=== PATIENT | female | born 1935 | race Caucasian/White ===

== ENCOUNTER 2018-03-13 08:44 | Emergency (ER) | payer MEDICARE, OTHER, SELFPAY ==
[2018-03-13 08:46] VITALS: BP 123/63; PULSE 88; RESP 17; TEMP 36.7; O2SAT 95; BMI 29.5
--- NOTE | 2018-03-13 08:59 | ED.VISSUMM ---
- ER Visit Summary Date of Service: 03/13/18 Chief Complaint: Dizziness, abdominal cramping History of Present Illness: The patient is a 82 F who is otherwise very healthy who only takes baby aspirin daily presents to the emergency department with abdominal cramping, vomiting, dizziness. Patient states that she ate lunch yesterday. She states she had a salad and some Sprite. She states shortly after, she began to get some abdominal cramping in both her left upper and left lower quadrant. She states the pain was severe and got as high as a 7 out of 10. She states that she really had no appetite. The pain started to resolve later in the evening, but then she began to have some vomiting. She states she vomited 3 times overnight. When she woke this morning, her pain was completely resolved. She does admit to some lightheadedness and just generalized malaise today. The patient does have a history of diverticulosis. She denies any fevers or chills. She has had no other abdominal surgery. Physical Examination: Vital signs reviewed General: Well-nourished, well-developed Head: Normocephalic, atraumatic Eyes: Pupils equal and reactive, extraocular muscles intact Neck, supple, no lymphadenopathy Heart: Regular rate and rhythm Respiratory: No distress, clear bilaterally Abdomen: Soft, nontender, nondistended, no peritoneal signs Back: Nontender Extremities: Nontender, no edema, no cords Skin: Normal color no rash Neuro: Alert and oriented, no focal or lateralizing deficits Test Results: [] Emergency Department Course and Treatment: This is a very well-appearing female who appears younger than stated age. She has no reproducible abdominal tenderness on examination. IV was established. Screening labs are obtained. The patient was hydrated and given Zofran. Screening labs do show a very mild leukocytosis. There are otherwise unremarkable. With fluids and Zofran, her dizziness has resolved. She continues to have no pain and a benign abdomen. I did discuss options with the patient. She does have a history of diverticulosis. However, she is totally pain-free. The patient is concerned because she is traveling to [place] tomorrow. I am going to prescribe Cipro and Flagyl, but the patient is going to wait to fill them unless she has return of pain fever, chills, other systemic symptoms. I do feel that this is the most prudent plan. This may just have been a short-lived gastrointestinal illness that is now resolved. Either way, as the patient is a benign abdomen and otherwise unremarkable workup with no reproducible pain I do feel that she is safe for outpatient therapy. She is comfortable with this plan of care. Treatment Plan: [] Disposition: Discharge Impression: 1. Left lower quadrant pain-resolved This note was generated with [employer] dictation software. It may contain incorrect words, spelling, and punctuation that were not noted in review of the chart prior to signing ED Disposition - Plan for ED Patient: Chief Complaint: Dizziness Instructions: ED Abdominal Pain Unkn Cause Prescriptions: Metronidazole [Flagyl] 500 mg PO Q12H #14 tab Ciprofloxacin [Cipro] 500 mg PO BID #14 tab Referrals: Chrissy Rojas [Primary Care Provider] -
[2018-03-13] MEDS: 0.9% Normal Saline 1,000 ML 1000 ML IV (09:08)
[2018-03-13] MEDS: Ondansetron 4 MG/2 ML Vial IV (09:08)
[2018-03-13 09:21] LABS: Absolute Lymphocyte Count 0.35 X10^3/ul (0.83-4.51); Absolute Neutrophil Count 11.5 X10^3/uL (2.0-7.7); Basophil# 0.01 X10^3/uL; Basophil% 0.1 % (0-1); Hematocrit 39.7 % (37-47); Hemoglobin 13.2 g/dl (12.0-15.0); Lymphocyte # 0.35 X10^3/ul (4.0); Lymphocyte % 2.8 % (19-41); Mean Corp Hgb Conc 33.2 g/gl (32-36); Mean Corpuscular Hgb 30.8 pg (27.0-32.0); Mean Corpuscular Volume 92.8 fL (81-99); Mean Platelet Vol. 9.8 fl (6.2-12.0); Monocyte% 6.3 % (0-10); Neutrophil % 90.6 % (47-70); Platelet Count 240 K/mm3 (150-450); RBC Distribution Width CV 13.5 % (11.6-14.6); RBC Distribution Width SD 44.8 fl (35.1-43.9); Red Blood Count 4.28 M/mm3 (4.2-5.4); White Blood Count 12.7 K/mm3 (4.4-11.0)
[2018-03-13 09:28] LABS: Differential Indicated SCAN CRITERIA MET; POSITIVE COUNT NO; POSITIVE DIFFERENTIAL YES; POSITIVE MORPHOLOGY NO
[2018-03-13 09:35] LABS: Differential Comment SCANNED
[2018-03-13 09:44] LABS: ALB/GLOB Ratio 0.9 RATIO (0.9-2.4); AST(SGOT) 17 U/L (15-37); Alanine Aminotransfer ALT/SGPT 22 U/L (13-56); Albumin, Serum 3.4 g/dL (3.2-5.0); Alkaline Phosphatase 62 U/L (45-117); Anion Gap 6 (5-15); BUN 15 mg/dL (7-18); BUN/Creat Ratio 14.6 RATIO (10-20); Calcium,Total 8.4 mg/dL (8.5-10.1); Chloride 104 mmol/L (98-107); Creatinine, Serum 1.03 mg/dL (0.55-1.02); EST Glomerular Filtration Rate 55 mL/min (>60); Est Glom Filt Rate - Afr Amer 66 mL/min (>60); Estimated Creatinine Clearance 43.21 ml/min; Globulin 3.7 g/dL (2.2-4.2); Glucose 138 mg/dL (74-106); Potassium 3.8 mmol/L (3.5-5.1); Protein, Total 7.1 g/dL (6.4-8.2); Sodium Level 137 mmol/L (136-145)
[2018-03-13 10:15] VITALS: BP 129/58; PULSE 73; RESP 18; O2SAT 94
== END 2018-03-13 10:22 | disposition home or self-care (01) ==
PROVIDERS: Emergency Provider Emergency Medicine; Family Provider Nurse Practitioner; PCP Nurse Practitioner
DX: R10.32 Left lower quadrant pain (principal); R11.2 Nausea with vomiting, unspecified; Z72.0 Tobacco use
CPT/HCPCS: 80053; 85025; 99284; A4216; J2405

== ENCOUNTER 2018-04-06 17:26 | Inpatient (IN) | payer MEDICARE, OTHER, SELFPAY ==
[2018-04-06 17:28] VITALS: BP 144/67; PULSE 101; RESP 18; TEMP 38.3; O2SAT 94; BMI 24.3
[2018-04-06 18:42] LABS: Absolute Neutrophil Count 10.4 X10^3/uL (2.0-7.7); Basophil# 0.01 X10^3/uL; Basophil% 0.1 % (0-1); Eosinophil# 0.09 X10^3/uL; Eosinophils% 0.8 % (0-5); Hematocrit 39.3 % (37-47); Hemoglobin 12.7 g/dl (12.0-15.0); Lymphocyte % 3.4 % (19-41); Mean Corp Hgb Conc 32.3 g/gl (32-36); Mean Corpuscular Hgb 29.3 pg (27.0-32.0); Mean Corpuscular Volume 90.8 fL (81-99); Mean Platelet Vol. 9.3 fl (6.2-12.0); Monocyte# 0.75 X10^3/uL; Monocyte% 6.4 % (0-10); Neutrophil # 10.42 X10^3/uL (2.7-7.7); Neutrophil % 89.2 % (47-70); Platelet Count 246 K/mm3 (150-450); RBC Distribution Width CV 13.3 % (11.6-14.6); Red Blood Count 4.33 M/mm3 (4.2-5.4); White Blood Count 11.7 K/mm3 (4.4-11.0)
--- NOTE | 2018-04-06 18:43 | CT_ITS ---
STUDY: CT ABDOMEN AND PELVIS WITH CONTRAST - REASON FOR EXAM: Female, 82 years old. Left abdominal pain RADIATION DOSAGE (If Supplied By Facility): CTDIvol = ( 17.24 ) mGy, DLP = ( 1611.74 ) mGycm TECHNIQUE: Transaxial images were obtained from the dome of the diaphragm to the symphysis pubis without oral contrast. 100ML ml of Isovue 300 contrast was administered. Multiplanar coronal and sagittal images were reformatted. CT venogram protocol utilized, with delayed images performed during venous phase. Individualized Dose Optimization Techniques Were Used For This CT. COMPARISON: None. FINDINGS: The visualized lung bases are unremarkable. The visualized portions of the heart are within normal limits. Normal liver. Normal gallbladder. There is mild prominence of the extrahepatic biliary system. Normal spleen. Normal pancreas. Normal bilateral adrenal glands. Normal right kidney. Hydronephrosis is noted of the left kidney with delayed contrast excretion. Limited visualization of the left ureter. A 7 mm calcification is noted within an left pelvic area. A left ureteral stone cannot be excluded.. Normal visualized stomach. Normal small intestine. Diverticulosis of the colon. The appendix is not visualized. Calcified abdominal aorta. No retroperitoneal adenopathy. IVC is patent. Normal urinary bladder. Normal uterus. Small fatty umbilical hernia of the abdominal wall. Degenerative vertebral changes. Scoliosis. CT/Abdomen/Pelvis W IV Cont ONLY IMPRESSION: Left hydronephrosis with delayed contrast excretion. Questionable left ureteral stone at the pelvic level. Further evaluation is needed. Small fatty umbilical hernia. Colonic diverticulosis. Mildly prominent common bile duct. Electronically Signed: Isaias Jones DO at 20:02 EDT Tel [phone], Service support ,
--- NOTE | 2018-04-06 18:45 | ED.VISSUMM ---
- ER Visit Summary Date of Service: 04/06/18 Chief Complaint: Abdominal pain History of Present Illness: The patient is a 82 F with left lower quadrant abdominal pain starting today. Several weeks ago, she had a bout of diverticulitis and was treated with Cipro and Flagyl. She seemed to be doing better. Today she has fever, chills, nausea, vomiting, and left lower quadrant pain. No surgical history. Physical Examination: Temp 100.9. Heart rate 101. Blood pressure 144/67. Patient alert and oriented. No acute distress. Heart regular. Lungs clear. Abdomen tender in the left lower quadrant. No guarding or rebound. Skin appears normal in color. She does have trace lower extremity peripheral edema which is symmetric. Test Results: Laboratory studies, lactate, cultures, and CT pending. Emergency Department Course and Treatment: Patient declined pain medicine. She was treated with fluids and Tylenol. Nursing did order a test by mistake as it was a protocol test. I called the lab to cancel this. White count 11.7. Glucose 115, BUN 19, creatinine 1.31. Hepatic and lipase unremarkable. Urinalysis showed signs of a UTI. She was started on Rocephin and a culture is pending. Lactate 1.5. CT showed incidental findings including a fat-containing umbilical hernia, diverticulosis without diverticulitis, and a prominent common bile duct. She also has a possible left ureteral stone at the level of the pelvis with hydronephrosis. I reviewed the CT with Dr. Stuart. Patient will be treated at this time as though she has a stone. N.p.o. tonight. Likely scope tomorrow. I called the hospitalist, Dr. Whalen for admission. Treatment Plan: As above Disposition: Admission Impression: 1. Left ureter stone 2. UTI This note was generated with [employer] software. It may contain incorrect words, spelling, and punctuation that were not noted in review of the chart prior to signing ED Disposition - Plan for ED Patient: Chief Complaint: Abd Pain Referrals: Chrissy Rojas [Primary Care Provider] -
[2018-04-06 18:49] LABS: Anion Gap 8 (5-15); BUN 19 mg/dL (7-18); BUN/Creat Ratio 14.5 RATIO (10-20); Calcium,Total 8.8 mg/dL (8.5-10.1); Chloride 104 mmol/L (98-107); Creatinine, Serum 1.31 mg/dL (0.55-1.02); EST Glomerular Filtration Rate 41 mL/min (>60); Est Glom Filt Rate - Afr Amer 50 mL/min (>60); Estimated Creatinine Clearance 33.98 ml/min; Glucose 115 mg/dL (74-106); Potassium 3.8 mmol/L (3.5-5.1); Sodium Level 139 mmol/L (136-145)
[2018-04-06 18:57] LABS: Differential Indicated SCAN CRITERIA MET; POSITIVE COUNT NO; POSITIVE DIFFERENTIAL YES; POSITIVE MORPHOLOGY NO
[2018-04-06] MEDS: Acetaminophen 325 MG Tablet 650 MG PO (19:02)
[2018-04-06] MEDS: 0.9% Normal Saline 1,000 ML 125 ML IV (19:11)
[2018-04-06 19:15] LABS: Differential Comment SCANNED
[2018-04-06 19:33] LABS: AST(SGOT) 22 U/L (15-37); Alanine Aminotransfer ALT/SGPT 25 U/L (13-56); Albumin, Serum 3.5 g/dL (3.2-5.0); Alkaline Phosphatase 74 U/L (45-117); Bilirubin, Direct 0.08 mg/dL (0.00-0.30); Globulin 4.1 g/dL (2.2-4.2); Lipase 122 U/L (73-393); Protein, Total 7.6 g/dL (6.4-8.2)
[2018-04-06 19:35] LABS: Lactic Acid 1.5 mmol/L (0.4-2.0)
[2018-04-06 20:10] VITALS: BP 130/69; PULSE 87; RESP 16; O2SAT 93
[2018-04-06 20:21] LABS: Mucous, Urine 0 SEEN /hpf (<or=2+)
[2018-04-06 20:25] LABS: Color, Urine Yellow (Yellow); Glucose, Dipstick Normal (Normal); Ketone-Dipstick 5 mg/dl (Negative); Leukocyte Esterase-Dipstick 500 /ul (Negative); Nitrite-Dipstick Positive (Negative); Occult Blood-Urine 10 /ul (Negative); Protein-Dipstick 15 mg/dl (Negative); Urine Bilirubin Dipstick Negative (Negative); Urine Clarity Sl. Cloudy (Clear); Urine Urobilinogen Normal (Normal)
[2018-04-06 20:34] LABS: Bacteria RARE /hpf (None Seen); Red Blood Cells-Urine 0-5 SEEN /hpf (0-5); Squamous Epithelial Cells - UA 0-5 SEEN /hpf (5-10); White Blood Cells 50-100 SEEN /hpf (0-5)
[2018-04-06] MEDS: Ceftriaxone 1 GM/50 ML BAG IV (21:30)
--- NOTE | 2018-04-06 21:30 | PCM.HP.STD ---
Problem List (1) UTI (urinary tract infection) Status: Acute (2) Nephrolithiasis Status: Acute History of Present Illness Date of Admission: 04/06/18 Chief Complaint: abdominal pain The patient is a 82 year old F who has been dealing with some left-sided abdominal pain for the past few weeks. Patient was treated for diverticulitis empirically with antibiotics patient did feel better. While in the antibiotics, patient did develop some diarrhea. Was doing okay until today started having left flank and back pain presented to the emergency room. Emergency room patient had a CAT scan that showed left hydronephrosis and questionable left ureteral stone at the pelvic level. Urology was contacted through the emergency room and recommended medical admission and would anticipate cystoscopy on the . Patient additionally found to have a urinary tract infection and is to receive Rocephin. She has had fever and did have some vomiting when this occurred today. 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 Denies: Anorexia Eyes: Denies: Blurred vision, Double vision HEENT: Denies: Head Aches, Sinus Congestion, Sinus Drainage Cardiovascular: Denies: Chest Pain, Palpitations Respiratory: Denies: Cough, Shortness of breath at rest, Sputum production Gastrointestinal: Reports: Abdominal Pain, Nausea, Vomiting Genitourinary: Denies: Dysuria, Hematuria Musculoskeletal: Denies: Joint Pain, Joint Tenderness Skin: Denies: Dryness Neurological: Denies: Numbness, Tingling, Focal weakness Psychiatric: Denies: Anxiety, Depression Endocrine: Denies: Change in Body Habitus, Heat/ Cold Intolerance Hematologic/ Lymphatic: Denies: Easy Bruising, Easy Bleeding, Hx of blood clot VTE Information - Inpt Only VTE Present on Admission: No VTE Pharm Prophylaxis ordered?: Yes Patient Problems: Active and Suspected Problems UTI (urinary tract infection) (Acute) Nephrolithiasis (Acute) - Physical Exam General: Alert, Cooperative, No apparent distress, - - Appears younger than stated age HEENT: Atraumatic, Normocephalic Neck: No Nodes, Thyroid Normal Size and Texture Lungs: Clear to auscultation, Normal air movement, No rhonchi, No wheeze Cardiovascular: Regular rate, Regular Rhythm, Normal S1, Normal S2, No murmurs Abdomen: Bowel Sounds Present, Soft, Non Tender, Non-Distended, No Hepato-splenomegaly Extremities: No edema, No Calf Tenderness Skin: No rashes, No breakdown Musculoskeletal: No Tenderness to Palpation of Joints or Extremities, No Muscle Wasting Neurological: Neuro grossly intact, Muscle tone normal, Coordination normal Psych/Mental Status: Normal Affect, Appropriate Vital Signs Temp Pulse Resp BP Pulse Ox 38.3 C H 87 16 130/69 H 93 04/06/18 17:28 04/06/18 20:10 04/06/18 20:10 04/06/18 20:10 04/06/18 20:10 Oxygen Delivery Method Room Air Weight: 72.575 kg Body Mass Index (BMI) 24.3 Laboratory Tests Past 24 Hrs 04/06/18 04/06/18 04/06/18 18:25 18:25 18:25 WBC 11.7 H RBC 4.33 Hgb 12.7 Hct 39.3 MCV 90.8 MCH 29.3 MCHC 32.3 RDW 13.3 RDW Differential 44.0 H Plt Count 246 MPV 9.3 Immature Gran % (Auto) 0.100 Neut % (Auto) 89.2 H Lymph % (Auto) 3.4 L [place] % (Auto) 6.4 Eos % (Auto) 0.8 Baso % (Auto) 0.1 Absolute Neuts (auto) 10.4 H Absolute Lymphs (auto) 0.40 L Total Counted Not Reportable Differential Comment SCANNED Sodium 139 Potassium 3.8 Chloride 104 Carbon Dioxide 27.0 Anion Gap 8 BUN 19 H Creatinine 1.31 H Estim Creat Clear Calc 33.98 Est GFR (MDRD) Af Amer 50 L Est GFR (MDRD) Non-Af 41 L BUN/Creatinine Ratio 14.5 Glucose 115 H Lactic Acid Calcium 8.8 Total Bilirubin Direct Bilirubin AST ALT Alkaline Phosphatase Total Protein Albumin Globulin Lipase Serum , Qual Cancelled Urine Color Urine Clarity Urine pH Ur Specific [place] Urine Protein Urine Glucose (UA) Urine Ketones Urine Occult Blood Urine Nitrite Urine Bilirubin Urine Urobilinogen Ur Leukocyte Esterase Urine RBC Urine WBC Ur Squamous Epith Cells Urine Bacteria Urine Mucus 04/06/18 04/06/18 04/06/18 18:25 19:00 20:12 WBC RBC Hgb Hct MCV MCH MCHC RDW RDW Differential Plt Count MPV Immature Gran % (Auto) Neut % (Auto) Lymph % (Auto) [place] % (Auto) Eos % (Auto) Baso % (Auto) Absolute Neuts (auto) Absolute Lymphs (auto) Total Counted Differential Comment Sodium Potassium Chloride Carbon Dioxide Anion Gap BUN Creatinine Estim Creat Clear Calc Est GFR (MDRD) Af Amer Est GFR (MDRD) Non-Af BUN/Creatinine Ratio Glucose Lactic Acid 1.5 Calcium Total Bilirubin 0.30 Direct Bilirubin 0.08 AST 22 ALT 25 Alkaline Phosphatase 74 Total Protein 7.6 Albumin 3.5 Globulin 4.1 Lipase 122 Serum , Qual Urine Color Yellow Urine Clarity Sl. Cloudy Urine pH 7.0 Ur Specific [place] 1.010 Urine Protein 15 H Urine Glucose (UA) Normal Urine Ketones 5 H Urine Occult Blood 10 H Urine Nitrite Positive H Urine Bilirubin Negative Urine Urobilinogen Normal Ur Leukocyte Esterase 500 H Urine RBC 0-5 SEEN Urine WBC 50-100 SEEN Ur Squamous Epith Cells 0-5 SEEN Urine Bacteria RARE Urine Mucus 0 SEEN Clinical Impression(s) from Imaging Studies Abdomen/Pelvis CT 04/06/18 18:43 IMPRESSION: Left hydronephrosis with delayed contrast excretion. Questionable left ureteral stone at the pelvic level. Further evaluation is needed. Small fatty umbilical hernia. Colonic diverticulosis. Mildly prominent common bile duct. Electronically Signed: Isaias Jones DO at 20:02 EDT Tel [phone], Service support , Assessment/Plan Active and Suspected Problems UTI (urinary tract infection) (Acute) Nephrolithiasis (Acute) 1. Suspected ureteral stone With the acute pain I feel that that is likely etiology. Patient will be seen by urology and plan is for cystoscopy on the . 2. UTI Unclear if directly related with the stone or not. Patient does not have a history of urinary tract infection so I feel that Rocephin would is an appropriate choice. We did adjust therapy based on the culture results. 3. DVT prophylaxis with Lovenox 4. Advanced care planning: Discussed with the patient in regards to CPR. Patient does not wish to talk about it at this point time. Therefore patient is full code. Code Visit Inpatient E&M: 12800 Init Hosp L3
[2018-04-06 21:36] VITALS: BP 103/57; PULSE 92; RESP 16; O2SAT 94
--- NOTE | 2018-04-06 21:36 | HP.PCM_ITS ---
Problem List (1) UTI (urinary tract infection) Status: Acute (2) Nephrolithiasis Status: Acute History of Present Illness Date of Admission: 04/06/18 Chief Complaint: abdominal pain The patient is a 82 year old F who has been dealing with some left-sided abdominal pain for the past few weeks. Patient was treated for diverticulitis empirically with antibiotics patient did feel better. While in the antibiotics , patient did develop some diarrhea. Was doing okay until today started having left flank and back pain presented to the emergency room. Emergency room patient had a CAT scan that showed left hydronephrosis and questionable left ureteral stone at the pelvic level. Urology was contacted through the emergency room and recommended medical admission and would anticipate cystoscopy on the . Patient additionally found to have a urinary tract infection and is to receive Rocephin. She has had fever and did have some vomiting when this occurred today. 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 Denies: Anorexia Eyes: Denies: Blurred vision, Double vision HEENT: Denies: Head Aches, Sinus Congestion, Sinus Drainage Cardiovascular: Denies: Chest Pain, Palpitations Respiratory: Denies: Cough, Shortness of breath at rest, Sputum production Gastrointestinal: Reports: Abdominal Pain, Nausea, Vomiting Genitourinary: Denies: Dysuria, Hematuria Musculoskeletal: Denies: Joint Pain, Joint Tenderness Skin: Denies: Dryness Neurological: Denies: Numbness, Tingling, Focal weakness Psychiatric: Denies: Anxiety, Depression Endocrine: Denies: Change in Body Habitus, Heat/ Cold Intolerance Hematologic/ Lymphatic: Denies: Easy Bruising, Easy Bleeding, Hx of blood clot VTE Information - Inpt Only VTE Present on Admission: No VTE Pharm Prophylaxis ordered?: Yes Patient Problems: Active and Suspected Problems UTI (urinary tract infection) (Acute) Nephrolithiasis (Acute) - Physical Exam General: Alert, Cooperative, No apparent distress, - - Appears younger than stated age HEENT: Atraumatic, Normocephalic Neck: No Nodes, Thyroid Normal Size and Texture Lungs: Clear to auscultation, Normal air movement, No rhonchi, No wheeze Cardiovascular: Regular rate, Regular Rhythm, Normal S1, Normal S2, No murmurs Abdomen: Bowel Sounds Present, Soft, Non Tender, Non-Distended, No Hepato- splenomegaly Extremities: No edema, No Calf Tenderness Skin: No rashes, No breakdown Musculoskeletal: No Tenderness to Palpation of Joints or Extremities, No Muscle Wasting Neurological: Neuro grossly intact, Muscle tone normal, Coordination normal Psych/Mental Status: Normal Affect, Appropriate Vital Signs Temp Pulse Resp BP Pulse Ox 38.3 C H 87 16 130/69 H 93 04/06/18 17:28 04/06/18 20:10 04/06/18 20:10 04/06/18 20:10 04/06/18 20:10 Oxygen Delivery Method Room Air Weight: 72.575 kg Body Mass Index (BMI) 24.3 Laboratory Tests Past 24 Hrs 04/06/18 04/06/18 04/06/18 18:25 18:25 18:25 WBC 11.7 H RBC 4.33 Hgb 12.7 Hct 39.3 MCV 90.8 MCH 29.3 MCHC 32.3 RDW 13.3 RDW Differential 44.0 H Plt Count 246 MPV 9.3 Immature Gran % (Auto) 0.100 Neut % (Auto) 89.2 H Lymph % (Auto) 3.4 L [place] % (Auto) 6.4 Eos % (Auto) 0.8 Baso % (Auto) 0.1 Absolute Neuts (auto) 10.4 H Absolute Lymphs (auto) 0.40 L Total Counted Not Reportable Differential Comment SCANNED Sodium 139 Potassium 3.8 Chloride 104 Carbon Dioxide 27.0 Anion Gap 8 BUN 19 H Creatinine 1.31 H Estim Creat Clear Calc 33.98 Est GFR (MDRD) Af Amer 50 L Est GFR (MDRD) Non-Af 41 L BUN/Creatinine Ratio 14.5 Glucose 115 H Lactic Acid Calcium 8.8 Total Bilirubin Direct Bilirubin AST ALT Alkaline Phosphatase Total Protein Albumin Globulin Lipase Serum , Qual Cancelled Urine Color Urine Clarity Urine pH Ur Specific [place] Urine Protein Urine Glucose (UA) Urine Ketones Urine Occult Blood Urine Nitrite Urine Bilirubin Urine Urobilinogen Ur Leukocyte Esterase Urine RBC Urine WBC Ur Squamous Epith Cells Urine Bacteria Urine Mucus 04/06/18 04/06/18 04/06/18 18:25 19:00 20:12 WBC RBC Hgb Hct MCV MCH MCHC RDW RDW Differential Plt Count MPV Immature Gran % (Auto) Neut % (Auto) Lymph % (Auto) Yell % (Auto) Eos % (Auto) Baso % (Auto) Absolute Neuts (auto) Absolute Lymphs (auto) Total Counted Differential Comment Sodium Potassium Chloride Carbon Dioxide Anion Gap BUN Creatinine Estim Creat Clear Calc Est GFR (MDRD) Af Amer Est GFR (MDRD) Non-Af BUN/Creatinine Ratio Glucose Lactic Acid 1.5 Calcium Total Bilirubin 0.30 Direct Bilirubin 0.08 AST 22 ALT 25 Alkaline Phosphatase 74 Total Protein 7.6 Albumin 3.5 Globulin 4.1 Lipase 122 Serum , Qual Urine Color Yellow Urine Clarity Sl. Cloudy Urine pH 7.0 Ur Specific [place] 1.010 Urine Protein 15 H Urine Glucose (UA) Normal Urine Ketones 5 H Urine Occult Blood 10 H Urine Nitrite Positive H Urine Bilirubin Negative Urine Urobilinogen Normal Ur Leukocyte Esterase 500 H Urine RBC 0-5 SEEN Urine WBC 50-100 SEEN Ur Squamous Epith Cells 0-5 SEEN Urine Bacteria RARE Urine Mucus 0 SEEN Clinical Impression(s) from Imaging Studies Abdomen/Pelvis CT 04/06/18 18:43 IMPRESSION: Left hydronephrosis with delayed contrast excretion. Questionable left ureteral stone at the pelvic level. Further evaluation is needed. Small fatty umbilical hernia. Colonic diverticulosis. Mildly prominent common bile duct. Electronically Signed: Isaias Jones DO at 20:02 EDT Tel [phone], Service support , Assessment/Plan Active and Suspected Problems UTI (urinary tract infection) (Acute) Nephrolithiasis (Acute) 1. Suspected ureteral stone * With the acute pain I feel that that is likely etiology. * Patient will be seen by urology and plan is for cystoscopy on the . 2. UTI * Unclear if directly related with the stone or not. * Patient does not have a history of urinary tract infection so I feel that Rocephin would is an appropriate choice. We did adjust therapy based on the culture results. 3. DVT prophylaxis with Lovenox 4. Advanced care planning: Discussed with the patient in regards to CPR. Patient does not wish to talk about it at this point time. Therefore patient is full code. Code Visit Inpatient E&M: 72409 Init Hosp L3
[2018-04-06 22:00] VITALS: BP 117/61; PULSE 84; RESP 20; TEMP 37; O2SAT 92; BMI 29.2
[2018-04-06 22:14] VITALS: BMI 29.3
[2018-04-06] MEDS: Piperacil/Tazobactam 3.375 GM/50 ML ML IV (22:29)
[2018-04-06] MEDS: 0.9% Normal Saline 1,000 ML 100 ML IV (22:30)
[2018-04-07] VITALS (13 sets, daily range): BP systolic 92–117; BP diastolic 50–79; PULSE 66–92; RESP 14–18; TEMP 36.4–37.7; O2SAT 92–100; BMI 29.2; BMI 29.3
[2018-04-07] MEDS: Acetaminophen 325 MG Tablet 650 MG PO ×2 (00:30→15:21)
[2018-04-07] MEDS: Morphine 4 MG/ML Syringe IV (04:18)
[2018-04-07] MEDS: Ondansetron 4 MG/2 ML Vial IV ×2 (04:19→15:32)
[2018-04-07 06:04] LABS: Absolute Lymphocyte Count 0.62 X10^3/ul (0.83-4.51); Absolute Neutrophil Count 13.1 X10^3/uL (2.0-7.7); Basophil# 0.01 X10^3/uL; Basophil% 0.1 % (0-1); Hematocrit 34.2 % (37-47); Hemoglobin 11.3 g/dl (12.0-15.0); Lymphocyte # 0.62 X10^3/ul (4.0); Lymphocyte % 4.3 % (19-41); Mean Corpuscular Hgb 30.1 pg (27.0-32.0); Mean Platelet Vol. 9.4 fl (6.2-12.0); Monocyte# 0.56 X10^3/uL; Monocyte% 3.9 % (0-10); Neutrophil # 13.05 X10^3/uL (2.7-7.7); Neutrophil % 91.5 % (47-70); Platelet Count 228 K/mm3 (150-450); RBC Distribution Width CV 13.8 % (11.6-14.6); RBC Distribution Width SD 45.7 fl (35.1-43.9); Red Blood Count 3.76 M/mm3 (4.2-5.4); White Blood Count 14.3 K/mm3 (4.4-11.0)
[2018-04-07 06:19] LABS: POSITIVE COUNT NO; POSITIVE DIFFERENTIAL NO; POSITIVE MORPHOLOGY NO
[2018-04-07 06:26] LABS: Anion Gap 8 (5-15); BUN 18 mg/dL (7-18); Calcium,Total 7.9 mg/dL (8.5-10.1); Chloride 105 mmol/L (98-107); Creatinine, Serum 1.38 mg/dL (0.55-1.02); EST Glomerular Filtration Rate 39 mL/min (>60); Est Glom Filt Rate - Afr Amer 47 mL/min (>60); Estimated Creatinine Clearance 32.25 ml/min; Glucose 136 mg/dL (74-106); Potassium 3.7 mmol/L (3.5-5.1); Sodium Level 138 mmol/L (136-145)
[2018-04-07] MEDS: Ceftriaxone 1 GM/50 ML BAG IV (08:27)
--- NOTE | 2018-04-07 09:22 | CON.PCM_ITS ---
Reason for Consult Date of Consultation: 04/07/18 Reason for Consultation: left ureteral calculi with obstruction History of Present Illness: The patient is a 82 year old Female admitted for left ureteral calculi ct scan show a large stone in distal ureter, causing obstruction. 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 Denies: Nausea, Vomiting Genitourinary: Denies: Dysuria Musculoskeletal: Denies: Joint Pain, Joint Tenderness Skin: Denies: Rash, Wounds Neurological: Denies: Numbness, Tingling, Focal weakness Psychiatric: Denies: Anxiety, Depression, Homicidal Ideations, Suicidal Ideations Hematologic/ Lymphatic: Denies: Easy Bruising, Easy Bleeding Physical Exam - Physical Exam Vital Signs Temp 98.4 F 04/07/18 08:36 Pulse 69 04/07/18 08:36 Resp 18 04/07/18 08:36 BP 96/53 L 04/07/18 08:36 Pulse Ox 96 04/07/18 08:36 Intake & Output 04/05/18 04/06/18 04/07/18 23:59 23:59 23:59 Intake Total 183 / 183 634 / 634 Output Total 150 / 150 175 / 175 Balance 459 / 459 Weight: 87.317 kg Intake: IV fluid/meds 183 / 183 634 / 634 Output: Urine 150 / 150 175 / 175 General: Alert, Oriented x3 HEENT: Atraumatic Oral: Moist Mucosa Neck: Supple Lungs: Clear to auscultation Cardiovascular: Regular rate Abdomen: Bowel Sounds Present, Soft, Obese Rectal: Exam deferred Skin: No rashes Neurological: Cranial nerves II-XII grossly intact Psych/Mental Status: Normal Affect, Appropriate Laboratory Tests Past 24 Hrs 04/07/18 04/07/18 05:45 05:45 WBC 14.3 H RBC 3.76 L Hgb 11.3 L Hct 34.2 L MCV 91.0 MCH 30.1 MCHC 33.0 RDW 13.8 RDW Differential 45.7 H Plt Count 228 MPV 9.4 Immature Gran % (Auto) 0.200 Neut % (Auto) 91.5 H Lymph % (Auto) 4.3 L [place] % (Auto) 3.9 Eos % (Auto) 0.0 Baso % (Auto) 0.1 Absolute Neuts (auto) 13.1 H Absolute Lymphs (auto) 0.62 L Total Counted Not Reportable Sodium 138 Potassium 3.7 Chloride 105 Carbon Dioxide 25.0 Anion Gap 8 BUN 18 Creatinine 1.38 H Estim Creat Clear Calc 32.25 Est GFR (MDRD) Af Amer 47 L Est GFR (MDRD) Non-Af 39 L BUN/Creatinine Ratio 13.0 Glucose 136 H Calcium 7.9 L Assessment/Plan Active and Suspected Problems UTI (urinary tract infection) (Acute) Nephrolithiasis (Acute) plan to take to surgery today for left ureteroscopy laser stone and stent can probably go home after surgery and will make appt next week for her to see me.
[2018-04-07] MEDS: 0.9% Normal Saline 1,000 ML 100 ML IV ×2 (09:26→15:16)
--- NOTE | 2018-04-07 09:31 | NURSING ---
Call placed to AC report given to Bri Law who will be recieving pt, OR staff here at this time to take patient off of the floor for procedure
--- NOTE | 2018-04-07 10:17 | CASEMGMT ---
RN CM attempted to complete caregiver assisted living. Patient not in room and currently in surgery. RN CM will attempt assessment at a later time.
--- NOTE | 2018-04-07 11:21 | PCA ---
pt off floor
--- NOTE | 2018-04-07 11:28 | PCM.DC.URO ---
Discharge Diet: Light diet - advance as tolerated Discharge Activity: Return to Normal Activity, May Shower Call your doctor if you observe: Fever of 101 or Higher Instructions: Treating Kidney Stones: Ureteroscopic Stone Removal Allergies/Adverse Reactions: Allergies No Known Allergies Allergy (Verified 04/06/18 17:30) Medications to take at Discharge Aspirin [Aspirin, Baby] 81 mg PO DAILY 03/13/18 Multivitamins,Therapeutic [Multivitamin] 1 tab PO DAILY 04/06/18 Primary Care Physician: Chrissy Rojas [ALLIED HEALTH PROFESSIONAL] - Please Follow Up With: Phillip Stuart MD When: April 15 at 2:15 pm, to remove stent
--- NOTE | 2018-04-07 12:17 | PCM.OPRPT ---
Report of Operation Date of Procedure: 04/07/18 Pre-Operative Diagnosis: Suspected left ureteral calculi and obstruction Post-Operative Diagnosis: No kidney stone, left UPJ obstruction and left pyelonephritis Surgery/Procedure Performed:: Cystoscopy, balloon dilation of the ureter, retrograde pyelogram, left stent placement, left ureteroscopy. Description of Surgical Findings:: 82-year-old female has been having left-sided abdominal pain for now several weeks has been getting sort of better but still having a lot of pain so she came to emergency, CAT scan was done to demonstrate a possible stone in the ureter but was not definitive. Therefore to take her surgery today for ureteroscopy possible laser of the kidney stone. 82-year-old female taken back to the operating room at the smooth induction of general anesthesia urethra and vaginal area prepped and draped in usual sterile fashion, went into the bladder with a 21 [place] rigid cystourethroscope, she did have a somewhat of a distended bladder normal trigone no tumors or stones, I then identified the left ureteral orifice advanced a wire up to the kidney immediately had return of some foul looking urine, I then balloon dilated the distal ureter with a 12 [place] balloon dilator, left the wire in place next the wire went in with a rigid SlimLine ureteroscope was able to get up to the pelvic brim and saw no stone, I then went back in with a flexible ureteroscope and explore the entire ureter and there was no stone along the course of the ureter did a retrograde pyelogram and immediately could see contrast in the ureter but no contrast going of the kidney consistent with a UPJ obstruction the left side I was able to get a wire into the kidney and then over the wire was able to manipulate the ureteroscope somewhat difficult the into the kidney and there was a lot of debris and debris and infected urine in the left kidney this was sent off for culture I then suctioned out most of this debris inspected the kidney no tumors or stones were seen in the kidney appear to be a flap or a UPJ obstruction in the left junction between the ureter and the pelvis of the left kidney left the wire in place and then over the wire place a stent. Recommendations for now is to treat her with antibiotics Follow-up the cultures make sure she gets a few weeks of antibiotics remove the stent and then see how she does without the stent she may require definitive repair of the UPJ obstruction probably will get a renogram after the stent is removed to evaluate the drainage of the left kidney. She may need repair of the left UPJ obstruction. Type of Anesthesia:: General Drains: stent - Admit VTE Documentation VTE Present on Admission: No VTE Mechan Device Prophylaxis: SCD's VTE Pharm Prophylaxis ordered?: No Reason prophylaxis not ordered:: Treatment Not Indicated
--- NOTE | 2018-04-07 13:09 | PCA ---
pt off floor
[2018-04-07] MEDS: Aspirin 81 MG TAB.CHEW PO (13:36)
--- NOTE | 2018-04-07 16:29 | PCM.PROGNOTE ---
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 Patient's white blood cell count today was elevated, in reviewing the patient's vital signs and labs from yesterday, it appeared that the patient was actually septic on presentation to the hospital. Urine is growing out a gram-negative lactose fermenting scarlet. - Physical Exam General: Alert, Oriented x3, Cooperative, No apparent distress, Well developed, Well nourished HEENT: Atraumatic, PERRLA, EOMI, Normocephalic Oral: Moist Mucosa Neck: Supple, No JVD, Negative Carotid Bruits, No Nuchal Rigidity, Trachea Midline, Thyroid Normal Size and Texture Lungs: Clear to auscultation, Normal air movement, No rhonchi, No wheeze, No rales Cardiovascular: Regular rate, Regular Rhythm, Normal S1, Normal S2, No murmurs, No Ectopic Activity, PMI Normal, No rub noted, No Gallop Abdomen: Bowel Sounds Present, Soft, Non Tender, Non-Distended, No hernias noted Extremities: No clubbing, No cyanosis, No edema, Capillary Refill Less than 3 Seconds Skin: No rashes, No breakdown Musculoskeletal: No Tenderness to Palpation of Joints or Extremities Neurological: Cranial nerves II-XII grossly intact, Neuro grossly intact, Sensory exam intact to light touch and pain, Coordination normal Psych/Mental Status: Normal Affect, Appropriate, Alert and oriented to time, place, person, mood and affect Vital Signs Temp Pulse Resp BP Pulse Ox 98.7 F 81 18 112/79 94 04/07/18 15:17 04/07/18 15:17 04/07/18 15:17 04/07/18 15:17 04/07/18 15:17 Oxygen Flow Rate (L/min) 2 Oxygen Delivery Method Room Air Weight: 87.09 kg Body Mass Index (BMI) 29.2 Intake and Output for Last 24 Hours 04/05/18 04/06/18 04/07/18 23:59 23:59 23:59 Intake Total 183 / 183 2234 / 2234 Output Total 150 / 150 175 / 175 Balance 2058 Laboratory Tests Past 24 Hrs 04/07/18 04/07/18 05:45 05:45 WBC 14.3 H RBC 3.76 L Hgb 11.3 L Hct 34.2 L MCV 91.0 MCH 30.1 MCHC 33.0 RDW 13.8 RDW Differential 45.7 H Plt Count 228 MPV 9.4 Immature Gran % (Auto) 0.200 Neut % (Auto) 91.5 H Lymph % (Auto) 4.3 L [place] % (Auto) 3.9 Eos % (Auto) 0.0 Baso % (Auto) 0.1 Absolute Neuts (auto) 13.1 H Absolute Lymphs (auto) 0.62 L Total Counted Not Reportable Sodium 138 Potassium 3.7 Chloride 105 Carbon Dioxide 25.0 Anion Gap 8 BUN 18 Creatinine 1.38 H Estim Creat Clear Calc 32.25 Est GFR (MDRD) Af Amer 47 L Est GFR (MDRD) Non-Af 39 L BUN/Creatinine Ratio 13.0 Glucose 136 H Calcium 7.9 L Medical Necessity - Tobacco Use Smoking Status: Never smoker Tobacco Use: Non-smoker Assessment/Plan Active and Suspected Problems UTI (urinary tract infection) (Acute) Nephrolithiasis (Acute) #1 acute sepsis secondary to gram-negative bacterial cystitis-most probably secondary to E. 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
[2018-04-08] MEDS: 0.9% Normal Saline 1,000 ML 100 ML IV (01:33)
[2018-04-08 02:53] VITALS: BP 100/53; PULSE 80; RESP 14; TEMP 37.5; O2SAT 95
[2018-04-08 06:10] LABS: Absolute Lymphocyte Count 0.54 X10^3/ul (0.83-4.51); Absolute Neutrophil Count 9.2 X10^3/uL (2.0-7.7); Basophil# 0.02 X10^3/uL; Basophil% 0.2 % (0-1); Eosinophil# 0.12 X10^3/uL; Eosinophils% 1.1 % (0-5); Hemoglobin 10.7 g/dl (12.0-15.0); Lymphocyte # 0.54 X10^3/ul (4.0); Lymphocyte % 5.1 % (19-41); Mean Corp Hgb Conc 32.4 g/gl (32-36); Mean Corpuscular Hgb 29.6 pg (27.0-32.0); Mean Corpuscular Volume 91.4 fL (81-99); Mean Platelet Vol. 9.4 fl (6.2-12.0); Monocyte# 0.59 X10^3/uL; Monocyte% 5.6 % (0-10); Neutrophil # 9.23 X10^3/uL (2.7-7.7); Neutrophil % 87.9 % (47-70); Platelet Count 198 K/mm3 (150-450); RBC Distribution Width CV 14.1 % (11.6-14.6); RBC Distribution Width SD 46.8 fl (35.1-43.9); Red Blood Count 3.61 M/mm3 (4.2-5.4); White Blood Count 10.5 K/mm3 (4.4-11.0)
[2018-04-08 06:12] LABS: Differential Indicated SCAN CRITERIA MET; POSITIVE COUNT NO; POSITIVE DIFFERENTIAL YES; POSITIVE MORPHOLOGY NO
[2018-04-08 06:17] LABS: Anion Gap 7 (5-15); BUN 17 mg/dL (7-18); BUN/Creat Ratio 13.2 RATIO (10-20); Calcium,Total 7.9 mg/dL (8.5-10.1); Chloride 108 mmol/L (98-107); Creatinine, Serum 1.29 mg/dL (0.55-1.02); EST Glomerular Filtration Rate 42 mL/min (>60); Est Glom Filt Rate - Afr Amer 51 mL/min (>60); Glucose 95 mg/dL (74-106); Potassium 3.7 mmol/L (3.5-5.1); Sodium Level 141 mmol/L (136-145)
[2018-04-08 06:47] LABS: Differential Comment SCANNED
[2018-04-08 08:38] VITALS: BP 124/60; PULSE 83; RESP 18; TEMP 37.2; O2SAT 98
--- NOTE | 2018-04-08 08:57 | PCM.DC ---
- Discharge Diagnoses Current Active Problems: Current Active and Chronic Problems UTI (urinary tract infection) (Acute) Nephrolithiasis (Acute) You will use the following diet at home:: No restrictions Your food should be the consistency of: Regular Your liquids should be the consistency of: Regular/Thin Discharge Activity: Return to Normal Activity, May Shower Call your doctor if you observe: Fever of 101 or Higher Instructions: Treating Kidney Stones: Ureteroscopic Stone Removal Allergies/Adverse Reactions: Allergies No Known Allergies Allergy (Verified 04/06/18 17:30) Medications to take at Discharge Aspirin [Aspirin, Baby] 81 mg PO DAILY 03/13/18 Multivitamins,Therapeutic [Multivitamin] 1 tab PO DAILY 04/06/18 Cephalexin [Keflex] 500 mg PO TID #20 cap 04/08/18 The following prescriptions were given: Cephalexin [Keflex] 500 mg PO TID #20 cap Primary Care Physician: Chrissy Rojas [ALLIED HEALTH PROFESSIONAL] - Please follow up with your Primary Care Physician in: in 1-2 weeks- get your BMP rechecked Please Follow Up With: Phillip Stuart MD When: April 15 at 2:15 pm, to remove stent
[2018-04-08] MEDS: Aspirin 81 MG TAB.CHEW PO (09:20)
[2018-04-08] MEDS: Cephalexin 500 MG Capsule PO (09:20)
--- NOTE | 2018-04-08 09:36 | CASEMGMT ---
RN CM Assessment Link. DC Plan Home. -No dc needs identified or voiced by pt. Daughter will pickler helper and assist with care needs. Baljinder MAN RN CM
--- NOTE | 2018-04-08 17:27 | PCM.DC.SUM ---
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 Workup in the emergency room was remarkable for a white count of 11.7, BUN was 19, creatinine was 1.31. Urinalysis indicated a urinary tract infection, CT of the abdomen and pelvis was performed and indicated a possible left ureteral stone at the ureteropelvic junction with hydronephrosis of the left kidney. Patient was admitted to the medical floor, placed on IV antibiotics and fluids, and seen by urology. She was taken to surgery and a stent was placed in the left ureter, no evidence of obstructing stone however was seen. It was felt that the patient probably had a congenital abnormality of the distal left ureter. Patient's urine culture was positive for Klebsiella pneumoniae and her blood culture was positive for gram-negative lactose fermenting scarlet which was also felt to be Klebsiella pneumoniae. Patient was treated with IV Rocephin while in the hospital. On 04/08/18, patient was seen and examined felt to be in stable condition for discharge home Discharge Diet: Light diet - advance as tolerated Discharge Activity: Return to Normal Activity, May Shower Call your doctor if you observe: Fever of 101 or Higher Home Medications: Medications to take at Discharge Aspirin [Aspirin, Baby] 81 mg PO DAILY 03/13/18 Multivitamins,Therapeutic [Multivitamin] 1 tab PO DAILY 04/06/18 Cephalexin [Keflex] 500 mg PO TID #20 cap 04/08/18 Following Prescrptions Were Given to Patient: Cephalexin [Keflex] 500 mg PO TID #20 cap Primary Care Physician: Chrissy Rojas [ALLIED HEALTH PROFESSIONAL] - Please follow up with your Primary Care Physician in: in 1-2 weeks- get your BMP rechecked Please Follow Up With: Phillip Stuart MD When: April 15 at 2:15 pm, to remove stent Patient Instructions: Treating Kidney Stones: Ureteroscopic Stone Removal Disposition: Home Minutes spent on discharge:: 32 Patient Condition:: Stable Medical Necessity - Tobacco Use Smoking Status: Never smoker Tobacco Use: Non-smoker Meaningful Use Info Meaningful Use Diagnoses (Choose all that apply): None applicable Code Visit Inpatient E&M: 29787 Disch Hosp
== END 2018-04-08 09:32 | disposition home or self-care (01) | DRG 872 ==
LOC: ED 18:53 → MS2 21:38
PROVIDERS: Urology; Emergency Provider Emergency Medicine; Family Provider Family Medicine; PCP Family Medicine; Visit Provider Internal Medicine
PROC: 0TJ98ZZ Inspection of Ureter, Via Natural or Artificial Opening Endoscopic (ICD-10-PCS; CPT 52352; principal; 2018-04-07 11:10)
DX: A41.50 Gram-negative sepsis, unspecified (principal); Q62.39 Other obstructive defects of renal pelvis and ureter; N10 Acute pyelonephritis; E86.0 Dehydration; B96.20 Unspecified Escherichia coli [E. coli] as the cause of diseases classified elsewhere; N18.3 Chronic kidney disease, stage 3 (moderate); B96.1 Klebsiella pneumoniae [K. pneumoniae] as the cause of diseases classified elsewhere; Z79.82 Long term (current) use of aspirin; Z87.440 Personal history of urinary (tract) infections
CPT/HCPCS: 36415; 74177; 76000; 80048; 80076; 81001; 83605; 83690; 85025; 87040; 87077; 87086; 87088; 87186; 99285; J7030; Q9967; A4216; C1769; C2617; J2405

== ENCOUNTER → 2018-04-28 11:24 | Outpatient (CLI) | payer MEDICARE, OTHER, SELFPAY ==
--- NOTE | 2018-04-28 11:24 | DT_ITS ---
This patient was seen during an EMR downtime April 26, 2018 - May 03, 2018. This patient may have a combination of paper and electronic documentation or all paper documentation. All documentation is viewable within the e-chart portion of [employer] for each patient visit.
[2018-05-04 17:41] LABS: Anion Gap 7 (5-15); BUN 22 mg/dL (7-18); BUN/Creat Ratio 17.7 RATIO (10-20); Calcium,Total 9.2 mg/dL (8.5-10.1); Chloride 105 mmol/L (98-107); Creatinine, Serum 1.24 mg/dL (0.55-1.02); EST Glomerular Filtration Rate 44 mL/min (>60); Est Glom Filt Rate - Afr Amer 53 mL/min (>60); Glucose 85 mg/dL (74-106); Potassium 4.1 mmol/L (3.5-5.1); Sodium Level 142 mmol/L (136-145)
== END ==
PROVIDERS: Family Provider Family Medicine; PCP Family Medicine; Visit Provider Family Medicine
DX: R94.4 Abnormal results of kidney function studies (principal)
CPT/HCPCS: 36415; 80048

== ENCOUNTER → 2018-05-11 11:35 | Outpatient (CLI) | payer MEDICARE, OTHER, SELFPAY ==
[2018-05-11 14:25] LABS: Anion Gap 9 (5-15); BUN 19 mg/dL (7-18); BUN/Creat Ratio 15.2 RATIO (10-20); Calcium,Total 8.8 mg/dL (8.5-10.1); Chloride 106 mmol/L (98-107); Creatinine, Serum 1.25 mg/dL (0.55-1.02); EST Glomerular Filtration Rate 44 mL/min (>60); Est Glom Filt Rate - Afr Amer 53 mL/min (>60); Glucose 85 mg/dL (74-106); Potassium 4.3 mmol/L (3.5-5.1); Sodium Level 141 mmol/L (136-145)
== END ==
PROVIDERS: Family Provider Family Medicine; PCP Family Medicine; Visit Provider Family Medicine
DX: R94.4 Abnormal results of kidney function studies (principal)
CPT/HCPCS: 36415; 80048

== ENCOUNTER → 2018-06-09 11:25 | Outpatient (CLI) | payer MEDICARE, OTHER, SELFPAY ==
[2018-06-09 14:26] LABS: Absolute Lymphocyte Count 0.85 X10^3/ul (0.83-4.51); Absolute Neutrophil Count 4.1 X10^3/uL (2.0-7.7); Basophil# 0.02 X10^3/uL; Basophil% 0.3 % (0-1); Eosinophil# 0.42 X10^3/uL; Eosinophils% 7.1 % (0-5); Hematocrit 38.8 % (37-47); Hemoglobin 12.5 g/dl (12.0-15.0); Lymphocyte # 0.85 X10^3/ul (4.0); Lymphocyte % 14.3 % (19-41); Mean Corp Hgb Conc 32.2 g/gl (32-36); Mean Corpuscular Hgb 30.2 pg (27.0-32.0); Mean Corpuscular Volume 93.7 fL (81-99); Mean Platelet Vol. 11.3 fl (6.2-12.0); Monocyte# 0.49 X10^3/uL; Monocyte% 8.3 % (0-10); Neutrophil # 4.14 X10^3/uL (2.7-7.7); Neutrophil % 69.8 % (47-70); Platelet Count 286 K/mm3 (150-450); RBC Distribution Width SD 45.8 fl (35.1-43.9); Red Blood Count 4.14 M/mm3 (4.2-5.4); White Blood Count 5.9 K/mm3 (4.4-11.0)
[2018-06-09 14:33] LABS: Protein, Urine (Random) 11.4 mg/dL (<11.9); Protein:Creat Ratio 172 mg/g CRE (0-200)
[2018-06-09 14:35] LABS: POSITIVE COUNT NO; POSITIVE DIFFERENTIAL NO; POSITIVE MORPHOLOGY NO
[2018-06-09 14:43] LABS: Vitamin D,25 Hydroxy 36.2 ng/mL (29.95-100.01)
[2018-06-09 14:51] LABS: AST(SGOT) 22 U/L (15-37); Alanine Aminotransfer ALT/SGPT 25 U/L (13-56); Albumin, Serum 3.7 g/dL (3.2-5.0); Alkaline Phosphatase 63 U/L (45-117); Anion Gap 8 (5-15); BUN 26 mg/dL (7-18); Calcium,Total 8.9 mg/dL (8.5-10.1); Chloride 103 mmol/L (98-107); Cholesterol 218 mg/dL (200); EST Glomerular Filtration Rate 42 mL/min (>60); Est Glom Filt Rate - Afr Amer 51 mL/min (>60); Globulin 3.8 g/dL (2.2-4.2); Glucose 89 mg/dL (74-106); High Density Lipoprotein 67 mg/dL; Phosphorus 3.9 mg/dL (2.5-4.9); Potassium 4.3 mmol/L (3.5-5.1); Protein, Total 7.5 g/dL (6.4-8.2); Sodium Level 137 mmol/L (136-145); Thyroid Stim Hormone (TSH) 1.52 uIU/mL (0.358-3.74); Triglycerides 91 mg/dL; Very Low Density Lipoprotein 18 mg/dL (5-40)
== END ==
PROVIDERS: Family Provider Family Medicine; PCP Family Medicine; Visit Provider Family Medicine
DX: E78.00 Pure hypercholesterolemia, unspecified (principal); M85.80 Other specified disorders of bone density and structure, unspecified site; R94.4 Abnormal results of kidney function studies
CPT/HCPCS: 80048; 80061; 80076; 82306; 82570; 84100; 84156; 84443; 85025

== ENCOUNTER 2018-07-30 21:46 | Inpatient (IN) | payer MEDICARE, OTHER, SELFPAY ==
[2018-07-30 21:47] VITALS: BP 162/90; PULSE 75; RESP 18; TEMP 37.3; O2SAT 98; BMI 27.9
--- NOTE | 2018-07-30 23:01 | ED.VISSUMM ---
- ER Visit Summary Date of Service: 07/30/18 Chief Complaint: Left flank pain History of Present Illness: The patient is a 82 F presenting with left flank pain. States it started around 7 PM this evening. She has pain in her left flank that radiates to the left lower abdomen. She had similar symptoms in March 2018. She was found to have hydronephrosis. She had a stent placed per Dr. Soni. She has been doing well since the stent removal in April. She denies dysuria, hematuria, frequency. She has nausea and vomiting. Denies other complaints. Physical Examination: Vitals are stable. Patient is afebrile. Alert no acute distress. HEENT exam is unremarkable. Lungs are clear and equal bilaterally. Heart is regular rate and rhythm. Abdomen is soft mild left lower quadrant tenderness with no rebound or guarding Back: Left CVA tenderness Extremities are unremarkable. Skin is warm and dry. No rash Remainder of exam is unremarkable. Emergency Department Course and Treatment: Patient is given morphine, Zofran. CT abdomen and pelvis shows severe hydronephrosis with perirenal stranding, nephromegaly, mild distal left hydroureter, increased since previous examination, however no obstructing renal or ureteral calculi detected. This may be seen due to stenosis/stricture, recently passed calculus or inflammatory process. Appearance has increased since previous examination. CBC normal except hemoglobin 11.4. Chemistry glucose 128, BUN 31, creatinine 1.51. Urinalysis shows 25-50 white blood cells, 5-10 red blood cells. Lactic acid is normal. Urine culture sent. She was given Rocephin IV. Currently there is no urology coverage. Patient refuses transfer to another facility despite possibility of needing urologic procedure. Discussed with the hospitalist for admission Disposition: Admission Impression: UTI, hydronephrosis This note was generated with [employer] dictation software. It may contain incorrect words, spelling, and punctuation that were not noted in review of the chart prior to signing ED Disposition - Plan for ED Patient: Chief Complaint: Flank Pain Referrals: Angel Luis Contreras MD [Primary Care Provider] -
[2018-07-30 23:21] LABS: Absolute Lymphocyte Count 0.65 X10^3/ul (0.83-4.51); Absolute Neutrophil Count 8.9 X10^3/uL (2.0-7.7); Basophil# 0.02 X10^3/uL; Basophil% 0.2 % (0-1); Eosinophil# 0.23 X10^3/uL; Eosinophils% 2.2 % (0-5); Hematocrit 35.5 % (37-47); Hemoglobin 11.4 g/dl (12.0-15.0); Lymphocyte # 0.65 X10^3/ul (4.0); Lymphocyte % 6.1 % (19-41); Mean Corp Hgb Conc 32.1 g/gl (32-36); Mean Corpuscular Hgb 29.9 pg (27.0-32.0); Mean Corpuscular Volume 93.2 fL (81-99); Monocyte# 0.86 X10^3/uL; Monocyte% 8.1 % (0-10); Neutrophil # 8.87 X10^3/uL (2.7-7.7); Neutrophil % 83.3 % (47-70); POSITIVE COUNT NO; POSITIVE DIFFERENTIAL NO; POSITIVE MORPHOLOGY NO; Platelet Count 221 K/mm3 (150-450); RBC Distribution Width CV 13.3 % (11.6-14.6); Red Blood Count 3.81 M/mm3 (4.2-5.4); White Blood Count 10.6 K/mm3 (4.4-11.0)
[2018-07-30] MEDS: Ondansetron 4 MG/2 ML Vial IV (23:25)
[2018-07-30] MEDS: Morphine 4 MG/ML Syringe IV (23:25)
[2018-07-30 23:38] LABS: Mucous, Urine 0 SEEN /hpf (<or=2+)
[2018-07-30 23:40] LABS: Color, Urine Yellow (Yellow); Glucose, Dipstick Normal (Normal); Ketone-Dipstick 5 mg/dl (Negative); Leukocyte Esterase-Dipstick 100 /ul (Negative); Nitrite-Dipstick Negative (Negative); Occult Blood-Urine 250 /ul (Negative); Protein-Dipstick 500 mg/dl (Negative); Specific Gravity, Urine 1.015 (1.002-1.030); Urine Bilirubin Dipstick Negative (Negative); Urine Clarity Cloudy (Clear); Urine Urobilinogen Normal (Normal); Urine pH 6.5 (5.0 - 8.0)
[2018-07-30 23:40] LABS: Anion Gap 7 (5-15); BUN 31 mg/dL (7-18); BUN/Creat Ratio 20.5 RATIO (10-20); Calcium,Total 8.7 mg/dL (8.5-10.1); Chloride 105 mmol/L (98-107); Creatinine, Serum 1.51 mg/dL (0.55-1.02); EST Glomerular Filtration Rate 35 mL/min (>60); Est Glom Filt Rate - Afr Amer 42 mL/min (>60); Estimated Creatinine Clearance 29.48 ml/min; Glucose 128 mg/dL (74-106); Potassium 3.8 mmol/L (3.5-5.1); Sodium Level 140 mmol/L (136-145)
[2018-07-31] VITALS (15 sets, daily range): BP systolic 94–119; BP diastolic 40–69; PULSE 68–83; RESP 14–21; TEMP 36.7–39.2; O2SAT 89–99; BMI 28.6
[2018-07-31] LABS: White Blood Cells 25-50 SEEN /hpf (0-5)
[2018-07-31 00:01] LABS: Bacteria 1+ /hpf (None Seen); Red Blood Cells-Urine 5-10 SEEN /hpf (0-5); Squamous Epithelial Cells - UA 0-5 SEEN /hpf (5-10)
--- NOTE | 2018-07-31 02:33 | PCM.HP.STD ---
Problem List (1) Hydronephrosis Status: Acute (2) Nephrolithiasis Status: Acute (3) UTI (urinary tract infection) Status: Acute History of Present Illness Date of Admission: 07/31/18 Chief Complaint: Left magi pain The patient is a 82 year old female w/ h/o hydronephrosis s/p stent placement and removal admitted for severe left hydronephrosis with stranding. Pt developed sudden left severe flank pain around 7-8PM. Pain was constant and dull aching. Pain radiated to the back. Nothing made the pain better or worse. Pain is associated n/v. She has subjective chill. No dysuria, no hematuria. 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 Denies: Fever, Weight Change HEENT: Denies: Head Aches, Sinus Congestion, Sinus Drainage Cardiovascular: Denies: Chest Pain, Palpitations Respiratory: Denies: Cough, Shortness of breath at rest, Sputum production Gastrointestinal: Reports: Nausea, Vomiting, - - Left flank pain. Denies: Abdominal Pain Genitourinary: Denies: Dysuria Musculoskeletal: Denies: Joint Pain, Joint Tenderness Skin: Denies: Rash, Wounds Neurological: Denies: Numbness, Tingling, Focal weakness Psychiatric: Denies: Anxiety, Depression, Homicidal Ideations, Suicidal Ideations Hematologic/ Lymphatic: Denies: Easy Bruising, Easy Bleeding VTE Information - Inpt Only VTE Present on Admission: No VTE Mechan Device Prophylaxis: SCD's VTE Pharm Prophylaxis ordered?: Yes Patient Problems: Active and Suspected Problems Hydronephrosis (Acute) - Physical Exam General: Alert, Oriented x3, Cooperative HEENT: Atraumatic, PERRLA, EOMI, Normocephalic Neck: Supple, No JVD, Negative Carotid Bruits Lungs: Clear to auscultation, Normal air movement Cardiovascular: Regular rate, No murmurs Abdomen: Bowel Sounds Present, Soft, Non Tender Extremities: Capillary Refill Less than 3 Seconds, Edema Skin: No rashes, No breakdown Musculoskeletal: No Tenderness to Palpation of Joints or Extremities Neurological: Cranial nerves II-XII grossly intact Psych/Mental Status: Normal Affect, Appropriate Vital Signs Temp Pulse Resp BP Pulse Ox 99.2 F H 83 21 H 119/69 94 07/30/18 21:47 07/31/18 02:17 07/31/18 02:17 07/31/18 02:17 07/31/18 02:17 Oxygen Delivery Method Room Air Weight: 83.461 kg Body Mass Index (BMI) 27.9 Laboratory Tests Past 24 Hrs 07/30/18 07/30/18 07/30/18 23:12 23:12 23:12 WBC 10.6 RBC 3.81 L Hgb 11.4 L Hct 35.5 L MCV 93.2 MCH 29.9 MCHC 32.1 RDW 13.3 RDW Differential 45.0 H Plt Count 221 MPV 10.0 Immature Gran % (Auto) 0.100 Neut % (Auto) 83.3 H Lymph % (Auto) 6.1 L [place] % (Auto) 8.1 Eos % (Auto) 2.2 Baso % (Auto) 0.2 Absolute Neuts (auto) 8.9 H Absolute Lymphs (auto) 0.65 L Total Counted Not Reportable Sodium 140 Potassium 3.8 Chloride 105 Carbon Dioxide 28.0 Anion Gap 7 BUN 31 H Creatinine 1.51 H Estim Creat Clear Calc 29.48 Est GFR (MDRD) Af Amer 42 L Est GFR (MDRD) Non-Af 35 L BUN/Creatinine Ratio 20.5 H Glucose 128 H Lactic Acid 1.0 Calcium 8.7 Urine Color Urine Clarity Urine pH Ur Specific [place] Urine Protein Urine Glucose (UA) Urine Ketones Urine Occult Blood Urine Nitrite Urine Bilirubin Urine Urobilinogen Ur Leukocyte Esterase Urine RBC Urine WBC Ur Squamous Epith Cells Urine Bacteria Urine Mucus 07/30/18 23:32 WBC RBC Hgb Hct MCV MCH MCHC RDW RDW Differential Plt Count MPV Immature Gran % (Auto) Neut % (Auto) Lymph % (Auto) [place] % (Auto) Eos % (Auto) Baso % (Auto) Absolute Neuts (auto) Absolute Lymphs (auto) Total Counted Sodium Potassium Chloride Carbon Dioxide Anion Gap BUN Creatinine Estim Creat Clear Calc Est GFR (MDRD) Af Amer Est GFR (MDRD) Non-Af BUN/Creatinine Ratio Glucose Lactic Acid Calcium Urine Color Yellow Urine Clarity Cloudy Urine pH 6.5 Ur Specific [employer] [place] 1.015 Urine Protein 500 H Urine Glucose (UA) Normal Urine Ketones 5 H Urine Occult Blood 250 H Urine Nitrite Negative Urine Bilirubin Negative Urine Urobilinogen Normal Ur Leukocyte Esterase 100 H Urine RBC 5-10 SEEN Urine WBC 25-50 SEEN Ur Squamous Epith Cells 0-5 SEEN Urine Bacteria 1+ Urine Mucus 0 SEEN Assessment/Plan All Active Problems UTI (urinary tract infection) (Acute) Nephrolithiasis (Acute) Hydronephrosis (Acute) 82 year old female w/ h/o hydronephrosis s/p stent placement and removal admitted for severe left hydronephrosis with stranding. 1) Pyelonephritis: Pt has systemic symptoms. CT disclosed severe hydronephrosis with perirenal stranding, nephromegaly, mild distal left hydroureter, increased since previous examination, however no obstructing renal or ureteral calculi detected. This may be seen due to stenosis/stricture, recently passed calculus or inflammatory process. Appearance has increased since previous examination. Will start ceftriaxone and tobramycin. Cultures pending. 2) Severe left hydronephrosis: Will place taylor. Consulted urology. Pt refused to be transferred to another hospital. No urology service noted tonight. C/w hydration and antibiotic. 3) RICK: Probably secondary to hydronephrosis and possible azotemia. UA consistent with UTI. Hydration. Supportive care. 4) Prophylaxis: SCD / lovenox.
[2018-07-31] MEDS: Ceftriaxone 1 GM/50 ML BAG IV ×2 (02:36→21:24)
[2018-07-31] MEDS: 0.9% Normal Saline 1,000 ML 100 ML IV ×2 (03:51→14:10)
--- NOTE | 2018-07-31 06:24 | NURSING ---
There was a consult for yu urology from DR. WREN. I called the [employer] operator and spoke to mariah and she said there was nobody clinical practitioner until Thursday.
[2018-07-31] MEDS: Heparin Injection (Vial) 5,000 UNIT/ML VIAL 5000 UNIT SC ×3 (06:52→21:24)
[2018-07-31 07:32] LABS: Anion Gap 8 (5-15); BUN 24 mg/dL (7-18); Chloride 106 mmol/L (98-107); Creatinine, Serum 1.33 mg/dL (0.55-1.02); EST Glomerular Filtration Rate 41 mL/min (>60); Est Glom Filt Rate - Afr Amer 49 mL/min (>60); Estimated Creatinine Clearance 33.46 ml/min; Glucose 142 mg/dL (74-106); Sodium Level 138 mmol/L (136-145)
[2018-07-31 07:37] LABS: Absolute Lymphocyte Count 0.38 X10^3/ul (0.83-4.51); Absolute Neutrophil Count 13.5 X10^3/uL (2.0-7.7); Basophil# 0.02 X10^3/uL; Basophil% 0.1 % (0-1); Eosinophil# 0.01 X10^3/uL; Eosinophils% 0.1 % (0-5); Hematocrit 34.2 % (37-47); Lymphocyte # 0.38 X10^3/ul (4.0); Lymphocyte % 2.5 % (19-41); Mean Corp Hgb Conc 32.2 g/gl (32-36); Mean Corpuscular Hgb 29.9 pg (27.0-32.0); Mean Corpuscular Volume 92.9 fL (81-99); Mean Platelet Vol. 10.2 fl (6.2-12.0); Monocyte# 1.17 X10^3/uL; Monocyte% 7.8 % (0-10); Neutrophil # 13.47 X10^3/uL (2.7-7.7); Neutrophil % 89.5 % (47-70); Platelet Count 228 K/mm3 (150-450); RBC Distribution Width CV 13.4 % (11.6-14.6); RBC Distribution Width SD 45.1 fl (35.1-43.9); Red Blood Count 3.68 M/mm3 (4.2-5.4); White Blood Count 15.1 K/mm3 (4.4-11.0)
[2018-07-31 07:38] LABS: Differential Indicated SCAN CRITERIA MET; POSITIVE COUNT NO; POSITIVE DIFFERENTIAL YES; POSITIVE MORPHOLOGY NO
[2018-07-31] MEDS: Multivitamins,Therapeutic Tablet 1 TABLET PO (08:43)
[2018-07-31] MEDS: Aspirin 81 MG TAB.CHEW PO (08:43)
--- NOTE | 2018-07-31 08:57 | CASEMGMT ---
Insurance includes [facility]. Should patient need to transfer, she will be covered at any location with this insurance.
--- NOTE | 2018-07-31 10:30 | PCM.PN.HOSP ---
Patient Problems: Active and Suspected Problems Hydronephrosis (Acute) Subjective: feeling better. Resolved left flank pain. Vitals/I&O's: Vital Signs Temp Pulse Resp BP Pulse Ox 38.7 C H 79 16 108/57 L 93 07/31/18 08:48 07/31/18 09:02 07/31/18 09:00 07/31/18 08:48 07/31/18 09:00 Oxygen Delivery Method Room Air Weight: 85.4 kg Body Mass Index (BMI) 28.6 General: Alert, No apparent distress HEENT: Atraumatic, Normocephalic Oral: Moist Mucosa, No Gingival or Mucosal Lesions/ Ulcerations Neck: No Nodes, Thyroid Normal Size and Texture Lungs: Clear to auscultation, Normal air movement, No rhonchi, No wheeze Cardiovascular: Regular rate, Regular Rhythm, Normal S1, Normal S2 Abdomen: Bowel Sounds Present, Soft, Non Tender, Non-Distended Extremities: No edema, No Calf Tenderness Skin: No rashes, No breakdown Musculoskeletal: No Tenderness to Palpation of Joints or Extremities, No Muscle Wasting Neurological: Sensory exam intact to light touch and pain, - - no clonus Psych/Mental Status: Normal Affect, Appropriate Laboratory Results 07/31/18 06:42: WBC 15.1 H, RBC 3.68 L, Hgb 11.0 L, Hct 34.2 L, MCV 92.9, MCH 29.9, MCHC 32.2, RDW 13.4, RDW Differential 45.1 H, Plt Count 228, MPV 10.2, Immature Gran % (Auto) 0.000, Neut % (Auto) 89.5 H, Lymph % (Auto) 2.5 L, [place] % (Auto) 7.8, Eos % (Auto) 0.1, Baso % (Auto) 0.1, Absolute Neuts (auto) 13.5 H, Absolute Lymphs (auto) 0.38 L, Total Counted Not Reportable 07/31/18 06:42: Sodium 138, Potassium 4.0, Chloride 106, Carbon Dioxide 24.0, Anion Gap 8, BUN 24 H, Creatinine 1.33 H, Estim Creat Clear Calc 33.46, Est GFR (MDRD) Af Amer 49 L, Est GFR (MDRD) Non-Af 41 L, BUN/Creatinine Ratio 18.0, Glucose 142 H, Calcium 8.0 L Current Medications Acetaminophen (Tylenol) 650 mg PO Q6H PRN PRN PRN Reason: Mild Pain (scale 0-3)/T>100.7 Aspirin ([facility]in, Baby) [facility] Last Admin: 07/31/18 08:43 Dose: 81 mg Heparin Sodium (Porcine) (Heparin Na) 5,000 unit SC Q8 [facility] Last Admin: 07/31/18 06:52 Dose: 5,000 unit Ceftriaxone Sodium (Rocephin) 1 gm in 50 mls @ 100 mls/hr IV Q24 [facility] Sodium Chloride () 1,000 mls @ 100 mls/hr IV .Q10H [facility] Last Admin: 07/31/18 03:51 Dose: 100 mls/hr Tobramycin Sulfate 320 mg/ (Dextrose) 58 mls @ 100 mls/hr IV Q24H [facility] Last Admin: 07/31/18 04:45 Dose: 100 mls/hr Morphine Sulfate () 1 - 2 mg IV Q4H PRN PRN PRN Reason: Moderate Pain (pain scale 4-5) Multivitamins (Multivitamin) 1 tablet [facility] Last Admin: 07/31/18 08:43 Dose: 1 tablet Prochlorperazine Edisylate (Compazine Iv) 10 mg IV Q6H PRN PRN PRN Reason: Nausea/Vomiting Sodium Chloride () 5 - 30 ml IV UD PRN PRN Reason: SALINE FLUSH Medical Necessity - Tobacco Use Smoking Status: Never smoker Assessment/Plan All Active Problems UTI (urinary tract infection) (Acute) Nephrolithiasis (Acute) Hydronephrosis (Acute) 1. sepsis present on admission 2/2 UTI/Pyelo supportive mgmt 2. Pyelonephritis CTX 2g IV/d Check US follow up cultures 3. Left hydronephrosis s/p stent and removal this summer apparently, pt has some congenital kink in her ureter and was going have a surgery to correct it. Dr. Stuart unavailable this weekend and possibly longer. Unclear if any coverage next week Pt aware of the dearth of coverage here in ER but declined transfer. Will find out if pt can have coverage next week here or not, if not then out to consider transfer Unclear how much is acute or gradual progression Check US Creatinine better today. 4. DVT proph: SQ heparin Greater than 35 minutes, of which greater than 50% of the time was counselling patient on coverage (lack thereof) at [facility] currently and that transfer to tertiary facility would be advisable. It was states, that a transfer would not necessarily mean she will have any procedure, however. Code Visit Inpatient E&M: 96992 Subs Hosp L3
[2018-07-31] MEDS: Acetaminophen 325 MG Tablet 650 MG PO (14:09)
--- NOTE | 2018-07-31 17:20 | CASEMGMT ---
CM INITIAL ASSESSMENT: Home: Patient states she lives in a one story home, alone. There are three steps into the home, with a railing. HHS/Aides: Denies DME: Denies Home Oxygen: Denies Pharmacy: [facility] [place] Advance Directives: Patient states her daughter, Aniya Amador, is her medical POA. I was unable to locate these in the patient's echart. PCP: Angel Luis Contreras Specialists: Dr. Narciso MARIN Plan: Home CM will continue to follow for safe and effective discharge planning.
[2018-08-01] VITALS (7 sets, daily range): BP systolic 115–136; BP diastolic 54–72; PULSE 70–102; RESP 14–18; TEMP 37.2–38.2; O2SAT 90–96
[2018-08-01] MEDS: 0.9% Normal Saline 1,000 ML 100 ML IV ×2 (01:49→14:35)
[2018-08-01] MEDS: Heparin Injection (Vial) 5,000 UNIT/ML VIAL 5000 UNIT SC ×3 (06:20→20:51)
[2018-08-01 06:46] LABS: Anion Gap 9 (5-15); BUN 17 mg/dL (7-18); BUN/Creat Ratio 13.9 RATIO (10-20); Chloride 107 mmol/L (98-107); Creatinine, Serum 1.22 mg/dL (0.55-1.02); EST Glomerular Filtration Rate 45 mL/min (>60); Est Glom Filt Rate - Afr Amer 54 mL/min (>60); Estimated Creatinine Clearance 36.48 ml/min; Glucose 104 mg/dL (74-106); Sodium Level 141 mmol/L (136-145)
[2018-08-01 06:58] LABS: Absolute Lymphocyte Count 0.44 X10^3/ul (0.83-4.51); Absolute Neutrophil Count 8.1 X10^3/uL (2.0-7.7); Basophil# 0.02 X10^3/uL; Basophil% 0.2 % (0-1); Eosinophil# 0.03 X10^3/uL; Eosinophils% 0.3 % (0-5); Hematocrit 32.9 % (37-47); Hemoglobin 10.6 g/dl (12.0-15.0); Lymphocyte # 0.44 X10^3/ul (4.0); Lymphocyte % 4.8 % (19-41); Mean Corp Hgb Conc 32.2 g/gl (32-36); Mean Corpuscular Hgb 30.6 pg (27.0-32.0); Mean Corpuscular Volume 95.1 fL (81-99); Mean Platelet Vol. 10.8 fl (6.2-12.0); Monocyte% 6.5 % (0-10); Neutrophil # 8.12 X10^3/uL (2.7-7.7); Neutrophil % 88.1 % (47-70); Platelet Count 194 K/mm3 (150-450); RBC Distribution Width CV 13.2 % (11.6-14.6); RBC Distribution Width SD 43.8 fl (35.1-43.9); Red Blood Count 3.46 M/mm3 (4.2-5.4); White Blood Count 9.2 K/mm3 (4.4-11.0)
[2018-08-01 06:59] LABS: Differential Indicated SCAN CRITERIA MET; POSITIVE COUNT NO; POSITIVE DIFFERENTIAL YES; POSITIVE MORPHOLOGY NO
[2018-08-01 07:18] LABS: Differential Comment SCANNED
--- NOTE | 2018-08-01 08:37 | PCM.PN.HOSP ---
Patient Problems: Active and Suspected Problems Hydronephrosis (Acute) Subjective: She is now requesting transfer to another facility to be seen by urology. Patient is concerned because she has a trip planned for the end of the month and wants to get her details in order. Patient [place] in the [place] for a Knot in her ureter. Overall feeling better. Still with some left flank pain but overall better. Vitals/I&O's: Vital Signs Temp Pulse Resp BP Pulse Ox 37.3 C 70 18 119/54 L 93 08/01/18 08:24 08/01/18 08:24 08/01/18 08:24 08/01/18 08:24 08/01/18 08:24 Oxygen Flow Rate (L/min) 2 Oxygen Delivery Method Room Air Weight: 85.4 kg Body Mass Index (BMI) 28.6 Intake and Output for Last 24 Hours 07/30/18 07/31/18 08/01/18 23:59 23:59 23:59 Intake Total 834 / 834 1593 / 1593 Output Total 600 / 600 500 / 500 Balance 234 / 234 1093 / 1093 General: Alert, No apparent distress HEENT: Atraumatic, Normocephalic Oral: Moist Mucosa, No Gingival or Mucosal Lesions/ Ulcerations Neck: No Nodes, Thyroid Normal Size and Texture Lungs: Clear to auscultation, Normal air movement, No rhonchi, No wheeze Cardiovascular: Regular rate, Regular Rhythm, Normal S1, Normal S2, No murmurs Abdomen: Bowel Sounds Present, Soft, Non Tender, Non-Distended, No Hepato-splenomegaly, - - Left CVA tenderness Extremities: No edema, No Calf Tenderness Skin: No rashes, No breakdown Musculoskeletal: No Tenderness to Palpation of Joints or Extremities, No Muscle Wasting Neurological: Muscle tone normal, Sensory exam intact to light touch and pain Psych/Mental Status: Normal Affect, Appropriate Laboratory Results 08/01/18 05:45: WBC 9.2, RBC 3.46 L, Hgb 10.6 L, Hct 32.9 L, MCV 95.1, MCH 30.6, MCHC 32.2, RDW 13.2, RDW Differential 43.8, Plt Count 194, MPV 10.8, Immature Gran % (Auto) 0.100, Neut % (Auto) 88.1 H, Lymph % (Auto) 4.8 L, [place] % (Auto) 6.5, Eos % (Auto) 0.3, Baso % (Auto) 0.2, Absolute Neuts (auto) 8.1 H, Absolute Lymphs (auto) 0.44 L, Total Counted Not Reportable, Differential Comment SCANNED 08/01/18 05:45: Sodium 141, Potassium 4.0, Chloride 107, Carbon Dioxide 25.0, Anion Gap 9, BUN 17, Creatinine 1.22 H, Estim Creat Clear Calc 36.48, Est GFR (MDRD) Af Amer 54 L, Est GFR (MDRD) Non-Af 45 L, BUN/Creatinine Ratio 13.9, Glucose 104, Calcium 8.0 L Current Medications Acetaminophen (Tylenol) 650 mg PO Q6H PRN PRN PRN Reason: Mild Pain (scale 0-3)/T>100.7 Last Admin: 07/31/18 14:09 Dose: 650 mg Aspirin (Aspirin, Baby) [facility] Last Admin: 07/31/18 08:43 Dose: 81 mg Heparin Sodium (Porcine) (Heparin Na) 5,000 unit SC Q8 [facility] Last Admin: 08/01/18 06:20 Dose: 5,000 unit Sodium Chloride () 1,000 mls @ 100 mls/hr IV .Q10H [facility] Last Admin: 08/01/18 01:49 Dose: 100 mls/hr Ceftriaxone Sodium 2 gm/ (Sodium Chloride) 50 mls @ 100 mls/hr IV Q24 [facility] Morphine Sulfate () 1 - 2 mg IV Q4H PRN PRN PRN Reason: Moderate Pain (pain scale 4-5) Multivitamins (Multivitamin) 1 tablet [facility] Last Admin: 07/31/18 08:43 Dose: 1 tablet Prochlorperazine Edisylate (Compazine Iv) 10 mg IV Q6H PRN PRN PRN Reason: Nausea/Vomiting Sodium Chloride () 5 - 30 ml IV UD PRN PRN Reason: SALINE FLUSH Medical Necessity - Tobacco Use Smoking Status: Never smoker Assessment/Plan All Active Problems UTI (urinary tract infection) (Acute) Nephrolithiasis (Acute) Hydronephrosis (Acute) 1. sepsis present on admission 2/2 UTI/Pyelo supportive mgmt Improving 2. Pyelonephritis CTX 2g IV/d Check US follow up cultures, urine culture thus far negative. 3. 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 Dr. Stuart unavailable until the and Dr. Barron is not covering his patients at this time. Ultrasound now showing moderate hydronephrosis. The different modality from the CAT scan it is not severe. This shows some debris in the ureter which could have been a passed kidney stone. With the improved hydronephrosis on the ultrasound, improved symptoms overall, improved renal function, this certainly could have been a passed kidney stone. Patient now requesting transfer to facility with a urology coverage. I told the patient would be happy to do so but she would need to understand that she may be declined as she is overall better and there may not be any acute indication for intervention at this time. I have contacted the [facility] Call Center and have provided the information and I waiting on phone call back if the patient has been accepted or not. 4. DVT proph: SQ heparin Code Visit Inpatient E&M: 21342 Subs Hosp L3
--- NOTE | 2018-08-01 08:41 | PN_ITS ---
Patient Problems: Active and Suspected Problems Hydronephrosis (Acute) Subjective: She is now requesting transfer to another facility to be seen by urology. Patient is concerned because she has a trip planned for the end of the month and wants to get her details in order. Patient [place] in the near [place] for a Knot in her ureter. Overall feeling better. Still with some left flank pain but overall better. Vitals/I&O's: Vital Signs Temp Pulse Resp BP Pulse Ox 37.3 C 70 18 119/54 L 93 08/01/18 08:24 08/01/18 08:24 08/01/18 08:24 08/01/18 08:24 08/01/18 08:24 Oxygen Flow Rate (L/min) 2 Oxygen Delivery Method Room Air Weight: 85.4 kg Body Mass Index (BMI) 28.6 Intake and Output for Last 24 Hours 07/30/18 07/31/18 08/01/18 23:59 23:59 23:59 Intake Total 834 / 834 1593 / 1593 Output Total 600 / 600 500 / 500 Balance 234 / 234 1093 / 1093 General: Alert, No apparent distress HEENT: Atraumatic, Normocephalic Oral: Moist Mucosa, No Gingival or Mucosal Lesions/ Ulcerations Neck: No Nodes, Thyroid Normal Size and Texture Lungs: Clear to auscultation, Normal air movement, No rhonchi, No wheeze Cardiovascular: Regular rate, Regular Rhythm, Normal S1, Normal S2, No murmurs Abdomen: Bowel Sounds Present, Soft, Non Tender, Non-Distended, No Hepato- splenomegaly, - - Left CVA tenderness Extremities: No edema, No Calf Tenderness Skin: No rashes, No breakdown Musculoskeletal: No Tenderness to Palpation of Joints or Extremities, No Muscle Wasting Neurological: Muscle tone normal, Sensory exam intact to light touch and pain Psych/Mental Status: Normal Affect, Appropriate Laboratory Results 08/01/18 05:45: WBC 9.2, RBC 3.46 L, Hgb 10.6 L, Hct 32.9 L, MCV 95.1, MCH 30.6 , MCHC 32.2, RDW 13.2, RDW Differential 43.8, Plt Count 194, MPV 10.8, Immature Gran % (Auto) 0.100, Neut % (Auto) 88.1 H, Lymph % (Auto) 4.8 L, [place] % (Auto) 6.5, Eos % (Auto) 0.3, Baso % (Auto) 0.2, Absolute Neuts (auto) 8.1 H, Absolute Lymphs (auto) 0.44 L, Total Counted Not Reportable, Differential Comment SCANNED 08/01/18 05:45: Sodium 141, Potassium 4.0, Chloride 107, Carbon Dioxide 25.0, Anion Gap 9, BUN 17, Creatinine 1.22 H, Estim Creat Clear Calc 36.48, Est GFR ( MDRD) Af Amer 54 L, Est GFR (MDRD) Non-Af 45 L, BUN/Creatinine Ratio 13.9, Glucose 104, Calcium 8.0 L Current Medications Acetaminophen (Tylenol) 650 mg PO Q6H PRN PRN PRN Reason: Mild Pain (scale 0-3)/T>100.7 Last Admin: 07/31/18 14:09 Dose: 650 mg Aspirin ([facility], Baby) [facility] Last Admin: 07/31/18 08:43 Dose: 81 mg Heparin Sodium (Porcine) (Heparin Na) 5,000 unit SC Q8 [facility] Last Admin: 08/01/18 06:20 Dose: 5,000 unit Sodium Chloride () 1,000 mls @ 100 mls/hr IV .Q10H [facility] Last Admin: 08/01/18 01:49 Dose: 100 mls/hr Ceftriaxone Sodium 2 gm/ (Sodium Chloride) 50 mls @ 100 mls/hr IV Q24 [facility] Morphine Sulfate () 1 - 2 mg IV Q4H PRN PRN PRN Reason: Moderate Pain (pain scale 4-5) Multivitamins (Multivitamin) [facility] Last Admin: 07/31/18 08:43 Dose: 1 tablet Prochlorperazine Edisylate (Compazine Iv) 10 mg IV Q6H PRN PRN PRN Reason: Nausea/Vomiting Sodium Chloride () 5 - 30 ml IV UD PRN PRN Reason: SALINE FLUSH Medical Necessity - Tobacco Use Smoking Status: Never smoker Assessment/Plan All Active Problems UTI (urinary tract infection) (Acute) Nephrolithiasis (Acute) Hydronephrosis (Acute) 1. sepsis * present on admission * 2/2 UTI/Pyelo * supportive mgmt * Improving 2. Pyelonephritis * CTX 2g IV/d * Check US * follow up cultures, urine culture thus far negative. 3. 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 * Dr. Stuart unavailable until the and Dr. Barron is not covering his patients at this time. * Ultrasound now showing moderate hydronephrosis. The different modality from the CAT scan it is not severe. This shows some debris in the ureter which could have been a passed kidney stone. With the improved hydronephrosis on the ultrasound, improved symptoms overall, improved renal function, this certainly could have been a passed kidney stone. * Patient now requesting transfer to facility with a urology coverage. I told the patient would be happy to do so but she would need to understand that she may be declined as she is overall better and there may not be any acute indication for intervention at this time. * I have contacted the [facility] Call Center and have provided the information and I waiting on phone call back if the patient has been accepted or not. 4. DVT proph: SQ heparin Code Visit Inpatient E&M: 07873 Subs Hosp L3
[2018-08-01] MEDS: Multivitamins,Therapeutic Tablet 1 TABLET PO (09:26)
[2018-08-01] MEDS: Aspirin 81 MG TAB.CHEW PO (09:26)
--- NOTE | 2018-08-01 09:30 | NURSING ---
pt notified of update from dr. strange regarding Dr. Johnson at [facility] and that there is no need for acute transfer at this time.
[2018-08-01] MEDS: 0.9% NaCl Peripheral Flush Adult/Peds IV (14:35)
[2018-08-01] MEDS: Acetaminophen 325 MG Tablet 650 MG PO (14:35)
[2018-08-02] MEDS: 0.9% Normal Saline 1,000 ML 100 ML IV ×2 (00:47→09:43)
[2018-08-02 03:00] VITALS: RESP 15; O2SAT 93
[2018-08-02 03:59] VITALS: BP 125/69; PULSE 63; RESP 15; TEMP 36.8; O2SAT 93
[2018-08-02 06:41] LABS: Anion Gap 8 (5-15); BUN 11 mg/dL (7-18); BUN/Creat Ratio 10.5 RATIO (10-20); Calcium,Total 7.9 mg/dL (8.5-10.1); Chloride 109 mmol/L (98-107); Creatinine, Serum 1.05 mg/dL (0.55-1.02); EST Glomerular Filtration Rate 53 mL/min (>60); Est Glom Filt Rate - Afr Amer 65 mL/min (>60); Estimated Creatinine Clearance 42.39 ml/min; Glucose 94 mg/dL (74-106); Potassium 3.5 mmol/L (3.5-5.1); Sodium Level 141 mmol/L (136-145)
[2018-08-02] MEDS: Heparin Injection (Vial) 5,000 UNIT/ML VIAL 5000 UNIT SC (06:47)
[2018-08-02 07:15] VITALS: O2SAT 93
[2018-08-02] MEDS: Multivitamins,Therapeutic Tablet 1 TABLET PO (09:35)
[2018-08-02] MEDS: Aspirin 81 MG TAB.CHEW PO (09:35)
--- NOTE | 2018-08-02 10:55 | PCM.DC ---
- Discharge Diagnoses Current Active Problems: Current Active and Chronic Problems Hydronephrosis (Acute) Reason(s) for Visit for Discharge Instructions: pyelonephritis You will use the following diet at home:: Cardiac Your food should be the consistency of: Regular Your liquids should be the consistency of: Regular/Thin Discharge Activity: Return to Normal Activity Weight Bearing Status: Weight bearing as tolerated Call your doctor if you observe: Fever of 101 or Higher, - - burning with urination Instructions: Discharge Instructions for Pyelonephritis Allergies/Adverse Reactions: Allergies No Known Allergies Allergy (Verified 07/30/18 21:47) Medications to take at Discharge Aspirin [Aspirin, Baby] 81 mg PO DAILY 03/13/18 Multivitamins,Therapeutic [Multivitamin] 1 tab PO DAILY 04/06/18 Barley Life 5 tab PO BREAKFAST 07/31/18 Cranberry Conc/C/Bacill Coag [Cranberry Tablet] 1 tab PO DAILY 07/31/18 Amoxicillin/Potassium Clav [Amox-Clav 875-125 mg Tablet] 1 ea PO BID 7 Days #14 tab 08/02/18 The following prescriptions were given: Amoxicillin/Potassium Clav [Amox-Clav 875-125 mg Tablet] 1 ea PO BID 7 Days #14 tab Primary Care Physician: Angel Luis Contreras MD [Primary Care Provider] - Please follow up with your Primary Care Physician in: one week Test Results: Test results from this visit will be discussed in further detail at your follow-up appointment, if applicable. Please Follow Up With: Phillip Stuart MD When: 2 weeks Proposed Discharge Date: 08/02/18
--- NOTE | 2018-08-02 10:58 | PCM.DC.SUM ---
Discharge Date and Diagnosis Date of Admission: 07/31/18 Date of Discharge: 08/02/18 - Primary Discharge Diagnosis Active and Suspected Problems Hydronephrosis (Acute) Hospital Course and Treatment Imaging Results: Diagnostic Data Abdomen/Pelvis CT 07/30/18 22:59 IMPRESSION: Severe hydronephrosis with perirenal stranding, nephromegaly, mild distal left hydroureter, increased since previous examination, however no obstructing renal or ureteral calculi detected. This may be seen due to stenosis/stricture, recently passed calculus or inflammatory process. Appearance has increased since previous examination. Small hiatal hernia not visualized on previous examination. Mild pericardial fluid not visualized on previous examination. Stable atherosclerosis, degenerative changes, colonic diverticulosis, ovarian calcification, small umbilical fat-containing hernia. Electronically Signed: Angelica Rodriguez MD at 0:23 EDT , Service support , Renal Ultrasound 07/31/18 10:42 IMPRESSION: There is moderate hydronephrosis on the left side. Debris is present in the collecting system of the left kidney. An obstructing stone cannot be excluded in the left ureter at the level of the mid sacrum. There is minimal fluid around the left kidney. The left ureteral jet was not demonstrated. Electronically Signed: Mirella Davis MD at 20:07 EDT Tel Direct: [phone], Service support , Laboratory Tests 07/30/18 07/30/18 07/30/18 23:12 23:12 23:12 WBC 10.6 RBC 3.81 L Hgb 11.4 L Hct 35.5 L MCV 93.2 MCH 29.9 MCHC 32.1 RDW 13.3 RDW Differential 45.0 H Plt Count 221 MPV 10.0 Immature Gran % (Auto) 0.100 Neut % (Auto) 83.3 H Lymph % (Auto) 6.1 L Stephens % (Auto) 8.1 Eos % (Auto) 2.2 Baso % (Auto) 0.2 Absolute Neuts (auto) 8.9 H Absolute Lymphs (auto) 0.65 L Total Counted Not Reportable Differential Comment Sodium 140 Potassium 3.8 Chloride 105 Carbon Dioxide 28.0 Anion Gap 7 BUN 31 H Creatinine 1.51 H Estim Creat Clear Calc 29.48 Est GFR (MDRD) Af Amer 42 L Est GFR (MDRD) Non-Af 35 L BUN/Creatinine Ratio 20.5 H Glucose 128 H Lactic Acid 1.0 Calcium 8.7 Urine Color Urine Clarity Urine pH Ur Specific [place] Urine Protein Urine Glucose (UA) Urine Ketones Urine Occult Blood Urine Nitrite Urine Bilirubin Urine Urobilinogen Ur Leukocyte Esterase Urine RBC Urine WBC Ur Squamous Epith Cells Urine Bacteria Urine Mucus 07/30/18 07/31/18 07/31/18 23:32 06:42 06:42 WBC 15.1 H RBC 3.68 L Hgb 11.0 L Hct 34.2 L MCV 92.9 MCH 29.9 MCHC 32.2 RDW 13.4 RDW Differential 45.1 H Plt Count 228 MPV 10.2 Immature Gran % (Auto) 0.000 Neut % (Auto) 89.5 H Lymph % (Auto) 2.5 L Stephens % (Auto) 7.8 Eos % (Auto) 0.1 Baso % (Auto) 0.1 Absolute Neuts (auto) 13.5 H Absolute Lymphs (auto) 0.38 L Total Counted Not Reportable Differential Comment Sodium 138 Potassium 4.0 Chloride 106 Carbon Dioxide 24.0 Anion Gap 8 BUN 24 H Creatinine 1.33 H Estim Creat Clear Calc 33.46 Est GFR (MDRD) Af Amer 49 L Est GFR (MDRD) Non-Af 41 L BUN/Creatinine Ratio 18.0 Glucose 142 H Lactic Acid Calcium 8.0 L Urine Color Yellow Urine Clarity Cloudy Urine pH 6.5 Ur Specific [place] 1.015 Urine Protein 500 H Urine Glucose (UA) Normal Urine Ketones 5 H Urine Occult Blood 250 H Urine Nitrite Negative Urine Bilirubin Negative Urine Urobilinogen Normal Ur Leukocyte Esterase 100 H Urine RBC 5-10 SEEN Urine WBC 25-50 SEEN Ur Squamous Epith Cells 0-5 SEEN Urine Bacteria 1+ Urine Mucus 0 SEEN 08/01/18 08/01/18 08/02/18 05:45 05:45 06:08 WBC 9.2 RBC 3.46 L Hgb 10.6 L Hct 32.9 L MCV 95.1 MCH 30.6 MCHC 32.2 RDW 13.2 RDW Differential 43.8 Plt Count 194 MPV 10.8 Immature Gran % (Auto) 0.100 Neut % (Auto) 88.1 H Lymph % (Auto) 4.8 L Stephens % (Auto) 6.5 Eos % (Auto) 0.3 Baso % (Auto) 0.2 Absolute Neuts (auto) 8.1 H Absolute Lymphs (auto) 0.44 L Total Counted Not Reportable Differential Comment SCANNED Sodium 141 141 Potassium 4.0 3.5 Chloride 107 109 H Carbon Dioxide 25.0 24.0 Anion Gap 9 8 BUN 17 11 Creatinine 1.22 H 1.05 H Estim Creat Clear Calc 36.48 42.39 Est GFR (MDRD) Af Amer 54 L 65 Est GFR (MDRD) Non-Af 45 L 53 L BUN/Creatinine Ratio 13.9 10.5 Glucose 104 94 Lactic Acid Calcium 8.0 L 7.9 L Urine Color Urine Clarity Urine pH Ur Specific [place] Urine Protein Urine Glucose (UA) Urine Ketones Urine Occult Blood Urine Nitrite Urine Bilirubin Urine Urobilinogen Ur Leukocyte Esterase Urine RBC Urine WBC Ur Squamous Epith Cells Urine Bacteria Urine Mucus Microbiology 07/30/18 23:32 Urine Culture - Final Urine, Clean Catch Klebsiella pneumoniae sp pneum Operations: None Procedures: None Summary of Care Provided: The patient is a 82 year old F with a history of hydronephrosis status post stent placement and removal. She was admitted on 07/31/2018 with a complaint of sudden and severe left flank pain which was dull, constant, aching, with no aggravating or relieving factors and with associated nausea and vomiting and subjective chills. She denied any dysuria or hematuria. Urinalysis was positive for UTI. Labs showed no leukocytosis. CT abdomen shows severe left hydronephrosis with perirenal stranding, nephromegaly and mild distal left hydroureter which had increased since previous examination but no obstructing renal or ureteric calculi detected. She was started on IV ceftriaxone and tobramycin and urine was cultured. Colmenares catheter was placed. Urology was consulted but urologist in the hospital was not available until 08 September. Urine culture Klebsiella. Patient remained stable with nausea and vomiting resolved. Patient's which was to be transferred to [facility]. Hospitalist on serviced then called [facility] and discussed the case with urologist Dr Villar; he stated per documentation athat her symptoms were due to pyelonephritis perhaps due to a congenital abnormality,a nd no urgent procedures were necessary; he therefore felt that this was not an emergent case requiring transfer. Patient remained stable and requested to go home except for another facility. She was discharged home on p.o. amoxicillin clavulanic acid for 7 day course. She is to follow-up with her primary care doctor to follow-up with a urologist in 1 week. Patient was seen and examined prior to discharge. She had no complaints. She denies any fever or chills, any cough or chest pain, and shortness of breath, any abdominal pain, any diarrhea vomiting. She also had no flank pain. He also denied any dysuria. 12 point review of systems is otherwise negative. o/e: Vital Signs Height 5 ft 8 in Weight: 188 lb 4.396 oz Weight in Pounds 188.3 lbs Pulse Ox 96 Temperature 98.2 F Pulse Rate 61 Respiratory Rate 16 Blood Pressure 142/67 Blood Pressure Position Semi-Fowlers []General: Alert, No apparent distress HEENT: Atraumatic, Normocephalic Oral: Moist Mucosa, No Gingival or Mucosal Lesions/ Ulcerations Neck: No Nodes, Thyroid Normal Size and Texture Lungs: Clear to auscultation, Normal air movement, No rhonchi, No wheeze Cardiovascular: Regular rate, Regular Rhythm, Normal S1, Normal S2, No murmurs Abdomen: Bowel Sounds Present, Soft, Non Tender, Non-Distended, No Hepato-splenomegaly, no left CVA tenderness Extremities: No edema, No Calf Tenderness Skin: No rashes, No breakdown Musculoskeletal: No Tenderness to Palpation of Joints or Extremities, No Muscle Wasting Neurological: Muscle tone normal, Sensory exam intact to light touch and pain Psych/Mental Status: Normal Affect, Appropriate Plan as stated above. Discharge Diet: 2000 mg Sodium Diet Discharge Activity: Return to Normal Activity Weight Bearing Status: Weight bearing as tolerated Call your doctor if you observe: Fever of 101 or Higher, - - burning with urination Home Medications: Medications to take at Discharge Aspirin [Aspirin, Baby] 81 mg PO DAILY 03/13/18 Multivitamins,Therapeutic [Multivitamin] 1 tab PO DAILY 04/06/18 Barley Life 5 tab PO BREAKFAST 07/31/18 Cranberry Conc/C/Bacill Coag [Cranberry Tablet] 1 tab PO DAILY 07/31/18 Amoxicillin/Potassium Clav [Amox-Clav 875-125 mg Tablet] 1 ea PO BID 7 Days #14 tab 08/02/18 Following Prescrptions Were Given to Patient: Amoxicillin/Potassium Clav [Amox-Clav 875-125 mg Tablet] 1 ea PO BID 7 Days #14 tab Primary Care Physician: Angel Luis Contreras MD [Primary Care Provider] - Please follow up with your Primary Care Physician in: one week Please Follow Up With: Phillip Stuart MD When: 2 weeks Patient Instructions: Discharge Instructions for Pyelonephritis Disposition: Home Minutes spent on discharge:: 35 Patient Condition:: Stable Medical Necessity - Tobacco Use Smoking Status: Never smoker Meaningful Use Info Meaningful Use Diagnoses (Choose all that apply): None applicable Code Visit Inpatient E&M: 58038 Disch Hosp
[2018-08-02 12:03] VITALS: BP 142/67; PULSE 61; RESP 16; TEMP 36.8; O2SAT 96
== END 2018-08-02 12:18 | disposition home or self-care (01) | DRG 872 ==
LOC: ED 22:33 → MS3 07-31 02:53
PROVIDERS: Admitting Provider Internal Medicine; Emergency Provider Emergency Medicine; Family Provider Family Medicine; PCP Family Medicine; Visit Provider Student in an Organized Health Care Education/Training Program
DX: A41.9 Sepsis, unspecified organism (principal); N17.9 Acute kidney failure, unspecified; N12 Tubulo-interstitial nephritis, not specified as acute or chronic; N13.30 Unspecified hydronephrosis; B96.1 Klebsiella pneumoniae [K. pneumoniae] as the cause of diseases classified elsewhere
CPT/HCPCS: 36415; 74176; 76770; 80048; 81001; 83605; 85025; 87077; 87086; 87088; 87186; 99283; J7030; J7040; A4216; J0696; J2405

== ENCOUNTER → 2018-08-04 09:57 | Outpatient (CLI) | payer MEDICARE, OTHER, SELFPAY ==
[2018-08-04 12:02] LABS: Anion Gap 11 (5-15); BUN 16 mg/dL (7-18); BUN/Creat Ratio 12.5 RATIO (10-20); Calcium,Total 8.8 mg/dL (8.5-10.1); Chloride 105 mmol/L (98-107); Creatinine, Serum 1.28 mg/dL (0.55-1.02); EST Glomerular Filtration Rate 42 mL/min (>60); Est Glom Filt Rate - Afr Amer 51 mL/min (>60); Glucose 101 mg/dL (74-106); Magnesium 2.3 mg/dL (1.6-2.6); Potassium 3.7 mmol/L (3.5-5.1); Sodium Level 138 mmol/L (136-145)
== END ==
PROVIDERS: Family Provider Family Medicine; PCP Family Medicine; Visit Provider Family Medicine
DX: R19.7 Diarrhea, unspecified (principal)
CPT/HCPCS: 36415; 80048; 83735; 87493

== ENCOUNTER 2018-08-11 10:25 | Day surgery (SDC) | payer MEDICARE, OTHER, SELFPAY ==
[2018-08-11] VITALS (7 sets, daily range): BP systolic 121–154; BP diastolic 63–92; PULSE 50–70; RESP 12–17; TEMP 36.2–36.7; O2SAT 96–100; BMI 27.3
[2018-08-11] MEDS: Cefazolin 2 GM in 0.9% Normal Saline 100 ML IV (11:42)
--- NOTE | 2018-08-11 12:14 | DCINST_ITS ---
Discharge Diet: Light diet - advance as tolerated Discharge Activity: Return to Normal Activity Allergies/Adverse Reactions: Allergies No Known Allergies Allergy (Verified 08/11/18 10:40) Medications to take at Discharge Aspirin [Aspirin, Baby] 81 mg PO DAILY 03/13/18 Multivitamins,Therapeutic [Multivitamin] 1 tab PO DAILY 04/06/18 Barley Life 5 tab PO BREAKFAST 07/31/18 Cranberry Conc/C/Bacill Coag [Cranberry Tablet] 1 tab PO DAILY 07/31/18 Primary Care Physician: Angel Luis Contreras MD [Primary Care Provider] - Test Results: Test results from this visit will be discussed in further detail at your follow- up appointment, if applicable. Please Follow Up With: Phillip Stuart MD When: in 2 weeks, please call to make an appointment.
--- NOTE | 2018-08-11 12:14 | PCM.OPRPT ---
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 Post-Operative Diagnosis: The same Surgery/Procedure Performed:: Cystoscopy left retrograde pyelogram left stent placement Description of Surgical Findings:: 82-year-old female who was admitted prior with a left UPJ obstruction and hydronephrosis she underwent stent placement decompression antibiotics we removed the stent to see if she could undergo a course of conservative measurements see if we can avoid any more surgery however she failed to the hospital again with another infection in the left kidney kidney still hydronephrotic at this point I think organ to proceed with definitive repair of the kidney but I get a place a stent to decompress the kidney and for preoperative reasons to clear the infection. 82-year-old female taken back to the operating room after smooth induction of general anesthesia she was placed in dorsolithotomy position the urethra and vaginal area were prepped and draped in usual sterile fashion went of the bladder with a 21 [place] rigid cystourethroscope identified the left ureteral orifice which is fairly patulous advanced the Pollack catheter up the left side and performed a retrograde pyelogram could see contrast going all the way up and then a very narrow UPJ could not get the Pollack catheter through the area then advanced a wire through the area and then good colic Pollack catheter over the wire performed a retrograde Polygram to see if very hydronephrotic dilated kidney. So then over the wire a place a stent it was a 6 [place] by 28 cm stent once the stent coiled in the kidney bladder good condition pulled the wire drain the bladder plan at this point is to decompress the left kidney with the stent and then will plan for a left UPJ repair in 2-4 weeks. Type of Anesthesia:: General Drains: stent 6fr x 28cm - Admit VTE Documentation VTE Present on Admission: No VTE Mechan Device Prophylaxis: SCD's
--- NOTE | 2018-08-11 12:17 | OP.PCM_ITS ---
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 Post-Operative Diagnosis: The same Surgery/Procedure Performed:: Cystoscopy left retrograde pyelogram left stent placement Description of Surgical Findings:: 82-year-old female who was admitted prior with a left UPJ obstruction and hydronephrosis she underwent stent placement decompression antibiotics we removed the stent to see if she could undergo a course of conservative measurements see if we can avoid any more surgery however she failed to the hospital again with another infection in the left kidney kidney still hydronephrotic at this point I think organ to proceed with definitive repair of the kidney but I get a place a stent to decompress the kidney and for preoperative reasons to clear the infection. 82-year-old female taken back to the operating room after smooth induction of general anesthesia she was placed in dorsolithotomy position the urethra and vaginal area were prepped and draped in usual sterile fashion went of the bladder with a 21 [place] rigid cystourethroscope identified the left ureteral orifice which is fairly patulous advanced the Pollack catheter up the left side and performed a retrograde pyelogram could see contrast going all the way up and then a very narrow UPJ could not get the Pollack catheter through the area then advanced a wire through the area and then good colic Pollack catheter over the wire performed a retrograde Polygram to see if very hydronephrotic dilated kidney. So then over the wire a place a stent it was a 6 Greek by 28 cm stent once the stent coiled in the kidney bladder good condition pulled the wire drain the bladder plan at this point is to decompress the left kidney with the stent and then will plan for a left UPJ repair in 2-4 weeks. Type of Anesthesia:: General Drains: stent 6fr x 28cm - Admit VTE Documentation VTE Present on Admission: No VTE Mechan Device Prophylaxis: SCD's
== END 2018-08-11 14:20 | disposition home or self-care (01) ==
LOC: SDC 10:26 → AC 10:26
PROVIDERS: Family Provider Family Medicine; PCP Family Medicine; Visit Provider Urology
PROC: (CPT 52332; principal; 2018-08-11 12:15)
DX: Q62.11 Congenital occlusion of ureteropelvic junction (principal); N10 Acute pyelonephritis; R50.9 Fever, unspecified; Z87.39 Personal history of other diseases of the musculoskeletal system and connective tissue
CPT/HCPCS: 52005; 76000; 81001; 87086; J7120; C1769; J2405

== ENCOUNTER → 2018-08-24 17:08 | Outpatient (CLI) | payer MEDICARE, OTHER, SELFPAY | PROVIDERS: Family Provider Family Medicine; PCP Family Medicine; Referring Provider Urology; Visit Provider Urology | DX: R82.90 Unspecified abnormal findings in urine (principal) | CPT/HCPCS: 87086; 87088 ==

== ENCOUNTER → 2018-09-08 10:18 | Outpatient (CLI) | payer MEDICARE, OTHER, SELFPAY ==
[2018-09-08 10:00] VITALS: BP 133/66; PULSE 63; RESP 16; TEMP 37.2; O2SAT 97; BMI 27.8
--- NOTE | 2018-09-08 10:18 | SDCEKG_ITS ---
Test Reason : Blood Pressure : / mmHG Vent. Rate : 066 BPM Atrial Rate : 066 BPM P-R Int : 176 ms QRS Dur : 086 ms QT Int : 414 ms P-R-T Axes : 058 -07 053 degrees QTc Int : 434 ms Normal sinus rhythm Normal ECG Also confirmed by EDIN MELENDEZ, DESTIN ([id number]), editor sound LEXX ENRIQUE ([id number]) on 09/09/2018 1:15:20 PM Referred By: Phillip Stuart Confirmed By:DESTIN JESUS MD
== END ==
PROVIDERS: Family Provider Family Medicine; PCP Family Medicine; Referring Provider Urology; Visit Provider Urology
DX: Z01.810 Encounter for preprocedural cardiovascular examination (principal)
CPT/HCPCS: 93005

== ENCOUNTER → 2018-09-20 09:55 | Outpatient (CLI) | payer MEDICARE, OTHER, SELFPAY | LOC: MFPLAB 10:48 → LABSPEC 10:49 | PROVIDERS: Family Provider Family Medicine; PCP Family Medicine; Visit Provider Family Medicine | DX: R19.7 Diarrhea, unspecified (principal) | CPT/HCPCS: 87493; 87506 ==

== ENCOUNTER → 2018-10-20 11:06 | Outpatient (CLI) | payer MEDICARE, OTHER, SELFPAY ==
[2018-09-08 10:00] VITALS: BMI 27.8
== END ==
LOC: MFPLAB 11:08 → LABSPEC 11:08
PROVIDERS: Family Provider Family Medicine; PCP Family Medicine; Visit Provider Family Medicine
DX: A04.72 Enterocolitis due to Clostridium difficile, not specified as recurrent (principal)
CPT/HCPCS: 87493

== ENCOUNTER → 2018-11-03 09:41 | Outpatient (CLI) | payer MEDICARE, OTHER, SELFPAY ==
[2018-11-03 10:44] LABS: Absolute Lymphocyte Count 0.65 X10^3/ul (0.83-4.51); Absolute Neutrophil Count 3.4 X10^3/uL (2.0-7.7); Basophil# 0.02 X10^3/uL; Basophil% 0.4 % (0-1); Eosinophils% 6.1 % (0-5); Hematocrit 38.1 % (37-47); Lymphocyte # 0.65 X10^3/ul (4.0); Lymphocyte % 13.3 % (19-41); Mean Corp Hgb Conc 31.5 g/gl (32-36); Mean Corpuscular Hgb 29.3 pg (27.0-32.0); Mean Corpuscular Volume 92.9 fL (81-99); Mean Platelet Vol. 10.4 fl (6.2-12.0); Monocyte# 0.48 X10^3/uL; Monocyte% 9.8 % (0-10); Neutrophil # 3.44 X10^3/uL (2.7-7.7); Neutrophil % 70.4 % (47-70); Platelet Count 265 K/mm3 (150-450); RBC Distribution Width CV 14.1 % (11.6-14.6); RBC Distribution Width SD 46.7 fl (35.1-43.9); White Blood Count 4.9 K/mm3 (4.4-11.0)
[2018-11-03 10:47] LABS: POSITIVE COUNT NO; POSITIVE DIFFERENTIAL NO; POSITIVE MORPHOLOGY NO
[2018-11-03 11:26] LABS: AST(SGOT) 13 U/L (15-37); Alanine Aminotransfer ALT/SGPT 19 U/L (13-56); Albumin, Serum 3.4 g/dL (3.2-5.0); Alkaline Phosphatase 56 U/L (45-117); Anion Gap 8 (5-15); BUN 14 mg/dL (7-18); BUN/Creat Ratio 11.6 RATIO (10-20); Calcium,Total 8.7 mg/dL (8.5-10.1); Chloride 104 mmol/L (98-107); Cholesterol 202 mg/dL (200); Creatinine, Serum 1.21 mg/dL (0.55-1.02); EST Glomerular Filtration Rate 45 mL/min (>60); Est Glom Filt Rate - Afr Amer 55 mL/min (>60); Globulin 3.5 g/dL (2.2-4.2); Glucose 77 mg/dL (74-106); High Density Lipoprotein 62 mg/dL; Phosphorus 3.7 mg/dL (2.5-4.9); Potassium 4.3 mmol/L (3.5-5.1); Protein, Total 6.9 g/dL (6.4-8.2); Sodium Level 140 mmol/L (136-145); Triglycerides 84 mg/dL; Very Low Density Lipoprotein 17 mg/dL (5-40)
[2018-11-03 11:35] LABS: Vitamin D,25 Hydroxy 43.6 ng/mL (29.95-100.01)
== END ==
PROVIDERS: Family Provider Family Medicine; PCP Family Medicine; Visit Provider Family Medicine
DX: E78.00 Pure hypercholesterolemia, unspecified (principal); M85.80 Other specified disorders of bone density and structure, unspecified site; R94.4 Abnormal results of kidney function studies
CPT/HCPCS: 36415; 80053; 80061; 82306; 84100; 85025

== ENCOUNTER 2018-11-24 10:05 | Day surgery (SDC) | payer MEDICARE, OTHER, SELFPAY ==
[2018-11-24] VITALS (9 sets, daily range): BP systolic 104–177; BP diastolic 60–89; PULSE 50–80; RESP 16–18; TEMP 36–37.2; O2SAT 93–98; BMI 25.9
--- NOTE | 2018-11-24 | KID_PTH ---
PATIENT: DANIA LENTZ LOC: [facility] U#:[id number] AGE/SX: 83/F ROOM: RE11/24/[address]: Dr. Phillip Stuart MD : [id number] BED: DIS: 11/25/2018 SPEC #: [id number] RECD: 11/24/18 15:44 STATUS: JONI JONAS #: [id number] JUSTIN: 11/24/18 00:[address]: Phillip Stuart DEPT: SURGICAL PATHOLOGY RECD BY: Hermelindo Gonzalez ENTERED: 11/25/18 08:08 SP TYPE: KIDNEY OTHR DR: Dr. Angel Luis Contreras MD Tissues: Kidney, NOS Procedures: Surgery Specimen Level V HEADER OPERATION: Laparoscopic robotic left nephrectomy PRE-OP DIAGNOSIS: Left UPJ obstruction TISSUE SUBMITTED: Left kidney MICROSCOPIC DIAGNOSIS Left kidney, nephrectomy: Chronic pyelonephritis. Mild arterio-nephrosclerosis. Ureteric and vascular margins with no pathologic change. AM:fred 11/29/18 MICROSCOPIC DESCRIPTION Slides are reviewed. GROSS DESCRIPTION Received in fixative is one container labeled with the patient's name and designated left kidney. The specimen consists of a radical nephrectomy specimen consisting of kidney with attached perirenal adipose tissue weighing 147 gm. The kidney measures 10 x 5 x 4 cm. The attached ureter measures 7?cm in length. The attached perirenal adipose tissue measures up to 3 cm in width. The kidney is longitudinally sectioned and does not reveal any mass lesion. The renal pelvis and calices are focally dilated. The renal cortex measures up to 0.3 cm in thickness. Senior Inspector sections are submitted in seven cassettes as follows: 1 - ureteric and vascular resection margin, 2 - more sections of ureter and dilated renal pelvis, 3-5 - renal calices with full thickness section of kidney tissue, 6 - renal pelvis and full thickness section of renal tissue, 7 - dilated renal calices and perirenal adipose tissue. / SJ:fred 11/26/18 TC:3 CPT: 83370
[2018-11-24] MEDS: Cefazolin 2 GM in 0.9% Normal Saline 100 ML IV (12:36)
--- NOTE | 2018-11-24 12:43 | DCINST_ITS ---
Discharge Diet: Light diet - advance as tolerated Discharge Activity: Return to Normal Activity Call your doctor if you observe: Fever of 101 or Higher Allergies/Adverse Reactions: Allergies No Known Allergies Allergy (Verified 11/18/18 08:23) Medications to take at Discharge Aspirin [Aspirin, Baby] 81 mg PO DAILY 03/13/18 Multivitamins,Therapeutic [Multivitamin] 1 tab PO DAILY 04/06/18 Barley Life 5 tab PO BREAKFAST 07/31/18 Cranberry Conc/C/Bacill Coag [Cranberry Tablet] 1 tab PO DAILY 07/31/18 Calcium Carbonate/Vitamin D3 [Calcium 600 + Vit D Tablet] 1 each PO DAILY 11/18/18 L.acidoph,Paracasei, B.lactis [Probiotic] 1 each PO DAILY 11/18/18 Acetaminophen [Tylenol Extra Strength] 500 mg PO Q4H PRN PRN #20 tablet 11/24/18 Docusate Sodium [Colace] 100 mg PO BID #20 capsule 11/24/18 Ibuprofen [Motrin] 400 mg PO Q6H PRN PRN #20 tablet 11/24/18 The following prescriptions were given: Acetaminophen [Tylenol Extra Strength] 500 mg PO Q4H PRN PRN #20 tablet PRN Reason: Pain Ibuprofen [Motrin] 400 mg PO Q6H PRN PRN #20 tablet PRN Reason: Pain Docusate Sodium [Colace] 100 mg PO BID #20 capsule Primary Care Physician: Angel Luis Contreras MD [Primary Care Provider] - Test Results: Test results from this visit will be discussed in further detail at your follow- up appointment, if applicable. Please Follow Up With: Phillip Stuart MD When: 1 week for follow up
--- NOTE | 2018-11-24 15:04 | PCM.OPRPT ---
Report of Operation Date of Procedure: 11/24/18 Pre-Operative Diagnosis: Chronic left pyelonephritis and left UPJ obstruction Post-Operative Diagnosis: Same Surgery/Procedure Performed:: Conversion to Robotic laparoscopic simple nephrectomy Description of Surgical Findings:: 83-year-old female who developed severe left kidney infection is had about a 60 pound weight loss in the last 6 months presented to the hospital with a pyelonephritis stent was placed at that point we left a stent in place to see if that would resolve the infection and she did have a left UPJ we pulled out the stent and she failed conservative management the infection came right back we then plan for a UPJ repair we left the stent in however this was delayed due to an illness she is finally recovered from the recent illness and now she presents for a left laparoscopic UPJ repair. She is undergone a bowel prep in preparation for surgery. 83-year-old female taken back to the operating room at the smooth induction of anesthesia she was placed supine on the table and then and full flank position with her roll behind her back the arm was tucked at her side axillary roll was in place the table was not flexed and if she was in the full lateral position. The abdomen was prepped and draped in usual sterile fashion made an incision above the umbilicus and carried a Veress needle into the peritoneal cavity insufflated the peritoneal cavity CO2 gas placed my camera trocar right arm port trocar left arm trocar and data control assistant suction trocar immediately could see a lot of dense adhesions between the kidney and the colon and the spleen the spleen had a lot of exudate on it from prior infection, a lot of greenish exudate throughout the spleen the tissue layers on the kidney itself were extremely adherent almost appear to be like an extra be like kidney with a dense rind of tissue surrounding the kidney quite adherent to the transverse colon had to take extra extreme care and dissecting the colon off the kidney it looks as a quite stuck finally was able to get the colon off the kidney and identified the ureter tented up the ureter and then this allowed me to separate more the colon off the kidney as I worked my way up underneath the kidney finally got to the kidney itself and there was a crossing vessel artery and vein over the UPJ obstruction which was expected and then there was a dense rind of adhesions around the kidney itself at this point inspected the kidney the kidney did not look healthy look chronically infected lot of exudate in the spleen and the kidney decided that probably best approach at this point would be to proceed with an elective conversion to a simple nephrectomy went out spoke to the patient's daughter explained the situation that with her other kidney being healthy and with this this chronically infected poorly looking kidney is afraid that a repair would likely fail and she can end up having more procedures and surgeries so we proceeded with a conversion to a laparoscopic nephrectomy and an elective fashion. I then clipped the crossing vessels over the ureter 3 2 clips down 3 clips up and transected and then came upon the renal artery and vein the vein was clipped and then the artery was then clipped secondly and then the kidney was then dissected off the bed next was stuck right onto the kidney capsule itself since it was quite adherent to the surrounding tissues very adherent to the spleen and then the kidney was completely freed but a clip on the ureter transected the ureter undocked the robot and then we placed the kidney in Endo Catch bag and extracted the kidney through the lower incision site and then closed this with a running 0 Vicryl and then irrigated the kidney but base out copiously there is no signs of bleeding and then all the ports were removed all the ports were 8 mm ports and stitches were placed in the fashion of the right millimeter ports and the skin incisions were closed and the patient's anesthesia is currently being reversed very minimal blood loss but extensive adhesions between the kidney the colon spleen and therefore we converted to a robotic simple nephrectomy. Type of Anesthesia:: General Drains: taylor - Admit VTE Documentation VTE Present on Admission: No VTE Mechan Device Prophylaxis: SCD's
[2018-11-24] MEDS: 0.9% Normal Saline 1,000 ML 125 ML IV (16:50)
[2018-11-24] MEDS: Docusate Sodium 100 MG Capsule 200 MG PO (21:14)
[2018-11-25] MEDS: 0.9% Normal Saline 1,000 ML 125 ML IV ×2 (00:57→07:34)
[2018-11-25 03:41] VITALS: BP 119/55; PULSE 64; RESP 18; TEMP 36.4; O2SAT 95
[2018-11-25 05:52] LABS: Hematocrit 33.4 % (37-47); Hemoglobin 10.6 g/dl (12.0-15.0); Mean Corp Hgb Conc 31.7 g/gl (32-36); Mean Corpuscular Hgb 29.9 pg (27.0-32.0); Mean Corpuscular Volume 94.1 fL (81-99); Mean Platelet Vol. 10.3 fl (6.2-12.0); Platelet Count 233 K/mm3 (150-450); RBC Distribution Width SD 46.1 fl (35.1-43.9); Red Blood Count 3.55 M/mm3 (4.2-5.4); White Blood Count 6.4 K/mm3 (4.4-11.0)
[2018-11-25 05:56] LABS: Scan Indicated on CBC? Y/N NO
[2018-11-25 06:11] LABS: Anion Gap 7 (5-15); BUN 12 mg/dL (7-18); BUN/Creat Ratio 10.3 RATIO (10-20); Calcium,Total 7.8 mg/dL (8.5-10.1); Chloride 109 mmol/L (98-107); Creatinine, Serum 1.16 mg/dL (0.55-1.02); EST Glomerular Filtration Rate 48 mL/min (>60); Est Glom Filt Rate - Afr Amer 58 mL/min (>60); Estimated Creatinine Clearance 37.72 ml/min; Glucose 96 mg/dL (74-106); Potassium 3.9 mmol/L (3.5-5.1); Sodium Level 144 mmol/L (136-145)
[2018-11-25 07:24] VITALS: O2SAT 94
[2018-11-25] MEDS: Acetaminophen 325 MG Tablet PO (07:28)
[2018-11-25] MEDS: Docusate Sodium 100 MG Capsule 200 MG PO (07:31)
[2018-11-25 07:35] VITALS: BP 107/52; PULSE 57; RESP 16; TEMP 36.9; O2SAT 95
--- NOTE | 2018-11-25 07:39 | PCM.PN.BLA ---
Progress Note doing well adv reg diet as tolerated ambulate home today if doing well.
[2018-11-25 11:42] VITALS: BP 108/56; PULSE 51; RESP 16; TEMP 36.5; O2SAT 95
== END 2018-11-25 12:40 | disposition home or self-care (01) ==
LOC: SDC 10:07 → AC 10:08 → MS3 15:32
PROVIDERS: Family Provider Family Medicine; PCP Family Medicine; Referring Provider Urology; Visit Provider Urology
PROC: 8E0W4CZ Robotic Assisted Procedure of Trunk Region, Percutaneous Endoscopic Approach (ICD-10-PCS; CPT 50544; principal; 2018-11-24 11:45)
DX: N11.9 Chronic tubulo-interstitial nephritis, unspecified (principal); I12.9 Hypertensive chronic kidney disease with stage 1 through stage 4 chronic kidney disease, or unspecified chronic kidney disease; N18.9 Chronic kidney disease, unspecified; Z23 Encounter for immunization; E66.9 Obesity, unspecified; A04.72 Enterocolitis due to Clostridium difficile, not specified as recurrent; Q62.39 Other obstructive defects of renal pelvis and ureter; Z87.440 Personal history of urinary (tract) infections; Z68.28 Body mass index [BMI] 28.0-28.9, adult
CPT/HCPCS: 00862; 50546; S2900; 36415; 80048; 85027; 86850; 86900; 86920; 86922; 88307; G0008; J7030; J7120; 90686; A4216; J2405

== ENCOUNTER → 2019-01-11 11:36 | Outpatient (CLI) | payer MEDICARE, OTHER, SELFPAY ==
[2018-11-24 10:36] VITALS: BMI 25.9
[2019-01-11 14:14] LABS: Anion Gap 8 (5-15); BUN 21 mg/dL (7-18); BUN/Creat Ratio 14.3 RATIO (10-20); Chloride 105 mmol/L (98-107); Creatinine, Serum 1.47 mg/dL (0.55-1.02); EST Glomerular Filtration Rate 36 mL/min (>60); Est Glom Filt Rate - Afr Amer 44 mL/min (>60); Glucose 81 mg/dL (74-106); Potassium 4.4 mmol/L (3.5-5.1); Sodium Level 139 mmol/L (136-145)
== END ==
PROVIDERS: Family Provider Family Medicine; PCP Family Medicine; Referring Provider Family Medicine; Visit Provider Family Medicine
DX: R10.9 Unspecified abdominal pain (principal)
CPT/HCPCS: 36415; 80048; 87086; 87088

== ENCOUNTER → 2019-01-20 09:05 | Outpatient (CLI) | payer MEDICARE, OTHER, SELFPAY ==
[2018-11-24 10:36] VITALS: BMI 25.9
[2019-01-20 10:25] LABS: Anion Gap 9 (5-15); BUN 24 mg/dL (7-18); BUN/Creat Ratio 17.6 RATIO (10-20); Chloride 107 mmol/L (98-107); Creatinine, Serum 1.36 mg/dL (0.55-1.02); EST Glomerular Filtration Rate 40 mL/min (>60); Est Glom Filt Rate - Afr Amer 48 mL/min (>60); Glucose 68 mg/dL (74-106); Potassium 4.5 mmol/L (3.5-5.1); Sodium Level 140 mmol/L (136-145)
== END ==
PROVIDERS: Family Provider Family Medicine; PCP Family Medicine; Referring Provider Family Medicine; Visit Provider Family Medicine
DX: N18.9 Chronic kidney disease, unspecified (principal)
CPT/HCPCS: 36415; 80048

== ENCOUNTER → 2019-03-03 13:31 | Outpatient (CLI) | payer MEDICARE, OTHER, SELFPAY ==
[2018-11-24 10:36] VITALS: BMI 25.9
[2019-03-03 15:06] LABS: Anion Gap 7 (5-15); BUN 25 mg/dL (7-18); BUN/Creat Ratio 19.1 RATIO (10-20); Calcium,Total 8.5 mg/dL (8.5-10.1); Chloride 106 mmol/L (98-107); Creatinine, Serum 1.31 mg/dL (0.55-1.02); EST Glomerular Filtration Rate 41 mL/min (>60); Est Glom Filt Rate - Afr Amer 50 mL/min (>60); Glucose 89 mg/dL (74-106); Potassium 4.5 mmol/L (3.5-5.1); Sodium Level 140 mmol/L (136-145)
== END ==
PROVIDERS: Family Provider Family Medicine; PCP Family Medicine; Referring Provider Urology; Visit Provider Urology
DX: Z90.5 Acquired absence of kidney (principal)
CPT/HCPCS: 36415; 80048

== ENCOUNTER → 2020-06-26 11:00 | Outpatient (CLI) | payer MEDICARE, OTHER, SELFPAY ==
[2018-11-24 10:36] VITALS: BMI 25.9
[2020-06-26 12:26] LABS: Absolute Lymphocyte Count 0.83 X10^3/uL (0.83-4.51); Absolute Neutrophil Count 3.6 X10^3/uL (2.0-7.7); Basophil# 0.04 X10^3/uL; Basophil% 0.7 % (0-1); Eosinophil# 0.39 X10^3/uL; Eosinophils% 7.2 % (0-5); Hematocrit 41.6 % (37-47); Hemoglobin 12.9 g/dL (12.0-15.0); Lymphocyte # 0.83 X10^3/ul (4.0); Lymphocyte % 15.3 % (19-41); Mean Corpuscular Hgb 30.6 pg (27.0-32.0); Mean Corpuscular Volume 98.6 fL (81-99); Mean Platelet Vol. 10.8 fl (6.2-12.0); Monocyte# 0.51 X10^3/uL; Monocyte% 9.4 % (0-10); NRBC Flagged by Analyzer 0 % (0-5); Neutrophil # 3.63 X10^3/uL (2.7-7.7); Neutrophil % 67.2 % (47-70); Platelet Count 243 K/mm3 (150-450); RBC Distribution Width CV 13.1 % (11.6-14.6); RBC Distribution Width SD 46.8 fl (35.1-43.9); Red Blood Count 4.22 M/mm3 (4.2-5.4); White Blood Count 5.4 K/mm3 (4.4-11.0)
[2020-06-26 12:41] LABS: AST(SGOT) 19 U/L (15-37); Alanine Aminotransfer ALT/SGPT 27 U/L (13-56); Albumin, Serum 3.6 g/dL (3.2-5.0); Alkaline Phosphatase 61 U/L (45-117); Anion Gap 4 (5-15); BUN 24 mg/dL (7-18); BUN/Creat Ratio 20.2 RATIO (10-20); Calcium,Total 8.8 mg/dL (8.5-10.1); Chloride 107 mmol/L (98-107); Creatinine, Serum 1.19 mg/dL (0.55-1.02); EST Glomerular Filtration Rate 46 mL/min (>60); Est Glom Filt Rate - Afr Amer 56 mL/min (>60); Globulin 3.6 g/dL (2.2-4.2); Glucose 81 mg/dL (74-106); Potassium 4.4 mmol/L (3.5-5.1); Protein, Total 7.2 g/dL (6.4-8.2); Sodium Level 140 mmol/L (136-145)
== END ==
PROVIDERS: PCP Family Medicine; Referring Provider Registered Nurse; Visit Provider Registered Nurse
DX: N18.9 Chronic kidney disease, unspecified (principal)
CPT/HCPCS: 36415; 80053; 85025

== ENCOUNTER → 2020-08-28 13:41 | Outpatient (CLI) | payer MEDICARE, OTHER, SELFPAY ==
[2018-11-24 10:36] VITALS: BMI 25.9
--- NOTE | 2020-08-28 13:49 | CT_ITS ---
STUDY: CT LEFT LOWER EXTREMITY REASON FOR EXAM: Varus deformity of the left knee, surgical planning. TECHNIQUE: Transaxial CT imaging of the knee was performed. Coronal and sagittal images were reformatted. Individualized dose optimization techniques were used for this CT. COMPARISON: Radiographs 05/04/2017. FINDINGS: Left knee: There are marginal osteophytes, moderate joint space narrowing and subchondral cysts/eburnation of the medial femorotibial compartment (coronal reconstructions 28-38). There are small marginal osteophytes of the lateral femorotibial compartment without substantial joint space narrowing. There are marginal osteophytes and moderate joint space narrowing of the patellofemoral articulation (sagittal reconstructions 42-48). Normal proximal tibiofibular articulation. There is a small joint effusion. The quadriceps tendon is grossly normal. The patellar tendon is grossly normal. Normal Hoffa''s fat pad. There are small soft tissue calcifications anterior to the distal patellar tendon. Left hip: There are marginal osteophytes and mild to moderate joint space narrowing of the left hip (coronal reconstructions 41-48). There is mild chondrocalcinosis of the lateral aspect of the left femoral head (coronal reconstructions 38-40). There is enthesopathy of the greater trochanter (coronal reconstructions 49). There is vascular calcification. Left ankle: Normal tibiotalar, posterior subtalar and talonavicular articulations. There is a small posterior calcaneal enthesophyte. 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 Small left knee joint effusion. Electronically Signed: Rudy Queen MD at 11:14 EDT Tel , Service support ,
== END ==
PROVIDERS: PCP Family Medicine; Referring Provider Specialist; Visit Provider Specialist
DX: M21.162 Varus deformity, not elsewhere classified, left knee (principal)
CPT/HCPCS: 73700

== ENCOUNTER → 2020-09-06 06:47 | Outpatient (CLI) | payer MEDICARE, OTHER, SELFPAY ==
[2018-11-24 10:36] VITALS: BMI 25.9
--- NOTE | 2020-09-14 13:29 | STRESSREP_ITS ---
Stress Test Report Date: 09/06/2020 Procedure: Pharmacologic stress nuclear imaging study Indications: Abnormal EKG Consent: Per the patient Procedure: The patient underwent pharmacologic (Regadenoson) evaluation with a peak heart rate of 94 beats per minute (68%predicted maximal heart rate) and a peak blood pressure of 142/86 mmHg. The baseline ECG demonstrated normal sinus rhythm, possible prior anterior MA. EKG during lexiscan infusion revealed significant ischemic changes. EKG post infusion revealed no significant ischemic changes [There were no cardiac dysrhythmias pretest, during pharmacologic infusion, or recovery]. [There was no complaint of chest discomfort during pharmacologic infusion or recovery]. The examination was discontinued secondary to completion of protocol. Impression: 1. Lexiscan stress test test is negative for Lexiscan infusion induced EKG changes of ischemia. 2. Lexiscan stress test test is negative for Lexiscan infusion induced chest pain. 3. Results of the nuclear portion of the test is as below Myocardial perfusion imaging study: Technique: The patient was injected with 10.8 millicuries of technetium 99m Cardiolite and subsequently rest SPECT Cardiolite nuclear imaging was obtained in the horizontal long, vertical long, and short axis views. The patient underwent pharmacologic (Regadenoson) evaluation. Please see above for details. The patient was injected with 36 millicuries of technetium 99m Cardiolite and subsequently stress SPECT Cardiolite nuclear imaging was obtained in the horizontal long, vertical long, and short axis views. A gated Cardiolite study at peak stress was obtained. Interpretation: Rest and stress SPECT Cardiolite nuclear imaging status post realignment, normalization, and attenuation correction demonstrate overall normal myocardial radioisotope uptake. Gated images reveal no significant regional wall motion abnormalities. The reported LVEF is greater than 70%. Impression: 1. There is no evidence of significant ischemia or infarction. 2. Estimated ejection fraction is greater than 70%. This note was generated with [employer] software. It may contain incorrect words, spelling, and punctuation that were not noted in checking the note before signing.
== END ==
PROVIDERS: PCP Family Medicine; Referring Provider Family Medicine; Visit Provider Family Medicine
DX: R94.31 Abnormal electrocardiogram [ECG] [EKG] (principal)
CPT/HCPCS: 78452; 93017; A9500; A4216; J2785

== ENCOUNTER 2020-09-19 10:26 | Observation (INO) | payer MEDICARE, OTHER, SELFPAY ==
[2018-11-24 10:36] VITALS: BMI 25.9
--- NOTE | 2020-08-28 14:25 | EKG12_ITS ---
Test Reason : PREOP Blood Pressure : / mmHG Vent. Rate : 060 BPM Atrial Rate : 060 BPM P-R Int : 224 ms QRS Dur : 098 ms QT Int : 438 ms P-R-T Axes : 087 -67 082 degrees QTc Int : 438 ms Sinus rhythm with 1st degree A-V block Left anterior fascicular block Abnormal ECG Confirmed by EZRA MELENDEZ, VERNA ([id number]), metropolitan editor AMAN MOLINA ([id number]) on 08/29/2020 10:13:19 AM Referred By: Ronny Aguayo Confirmed By:VERNA MUNGUIA MD
[2020-08-28 14:59] LABS: Absolute Lymphocyte Count 1.15 X10^3/uL (0.83-4.51); Absolute Neutrophil Count 4.3 X10^3/uL (2.0-7.7); Basophil# 0.03 X10^3/uL; Basophil% 0.5 % (0-1); Eosinophil# 0.39 X10^3/uL; Hematocrit 40.7 % (37-47); Hemoglobin 12.9 g/dL (12.0-15.0); Lymphocyte # 1.15 X10^3/ul (4.0); Lymphocyte % 17.8 % (19-41); Mean Corp Hgb Conc 31.7 g/dL (32-36); Mean Corpuscular Hgb 30.4 pg (27.0-32.0); Mean Corpuscular Volume 95.8 fL (81-99); Mean Platelet Vol. 10.1 fl (6.2-12.0); Monocyte# 0.58 X10^3/uL; NRBC Flagged by Analyzer 0 % (0-5); Neutrophil # 4.28 X10^3/uL (2.7-7.7); Neutrophil % 66.4 % (47-70); Platelet Count 251 K/mm3 (150-450); RBC Distribution Width CV 12.8 % (11.6-14.6); RBC Distribution Width SD 45.1 fl (35.1-43.9); Red Blood Count 4.25 M/mm3 (4.2-5.4); White Blood Count 6.5 K/mm3 (4.4-11.0)
[2020-08-28 15:55] LABS: Anion Gap 4 (5-15); BUN 30 mg/dL (7-18); BUN/Creat Ratio 23.1 RATIO (10-20); Chloride 105 mmol/L (98-107); EST Glomerular Filtration Rate 42 mL/min (>60); Est Glom Filt Rate - Afr Amer 50 mL/min (>60); Glucose 94 mg/dL (74-106); Sodium Level 140 mmol/L (136-145)
--- NOTE | 2020-08-31 15:09 | HP.PCM_ITS ---
History and Physical History and Physical Patient Name: Dorys Livingston : 1935 From: NILDA LARIOS NP DATE OF SURGERY: 09/19/2020 SCHEDULED PROCEDURE: Left total knee arthroplasty HISTORY OF PRESENT ILLNESS: Preoperative history and physical exam was performed on August 28, 2020. This is an 84-year-old female whose been having ongoing left knee pain for over 2 years that has progressively gotten worse. The pain is 2 on a scale of 10 at best and 7 on a scale of 10 with activity. The pain is located over the medial joint line. She describes the pain as constant, aching, sharp and sore. The pain is made worse with stairs, driving, sitting for long periods of time and walking. The patient reports difficulty completing housework and shopping due to the left knee pain. The pain does wake the patient at night. She does report start up pain. The patient reports instability, catching and clicking with walking in the left knee. The patient denies numbness and tingling. Previous conservative measures attempted consist of rest and elevation with no relief. The patient has attempted home exercises with no relief. The patient has taken Aleve and supplements with no relief. The patient has a medical history pertinent for vertigo. She only has one kidney. The patient had a nephrectomy in 2019. Surgical clearance will be obtained from her primary care provider Dr. Contreras. After failing conservative treatment options with Dr. Jefferson with the patient does wish to proceed with a left total knee arthroplasty. REVIEW OF SYSTEMS: ROS: Const: Denies anorexia, anxiety, change in appetite, fever, difficulty sleeping, weight change. CV: Denies chest pain, heart murmur, irregular heartbeat and peripheral vascular disease. Resp: Denies asthma, cough, pneumonia, sleep apnea, shortness of breath, tuberculosis and wheezing. GI: Reports diarrhea, but denies constipation, heartburn, nausea, rectal itching, bloody stools and vomiting. : Denies incontinence. Musculo: Denies leg swelling, pain, trouble walking and weakness. Skin: Denies Raynaud's, history of shingles and tattoo. Neuro: Reports numbness/tingling but denies ambulatory dysfunction, dizziness and tremor. Psych: Denies anxiety, depression, insomnia, mental illness and stress. Dennis/Lymph: Denies anemia, bleeding/bruising tendency and past transfusion. Reviewed, no changes. PAST MEDICAL HISTORY: Advance Care Plan: Other Directive, POA Effective Date: 05/21/2020 Other Directive, LIVING WILL Effective Date: 05/21/2020 PMH: Medical Problems: Arthritis, Virtigo Accidents: Fracture - ARM FX, 3 YEARS OLD Surgical Hx: Nephrectomy - (11/24/2018) [facility] Anesthesia Complications: None Assistive Devices: Glasses, Dentures - PARTIAL Reviewed, no changes. SOCIAL HISTORY: SH: Marital: .Occupation: Retired.Work Status: Retired.Hand Dominance: Right- handed. Personal Habits: Cigarette Use: Former.Smokeless Tobacco: Never Used Smokeless Tobacco.E-Cigarette Use: Never used.Alcohol: Denies use.Drug Use: Denies Use.Enjoy Exercising: Daily. Reviewed and updated. VITALS: Ht: 68 Wt: 176lb Wt [id number] BMI: 26.8 BP: 119/61 Pulse: 70 Resp: 16 T: 95.2 T: 35.1C ALLERGIES: No Known Drug Allergy MEDICATIONS: [place] 5 A day, Multivitamin 1po qday, Vitamin B Complex 1 by mouth every day, Vitamin C 1po qday, Calcium + D3 1po qday, Tylenol 325 mg 2po bid, prn, Whey Protein PO qday PRE-OP EXAM: General appearance:NORMAL Other: Eyes: Conjunctivae and lids: NORMAL Pupils: ERR Ears, Nose, Mouth, and Throat: NORMAL Other: Inspection of lips, teeth and gums: NORMAL Other: Respiratory: Assessment of respiratory effort: NORMAL Other: Auscultation of lungs: clear to auscultation no wheezes, rhonchi or rales. Cardiovascular: Auscultation of heart: regular rate and rhythm, no murmurs, gallops or rubs. Gastrointestinal: Exam of abdomen: soft, nontender, nondistended bowel sounds present. Neurological: see below Psychiatric: Orientation to time, place and person: NORMAL Other: Mood and affect: NORMAL Other: PHYSICAL EXAMINATION: The patient ambulates with an antalgic gait. The skin is warm, dry and intact. Tenderness to palpation over the medial joint line. Partially correctable varus alignment. Stable to varus and valgus stress testing. Firm endpoint with anterior and posterior drawer testing. Range of motion: Flexion to 115. Sensation intact to light touch. IMAGING STUDIES: 4 views of left knee including sunrise and lateral and bilateral weight-bearing AP and tunnel views obtained on May 21, 2020 reviewed reveals varus alignment of the left knee. There is medial joint space narrowing, subchondral sclerosis and osteophyte formation consistent with severe stage IV tricompartmental osteoarthritis. IMPRESSION: 1. Osteoarthritis, left knee 2. Vertigo 3. Patient only has one kidney. She had a nephrectomy in 2019. PLAN: Dr. Ronny Aguayo did discuss and review with the patient all treatment options including surgical versus nonsurgical. The patient does wish to proceed with the above-stated procedure. Potential risk, benefits and complications of the procedure were discussed in detail including but not limited to , infection, nerve and blood vessel damage, persistent pain, numbness, tingling, paresthesia, blood clot, pulmonary embolism and requirement for possible further surgery. The patient expressed full understanding and has no further questions for the doctor. The patient does agree to proceed with the above-stated proce dure and has signed the surgery consent form. Discussed with the patient the risks associated with the COVID-19 virus including the risk of exposure while at the hospital. The patient was reassured local hospitals have low infection rates and taken all necessary precautions to limit patient exposure to COVID-19. Limiting the patient's time in the hospital may decrease their exposure to COVID-19. The patient was notified that we will need to comply with any screening or testing the hospital wishes to perform and that surgery may be delayed for any positive test results. This dictation was created using voice recognition software. Phonetic and/or grammatical errors may exist. ___ I have re-examined the patient. There are no clinical changes since date of exam. ___ See progress notes for changes. ___ Dictated on admission Date: Time: Signature:
[2020-09-10 12:18] LABS: Absolute Lymphocyte Count 0.78 X10^3/uL (0.83-4.51); Absolute Neutrophil Count 3.8 X10^3/uL (2.0-7.7); Basophil# 0.03 X10^3/uL; Basophil% 0.6 % (0-1); Eosinophils% 7.3 % (0-5); Hematocrit 40.4 % (37-47); Hemoglobin 12.5 g/dL (12.0-15.0); Lymphocyte # 0.78 X10^3/ul (4.0); Lymphocyte % 14.3 % (19-41); Mean Corp Hgb Conc 30.9 g/dL (32-36); Mean Corpuscular Hgb 30.3 pg (27.0-32.0); Mean Corpuscular Volume 97.8 fL (81-99); Mean Platelet Vol. 11.1 fl (6.2-12.0); Monocyte% 7.3 % (0-10); NRBC Flagged by Analyzer 0 % (0-5); Neutrophil # 3.83 X10^3/uL (2.7-7.7); Neutrophil % 70.3 % (47-70); Platelet Count 236 K/mm3 (150-450); RBC Distribution Width CV 12.8 % (11.6-14.6); RBC Distribution Width SD 45.9 fl (35.1-43.9); Red Blood Count 4.13 M/mm3 (4.2-5.4); White Blood Count 5.5 K/mm3 (4.4-11.0)
[2020-09-10 13:03] LABS: Magnesium 2.2 mg/dL (1.6-2.6)
[2020-09-10 13:15] LABS: Anion Gap 7 (5-15); BUN 24 mg/dL (7-18); Calcium,Total 9.1 mg/dL (8.5-10.1); Chloride 104 mmol/L (98-107); Creatinine, Serum 1.41 mg/dL (0.55-1.02); EST Glomerular Filtration Rate 38 mL/min (>60); Est Glom Filt Rate - Afr Amer 46 mL/min (>60); Glucose 88 mg/dL (74-106); Potassium 3.9 mmol/L (3.5-5.1); Sodium Level 141 mmol/L (136-145)
[2020-09-19] VITALS (13 sets, daily range): BP systolic 103–137; BP diastolic 45–73; PULSE 57–70; RESP 16–18; TEMP 36.3–37.2; O2SAT 94–100; BMI 26.6
[2020-09-19] MEDS: Lactated Ringers 1,000 ML 999 ML IV (07:00)
[2020-09-19] MEDS: Acetaminophen 500 MG Tablet 1000 MG PO ×2 (09:07→16:37)
[2020-09-19] MEDS: Gabapentin 600 MG Tablet PO (09:07)
[2020-09-19] MEDS: Lactated Ringers 1,000 ML 100 ML IV (09:10)
[2020-09-19] MEDS: Cefazolin 2 GM in 0.9% Normal Saline 100 ML IV (10:20)
[2020-09-19] MEDS: dexAMETHasone 10 MG/ML Vial IV (10:32)
[2020-09-19 10:40] LABS: Bedside Glucose 90 mg/dL (70-110)
--- NOTE | 2020-09-19 11:49 | PCM.OPRPT ---
Report of Operation Date of Procedure: 09/19/20 Pre-Operative Diagnosis: Left knee primary osteoarthritis Post-Operative Diagnosis: Left knee primary osteoarthritis Surgery/Procedure Performed:: Left knee robotic assisted minimally invasive total knee replacement Description of Surgical Findings:: Stable knee with good patella tracking crown presser: Nikia Gonzalez Type of Anesthesia:: Spinal Anesthesiologist: Giorgio Rachel Special Medications: 2 g Ancef, 1 g TXA at incision, 1 g TXA closure, 10 mg Decadron, joint cocktail (5 mg Duramorph, 30 mL of 0.5% Ropivicaine, 1000 units of epinephrine, 30 mg of Toradol) Specimen's removed: Bony cuts Estimated Blood Loss (mL): 35 mL Fluids Replaced: 1000 mL crystalloid Description of Procedure: Implants used: 1. Terry size 5 triathlon cruciate retaining distal femoral cemented component 2. Terry size 6 primary tibial baseplate 3. [place] X3 12 mm CS polyethylene 4. [place] X3 35 mm asymmetric patella Brief history operative indications: 85-year-old F with history of left knee osteoarthritis with radiographic findings with loss of joint space, osteophyte formation and subchondral sclerosis. Failed conservative measures as mentioned in the H&P. Discussion of total knee arthroplasty as well as risk and benefits were discussed the patient including but not limited to blood loss, DVTs, PEs, neurovascular damage, general risk of anesthesia including loss of life, and stiffness or instability were discussed with patient. Patient demonstrated understanding and was able to sign informed consent. Procedure: On the date of procedure patient's left lower extremity was marked in the preoperative area. The patient was then taken back to the operating room where the patient was placed on the table in the supine position. All bony prominences were identified a well-padded. Anesthesia assumed control of the C-spine and airway and remained controlled throughout the remainder of the procedure. A tourniquet was placed on the left upper thigh and the leg was prepped in a sterile fashion. The surgeon then scrubbed at this time .Upon reentering the room left lower extremity was draped in a standard orthopedic fashion. A timeout was then called and everyone agreed upon the side, the site, the procedure to be performed, patient's identity and antibiotics given. Esmarch bandage was used to exsanguinate the extremity and the tourniquet was placed up to 250 mmHg with the knee in flexion. A midline skin incision was made and sharp dissection was taken down through skin subcutaneous tissue and fat. The standard medial parapatellar incision was made and the patella was subluxed laterally. An Appropriate deep MCL release was done and the fat pad was resected. Our attention was then directed to the patella. The patella was everted and a flat resection was made. The knee was then flexed up in 2 femoral pins were placed inside the incision and 2 tibial pins were placed outside the incision in the medial tibia bicortically. Once this was completed the 2 checkpoints in the femur and tibia were placed. Knee was then flexed up and the bony landmarks were registered. Once this was completed knee was taken through range of motion and manually stressed allowing us to a plan for an appropriate tibial cut. The robotic arm was brought into the field sterilely and checkpoint and saw were registered. Based on the patient's deformity the tibial cut was made in 2 degrees varus. At this time the tensioner was then placed in the joint and ligament tension was checked at 90 degrees and full extension. Based on the patient's ligamentous tension appropriate adjustments were made to the operative plan and ligament releases were done. Once we were happy with our operative plan with balanced flexion and extension gaps our attention was directed to the femur. The robot was brought into the field sterilely and registered. Posterior condylar cuts, anterior chamfer cuts and anterior cuts were appropriately made for a size 5 femur. When these were completed the saws were switched out in the distal femoral and posterior chamfer cuts were made. Protecting the soft tissue throughout this time. A size 6 tibial base plate was selected. the knee was flexed to 90 degrees and the soft tissues and posterior osteophytes were removed from the joint. 40 cc of the periarticular injection was injected into the posterior medial corner of the joint. The appropriate trials were then placed on the femur and tibia. A trial polyethylene was trialed to ensure proper balancing and stability of the knee. The appropriate tibial internal rotation was then marked with a bovie. Our attention was then directed to the patella. The lug holes were drilled and the patella trial was placed. Patellar tracking was checked and deemed appropriate. Once we were happy lug holes were drilled for the femur and trial components were removed. the tibia was subluxed and pinned into place and the keel was punched and drilled appropriately. Final components were verified and opened, and cement was mixed in a vacuum. [id number] Simplex cement was used. The wound was copiously irrigated with normal saline. When the cement was ready the components were cemented into place starting with the tibia, femur and finally cementing the patella. The trial poly component was placed and the knee was placed in full extension. All excess cement was removed in the process. Once the cement had cured the tracking, alignment and balance were verified and a size 12 mm CS polyethylene component was placed. Once the final components were placed an Irrisept lavage was performed and the wound was copiously irrigated with normal saline solution and the periarticular injection was given. The wound was closed in a layer emery fashion using #1 vicryl interrupted sutures for the arthrotomy, 2-0 interrupted Vicryl suture for the subcuticular layer and irving for final skin closure. A sterile compressive dressing was then placed. The patient was then awakened from anesthesia, transferred to the [facility] and transferred to the PACU for recovery. Post op plan DVT ppx: ASA 81mg BID, thigh high compression stockings Follow up: in office in 2 weeks for wound check PT: to start POD #0 at hospital, outpatient PT should be arranged. Due to the complexity of this case robotic arm was used to assist in the surgery to improve accuracy and clinical outcomes. - Admit VTE Documentation VTE Present on Admission: No VTE Mechan Device Prophylaxis: SCD's, Thigh High PATRICK Hose VTE Pharm Prophylaxis ordered?: Yes
--- NOTE | 2020-09-19 12:40 | RAD_ITS ---
STUDY: X-RAY - LEFT KNEE REASON FOR EXAM: Female, 85 years old. Post op left knee TECHNIQUE: 2 view(s) of the knee. COMPARISON: Comparison is made with prior study dated 05/04/2017. FINDINGS: Normal visualized distal femur. Normal visualized proximal tibia and fibula. Normal proximal tibiofibular articulation. The patient is status post total knee replacement. There is good alignment. Postoperative soft tissue changes. RAD/Knee 1 or 2 Views IMPRESSION: Status post total knee replacement. There is good alignment. Postoperative soft tissue changes. Electronically Signed: Hilario Flores, at 13:10 EDT , Service support ,
[2020-09-19] MEDS: Lactated Ringers 1,000 ML 125 ML IV ×2 (14:31→22:48)
[2020-09-19] MEDS: Ensure Surgery 237 ML LIQUID PO (16:33)
[2020-09-19] MEDS: Aspirin 81 MG TAB.CHEW PO (16:34)
[2020-09-19] MEDS: Cefazolin 1 GM/50 ML BAG IV (18:16)
[2020-09-19] MEDS: Senna/Docusate Sodium 1 Tablet 2 TABLET PO (22:47)
[2020-09-20] MEDS: Cefazolin 1 GM/50 ML BAG IV (02:12)
[2020-09-20] MEDS: Acetaminophen 500 MG Tablet 1000 MG PO ×2 (02:15→08:00)
[2020-09-20 02:16] VITALS: BP 113/60; PULSE 58; RESP 18; TEMP 36.5; O2SAT 96
[2020-09-20 06:09] VITALS: BP 111/55; PULSE 52; RESP 18; TEMP 36.6; O2SAT 97
[2020-09-20 06:32] LABS: Hematocrit 33.5 % (37-47); Hemoglobin 10.7 g/dL (12.0-15.0); Mean Corp Hgb Conc 31.9 g/dL (32-36); Mean Corpuscular Hgb 30.9 pg (27.0-32.0); Mean Corpuscular Volume 96.8 fL (81-99); Platelet Count 200 K/mm3 (150-450); RBC Distribution Width CV 12.5 % (11.6-14.6); RBC Distribution Width SD 44.2 fl (35.1-43.9); Red Blood Count 3.46 M/mm3 (4.2-5.4); White Blood Count 8.7 K/mm3 (4.4-11.0)
[2020-09-20 06:51] LABS: Anion Gap 3 (5-15); BUN 22 mg/dL (7-18); Calcium,Total 8.4 mg/dL (8.5-10.1); Chloride 111 mmol/L (98-107); Creatinine, Serum 1.16 mg/dL (0.55-1.02); EST Glomerular Filtration Rate 47 mL/min (>60); Est Glom Filt Rate - Afr Amer 57 mL/min (>60); Estimated Creatinine Clearance 36.42 ml/min; Glucose 92 mg/dL (74-106); Potassium 4.3 mmol/L (3.5-5.1); Sodium Level 140 mmol/L (136-145)
[2020-09-20 07:53] VITALS: BP 110/69; PULSE 60; RESP 18; TEMP 36.8; O2SAT 94
[2020-09-20] MEDS: Ferrous Sulfate 325 MG Tablet PO (07:54)
[2020-09-20] MEDS: Aspirin 81 MG TAB.CHEW PO (07:54)
[2020-09-20] MEDS: Multivitamins,Therapeutic Tablet 1 TABLET PO (07:54)
[2020-09-20] MEDS: Calcium Carb/Vitamin D 1 TABLET Tablet PO (07:55)
--- NOTE | 2020-09-20 09:48 | PCM.PN.ORT ---
Subjective: The patient was sitting in bed upon examination. Patient denies any chest pain, shortness of breath, dizziness, lightheadedness, nausea or vomiting, or calf pain. Pain is controlled on medications. No adverse overnight events. Overall patient is doing very well and pain is well controlled. She did have a postoperative block. This was discussed with the patient in detail. Patient does wish to go home today. Objective: Vital signs stable and afebrile. Patient is able to plantarflex and dorsiflex actively. Sensation is intact to light touch to saphenous, sural, superficial and deep peroneal, and tibial distribution. Dressing is clean dry and intact. Negative Homans bilaterally, negative signs and symptoms of DVT. - Physical Exam Vitals/I&O's: Vital Signs Temp Pulse Resp BP Pulse Ox 98.2 F 60 18 110/69 94 09/20/20 07:53 09/20/20 07:53 09/20/20 07:53 09/20/20 07:53 09/20/20 07:53 Oxygen Flow Rate (L/min) 6 Oxygen Delivery Method Room Air Weight: 79.3 kg Body Mass Index (BMI) 26.6 Intake and Output for Last 24 Hours 09/18/20 09/19/20 09/20/20 23:59 23:59 23:59 Intake Total 4125.00 / 4125.00 1389.58 / 1389.58 Balance 4125.00 / 4125.00 1389.58 / 1389.58 General: Alert, Oriented x3, Cooperative, No apparent distress Laboratory Results 09/19/20 09:06: POC Glucose 90 09/20/20 06:20: WBC 8.7, RBC 3.46 L, Hgb 10.7 L, Hct 33.5 L, MCV 96.8, MCH 30.9, MCHC 31.9 L, RDW Std Deviation 44.2 H, RDW Coeff of Ermias 12.5, Plt Count 200, MPV 10.0 09/20/20 06:20: Sodium 140, Potassium 4.3, Chloride 111 H, Carbon Dioxide 26.0, Anion Gap 3 L, BUN 22 H, Creatinine 1.16 H, Estim Creat Clear Calc 36.42, Est GFR (MDRD) Af Amer 57 L, Est GFR (MDRD) Non-Af 47 L, BUN/Creatinine Ratio 19.0, Glucose 92, Calcium 8.4 L Current Medications Acetaminophen (Acetaminophen 500 Mg Tablet) 1,000 mg PO Q8H [facility] Last Admin: 09/20/20 08:00 Dose: 1,000 mg Documented by: Ascorbic Acid (Ascorbic Acid 500 Mg Tablet) 500 mg PO DAILY [facility] Aspirin (Aspirin 81 Mg Tab.Chew) [facility] Last Admin: 09/20/20 07:54 Dose: 81 mg Documented by: Calcium/Vitamin D (Calcium Carb/Vitamin D 1 Tablet Tablet) [facility] Last Admin: 09/20/20 07:55 Dose: 1 tablet Documented by: Enteral Nutritional Formula (Ensure Surgery 237 Ml Liquid) [facility] [place] [facility] [place] Last Admin: 09/20/20 07:55 Dose: Not Given Documented by: Famotidine (Famotidine 20 Mg Tablet) 20 mg PO DAILY [facility] Ferrous Sulfate (Ferrous Sulfate 325 Mg Tablet) [facility] Last Admin: 09/20/20 07:54 Dose: 325 mg Documented by: Influenza Virus Vaccine Quadrival (Influenza Vaccine (6mos+)/Pf 0.5 Ml Syringe) 0.5 ml IM .ONCE ONE Stop: 09/20/20 10:01 Insulin Human Lispro (Insulin Lispro 100 Unit/Ml Insuln.Pen) 1 - 6 unit SC Q4H PRN PRN; Protocol PRN Reason: BG>/= 180, SEE PROTOCOL Morphine Sulfate (Morphine 2 Mg/Ml Syringe) 2 - 4 mg IV Q2H PRN PRN PRN Reason: Pain Score 6-10 Morphine Sulfate (Morphine 4 Mg/Ml Syringe) 2 - 4 mg IV Q2H PRN PRN PRN Reason: Pain Score 6-10 Multivitamins (Multivitamins,Therapeutic Tablet) [facility] Last Admin: 09/20/20 07:54 Dose: 1 tablet Documented by: Ondansetron HCl (Ondansetron 4 Mg/2 Ml Vial) 4 mg IV Q8H PRN PRN PRN Reason: NAUSEA Oxycodone HCl (Oxycodone 5 Mg Tablet) 5 - 10 mg PO Q4H PRN PRN PRN Reason: Pain Score 4-10 Promethazine HCl (Promethazine 25 Mg/Ml Syringe) 12.5 mg IM Q6H PRN PRN; Protocol PRN Reason: NAUSEA/VOMITING Senna/Docusate Sodium (Senna/Docusate Sodium 1 Tablet) 2 tablet PO BID [facility] Last Admin: 09/19/20 22:47 Dose: 2 tablet Documented by: Sodium Chloride (0.9% Nacl Peripheral Flush Adult/Peds) 5 - 15 ml IV UD PRN PRN Reason: SALINE FLUSH Sodium Chloride (0.9% Saline Lock 10 Ml Syringe) 10 - 40 ml IV UD PRN PRN Reason: SALINE FLUSH Medical Necessity - Tobacco Use Smoking Status: Never smoker Tobacco Use: Non-smoker Assessment/Plan All Active Problems UTI (urinary tract infection) (Acute) Nephrolithiasis (Acute) Hydronephrosis (Acute) 1. S/P left total knee arthroplasty POD #1 2. Continue Pain Medications: Tylenol and OxyIR 3. DVT Prophylaxis: Take 81 mg aspirin twice daily for 4 weeks postoperatively for DVT prophylaxis 4. PT/OT: Weightbearing as tolerated 5. H & H: 10.7/33.5, asymptomatic. Drop in hemoglobin secondary to acute blood loss from surgery without any intraoperative complications 6. Encouraged Incentive Spirometry 7. Disposition: Orthopedically stable, plan will be for discharge home today as long as patient is medically stable, patient tolerates physical therapy, and pain is controlled. A prescription for front wheeled walker was placed on chart. Patient will follow-up per postop instructions. Patient has outpatient physical therapy established. Prescriptions will be E scribed to [facility] pharmacy. I have reviewed the [place] Automated Rx Reporting System (OARRS) report for this patient for refill pattern and other prescriber involvement as part of the appropriate surveillance for the provision of acute and chronic controlled medications. The report was requested and reviewed on the date of this entry and was considered in the prescribing process.
[2020-09-20] MEDS: Famotidine 20 MG Tablet PO (09:50)
[2020-09-20] MEDS: Senna/Docusate Sodium 1 Tablet 2 TABLET PO (09:50)
[2020-09-20] MEDS: Ascorbic Acid 500 MG Tablet PO (09:51)
[2020-09-20 10:00] VITALS: PULSE 80
--- NOTE | 2020-09-20 10:04 | DCINST_ITS ---
Discharge Diet: No Restrictions Discharge Activity: May Not Drive May shower in (days): 1 - Turn dressing away from water. Dressing must be intact to skin Ice area for (Minutes): 20 - Every 1-2 hours while awake Weight Bearing Status: Weight bearing as tolerated Elevate: Operative Extremity Additional Activity Instructions:: Wear elastic stockings for 2 weeks after your surgery. Call your doctor if your incision/area has: Continuous Slow Oozing, Sudden Increased Bleeding, Increased Pain/ Swelling, Increased Redness, Foul Smelling Discharge Call your doctor if you observe: Fever of 101 or Higher, Coldness, Increased Pain, Numbness or Tingling, Change in Color, Calf discomfort, Uncontrolled pain Remove Dressing in (days):: 4 - Okay to remove dressing on September 24, 2020 Additional Instructions: Patient will follow-up per orthopedic postop instructions Once dressing has been removed, do not place any ointments, salves, Neosporin, alcohol pads over the incision. Only use gentle soap and water with shower. Allergies/Adverse Reactions: Allergies No Known Allergies Allergy (Verified 09/05/20 09:28) Medications to take at Discharge Multivitamins,Therapeutic [Multivitamin] 1 tab PO DAILY 04/06/18 Barley Life 5 tab PO BREAKFAST 07/31/18 Calcium Carbonate/Vitamin D3 [Calcium 600 + Vit D Tablet] 1 each PO DAILY 11/18/18 L.acidoph,Paracasei, B.lactis [Probiotic] 1 each PO DAILY 11/18/18 Ascorbic Acid [Vitamin C] 500 mg PO DAILY 09/05/20 Cyanocobalamin (Vitamin B-12) [Vitamin B-12] 1,000 mcg PO DAILY 09/05/20 Ferrous Sulfate 65 mg PO DAILY 09/05/20 Acetaminophen [Tylenol] 1,000 mg PO Q8H tablet 09/20/20 Aspirin [Aspirin, Baby] 81 mg PO BIDCM #60 tab 09/20/20 Famotidine [Pepcid] 20 mg PO DAILY #30 tab 09/20/20 Oxycodone [Oxyir] 5 - 10 mg PO Q4H PRN PRN 4 Days #48 tablet 09/20/20 Senna/Docusate Sodium [Senokot-S] 2 tab PO BID #10 tab 09/20/20 The following prescriptions were given: Aspirin [Aspirin, Baby] 81 mg PO BIDCM #60 tab Transmission Status: Pending to [facility] Oxycodone [Oxyir] 5 - 10 mg PO Q4H PRN PRN 4 Days #48 tablet PRN Reason: Pain Score 4-10 Transmission Status: Sent to [facility] Famotidine [Pepcid] 20 mg PO DAILY #30 tab Transmission Status: Pending to [facility] Senna/Docusate Sodium [Senokot-S] 2 tab PO BID #10 tab Transmission Status: Pending to [facility] Primary Care Physician: Angel Luis Contreras MD [Primary Care Provider] - Test Results: Test results from this visit will be discussed in further detail at your follow- up appointment, if applicable. Please Follow Up With: Andrea Franco Physical Therapy When: 09/21/20 @ 10:00 am with Cabrera Please Follow Up With: Rachelle Cortes NP, [facility] When: 10/03/20 @ 10:15 am
--- NOTE | 2020-09-20 11:15 | CASEMGMT ---
AGATHA GARRISON Face to Face with patient for initial transition planning/care coordination assessment. AGATHA GARRISON introduced self and role at [facility]. Patient sitting in chair, alert and oriented. Patient willing to participate in assessment and is able to answer all questions appropriately. Care providers, pharmacy, and demographics verified. Patient wishes to discharge home and is setup with [facility] for outpatient therapy. Patient states she has no further needs or concerns at this time. CM to follow for discharge planning needs that may arise. PCP: Ben Specialists: thelma Aguayo Pharmacy: [facility] Insurance: [employer], [employer] Prescription Benefit: yes Living Will/HPOA: yes, daughter Aniya Amador LNOK: daughter, sister Living Arrangements: Patient lives alone in a 1 story home but had family that will be staying with her. Patient state she was independent at home prior to surgery. Transportation: sister DME/C: Patient state she has shower chair, raised toilet, and cane at home. Patient needs FWW at discharge. Script recieved for FWW. Patient prefers [employer]. AGATHA GARRISON sent referral to [facility] and arranged for delivery prior to discharge. Patient is setup with [facility] for outpatient therapy starting Thursday. Disposition Plan: Patient to discharge home with outpatient therapy, family support, and follow-up plans in place. Echo MAN, RN, CM
== END 2020-09-20 14:24 | disposition home or self-care (01) ==
LOC: SDC 10:40 → MS3 10:43
PROVIDERS: Anesthesiology; Admitting Provider Specialist; PCP Family Medicine; Referring Provider Specialist; Visit Provider Specialist
PROC: 0SRD0JZ Replacement of Left Knee Joint with Synthetic Substitute, Open Approach (ICD-10-PCS; CPT 27447; principal; 2020-09-19 10:00)
DX: M17.12 Unilateral primary osteoarthritis, left knee (principal); Z20.828 Contact with and (suspected) exposure to other viral communicable diseases; Z23 Encounter for immunization; Z90.5 Acquired absence of kidney; I44.4 Left anterior fascicular block; I44.0 Atrioventricular block, first degree; Z79.899 Other long term (current) drug therapy
CPT/HCPCS: 01400; 27447; 64447; S2900; 36415; 73560; 80048; 82962; 83735; 85025; 85027; 87081; 87635; 93005; 96361; 96365; 96366; 97110; 97116; 97162; 97166; 97530; 99218; 99251; C1776; C9803; G0008; J7120; 90686; G0378; G0379; G0463; J2405; U0003

== ENCOUNTER → 2020-10-03 11:08 | Outpatient (CLI) | payer MEDICARE, OTHER, SELFPAY ==
[2020-09-19 14:18] VITALS: BMI 26.6
--- NOTE | 2020-10-03 11:12 | VDLE_ITS ---
Reason For Study: Pain in LLE Procedure LEFT This is a venous duplex using B-mode, color GSV is normal. flow and spectral Doppler. CFV is compressible, spontaneous, phasic, Exam performed in department. competent, and demonstrates normal A preliminary report was called and/or faxed augmentation. to [facility]. FV is compressible, spontaneous, phasic, competent and demonstrates normal augmentation. POP V is compressible, spontaneous, phasic, competent and demonstrates normal augmentation. T/P Trunk is compressible. PTV is compressible. LT PerV is compressible. Interpretation Summary Deep veins of the left lower extremity are patent and compressible segmentally. There is no evidence of left lower extremity deep vein thrombosis. Valvular competence appears intact within the proximal deep venous system on the left . The left great saphenous vein appears patent and compressible segmentally. Ordering Physician: Rachelle Cortes Referring Physician: Angel Luis Contreras Performed By: Echo Kim RVT
== END ==
PROVIDERS: PCP Family Medicine; Referring Provider Registered Nurse; Visit Provider Registered Nurse
DX: M79.662 Pain in left lower leg (principal); M17.12 Unilateral primary osteoarthritis, left knee; Z96.652 Presence of left artificial knee joint
CPT/HCPCS: 93971

== ENCOUNTER → 2021-01-08 10:30 | Outpatient (CLI) | payer MEDICARE, OTHER, SELFPAY ==
[2020-09-19 14:18] VITALS: BMI 26.6
[2021-01-08 10:35] LABS: Bacteria 0 SEEN /hpf (None Seen); Mucous, Urine 0 SEEN /hpf (<or=2+); Red Blood Cells-Urine 0 SEEN /hpf (0-5)
[2021-01-08 12:20] LABS: Absolute Lymphocyte Count 0.79 X10^3/uL (0.83-4.51); Absolute Neutrophil Count 4.8 X10^3/uL (2.0-7.7); Basophil# 0.04 X10^3/uL; Basophil% 0.6 % (0-1); Eosinophil# 0.32 X10^3/uL; Hematocrit 40.4 % (37-47); Hemoglobin 12.8 g/dL (12.0-15.0); Lymphocyte # 0.79 X10^3/ul (4.0); Lymphocyte % 12.2 % (19-41); Mean Corp Hgb Conc 31.7 g/dL (32-36); Mean Corpuscular Hgb 29.4 pg (27.0-32.0); Mean Corpuscular Volume 92.9 fL (81-99); Mean Platelet Vol. 10.7 fl (6.2-12.0); Monocyte# 0.48 X10^3/uL; Monocyte% 7.4 % (0-10); NRBC Flagged by Analyzer 0 % (0-5); Neutrophil # 4.82 X10^3/uL (2.7-7.7); Neutrophil % 74.6 % (47-70); Platelet Count 248 K/mm3 (150-450); RBC Distribution Width CV 12.9 % (11.6-14.6); RBC Distribution Width SD 43.9 fl (35.1-43.9); Red Blood Count 4.35 M/mm3 (4.2-5.4); White Blood Count 6.5 K/mm3 (4.4-11.0)
[2021-01-08 12:21] LABS: Color, Urine Yellow (Yellow); Glucose, Dipstick Normal (Normal); Ketone-Dipstick Negative (Negative); Leukocyte Esterase-Dipstick 25 /ul (Negative); Nitrite-Dipstick Negative (Negative); Occult Blood-Urine Negative /ul (Negative); Protein-Dipstick Negative (Negative); Urine Bilirubin Dipstick Negative (Negative); Urine Clarity Sl. Cloudy (Clear); Urine Urobilinogen Normal (Normal)
[2021-01-08 12:29] LABS: Squamous Epithelial Cells - UA 0-5 SEEN /hpf (5-10); White Blood Cells 0-5 SEEN /hpf (0-5)
[2021-01-08 12:46] LABS: PTHIN 40.6 pg/mL (18.4-80.1)
[2021-01-08 12:49] LABS: Vitamin D,25 Hydroxy 62.4 ng/mL
[2021-01-08 12:50] LABS: ALB/GLOB Ratio 1.1 RATIO (0.9-2.4); AST(SGOT) 18 U/L (15-37); Alanine Aminotransfer ALT/SGPT 21 U/L (13-56); Albumin, Serum 3.9 g/dL (3.2-5.0); Alkaline Phosphatase 67 U/L (45-117); Anion Gap 4 (5-15); BUN 23 mg/dL (7-18); BUN/Creat Ratio 18.9 RATIO (10-20); Calcium,Total 9.1 mg/dL (8.5-10.1); Chloride 106 mmol/L (98-107); Cholesterol 237 mg/dL (200); Creatinine, Serum 1.22 mg/dL (0.55-1.02); EST Glomerular Filtration Rate 45 mL/min (>60); Est Glom Filt Rate - Afr Amer 54 mL/min (>60); Globulin 3.5 g/dL (2.2-4.2); Glucose 78 mg/dL (74-106); High Density Lipoprotein 73 mg/dL; Phosphorus 3.7 mg/dL (2.5-4.9); Potassium 4.3 mmol/L (3.5-5.1); Protein, Total 7.4 g/dL (6.4-8.2); Sodium Level 139 mmol/L (136-145); Triglycerides 126 mg/dL; Very Low Density Lipoprotein 25 mg/dL (5-40)
[2021-01-08 12:58] LABS: Protein, Urine (Random) < 6.0 mg/dL (<11.9)
== END ==
PROVIDERS: PCP Family Medicine; Referring Provider Family Medicine; Visit Provider Family Medicine
DX: N18.30 Chronic kidney disease, stage 3 unspecified (principal); M85.80 Other specified disorders of bone density and structure, unspecified site; E78.00 Pure hypercholesterolemia, unspecified
CPT/HCPCS: 36415; 80053; 80061; 81001; 82306; 82570; 83970; 84100; 84156; 85025

== ENCOUNTER → 2021-06-06 09:34 | Outpatient (CLI) | payer MEDICARE, OTHER, SELFPAY ==
[2020-09-19 14:18] VITALS: BMI 26.6
[2021-06-06 12:11] LABS: Absolute Lymphocyte Count 0.87 X10^3/uL (0.83-4.51); Absolute Neutrophil Count 3.5 X10^3/uL (2.0-7.7); Basophil# 0.05 X10^3/uL; Basophil% 0.9 % (0-1); Eosinophil# 0.33 X10^3/uL; Eosinophils% 6.2 % (0-5); Hematocrit 40.4 % (37-47); Hemoglobin 12.7 g/dL (12.0-15.0); Lymphocyte # 0.87 X10^3/ul (0.83-4.51); Lymphocyte % 16.2 % (19-41); Mean Corp Hgb Conc 31.4 g/dL (32-36); Mean Corpuscular Hgb 29.7 pg (27.0-32.0); Mean Corpuscular Volume 94.6 fL (81-99); Monocyte# 0.57 X10^3/uL; Monocyte% 10.6 % (0-10); NRBC Flagged by Analyzer 0 % (0-5); Neutrophil # 3.53 X10^3/uL (2.7-7.7); Neutrophil % 65.9 % (47-70); Platelet Count 282 K/mm3 (150-450); Red Blood Count 4.27 M/mm3 (4.2-5.4); White Blood Count 5.4 K/mm3 (4.4-11.0)
[2021-06-06 12:28] LABS: Vitamin D,25 Hydroxy 59.2 ng/mL
[2021-06-06 12:31] LABS: ALB/GLOB Ratio 1.1 RATIO (0.9-2.4); AST(SGOT) 23 U/L (15-37); Alanine Aminotransfer ALT/SGPT 27 U/L (13-56); Albumin, Serum 3.7 g/dL (3.2-5.0); Alkaline Phosphatase 59 U/L (45-117); Anion Gap 9 (5-15); BUN 26 mg/dL (7-18); BUN/Creat Ratio 20.5 RATIO (10-20); Chloride 103 mmol/L (98-107); Creatinine, Serum 1.27 mg/dL (0.55-1.02); EST Glomerular Filtration Rate 43 mL/min (>60); Est Glom Filt Rate - Afr Amer 52 mL/min (>60); Globulin 3.5 g/dL (2.2-4.2); Glucose 78 mg/dL (74-106); Potassium 4.3 mmol/L (3.5-5.1); Protein, Total 7.2 g/dL (6.4-8.2); Sodium Level 139 mmol/L (136-145)
== END ==
PROVIDERS: PCP Family Medicine; Referring Provider Family Medicine; Visit Provider Family Medicine
DX: M85.80 Other specified disorders of bone density and structure, unspecified site (principal); N18.30 Chronic kidney disease, stage 3 unspecified
CPT/HCPCS: 36415; 80053; 82306; 85025

== ENCOUNTER → 2021-10-04 10:24 | Outpatient (CLI) | payer MEDICARE, OTHER, SELFPAY ==
[2021-10-04 12:44] LABS: ALB/GLOB Ratio 0.9 RATIO (0.9-2.4); AST(SGOT) 19 U/L (15-37); Alanine Aminotransfer ALT/SGPT 21 U/L (13-56); Albumin, Serum 3.6 g/dL (3.2-5.0); Alkaline Phosphatase 57 U/L (45-117); Anion Gap 5 (5-15); BUN 20 mg/dL (7-18); BUN/Creat Ratio 15.5 RATIO (10-20); Calcium,Total 9.5 mg/dL (8.5-10.1); Chloride 105 mmol/L (98-107); Creatinine, Serum 1.29 mg/dL (0.55-1.02); EST Glomerular Filtration Rate 42 mL/min (>60); Est Glom Filt Rate - Afr Amer 51 mL/min (>60); Globulin 3.8 g/dL (2.2-4.2); Glucose 93 mg/dL (74-106); Potassium 4.2 mmol/L (3.5-5.1); Protein, Total 7.4 g/dL (6.4-8.2); Sodium Level 138 mmol/L (136-145)
== END ==
PROVIDERS: PCP Family Medicine; Referring Provider Family Medicine; Visit Provider Family Medicine
DX: N18.30 Chronic kidney disease, stage 3 unspecified (principal)
CPT/HCPCS: 36415; 80053

== ENCOUNTER 2022-04-06 08:10 | Emergency (ER) | payer MEDICARE, OTHER, SELFPAY ==
[2022-04-06 08:10] VITALS: BP 112/73; PULSE 74; RESP 15; TEMP 36.6; O2SAT 98; BMI 25.7
--- NOTE | 2022-04-06 08:23 | CT_ITS ---
STUDY: CT ABDOMEN AND PELVIS WITHOUT CONTRAST REASON FOR EXAM: Female, 86 years old. Diffuse abdominal pain, fever RADIATION DOSAGE (If Supplied By Facility): CTDIvol = ( 7.56 ) mGy, DLP = ( 339.75 ) mGycm TECHNIQUE: Transaxial images were obtained from the dome of the diaphragm to the symphysis pubis without oral contrast, and without intravenous contrast. Sagittal and coronal images were reconstructed. Individualized dose optimization techniques were used for this CT. COMPARISON: 2017 FINDINGS: Chronic interstitial changes noted in the lung bases. The visualized portions of the heart are within normal limits. Normal liver. Normal gallbladder and extrahepatic biliary system. Normal spleen. Normal pancreas. Normal bilateral adrenal glands. Normal right kidney. Left kidney is not visualized. Normal visualized stomach. Normal small intestine. There are multiple colonic diverticula consistent with diverticulosis. There is non-visualization of the appendix. There is diffuse atherosclerotic calcification of the abdominal aorta, without a demonstrated aneurysm. Normal inferior vena cava. Normal retroperitoneum. Normal urinary bladder. There is nonspecific induration of the subcutaneous fat. There are diffuse degenerative changes of the visualized lumbar spine, and pelvis. CT/Abdomen/Pelvis without Cont IMPRESSION: No suspicious solid organ abnormality, the left kidney is not visualized on current study and may have been removed in the interim Colonic diverticulosis, no CT evidence of acute diverticulitis No free intraperitoneal fluid, air, or suspicious adenopathy Degenerative bony changes Nonspecific induration of the subcutaneous fat Electronically Signed: Yoshi Mcmullen MD at 9:22 EDT ,
--- NOTE | 2022-04-06 08:23 | EKG12_ITS ---
Test Reason : Blood Pressure : / mmHG Vent. Rate : 063 BPM Atrial Rate : 063 BPM P-R Int : 216 ms QRS Dur : 106 ms QT Int : 442 ms P-R-T Axes : 071 -51 026 degrees QTc Int : 452 ms Sinus rhythm with 1st degree A-V block Left anterior fascicular block Anterior infarct , age undetermined Abnormal ECG Confirmed by DESTIN JESUS MD ([id number]), editor newspaper AMAN MOLINA ([id number]) on 04/07/2022 1:58:00 PM Referred By: CINTIA Confirmed By:DESTIN JESUS MD
--- NOTE | 2022-04-06 08:24 | EDS_ITS ---
HPI History of Present Illness Chief Complaint: General Illness Narrative Narrative: The patient presents complaining of a general sense of fatigue quite a bit of diarrhea and a spot to the right thigh area that she is concerned might represent a spider bite. 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 lactis 1 ea PO DAILY 11/18/18 [History Last Taken 11/24/18 08:00] ascorbic acid (vitamin C) 500 mg PO DAILY 09/05/20 [History Last Taken Unknown] cyanocobalamin (vitamin B-12) 1,000 mcg PO DAILY 09/05/20 [History Last Taken Unknown] acetaminophen 1,000 mg PO Q8H PRN 04/06/22 [History Last Taken Unknown] Allergy/AdvReac Type Severity Reaction Status Date / Time No Known Allergies Allergy Verified 04/06/22 08:14 Social History Smoking Status: Never smoker ROS ROS ED Constitutional Constitutional ED: Denies fever(s) Eyes Eyes: Denies change in vision ENT ENT ED: Denies ear pain Cardiovascular Cardiovascular: Denies chest pain Respiratory/Chest Respiratory/Chest: Denies dyspnea Gastrointestinal Gastrointestinal: Reports diarrhea Genitourinary Genitourinary ED: Denies dysuria Musculoskeletal Musculoskeletal: Denies arthralgias or myalgias Integumentary Reports rash Neurologic Neurologic: Denies headache(s) Endocrine Endocrinology: Denies polyuria EXAM Physical Exam Narrative Exam Narrative: Patient's vital signs are unremarkable she is resting company in the bed no distress head unremarkable nose throat chest abdomen unremarkable soft nontender she moving all 4 extremities, skin is normal except there is a circular spot to the right lower thigh area that looks like a high it is not red warm or tender she this is the only spot she has she is concerned may represent some type of spider or insect bite Const Vital Signs: 04/06/22 08:10 04/06/22 09:25 04/06/22 10:07 Temperature 97.8 F Temperature Source Temporal Pulse Rate 74 62 Respiratory Rate 15 16 Respiratory Effort Normal Non-Labored Respiratory Pattern Normal Blood Pressure 112/73 128/79 H Blood Pressure Mean 86 Pulse Ox 98 Oxygen Delivery Method Room Air Positive well developed General Appearance ED: well developed HEENT Reports normocephalic Negative for trauma Eyes EOMs intact bilaterally Neck supple Chest Wall inspection of chest normal Resp normal respiratory effort Cardio regular rate GI non-tender and non-distended Back/Spine Back/Spine Narrative: unremarkable Extremity normal to inspection Neuro oriented x3 and CN's II-XII intact bilaterally Sensorium / Orientation: alert Psych mental status grossly normal Skin no rashes or lesions noted MDM MDM MDM Narrative Medical decision making narrative: Given her complaints and her age ED screen evaluation is obtained labs fluids CT abdomen Patient's ED screening evaluation was generally unremarkable EKG showed a sinus rhythm rate of 63 no acute injury pattern appreciated nonspecific changes, all labs are generally unremarkable creatinine about 1.2, CT abdomen pelvis per radiology shows nothing acute on reevaluation she is resting company bed no distress completely stable discussed all the above with her discussed this small circular dot right medial distal thigh area potential for early some type of nonspecific infection starting on antibiotics but she did refuse antibiotics preferring to use bacitracin ointment and following up with her physicians for all of these issues including wound check tomorrow returning for change in symptoms, bland diet, She indicated she was having quite a bit of diarrhea during her stay in the ED there is been no diarrhea She is very comfortable this plan and wants to go home now Lab Data Labs: Laboratory Results - last 24 hr 04/06/22 04/06/22 04/06/22 08:39 08:39 09:03 WBC 3.6 L RBC 4.33 Hgb 13.2 Hct 41.1 MCV 94.9 MCH 30.5 MCHC 32.1 RDW Std Deviation 44.6 H RDW Coeff of Ermias 12.8 Plt Count 216 MPV 9.7 Immature Gran % (Auto) 0.300 Neut % (Auto) 61.5 Lymph % (Auto) 20.1 Charles % (Auto) 11.7 H Eos % (Auto) 6.1 H Baso % (Auto) 0.3 Absolute Neuts (auto) 2.2 Absolute Lymphs (auto) 0.72 L Nucleated RBC % 0 Sodium 138 Potassium 3.8 Chloride 107 Carbon Dioxide 27.0 Anion Gap 4 L BUN 13 Creatinine 1.23 H Estim Creat Clear Calc 33.73 Est GFR (MDRD) Af Amer 53 L Est GFR (MDRD) Non-Af 44 L BUN/Creatinine Ratio 10.6 Glucose 90 Calcium 8.7 Total Bilirubin 0.60 AST 23 ALT 22 Alkaline Phosphatase 52 Troponin I High Sens 5 Total Protein 6.9 Albumin 3.4 Globulin 3.5 Albumin/Globulin Ratio 1.0 Lipase 40 L Urine Color Yellow Urine Clarity Clear Urine pH 6.0 Ur Specific [place] 1.015 Urine Protein Negative Urine Glucose (UA) Normal Urine Ketones 15 H Urine Occult Blood 10 H Urine Nitrite Negative Urine Bilirubin Negative Urine Urobilinogen Normal Ur Leukocyte Esterase 25 H Radiography Diagnostic Testing: Clinical Impression(s) from Imaging Studies Abdomen/Pelvis CT 04/06/22 08:23 IMPRESSION: No suspicious solid organ abnormality, the left kidney is not visualized on current study and may have been removed in the interim Colonic diverticulosis, no CT evidence of acute diverticulitis No free intraperitoneal fluid, air, or suspicious adenopathy Degenerative bony changes Nonspecific induration of the subcutaneous fat Electronically Signed: Yoshi Mcmullen MD at 9:22 EDT , Discharge Plan Triage Chief Complaint: General Illness ED Provider: Rolando Mcgraw Dx/Rx/DC Orders Clinical Impression: Diarrhea, Rash and nonspecific skin eruption Instructions: ED Diarrhea, Unknown Cause Prescriptions: No Action multivitamin with folic acid [Thera] 1 TABLET tablet 1 tab PO DAILY RF: 0 Calcium 600 + D(3) 1 EACH tablet 1 ea PO DAILY RF: 0 L.acidoph, paracasei,B. lactis 1 EACH capsule 1 ea PO DAILY RF: 0 ascorbic acid (vitamin C) 500 MG capsule 500 mg PO DAILY RF: 0 cyanocobalamin (vitamin B-12) 1,000 MCG capsule 1,000 mcg PO DAILY RF: 0 acetaminophen 500 MG tablet 1,000 mg PO Q8H PRN (Reason: Pain) RF: 0 Primary Care Provider: Angel Luis Contreras Referrals: Angel Luis Contreras MD [Primary Care Provider] - Disposition Disposition: Home, Self Care Discharge Date/Time: 04/06/22 10:08
[2022-04-06] MEDS: 0.9% Normal Saline 1,000 ML 1000 ML IV (08:31)
[2022-04-06] MEDS: Dicyclomine 10 MG Capsule 20 MG PO (08:31)
[2022-04-06 08:45] LABS: Absolute Lymphocyte Count 0.72 X10^3/uL (0.83-4.51); Absolute Neutrophil Count 2.2 X10^3/uL (2.0-7.7); Basophil# 0.01 X10^3/uL; Basophil% 0.3 % (0-1); Eosinophil# 0.22 X10^3/uL; Eosinophils% 6.1 % (0-5); Hematocrit 41.1 % (37-47); Hemoglobin 13.2 g/dL (12.0-15.0); Lymphocyte # 0.72 X10^3/ul (0.83-4.51); Lymphocyte % 20.1 % (19-41); Mean Corp Hgb Conc 32.1 g/dL (32-36); Mean Corpuscular Hgb 30.5 pg (27.0-32.0); Mean Corpuscular Volume 94.9 fL (81-99); Mean Platelet Vol. 9.7 fl (6.2-12.0); Monocyte# 0.42 X10^3/uL; Monocyte% 11.7 % (0-10); NRBC Flagged by Analyzer 0 % (0-5); Neutrophil # 2.21 X10^3/uL (2.7-7.7); Neutrophil % 61.5 % (47-70); POSITIVE MORPHOLOGY YES; Platelet Count 216 K/mm3 (150-450); RBC Distribution Width CV 12.8 % (11.6-14.6); RBC Distribution Width SD 44.6 fl (35.1-43.9); Red Blood Count 4.33 M/mm3 (4.2-5.4); White Blood Count 3.6 K/mm3 (4.4-11.0)
[2022-04-06 08:46] LABS: Differential Indicated SCAN CRITERIA MET
[2022-04-06 09:10] LABS: AST(SGOT) 23 U/L (15-37); Alanine Aminotransfer ALT/SGPT 22 U/L (13-56); Albumin, Serum 3.4 g/dL (3.2-5.0); Alkaline Phosphatase 52 U/L (45-117); Anion Gap 4 (5-15); BUN 13 mg/dL (7-18); BUN/Creat Ratio 10.6 RATIO (10-20); Calcium,Total 8.7 mg/dL (8.5-10.1); Chloride 107 mmol/L (98-107); Creatinine, Serum 1.23 mg/dL (0.55-1.02); EST Glomerular Filtration Rate 44 mL/min (>60); Est Glom Filt Rate - Afr Amer 53 mL/min (>60); Estimated Creatinine Clearance 33.73 ml/min; Globulin 3.5 g/dL (2.2-4.2); Glucose 90 mg/dL (74-106); Lipase 40 U/L (73-393); Potassium 3.8 mmol/L (3.5-5.1); Protein, Total 6.9 g/dL (6.4-8.2); Sodium Level 138 mmol/L (136-145); Troponin-I HS (w/2H Reflex) 5 pg/mL (3.0-54.0)
[2022-04-06 09:15] LABS: Color, Urine Yellow (Yellow); Glucose, Dipstick Normal (Normal); Ketone-Dipstick 15 mg/dl (Negative); Leukocyte Esterase-Dipstick 25 /ul (Negative); Nitrite-Dipstick Negative (Negative); Occult Blood-Urine 10 /ul (Negative); Protein-Dipstick Negative (Negative); Specific Gravity, Urine 1.015 (1.002-1.030); Urine Bilirubin Dipstick Negative (Negative); Urine Clarity Clear (Clear); Urine Urobilinogen Normal (Normal)
[2022-04-06 10:07] VITALS: BP 128/79; PULSE 62; RESP 16
[2022-04-06 10:43] LABS: Reflex Troponin-HS? (from REC) Y
== END 2022-04-06 10:08 | disposition home or self-care (01) ==
LOC: ED 08:52
PROVIDERS: Emergency Provider Emergency Medicine; PCP Family Medicine; Visit Provider Emergency Medicine
DX: R21 Rash and other nonspecific skin eruption (principal); R19.7 Diarrhea, unspecified; K57.30 Diverticulosis of large intestine without perforation or abscess without bleeding
CPT/HCPCS: 74176; 80053; 81002; 83690; 84484; 85025; 93005; 96360; 99284; J7030; A4216

== ENCOUNTER → 2022-04-10 | Outpatient (CLI) | payer MEDICARE, OTHER, SELFPAY ==
[2022-04-10 11:05] LABS: Anion Gap 7 (5-15); BUN 19 mg/dL (7-18); BUN/Creat Ratio 15.2 RATIO (10-20); Calcium,Total 9.5 mg/dL (8.5-10.1); Chloride 102 mmol/L (98-107); Creatinine, Serum 1.25 mg/dL (0.55-1.02); EST Glomerular Filtration Rate 43 mL/min (>60); Est Glom Filt Rate - Afr Amer 52 mL/min (>60); Glucose 89 mg/dL (74-106); Potassium 4.2 mmol/L (3.5-5.1); Sodium Level 139 mmol/L (136-145)
== END | disposition home or self-care (01) ==
LOC: MFPLAB 08:41
PROVIDERS: PCP Family Medicine; Referring Provider Family Medicine; Visit Provider Nurse Practitioner Family
DX: N18.30 Chronic kidney disease, stage 3 unspecified (principal)
CPT/HCPCS: 36415; 80048

== ENCOUNTER → 2022-09-10 | Outpatient (CLI) | payer MEDICARE, OTHER, SELFPAY | END | disposition home or self-care (01) | LOC: LABSPEC 10:05 | PROVIDERS: PCP Family Medicine; Referring Provider Family Medicine; Visit Provider Family Medicine | DX: N39.0 Urinary tract infection, site not specified (principal) | CPT/HCPCS: 87086; 87088; 87186 ==

== ENCOUNTER → 2022-09-29 | Outpatient (CLI) | payer MEDICARE, OTHER, SELFPAY ==
[2022-09-29 10:19] LABS: Mucous, Urine 0 SEEN /hpf (<or=2+); Red Blood Cells-Urine 0 SEEN /hpf (0-5)
[2022-09-29 12:22] LABS: Absolute Lymphocyte Count 0.69 X10^3/uL (0.83-4.51); Absolute Neutrophil Count 3.4 X10^3/uL (2.0-7.7); Basophil# 0.03 X10^3/uL; Basophil% 0.6 % (0-1); Color, Urine Yellow (Yellow); Eosinophil# 0.36 X10^3/uL; Eosinophils% 7.2 % (0-5); Glucose, Dipstick Normal (Normal); Hematocrit 41.4 % (37-47); Ketone-Dipstick Negative (Negative); Leukocyte Esterase-Dipstick 25 /ul (Negative); Lymphocyte # 0.69 X10^3/ul (0.83-4.51); Lymphocyte % 13.7 % (19-41); Mean Corp Hgb Conc 31.4 g/dL (32-36); Mean Corpuscular Hgb 30.3 pg (27.0-32.0); Mean Corpuscular Volume 96.5 fL (81-99); Mean Platelet Vol. 11.1 fl (6.2-12.0); Monocyte# 0.49 X10^3/uL; Monocyte% 9.8 % (0-10); NRBC Flagged by Analyzer 0 % (0-5); Neutrophil # 3.44 X10^3/uL (2.7-7.7); Neutrophil % 68.5 % (47-70); Nitrite-Dipstick Negative (Negative); Occult Blood-Urine Negative /ul (Negative); Platelet Count 300 K/mm3 (150-450); Protein-Dipstick Negative (Negative); RBC Distribution Width SD 46.3 fl (35.1-43.9); Red Blood Count 4.29 M/mm3 (4.2-5.4); Urine Bilirubin Dipstick Negative (Negative); Urine Clarity Sl. Cloudy (Clear); Urine Urobilinogen Normal (Normal)
[2022-09-29 12:33] LABS: Bacteria 1+ /hpf (None Seen); Squamous Epithelial Cells - UA 0-5 SEEN /hpf (5-10); White Blood Cells 0-5 SEEN /hpf (0-5)
[2022-09-29 12:42] LABS: PTHIN 35.2 pg/mL (18.4-80.1)
[2022-09-29 12:49] LABS: Vitamin D,25 Hydroxy 69.7 ng/mL
[2022-09-29 13:02] LABS: ALB/GLOB Ratio 1.1 RATIO (0.9-2.4); AST(SGOT) 16 U/L (15-37); Alanine Aminotransfer ALT/SGPT 20 U/L (13-56); Albumin, Serum 3.6 g/dL (3.2-5.0); Alkaline Phosphatase 58 U/L (45-117); Anion Gap 7 (5-15); BUN 23 mg/dL (7-18); BUN/Creat Ratio 16.7 RATIO (10-20); Calcium,Total 9.2 mg/dL (8.5-10.1); Chloride 104 mmol/L (98-107); Cholesterol 236 mg/dL (200); Creatinine, Serum 1.38 mg/dL (0.55-1.02); EST Glomerular Filtration Rate 39 mL/min (>60); Est Glom Filt Rate - Afr Amer 47 mL/min (>60); Globulin 3.4 g/dL (2.2-4.2); Glucose 78 mg/dL (74-106); High Density Lipoprotein 78 mg/dL; Potassium 4.4 mmol/L (3.5-5.1); Sodium Level 139 mmol/L (136-145); Triglycerides 83 mg/dL; Very Low Density Lipoprotein 17 mg/dL (5-40)
[2022-09-29 13:33] LABS: Protein, Urine (Random) < 6.0 mg/dL (<11.9)
== END | disposition home or self-care (01) ==
LOC: MFPLAB 10:16
PROVIDERS: PCP Family Medicine; Referring Provider Family Medicine; Visit Provider Family Medicine
DX: N18.30 Chronic kidney disease, stage 3 unspecified (principal); E78.00 Pure hypercholesterolemia, unspecified; M85.80 Other specified disorders of bone density and structure, unspecified site
CPT/HCPCS: 36415; 80053; 80061; 81001; 82306; 82570; 83970; 84100; 84156; 85025

== ENCOUNTER → 2023-08-04 | Outpatient (CLI) | payer OTHER, SELFPAY ==
[2023-08-04 11:40] LABS: Bacteria 0 SEEN /hpf (None Seen); Mucous, Urine 0 SEEN /hpf (<or=2+); Red Blood Cells-Urine 0 SEEN /hpf (0-5); Squamous Epithelial Cells - UA 0 SEEN /hpf (5-10); White Blood Cells 0 SEEN /hpf (0-5)
[2023-08-04 15:09] LABS: Absolute Lymphocyte Count 0.64 X10^3/uL (0.83-4.51); Absolute Neutrophil Count 4.4 X10^3/uL (2.0-7.7); Basophil# 0.04 X10^3/uL; Basophil% 0.7 % (0-1); Eosinophil# 0.33 X10^3/uL; Eosinophils% 5.5 % (0-5); Hematocrit 41.7 % (37-47); Hemoglobin 12.8 g/dL (12.0-15.0); Lymphocyte # 0.64 X10^3/ul (0.83-4.51); Lymphocyte % 10.6 % (19-41); Mean Corp Hgb Conc 30.7 g/dL (32-36); Mean Corpuscular Hgb 30.3 pg (27.0-32.0); Mean Corpuscular Volume 98.8 fL (81-99); Mean Platelet Vol. 11.6 fl (6.2-12.0); Monocyte# 0.59 X10^3/uL; Monocyte% 9.8 % (0-10); NRBC Flagged by Analyzer 0 % (0-5); Neutrophil % 73.1 % (47-70); Platelet Count 260 K/mm3 (150-450); RBC Distribution Width CV 13.2 % (11.6-14.6); RBC Distribution Width SD 47.8 fl (35.1-43.9); Red Blood Count 4.22 M/mm3 (4.2-5.4)
[2023-08-04 15:44] LABS: ALB/GLOB Ratio 1.1 RATIO (0.9-2.4); AST(SGOT) 15 U/L (15-37); Alanine Aminotransfer ALT/SGPT 19 U/L (13-56); Albumin, Serum 3.7 g/dL (3.2-5.0); Alkaline Phosphatase 57 U/L (45-117); Anion Gap 5 (5-15); BUN 25 mg/dL (7-18); BUN/Creat Ratio 20.7 RATIO (10-20); Calcium,Total 8.9 mg/dL (8.5-10.1); Chloride 106 mmol/L (98-107); Creatinine, Serum 1.21 mg/dL (0.55-1.02); EST Glomerular Filtration Rate 45 mL/min (>60); Est Glom Filt Rate - Afr Amer 54 mL/min (>60); Globulin 3.5 g/dL (2.2-4.2); Glucose 90 mg/dL (74-106); Phosphorus 3.5 mg/dL (2.5-4.9); Potassium 4.3 mmol/L (3.5-5.1); Protein, Total 7.2 g/dL (6.4-8.2); Sodium Level 139 mmol/L (136-145)
[2023-08-04 15:53] LABS: Color, Urine Yellow (Yellow); Glucose, Dipstick Normal (Normal); Ketone-Dipstick Negative (Negative); Leukocyte Esterase-Dipstick Negative /ul (Negative); Nitrite-Dipstick Negative (Negative); Occult Blood-Urine Negative /ul (Negative); Protein-Dipstick Negative (Negative); Urine Bilirubin Dipstick Negative (Negative); Urine Clarity Clear (Clear); Urine Urobilinogen Normal (Normal)
[2023-08-04 16:16] LABS: Vitamin D,25 Hydroxy 80.1 ng/mL
[2023-08-04 16:33] LABS: Protein, Urine (Random) < 6.0 mg/dL (<11.9)
[2023-08-05 11:29] LABS: PTHIN 33.1 pg/mL (18.4-80.1)
== END | disposition home or self-care (01) ==
LOC: MFPLAB 11:35
PROVIDERS: PCP Family Medicine; Visit Provider Family Medicine
DX: N18.30 Chronic kidney disease, stage 3 unspecified (principal)
CPT/HCPCS: 36415; 80053; 81001; 82306; 82570; 83970; 84100; 84156; 85025

== ENCOUNTER → 2024-02-09 | Outpatient (CLI) | payer MEDICARE, OTHER, SELFPAY ==
[2024-02-09 09:46] LABS: Mucous, Urine 0 SEEN /hpf (<or=2+)
[2024-02-09 11:47] LABS: Color, Urine Yellow (Yellow); Glucose, Dipstick Normal (Normal); Ketone-Dipstick Negative (Negative); Leukocyte Esterase-Dipstick 500 /ul (Negative); Nitrite-Dipstick Negative (Negative); Occult Blood-Urine Negative /ul (Negative); Protein-Dipstick 15 mg/dl (Negative); Specific Gravity, Urine 1.015 (1.002-1.030); Urine Bilirubin Dipstick Negative (Negative); Urine Clarity Cloudy (Clear); Urine Urobilinogen Normal (Normal)
[2024-02-09 11:55] LABS: Bacteria 1+ /hpf (None Seen); Red Blood Cells-Urine 0-5 SEEN /hpf (0-5); Squamous Epithelial Cells - UA 0-5 SEEN /hpf (5-10); White Blood Cells 0-5 SEEN /hpf (0-5)
[2024-02-09 11:56] LABS: Protein, Urine (Random) 13.5 mg/dL (<11.9); Protein:Creat Ratio 136 mg/g CRE (0-200)
[2024-02-09 11:57] LABS: Absolute Lymphocyte Count 0.89 X10^3/uL (0.83-4.51); Absolute Neutrophil Count 3.7 X10^3/uL (2.0-7.7); Basophil# 0.03 X10^3/uL; Basophil% 0.6 % (0-1); Eosinophil# 0.24 X10^3/uL; Eosinophils% 4.5 % (0-5); Hematocrit 40.5 % (37-47); Hemoglobin 12.9 g/dL (12.0-15.0); Lymphocyte # 0.89 X10^3/ul (0.83-4.51); Lymphocyte % 16.5 % (19-41); Mean Corp Hgb Conc 31.9 g/dL (32-36); Mean Corpuscular Volume 94.2 fL (81-99); Mean Platelet Vol. 10.8 fl (6.2-12.0); Monocyte# 0.51 X10^3/uL; Monocyte% 9.5 % (0-10); NRBC Flagged by Analyzer 0 % (0-5); Neutrophil % 68.5 % (47-70); Platelet Count 270 K/mm3 (150-450); RBC Distribution Width CV 13.4 % (11.6-14.6); RBC Distribution Width SD 45.7 fl (35.1-43.9); White Blood Count 5.4 K/mm3 (4.4-11.0)
[2024-02-09 12:34] LABS: PTHIN 39.9 pg/mL (18.4-80.1)
[2024-02-09 12:36] LABS: ALB/GLOB Ratio 1.1 RATIO (0.9-2.4); AST(SGOT) 16 U/L (15-37); Alanine Aminotransfer ALT/SGPT 18 U/L (13-56); Albumin, Serum 3.7 g/dL (3.2-5.0); Alkaline Phosphatase 54 U/L (45-117); Anion Gap 8 (5-15); BUN 26 mg/dL (7-18); BUN/Creat Ratio 19.7 RATIO (10-20); Calcium,Total 9.1 mg/dL (8.5-10.1); Chloride 103 mmol/L (98-107); Creatinine, Serum 1.32 mg/dL (0.55-1.02); EST Glomerular Filtration Rate 40 mL/min (>60); Est Glom Filt Rate - Afr Amer 49 mL/min (>60); Globulin 3.5 g/dL (2.2-4.2); Glucose 70 mg/dL (74-106); Phosphorus 3.4 mg/dL (2.5-4.9); Potassium 4.2 mmol/L (3.5-5.1); Protein, Total 7.2 g/dL (6.4-8.2); Sodium Level 140 mmol/L (136-145)
== END | disposition home or self-care (01) ==
LOC: MFPLAB 09:44
PROVIDERS: PCP Family Medicine; Visit Provider Family Medicine
DX: N18.30 Chronic kidney disease, stage 3 unspecified (principal)
CPT/HCPCS: 36415; 80053; 81001; 82570; 83970; 84100; 84156; 85025

== ENCOUNTER → 2024-02-09 | Outpatient (CLI) | payer MEDICARE, OTHER, SELFPAY ==
--- NOTE | 2024-02-09 13:07 | VDLE_ITS ---
Reason For Study: Edema RIGHT LEFT GSV is normal. GSV is normal. CFV is compressible, spontaneous, phasic, CFV is compressible, spontaneous, phasic, competent and demonstrates normal competent, and demonstrates normal augmentation. augmentation. FV is compressible, spontaneous, phasic, FV is compressible, spontaneous, phasic, competent and demonstrates normal competent and demonstrates normal augmentation. augmentation. POP V is compressible, spontaneous, phasic, POP V is compressible, spontaneous, phasic, competent and demonstrates normal competent and demonstrates normal augmentation. augmentation. T/P Trunk is compressible. T/P Trunk is compressible. PTV is compressible. PTV is compressible. RT PerV is compressible. LT PerV is compressible. Procedure This is a venous duplex using B-mode, color flow and spectral Doppler. Exam performed in department. The exam was diagnostic. A preliminary report was called and/or faxed to Dr. Contreras office. VL/Venous Duplex US - Blu Extrem Interpretation Summary No evidence for acute deep venous thrombosis bilateral lower extremities with p atent and compressible bilateral great saphenous veins. Ordering Physician: Angel Luis Contreras Referring Physician: Angel Luis Contreras Performed By: Cabrera Mays RVT
== END | disposition home or self-care (01) ==
PROVIDERS: PCP Family Medicine; Referring Provider Family Medicine; Visit Provider Family Medicine
DX: R60.9 Edema, unspecified (principal)
CPT/HCPCS: 93970

== ENCOUNTER → 2024-03-16 | Outpatient (CLI) | payer MEDICARE, SELFPAY ==
--- NOTE | 2024-03-16 15:33 | RAD_ITS ---
EXAM: XR LEFT KNEE, 3 VIEWS CLINICAL INDICATION: pain TECHNIQUE: Three views of the left knee. COMPARISON: No relevant prior studies available. FINDINGS: BONES/JOINTS: There is a total knee prosthesis in anatomic alignment. No acute fracture. Preservation of the joint space. No sclerotic or destructive changes observed. SOFT TISSUES: Unremarkable. No soft tissue swelling or gas. No radiopaque foreign body. RAD/Knee 3 Views IMPRESSION: Total knee prosthesis in anatomic alignment. There are no acute osseous abnormalities. Electronically Signed: Glenroy Handley MD at 16:51 EDT ,
== END | disposition home or self-care (01) ==
LOC: MTRAD 15:13
PROVIDERS: PCP Family Medicine; Referring Provider Physician Assistant; Visit Provider Physician Assistant
DX: R52 Pain, unspecified (principal)
CPT/HCPCS: 73562

== ENCOUNTER → 2024-05-17 | Outpatient (CLI) | payer MEDICARE, SELFPAY ==
[2024-05-17 16:26] LABS: Bacteria 0 SEEN /hpf (None Seen); Mucous, Urine 0 SEEN /hpf (<or=2+); Red Blood Cells-Urine 0 SEEN /hpf (0-5)
[2024-05-17 18:11] LABS: Absolute Lymphocyte Count 0.89 X10^3/uL (0.83-4.51); Absolute Neutrophil Count 4.2 X10^3/uL (2.0-7.7); Basophil# 0.03 X10^3/uL; Basophil% 0.5 % (0-1); Eosinophil# 0.31 X10^3/uL; Eosinophils% 5.2 % (0-5); Hematocrit 38.5 % (37-47); Hemoglobin 12.2 g/dL (12.0-15.0); Lymphocyte # 0.89 X10^3/ul (0.83-4.51); Lymphocyte % 14.8 % (19-41); Mean Corp Hgb Conc 31.7 g/dL (32-36); Mean Corpuscular Hgb 30.1 pg (27.0-32.0); Mean Corpuscular Volume 95.1 fL (81-99); Mean Platelet Vol. 10.5 fl (6.2-12.0); Monocyte# 0.54 X10^3/uL; NRBC Flagged by Analyzer 0 % (0-5); Neutrophil # 4.21 X10^3/uL (2.7-7.7); Platelet Count 262 K/mm3 (150-450); RBC Distribution Width CV 13.1 % (11.6-14.6); RBC Distribution Width SD 45.9 fl (35.1-43.9); Red Blood Count 4.05 M/mm3 (4.2-5.4)
[2024-05-17 18:20] LABS: Color, Urine Yellow (Yellow); Glucose, Dipstick Normal (Normal); Ketone-Dipstick Negative (Negative); Leukocyte Esterase-Dipstick 100 /ul (Negative); Nitrite-Dipstick Negative (Negative); Occult Blood-Urine Negative /ul (Negative); Protein-Dipstick Negative (Negative); Specific Gravity, Urine 1.015 (1.002-1.030); Urine Bilirubin Dipstick Negative (Negative); Urine Clarity Clear (Clear); Urine Urobilinogen Normal (Normal)
[2024-05-17 18:21] LABS: PTHIN 36.8 pg/mL (18.4-80.1)
[2024-05-17 18:27] LABS: Vitamin B12 1872 pg/mL (211-911); Vitamin D,25 Hydroxy 80.6 ng/mL
[2024-05-17 18:31] LABS: Squamous Epithelial Cells - UA 0-5 SEEN /hpf (5-10); White Blood Cells 0-5 SEEN /hpf (0-5)
[2024-05-17 18:43] LABS: AST(SGOT) 18 U/L (15-37); Alanine Aminotransfer ALT/SGPT 21 U/L (13-56); Albumin, Serum 3.5 g/dL (3.2-5.0); Alkaline Phosphatase 60 U/L (45-117); Anion Gap 5 (5-15); BUN 21 mg/dL (7-18); BUN/Creat Ratio 13.8 RATIO (10-20); Calcium,Total 9.1 mg/dL (8.5-10.1); Chloride 106 mmol/L (98-107); Creatinine, Serum 1.52 mg/dL (0.55-1.02); EST Glomerular Filtration Rate 34 mL/min (>60); Est Glom Filt Rate - Afr Amer 42 mL/min (>60); Globulin 3.4 g/dL (2.2-4.2); Glucose 101 mg/dL (74-106); Phosphorus 3.7 mg/dL (2.5-4.9); Potassium 4.1 mmol/L (3.5-5.1); Protein, Total 6.9 g/dL (6.4-8.2); Sodium Level 139 mmol/L (136-145)
[2024-05-17 18:43] LABS: Protein, Urine (Random) 10.5 mg/dL (<11.9); Protein:Creat Ratio 118 mg/g CRE (0-200)
== END | disposition home or self-care (01) ==
LOC: MFPLAB 16:22
PROVIDERS: PCP Family Medicine; Visit Provider Family Medicine
DX: N18.30 Chronic kidney disease, stage 3 unspecified (principal); E53.8 Deficiency of other specified B group vitamins
CPT/HCPCS: 36415; 80053; 81001; 82306; 82570; 82607; 83970; 84100; 84156; 85025

== ENCOUNTER → 2024-05-30 | Outpatient (CLI) | payer MEDICARE, SELFPAY ==
[2024-05-30 18:18] LABS: Anion Gap 8 (5-15); BUN 25 mg/dL (7-18); BUN/Creat Ratio 18.4 RATIO (10-20); Calcium,Total 9.3 mg/dL (8.5-10.1); Chloride 105 mmol/L (98-107); Creatinine, Serum 1.36 mg/dL (0.55-1.02); EST Glomerular Filtration Rate 39 mL/min (>60); Est Glom Filt Rate - Afr Amer 47 mL/min (>60); Glucose 105 mg/dL (74-106); Potassium 4.1 mmol/L (3.5-5.1); Sodium Level 138 mmol/L (136-145)
== END | disposition home or self-care (01) ==
LOC: MFPLAB 15:34
PROVIDERS: PCP Family Medicine; Visit Provider Family Medicine
DX: N18.30 Chronic kidney disease, stage 3 unspecified (principal)
CPT/HCPCS: 36415; 80048

== ENCOUNTER → 2024-11-18 | Outpatient (CLI) | payer MEDICARE, SELFPAY ==
[2024-11-18 11:11] LABS: Bacteria 0 SEEN /hpf (None Seen); Mucous, Urine 0 SEEN /hpf (<or=2+); Red Blood Cells-Urine 0 SEEN /hpf (0-5); Squamous Epithelial Cells - UA 0 SEEN /hpf (5-10); White Blood Cells 0 SEEN /hpf (0-5)
[2024-11-18 12:12] LABS: Absolute Lymphocyte Count 0.73 X10^3/uL (0.83-4.51); Absolute Neutrophil Count 4.7 X10^3/uL (2.0-7.7); Basophil# 0.04 X10^3/uL; Basophil% 0.6 % (0-1); Eosinophil# 0.28 X10^3/uL; Eosinophils% 4.5 % (0-5); Hematocrit 40.4 % (37-47); Hemoglobin 12.8 g/dL (12.0-15.0); Lymphocyte # 0.73 X10^3/ul (0.83-4.51); Lymphocyte % 11.6 % (19-41); Mean Corp Hgb Conc 31.7 g/dL (32-36); Mean Corpuscular Hgb 29.9 pg (27.0-32.0); Mean Corpuscular Volume 94.4 fL (81-99); Mean Platelet Vol. 10.4 fl (6.2-12.0); Monocyte# 0.53 X10^3/uL; Monocyte% 8.4 % (0-10); NRBC Flagged by Analyzer 0 % (0-5); Neutrophil # 4.69 X10^3/uL (2.7-7.7); Neutrophil % 74.6 % (47-70); Platelet Count 280 K/mm3 (150-450); RBC Distribution Width CV 13.1 % (11.6-14.6); RBC Distribution Width SD 45.2 fl (35.1-43.9); Red Blood Count 4.28 M/mm3 (4.2-5.4); White Blood Count 6.3 K/mm3 (4.4-11.0)
[2024-11-18 12:14] LABS: Color, Urine Yellow (Yellow); Glucose, Dipstick Normal (Normal); Ketone-Dipstick Negative (Negative); Leukocyte Esterase-Dipstick 25 /ul (Negative); Nitrite-Dipstick Negative (Negative); Occult Blood-Urine Negative /ul (Negative); Protein-Dipstick Negative (Negative); Urine Bilirubin Dipstick Negative (Negative); Urine Clarity Clear (Clear); Urine Urobilinogen Normal (Normal); Urine pH 6.5 (5.0 - 8.0)
[2024-11-18 12:45] LABS: ALB/GLOB Ratio 1.1 RATIO (0.9-2.4); AST(SGOT) 16 U/L (15-37); Alanine Aminotransfer ALT/SGPT 20 U/L (13-56); Albumin, Serum 3.7 g/dL (3.2-5.0); Alkaline Phosphatase 62 U/L (45-117); Anion Gap 6 (5-15); BUN 19 mg/dL (7-18); BUN/Creat Ratio 15.8 RATIO (10-20); Calcium,Total 9.2 mg/dL (8.5-10.1); Chloride 105 mmol/L (98-107); Cholesterol 241 mg/dL (200); EST Glomerular Filtration Rate 45 mL/min (>60); Est Glom Filt Rate - Afr Amer 55 mL/min (>60); Globulin 3.5 g/dL (2.2-4.2); Glucose 97 mg/dL (74-106); High Density Lipoprotein 75 mg/dL; Phosphorus 3.2 mg/dL (2.5-4.9); Potassium 4.6 mmol/L (3.5-5.1); Protein, Total 7.2 g/dL (6.4-8.2); Sodium Level 139 mmol/L (136-145); Triglycerides 143 mg/dL; Very Low Density Lipoprotein 29 mg/dL (5-40)
[2024-11-18 12:46] LABS: PTHIN 58.8 pg/mL (18.4-80.1)
[2024-11-18 12:48] LABS: Vitamin B12 652 pg/mL (211-911); Vitamin D,25 Hydroxy 74.3 ng/mL
[2024-11-18 12:58] LABS: Protein, Urine (Random) 7.7 mg/dL (<11.9); Protein:Creat Ratio 131 mg/g CRE (0-200)
== END | disposition home or self-care (01) ==
LOC: MTLAB 11:01
PROVIDERS: PCP Family Medicine; Referring Provider Family Medicine; Visit Provider Family Medicine
DX: N18.30 Chronic kidney disease, stage 3 unspecified (principal); E53.8 Deficiency of other specified B group vitamins; E78.00 Pure hypercholesterolemia, unspecified
CPT/HCPCS: 80053; 80061; 81001; 82306; 82570; 82607; 83970; 84100; 84156; 85025

== ENCOUNTER → 2025-04-20 | Outpatient (CLI) | payer MEDICARE, SELFPAY ==
[2025-04-20 14:08] LABS: Mucous, Urine 0 SEEN /hpf (<or=2+)
[2025-04-20 15:33] LABS: Absolute Lymphocyte Count 0.59 X10^3/uL (0.83-4.51); Absolute Neutrophil Count 5.8 X10^3/uL (2.0-7.7); Basophil# 0.05 X10^3/uL; Basophil% 0.7 % (0-1); Eosinophil# 0.21 X10^3/uL; Eosinophils% 2.9 % (0-5); Hematocrit 38.4 % (37-47); Hemoglobin 12.3 g/dL (12.0-15.0); Lymphocyte # 0.59 X10^3/ul (0.83-4.51); Mean Corpuscular Hgb 30.4 pg (27.0-32.0); Mean Platelet Vol. 10.2 fl (6.2-12.0); Monocyte# 0.63 X10^3/uL; Monocyte% 8.6 % (0-10); NRBC Flagged by Analyzer 0 % (0-5); Neutrophil # 5.81 X10^3/uL (2.7-7.7); Neutrophil % 79.3 % (47-70); POSITIVE DIFFERENTIAL YES; Platelet Count 460 K/mm3 (150-450); Red Blood Count 4.04 M/mm3 (4.2-5.4); White Blood Count 7.3 K/mm3 (4.4-11.0)
[2025-04-20 15:36] LABS: Color, Urine Yellow (Yellow); Glucose, Dipstick Normal (Normal); Ketone-Dipstick Negative (Negative); Leukocyte Esterase-Dipstick 25 /ul (Negative); Nitrite-Dipstick Negative (Negative); Occult Blood-Urine Negative /ul (Negative); Protein-Dipstick 15 mg/dl (Negative); Specific Gravity, Urine 1.015 (1.002-1.030); Urine Bilirubin Dipstick Negative (Negative); Urine Clarity Clear (Clear); Urine Urobilinogen 1 mg/dl (Normal)
[2025-04-20 15:50] LABS: Hyaline Cast 0-5 SEEN /lpf (0-5)
[2025-04-20 15:53] LABS: Red Blood Cells-Urine 0-5 SEEN /hpf (0-5); Squamous Epithelial Cells - UA 0-5 SEEN /hpf (5-10); White Blood Cells 0-5 SEEN /hpf (0-5)
[2025-04-20 15:54] LABS: Bacteria RARE /hpf (None Seen)
[2025-04-20 16:02] LABS: PTHIN 36 pg/mL (11-61)
[2025-04-20 16:21] LABS: ALB/GLOB Ratio 1.5 RATIO (0.9-2.4); AST(SGOT) 20 U/L (<=31); Alanine Aminotransfer ALT/SGPT 14 U/L (<=34); Albumin, Serum 4.1 g/dL (3.4-4.8); Alkaline Phosphatase 59 U/L (35-104); Anion Gap 10 (5-15); BUN 23 mg/dL (4-19); BUN/Creat Ratio 18.5 RATIO (10-20); Calcium,Total 9.2 mg/dL (7.6-11.0); Carbon Dioxide 26.4 mmol/L (21.0-32.0); Chloride 101 mmol/L (98-108); Creatinine, Serum 1.24 mg/dL (0.70-1.20); EST Glomerular Filtration Rate 42 (>60); Globulin 2.7 g/dL (2.2-4.2); Glucose 103 mg/dL (70-99); Phosphorus 3.6 mg/dL (2.7-4.5); Potassium 4.5 mmol/L (3.3-5.1); Protein, Total 6.8 g/dL (5.9-8.4); Sodium Level 138 mmol/L (133-145); Total Bilirubin 0.39 mg/dL (0.00-1.30); Vitamin B12 547 pg/mL (180-914)
[2025-04-20 16:24] LABS: Protein, Urine (Random) 13.4 mg/dL (0.0-12.0); Protein:Creat Ratio 96 mg/g CRE (0-200)
== END | disposition home or self-care (01) ==
LOC: MFPLAB 13:40
PROVIDERS: PCP Family Medicine; Referring Provider Family Medicine; Visit Provider Family Medicine
DX: N18.30 Chronic kidney disease, stage 3 unspecified (principal); M85.80 Other specified disorders of bone density and structure, unspecified site
CPT/HCPCS: 36415; 80053; 81001; 82306; 82570; 82607; 83970; 84100; 84156; 85025

== ENCOUNTER 2025-05-03 11:06 | Observation (INO) | payer MEDICARE, SELFPAY ==
[2025-05-03] VITALS (26 sets, daily range): BP systolic 121–181; BP diastolic 65–110; PULSE 49–72; RESP 9–24; TEMP 35.9–36.8; O2SAT 92–100; BMI 26.2; BMI 25.2
--- NOTE | 2025-05-03 11:17 | CT_ITS ---
PROCEDURE: STROKE BRAIN/HEAD WITHOUT CONT 05/03/2025 REASON FOR EXAM: NEURO DEFICIT, ACUTE, STROKE SUSPECTED TECHNIQUE: Head CT without intravenous contrast. Coronal and Sagittal reconstruction series were provided. One or more dose reduction techniques were used (e.g., Automated exposure control, adjustment of the mA and/or kV according to patient size, use of iterative reconstruction technique. RADIATION DOSE SUMMARY: CTDlvol: 44.99 mGy DLP: 846.73 mGycm COMPARISON: None FINDINGS: Brain: Low density in the periventricular white matter suggests mild chronic small vessel ischemic changes. CSF Spaces: Mild generalized cerebral atrophy Sinuses/Mastoids: Minimal mucosal thickening along the inferior aspect of both maxillary sinuses. Bones: Hyperostosis frontalis interna. CT/STROKE Brain/Head without Cont IMPRESSION: CHRONIC CHANGES. NO ACUTE FINDINGS. Red Alert: Chronic changes The critical information above was relayed directly by me by telephone to Roni Meyers on 05/03/2025 at 11:44 am with readback verification. Reading Location: [place] [id number]
--- NOTE | 2025-05-03 11:17 | EKG12_ITS ---
Test Reason : Blood Pressure : */* mmHG Vent. Rate : 54 BPM Atrial Rate : 54 BPM P-R Int : 176 ms QRS Dur : 88 ms QT Int : 472 ms P-R-T Axes : * -52 1 degrees QTcB Int : 447 ms Sinus bradycardia Left axis deviation Cannot rule out Anteroseptal infarct , age undetermined Abnormal ECG Confirmed by Patrice Willard ([id number]), visual effects editor AMAN MOLINA ([id number]) on 05/04/2025 6:49:21 AM Referred By: Confirmed By: Patrice Willard
[2025-05-03 11:38] LABS: Absolute Lymphocyte Count 0.92 X10^3/uL (0.83-4.51); Absolute Neutrophil Count 3.9 X10^3/uL (2.0-7.7); Basophil# 0.04 X10^3/uL; Basophil% 0.7 % (0-1); Eosinophil# 0.28 X10^3/uL; Eosinophils% 4.9 % (0-5); Hematocrit 38.9 % (37-47); Hemoglobin 12.7 g/dL (12.0-15.0); Lymphocyte # 0.92 X10^3/ul (0.83-4.51); Lymphocyte % 16.2 % (19-41); Mean Corp Hgb Conc 32.6 g/dL (32-36); Mean Corpuscular Hgb 30.5 pg (27.0-32.0); Mean Corpuscular Volume 93.3 fL (81-99); Mean Platelet Vol. 9.2 fl (6.2-12.0); Monocyte# 0.58 X10^3/uL; Monocyte% 10.2 % (0-10); NRBC Flagged by Analyzer 0 % (0-5); Neutrophil # 3.85 X10^3/uL (2.7-7.7); Neutrophil % 67.8 % (47-70); Platelet Count 534 K/mm3 (150-450); RBC Distribution Width CV 13.2 % (11.6-14.6); RBC Distribution Width SD 45.1 fl (35.1-43.9); Red Blood Count 4.17 M/mm3 (4.2-5.4); White Blood Count 5.7 K/mm3 (4.4-11.0)
--- NOTE | 2025-05-03 11:40 | RAD_ITS ---
PROCEDURE: CHEST 1 VIEW 05/03/2025 REASON FOR EXAM: NEURO DEFICIT, ACUTE, STROKE SUSPECTED TECHNIQUE: Frontal view of the chest. COMPARISON: None FINDINGS: Hardware: EKG electrodes are seen. Heart: Borderline cardiomegaly. Lungs: Hyperinflation. The lungs are clear. Bones: Degenerative changes are identified within the thoracic spine. Other: Atherosclerotic calcification of the aortic arch. RAD/Chest 1 View IMPRESSION: No Acute Findings. Reading Location: [place] [address]
[2025-05-03] MEDS: 0.9% Normal Saline (1000mL) 1,000 ML 999 ML IV (11:52)
[2025-05-03] MEDS: Aspirin 325 MG Tablet PO (11:52)
--- NOTE | 2025-05-03 11:52 | EDS_ITS ---
HPI History of Present Illness Chief Complaint: Stroke Alert Narrative Narrative: Chief complaint and HPI: Strokelike symptoms. 89-year-old female with past medical history of nephrectomy presents for evaluation of strokelike symptoms. Patient's last known normal 9 AM. Patient states that she was outside in her flower bed when she went inside. States that she drink little water. States she had a episode of right hand/facial numbness with slurring of the speech. Patient states that her slurring is improving and that her face and hand no longer feel numb but feel heavy. Not on any blood thinners. Denies any headache, vision changes, weakness, nausea, vomiting. Review of systems: See HPI Medications: As listed on the chart Allergies: As listed on the chart PFSH: Per chart Vital signs: As listed on the chart. Reviewed. Physical exam: Gen: A&O x3, NAD Head: Normocephalic, atraumatic Eyes: No sclera icterus, conjunctiva clear, PERRL, EOMI ENT: Moist mucous membranes, No facial asymmetry Neck: Trachea midline, No JVD CV: RRR, no murmurs, no peripheral edema Resp: Lungs CTA BL, no w/r/c GI: Abd soft, non-distended, non-tender, no r/r/g Musc: Full ROM, no deformity, strength +5/5 in all extremities, no pronator drift, no ataxia Skin: Warm, dry, intact Neuro: Alert, oriented, grossly intact, sensation intact, + dysarthria, NIH 1 Psych: Cooperative, appropriate mood and affect [facility] Medical History Left knee pain Home Medications ?Medication ?Instructions ?Recorded ?Last Taken ?Type multivitamin with folic acid 400 1 tab PO DAILY supple ment 04/06/18 07/30/18 06:00 History mcg tablet (Thera) L.acidoph,paracasei,B.animalis 10 1 ea PO DAILY 11/24/18 08:00 History billion cell capsule calcium carbonate-vitamin D3 600 1 ea PO DAILY 8 Unknown History mg-125 unit tablet (Calcium) ascorbic acid (vitamin C) 500 mg 500 mg PO DAILY 09/05 Unknown History capsule cyanocobalamin (vitamin B-12) 1,000 mcg PO DAILY 09/05 Unknown History 1,000 mcg capsule acetaminophen 500 mg tablet 1,000 mg PO Q8H PRN Pain 0 04/06/22 Unknown History ondansetron 4 mg disintegrating 8 mg (2 x 4 mg) PO .no w nausea #2 08/29/24 Unknown Rx tablet tabs ondansetron HCl 8 mg tablet 8 mg PO Q8H PRN nausea and 08/29/24 Unknown Rx vomiting #14 tabs Allergy/AdvReac Type Severity Reaction Status Date / Time No Known Allergies Allergy Verified 05/03/25 11:20 Surgical History 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 Social History Smoking Status: Never smoker EXAM Physical Exam Const Vital Signs: 05/03/25 11:09 05/03/25 11:17 05/03/25 11:19 Temperature 98.2 F 98.2 F Temperature Source Oral Oral Pulse Rate 72 60 Respiratory Rate 17 12 Blood Pressure 161/65 H 143/77 H Blood Pressure Mean 97 99 Pulse Ox 99 98 Oxygen Delivery Method Room Air Room Air 05/03/25 11:22 Temperature Temperature Source Pulse Rate Respiratory Rate Blood Pressure Blood Pressure Mean Pulse Ox Oxygen Delivery Method Room Air MDM MDM MDM Narrative Medical decision making narrative: 89-year-old female with past medical history of nephrectomy presents for evaluation of strokelike symptoms. Patient's last known normal 9 AM. Symptoms consisted of slurring of the speech, face/hand numbness. Face/hand numbness resolved. Slurring improving. On physical exam, patient is NIH 1 due to dysarthria. Patient was immediately made a stroke alert. Taken to CT scanner. CTA head and neck not ordered given patient has history of nephrectomy. Stroke workup ordered. CT head shows no acute intracranial abnormality. Chronic changes. I personally spoke to the radiologist. Teleneurology evaluated the patient. Given patient's symptoms are improving with low NIH, agrees that patient is not a TNK candidate. Recommended aspirin which was ordered. Okay without CTA head and neck given patient's nephrectomy. Recommended MRI and further CVA workup Lab Data Labs: Laboratory Results - last 24 hr 05/03/25 11:14 WBC 5.7 RBC 4.17 L Hgb 12.7 Hct 38.9 MCV 93.3 MCH 30.5 MCHC 32.6 RDW Std Deviation 45.1 H RDW Coeff of Ermias 13.2 Plt Count 534 H MPV 9.2 Immature Gran % (Auto) 0.200 Neut % (Auto) 67.8 Lymph % (Auto) 16.2 L [place] % (Auto) 10.2 H Eos % (Auto) 4.9 Baso % (Auto) 0.7 Absolute Neuts (auto) 3.9 Absolute Lymphs (auto) 0.92 Nucleated RBC % 0 Radiography Diagnostic Testing: Clinical Impression(s) from Imaging Studies Brain CT 05/03/25 11:17 IMPRESSION: CHRONIC CHANGES. NO ACUTE FINDINGS. Red Alert: Chronic changes The critical information above was relayed directly by me by telephone to Roni Love on 05/03/2025 at 11:44 am with readback verification. Reading Location: [place] [address] Discharge Plan Triage Chief Complaint: Stroke Alert ED Provider: Roni Love Dx/Rx/DC Orders Prescriptions: No Action ondansetron 4 mg tablet,disintegrating 8 mg PO .now Qty: 2 0RF ondansetron HCl 8 mg tablet 8 mg PO Q8H PRN (Reason: nausea and vomiting) Qty: 14 0RF multivitamin with folic acid [Thera] 1 TABLET tablet 1 tab PO DAILY Calcium 600 + D(3) 1 EACH tablet 1 ea PO DAILY L.acidoph,paracasei,B.animalis 1 EACH capsule 1 ea PO DAILY ascorbic acid (vitamin C) 500 MG capsule 500 mg PO DAILY cyanocobalamin (vitamin B-12) 1,000 MCG capsule 1,000 mcg PO DAILY acetaminophen 500 MG tablet 1,000 mg PO Q8H PRN (Reason: Pain) Rx Instructions: Do not take more than 3000 mg Tylenol in a 24-hour period. Primary Care Provider: Angel Luis Contreras Referrals: Angel Luis Contreras MD [Primary Care Provider] - Print Language: Austrian
--- NOTE | 2025-05-03 11:52 | EX.ED.DYSGE1 ---
HPI History of Present Illness Chief Complaint: Stroke Alert Narrative Narrative: Chief complaint and HPI: Strokelike symptoms. 89-year-old female with past medical history of nephrectomy presents for evaluation of strokelike symptoms. Patient's last known normal 9 AM. Patient states that she was outside in her flower bed when she went inside to look at her bills. States that she drank little water today. States she had a episode of right hand/facial numbness with slurring of the speech while doing her bills. Patient states that her slurring is improving and that her face and hand no longer feel numb but feel heavy. Not on any blood thinners. Denies any headache, vision changes, weakness, nausea, vomiting. Arrives via EMS. Review of systems: See HPI Medications: As listed on the chart Allergies: As listed on the chart PFSH: Per chart Vital signs: As listed on the chart. Reviewed. Physical exam: Gen: A&O x3, NAD Head: Normocephalic, atraumatic Eyes: No sclera icterus, conjunctiva clear, PERRL, EOMI ENT: Moist mucous membranes, No facial asymmetry Neck: Trachea midline, No JVD CV: RRR, no murmurs, no peripheral edema Resp: Lungs CTA BL, no w/r/c GI: Abd soft, non-distended, non-tender, no r/r/g Musc: Full ROM, no deformity, strength +5/5 in all extremities, no pronator drift, no ataxia Skin: Warm, dry, intact Neuro: Alert, oriented, grossly intact, sensation intact, + dysarthria, NIH 1 Psych: Cooperative, appropriate mood and affect [facility] Medical History Left knee pain Home Medications ?Medication ?Instructions ?Recorded ?Last Taken ?Type multivitamin with folic acid 400 1 tab PO DAILY supplement 04/06/18 07/30/18 06:00 History mcg tablet (Thera) obdulia JohnsonBRosauraanimalis 10 1 ea PO DAILY 11/18/18 11/24/18 08:00 History billion cell capsule calcium carbonate-vitamin D3 600 1 ea PO DAILY 11/18/18 Unknown History mg-125 unit tablet (Calcium) ascorbic acid (vitamin C) 500 mg 500 mg PO DAILY 09/05/20 Unknown History capsule cyanocobalamin (vitamin B-12) 1,000 mcg PO DAILY 09/05/20 Unknown History 1,000 mcg capsule acetaminophen 500 mg tablet 1,000 mg PO Q8H PRN Pain 04/06/22 Unknown History ondansetron 4 mg disintegrating 8 mg (2 x 4 mg) PO .now nausea #2 08/29/24 Unknown Rx tablet tabs ondansetron HCl 8 mg tablet 8 mg PO Q8H PRN nausea and 08/29/24 Unknown Rx vomiting #14 tabs fluticasone propionate 50 1 spray intranasal QHS 05/03/25 Unknown History mcg/actuation nasal spray,suspension oxybutynin chloride 5 mg 5 mg PO DAILY 05/03/25 Unknown History tablet,extended release 24 hr Allergy/AdvReac Type Severity Reaction Status Date / Time No Known Allergies Allergy Verified 05/03/25 11:20 Surgical History 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 Social History Smoking Status: Never smoker EXAM Physical Exam Const Vital Signs: 05/03/25 11:09 05/03/25 11:17 05/03/25 11:19 Temperature 98.2 F 98.2 F Temperature Source Oral Oral Pulse Rate 72 60 Respiratory Rate 17 12 Blood Pressure 161/65 H 143/77 H Blood Pressure Mean 97 99 Pulse Ox 99 98 Oxygen Delivery Method Room Air Room Air 05/03/25 11:22 05/03/25 12:17 05/03/25 12:30 Temperature Temperature Source Pulse Rate 63 64 Respiratory Rate 16 16 Blood Pressure 149/77 H 143/74 H Blood Pressure Mean 101 97 Pulse Ox 98 98 Oxygen Delivery Method Room Air Room Air 05/03/25 12:39 05/03/25 13:00 05/03/25 13:30 Temperature Temperature Source Pulse Rate 63 59 L 54 L Respiratory Rate 16 16 19 H Blood Pressure 155/80 H 155/80 H 164/90 H Blood Pressure Mean 105 105 114 Pulse Ox 99 98 100 Oxygen Delivery Method Room Air Room Air Room Air 05/03/25 13:40 Temperature 97.9 F Temperature Source Pulse Rate 54 L Respiratory Rate 19 H Blood Pressure 164/90 H Blood Pressure Mean 114 Pulse Ox 100 Oxygen Delivery Method MDM MDM MDM Narrative Medical decision making narrative: 89-year-old female with past medical history of nephrectomy presents for evaluation of strokelike symptoms. Patient's last known normal 9 AM. Symptoms consisted of slurring of the speech, face/hand numbness. Face/hand numbness resolved. Slurring improving. On physical exam, patient is NIH 1 due to dysarthria. Patient was immediately made a stroke alert. Glucose within normal limits. Taken to CT. CTA head and neck not ordered given patient has history of nephrectomy and low suspicion for LVO. Stroke workup ordered. CT head shows no acute intracranial abnormality. Chronic changes. I personally spoke to the radiologist. [facility] teleneurology evaluated the patient. Given patient's symptoms are improving with low NIH, neurology agrees that patient is not a TNK candidate. Recommended aspirin which was ordered. Okay with not doing CTA head and neck at this time given patient's nephrectomy. Recommended MRI and further CVA workup. Differential diagnosis includes but is not limited to CVA, TIA, electrolyte abnormality, dehydration. EKG was personally reviewed and interpreted by [facility], ED physician. EKG shows sinus bradycardia with heart rate of 54. No acute ischemic changes. CBC without leukocytosis or anemia. Patient has thrombocytosis of 534 however this was seen on previous labs at 04/20. Coagulation panel unremarkable. BMP unremarkable. Magnesium level unremarkable. Troponin 20. Patient not having any chest pain. Chest x-ray without pneumonia, effusion, cardiomegaly, pneumothorax. Radiology in agreement. On reevaluation, patient's dysarthria has almost completely resolved. Patient will warrant admission for MRI brain and further workup. Patient was updated of all results and confirmed understanding the plan. I spoke with the hospitalist service who accepted admission. 35 minutes of critical care time utilized in managing the patient. This is due to high probability of and deterioration of the patient based on the patient's condition and excludes any separately billable procedures. Impression: 1. Dysarthria, resolving 2. Right hand/facial numbness, resolved 3. Concern for TIA/CVA 4. Chronic thrombocytosis Lab Data Labs: Laboratory Results - last 24 hr 05/03/25 11:14 WBC 5.7 RBC 4.17 L Hgb 12.7 Hct 38.9 MCV 93.3 MCH 30.5 MCHC 32.6 RDW Std Deviation 45.1 H RDW Coeff of Ermias 13.2 Plt Count 534 H MPV 9.2 Immature Gran % (Auto) 0.200 Neut % (Auto) 67.8 Lymph % (Auto) 16.2 L [place] % (Auto) 10.2 H Eos % (Auto) 4.9 Baso % (Auto) 0.7 Absolute Neuts (auto) 3.9 Absolute Lymphs (auto) 0.92 Nucleated RBC % 0 PT 13.3 INR 1.0 APTT 29.3 Sodium 138 Potassium 4.2 Chloride 101 Carbon Dioxide 24.8 Anion Gap 12 BUN 16 Creatinine 1.14 Estim Creat Clear Calc 37.49 L Est GFR (MDRD) Non-Af 46 L BUN/Creatinine Ratio 14.2 Glucose 90 Calcium 9.4 Magnesium 2.1 Troponin T High Sens 20 H Radiography Diagnostic Testing: Clinical Impression(s) from Imaging Studies Brain CT 05/03/25 11:17 IMPRESSION: CHRONIC CHANGES. NO ACUTE FINDINGS. Red Alert: Chronic changes The critical information above was relayed directly by me by telephone to Roni Love on 05/03/2025 at 11:44 am with readback verification. Reading Location: [facility]- Chest X-Ray 05/03/25 11:40 IMPRESSION: No Acute Findings. Reading Location: [facility]- Discharge Plan Triage Chief Complaint: Stroke Alert ED Provider: Roni Love Dx/Rx/DC Orders Prescriptions: No Action ondansetron 4 mg tablet,disintegrating 8 mg PO .now Qty: 2 0RF ondansetron HCl 8 mg tablet 8 mg PO Q8H PRN (Reason: nausea and vomiting) Qty: 14 0RF multivitamin with folic acid [Thera] 1 TABLET tablet 1 tab PO DAILY Calcium 600 + D(3) 1 EACH tablet 1 ea PO DAILY L.acidoph,paracasei,B.animalis 1 EACH capsule 1 ea PO DAILY ascorbic acid (vitamin C) 500 MG capsule 500 mg PO DAILY cyanocobalamin (vitamin B-12) 1,000 MCG capsule 1,000 mcg PO DAILY acetaminophen 500 MG tablet 1,000 mg PO Q8H PRN (Reason: Pain) Rx Instructions: Do not take more than 3000 mg Tylenol in a 24-hour period. oxybutynin chloride 5 mg tablet extended release 24hr 5 mg PO DAILY fluticasone propionate 50 mcg/actuation spray,suspension 1 spray INTRANASAL QHS Primary Care Provider: Angel Luis Contreras Referrals: Angel Luis Contreras MD [Primary Care Provider] - Print Language: Yoruba
[2025-05-03 11:56] LABS: Partial Thromboplast Time 29.3 Seconds (24.1-36.2); Prothrombin Time (Protime)PT. 13.3 SECONDS (11.7-14.9)
[2025-05-03 12:05] LABS: Anion Gap 12 (5-15); BUN 16 mg/dL (4-19); BUN/Creat Ratio 14.2 RATIO (10-20); Calcium,Total 9.4 mg/dL (7.6-11.0); Carbon Dioxide 24.8 mmol/L (21.0-32.0); Chloride 101 mmol/L (98-108); Creatinine, Serum 1.14 mg/dL (0.70-1.20); EST Glomerular Filtration Rate 46 (>60); Estimated Creatinine Clearance 37.49 ml/min (50-250); Glucose 90 mg/dL (70-99); Magnesium 2.1 mg/dL (1.5-2.2); Potassium 4.2 mmol/L (3.3-5.1); Sodium Level 138 mmol/L (133-145); Troponin T High Sensitivity 20 ng/L (<=14)
--- NOTE | 2025-05-03 13:14 | CHAPLAIN ---
Type of Pastoral Visit ___ Initial Visit ___ Follow-up Visit ___ On-call Visit ___ General Patient Visit ___ Spiritual Assessment ___ Family Conference ___ Bereavement _x__ Rapid Response ___ Code Blue ___ Other (describe below) Pastoral Care Referral From ___ Patient ___ Family ___ Nurse ___ Physician ___ Canvas Baster Jumpbasting ___ Foot Miter Operator _x__ Other (describe below) Sacrament/Intervention ___ Active listening ___ Anointing ___ Restoration ___ Bereavement ___ Communion ___ Marcia exploration ___ ___ Life review ___ Prayer ___ Reconciliation ___ Sacrament of Sick _x__ Supportive presence ___ Wedding ___ Other (describe below) Pastoral Comments responded to stroke alert; pt was just then being taken to the CT; no family members were present at this time; offered support to staff
--- NOTE | 2025-05-03 13:43 | HP.PCM.HOS_ITS ---
HPI - General General Date of Admission: 05/03/25 Date of Service: 05/03/25 Chief Complaint: Strokelike symptoms HPI Narrative DANIA LENTZ, is a 89 F who presented to [facility] ED on 05/03/2025 with strokelike symptoms. Patient lives at home with her daughter. Has good functional status at baseline. She was out working in her flower bed for part of the morning today. When she went inside to look at her bills, she began to have right hand numbness, right facial numbness and slurring of speech. She was home alone and called her daughter who recommended that EMS bring her to the ED. Presented as a stroke alert. Hemodynamically stable on arrival and had NIH score of 1 due to dysarthria. Right hand and right facial numbness had resolved after about 10 to [address] brain was unremarkable. CTA head/neck was deferred as patient has history of only 1 kidney, though creatinine was at baseline. Given the symptoms, hospitalist was contacted for admission. I saw the patient at bedside in the ED, daughter was present. Patient was sitting back comfortably in bed, conversing normally, in no acute distress. Had no slurred speech noted and stated she felt back to baseline. Denies any recent illnesses. Denies any history of stroke. Noted that she does not drink very much at baseline and was feeling a bit dehydrated today. No other acute concerns at this time. [facility] Medical History Left knee pain Home Medications ?Medication ?Instructions ?Recorded ?Last Taken ?Type multivitamin with folic acid 400 1 tab PO DAILY supple ment 04/06/18 07/30/18 06:00 History mcg tablet (Thera) L.acidoph,paracasei,B.animalis 10 1 ea PO DAILY 11/24/18 08:00 History billion cell capsule calcium carbonate-vitamin D3 600 1 ea PO DAILY 8 Unknown History mg-125 unit tablet (Calcium) ascorbic acid (vitamin C) 500 mg 500 mg PO DAILY 09/05 Unknown History capsule cyanocobalamin (vitamin B-12) 1,000 mcg PO DAILY 09/05 Unknown History 1,000 mcg capsule acetaminophen 500 mg tablet 1,000 mg PO Q8H PRN Pain 0 04/06/22 Unknown History ondansetron 4 mg disintegrating 8 mg (2 x 4 mg) PO .no w nausea #2 08/29/24 Unknown Rx tablet tabs ondansetron HCl 8 mg tablet 8 mg PO Q8H PRN nausea and 08/29/24 Unknown Rx vomiting #14 tabs fluticasone propionate 50 1 spray intranasal QHS 05/03 Unknown History mcg/actuation nasal spray,suspension oxybutynin chloride 5 mg 5 mg PO DAILY 05/03/25 Unkno wn History tablet,extended release 24 hr Allergy/AdvReac Type Severity Reaction Status Date / Time No Known Allergies Allergy Verified 05/03/25 11:20 Family History no significant family his Surgical History 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 Social History Smoking Status: Never smoker ROS Constitutional Constitutional: Denies chills, fatigue, fever(s) or weakness Eyes Eyes: Denies change in vision Cardiovascular Cardiovascular: Denies chest pain Respiratory/Chest Respiratory/Chest: Denies shortness of breath at rest Gastrointestinal Gastrointestinal: Denies abdominal pain Musculoskeletal Musculoskeletal: Denies arthralgias or myalgias Neurologic Neurologic: Denies abnormal speech, confusion, disequilibrium, dizziness, focal weakness, headache(s), numbness, paresthesias or tingling Vital Signs Vital Signs Vital Signs: 05/03/25 11:09 05/03/25 11:17 05/03/25 11:19 Temperature 98.2 F 98.2 F Temperature Source Oral Oral Pulse Rate 72 60 Respiratory Rate 17 12 Blood Pressure 161/65 H 143/77 H Blood Pressure Mean 97 99 Pulse Ox 99 98 Oxygen Delivery Method Room Air Room Air 05/03/25 11:22 05/03/25 12:17 05/03/25 12:30 Temperature Temperature Source Pulse Rate 63 64 Respiratory Rate 16 16 Blood Pressure 149/77 H 143/74 H Blood Pressure Mean 101 97 Pulse Ox 98 98 Oxygen Delivery Method Room Air Room Air 05/03/25 12:39 05/03/25 13:00 05/03/25 13:30 Temperature Temperature Source Pulse Rate 63 59 L 54 L Respiratory Rate 16 16 19 H Blood Pressure 155/80 H 155/80 H 164/90 H Blood Pressure Mean 105 105 114 Pulse Ox 99 98 100 Oxygen Delivery Method Room Air Room Air Room Air 05/03/25 13:40 Temperature 97.9 F Temperature Source Pulse Rate 54 L Respiratory Rate 19 H Blood Pressure 164/90 H Blood Pressure Mean 114 Pulse Ox 100 Oxygen Delivery Method Weight Weight: 78.2 kg Body Mass Index (BMI) 26.2 Physical Exam Const alert, oriented x3, no apparent distress and average body habitus Constitutional Narrative: Elderly female, appears younger than stated age, sitting back comfortably in bed, conversing normally, in no acute distress. General Appearance: cooperative and comfortable HEENT normocephalic, head/scalp atraumatic, hearing grossly normal bilaterally, nasal mucous membranes and turbinates normal and moist oral mucous membranes Eyes PERRL, EOMs intact bilaterally and conjunctivae normal Neck full ROM Chest inspection of chest normal Resp normal respiratory effort, normal air movement, no use of accessory muscles and clear to auscultation bilaterally Cardio regular rate, regular rhythm, no murmurs and peripheral pulses 2+ throughout GI normal to inspection, nondistended, normoactive bowel sounds, soft to palpation, non-tender and non-distended Back/Spine normal ROM Extremity normal to inspection, full ROM and no pedal edema Skin no rashes or lesions noted Neuro moves all extremities and no focal motor deficits Speech: speech normal Motor Exam: strength 5/5 throughout Psych mental status grossly normal Results Lab / Micro Data 05/03/25 11:14 05/03/25 11:14 Labs: Laboratory Results - last 24 hr 05/03/25 11:14: WBC 5.7, RBC 4.17 L, Hgb 12.7, Hct 38.9, MCV 93.3, MCH 30.5, MCHC 32.6, RDW Std Deviation 45.1 H, RDW Coeff of Ermias 13.2, Plt Count 534 H, MPV 9.2, Immature Gran % (Auto) 0.200, Neut % (Auto) 67.8, Lymph % (Auto) 16.2 L, M ryan % (Auto) 10.2 H, Eos % (Auto) 4.9, Baso % (Auto) 0.7, Absolute Neuts (auto) 3.9, Absolute Lymphs (auto) 0.92, Nucleated RBC % 0, PT 13.3, INR 1.0, APTT 29.3, Sodium 138, Potassium 4.2, Chloride 101, Carbon Dioxide 24.8, Anion Gap 12, BUN 16, Creatinine 1.14, Estim Creat Clear Calc 37.49 L, Est GFR (MDRD) Non- Af 46 L, BUN/Creatinine Ratio 14.2, Glucose 90, Calcium 9.4, Magnesium 2.1, T roponin T High Sens 20 H Imaging Radiology Impression Brain CT 05/03/25 11:17 IMPRESSION: CHRONIC CHANGES. NO ACUTE FINDINGS. Red Alert: Chronic changes The critical information above was relayed directly by me by telephone to Roni Love on 05/03/2025 at 11:44 am with readback verification. Reading Location: [facility] Chest X-Ray 05/03/25 11:40 IMPRESSION: No Acute Findings. Reading Location: [facility] Assessment & Plan Assessment/Plan (1) Stroke-like symptoms: PLAN: Plan Patient is an 89-year-old female who presented to [facility] ED on 05/03/2025 for strokelike symptoms. 1. Strokelike symptoms, CVA rule out ? Admit under observation status to PCU. Neurology consulted. Presented with right hand numbness, right facial numbness and slurring of speech. Most resolved by arrival to ED, NIH score of 1. CT brain unremarkable. CTA head/neck deferred given history of nephrectomy. MRI brain and MRA head/neck ordered. Echo with bubble study ordered. Lipid panel, A1c and TSH ordered. Other orders placed per stroke protocol order set. Will start baby aspirin and statin for now. Appreciate neurology recommendations. 2. 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 Creatinine stable at baseline 1.1-1.2 on admission. 3. Overactive bladder ? Continue home oxybutynin. DVT prophylaxis: SCDs CODE STATUS: Full code, verified Expected disposition: Home, 1 to 2 days Total clinical time spent by myself addressing the patient's medical issues, reviewing all the data, and collaborating with patient's care team: 55 minutes. Charges/Coding Visit Charges Inpatient E&M: 87343 Init Hosp L2
--- NOTE | 2025-05-03 13:52 | ECHOD_ITS ---
Reason For Study Reason For Study: TIA/CVA Procedure This was a 2D Doppler, Color Flow transthoracic echocardiogram. Exam performed portable in ED. Left Ventricle Mild concentric left ventricular hypertrophy. Normal LV size. The LV systolic function is normal. EF is 65 %. Stage 1 diastolic dysfunction. Right Ventricle Normal right ventricle. Atria The left and right atria are normal. Mitral Valve Moderate focal bileaflet mitral valve calcification. Equivocal prolapse of the posterior leaflet. Mild mitral valve regurgitation. Tricuspid Valve Moderate (2+) tricuspid valve insufficiency. Right ventricular systolic pressure estimated to be 45 mmHg. Aortic Valve Trisinus/trileaflet aortic valve. Pulmonic Valve The pulmonic valve is not well visualized. Great Vessels Normal sized aortic root. Pericardium/Pleural No pericardial effusion. MMode/2D Measurements & Calculations LVIDd: 3.6 cm IVSd: 1.2 cm LVOT diam: 2.0 cm LVIDs: 2.7 cm LVPWd: 1.0 cm LVOT area: 3.1 cm2 RVDd: 3.9 cm FS: 26.6 % LA dimension: 4.0 cm asc Aorta Diam: 3.6 cm LAV(MOD- bp): 54.7 ml LAV(MOD- bp) Indexed: 28.5 ml/m2 LAV(MOD- sp2): 71.7 ml LAV(MOD- sp4): 40.8 ml SV(MOD- sp4): 46.4 ml LVAd ap4: 25.2 cm2 LVAd ap2: 22.6 cm2 LVLd ap4: 7.6 cm LVLd ap2: 7.8 cm SI(MOD- sp4): 24.2 ml/m2 EDV(MOD-sp4): 68.3 ml EDV(MOD-sp2): 52.8 ml EDV(sp4-el): 70.6 ml EDV(sp2-el): 55.4 ml LVAs ap4: 13.0 cm2 LVAs ap2: 12.2 cm2 LVLs ap4: 6.6 cm LVLs ap2: 6.5 cm ESV(MOD-sp4): 21.8 ml ESV(MOD-sp2): 19.6 ml ESV(sp4-el): 22.0 ml ESV(sp2-el): 19.4 ml EF(MOD-sp4): 68.0 % EF(MOD-sp2): 62.8 % EF(sp4-el): 68.9 % SV(MOD-sp2): 33.1 ml SV(sp4-el): 48.7 ml Ao sinus diam: 3.4 cm SI(MOD-sp2): 17.3 ml/m2 Ao ST Junction: 2.6 cm LA dimension(2D): 4.0 cm LA A4 area: 16.8 cm2 TAPSE: 2.1 cm RA A4 area: 15.6 cm2 Time Measurements MV dec time: 0.44 sec Doppler Measurements & Calculations MV E max christian: 94.6 cm/sec Lat Peak E' Christian: 7.0 cm/sec Med Peak E' Christian: 6.6 cm/sec MV A max christian: 120.7 cm/sec E/E' lat: 13.4 E/E' med: 14.3 MV E/A: 0.78 MV dec slope: 213.7 cm/sec2 Ao V2 max: 119.0 cm/sec LV V1 max: 82.0 cm/sec Ao max P.7 mmHg LV V1 max P.7 mmHg Ao V2 mean: 84.5 cm/sec LV V1 mean P.6 mmHg Ao mean P.2 mmHg LV V1 mean: 60.5 cm/sec Ao V2 VTI: 33.8 cm LV V1 VTI: 21.9 cm AV (velocity ratio): 0.65 YOUNG(I,D): 2.0 cm2 YOUNG(V,D): 2.1 cm2 SV(LVOT): 68.2 ml PA V2 max: 67.9 cm/sec TR max christian: 273.7 cm/sec TR max P.0 mmHg ECHO/Echo Complete Interpretation Summary Mild concentric left ventricular hypertrophy. The LV systolic function is normal. EF is 65 %. Stage 1 diastolic dysfunction. Moderate focal bileaflet mitral valve calcification. Equivocal prolapse of the posterior leaflet. Mild mitral valve regurgitation. Moderate (2+) tricuspid valve insufficiency. Right ventricular systolic pressure estimated to be 45 mmHg. Ordering Physician: Pillo Michelle Referring Physician: Angel Luis Contreras Performed By: Sheila Noonna RDCS
--- NOTE | 2025-05-03 13:52 | MRI_ITS ---
PROCEDURE: MRA NECK WITHOUT CONTRAST 05/03/2025 REASON FOR EXAM: CVA R/O, COULD NOT GET CTA HEAD/NECK COMPARISON: None. TECHNIQUE: Neck MRA without contrast using 2D and 3D Time of Flight technique. FINDINGS: Flow: 2D Time of Flight images demonstrate antegrade carotid and vertebral artery flow. Carotids: No evidence of significant stenosis on time of flight imaging. Limited noncontrast exam. Vertebrals: Codominant without evidence of high grade stenosis. Arch: Not included in the volume of these images. MRI/MRA Neck without Contrast IMPRESSION: No significant stenosis. Reading Location: [place] [id number]
--- NOTE | 2025-05-03 13:52 | MRI_ITS ---
PROCEDURE: BRAIN WITHOUT CONTRAST 05/03/2025 REASON FOR EXAM: CVA RULE OUT TECHNIQUE: Noncontrast brain MRI. Multiplanar and multisequence images were obtained. COMPARISON: 05/03/2025. FINDINGS: Mild global parenchymal atrophy. Periventricular white matter T2/FLAIR hyperintense foci likely representing [id number] chronic microvascular ischemia. Small bilateral frontal lobe chronic lacunar infarctions. Mild mucosal and ethmoid sinus mucosal thickening. The mastoid air cells are clear. MRI/Brain without Contrast IMPRESSION: No acute intracranial abnormality. Chronic and ancillary findings as above. Reading Location: [place] [id number]
--- NOTE | 2025-05-03 14:23 | MRI_ITS ---
PROCEDURE: MRA HEAD ONLY WITHOUT CONTRAST 05/03/2025 REASON FOR EXAM: CVA RULE OUT COMPARISON: None. TECHNIQUE: 3D Time of Flight MRA of the head. Multiplanar multisequential imaging was performed without IV contrast administration. FINDINGS: The carotid siphons are patent. 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 The remainder of the anterior cerebral arteries are patent. The anterior communicating, middle cerebral, and posterior cerebral arteries are patent. The vertebrobasilar system is patent. No visualized aneurysm (MRA not sensitive for aneurysms less than 3 mm). MRI/MRA Head ONLY without Contrast IMPRESSION: No acute arterial abnormality of the head. 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 Reading Location: [id number]
--- NOTE | 2025-05-03 15:32 | ED.RN ---
2ND TROP DRAWN AT [address] TIFFANIE LANGFORD.
[2025-05-03 15:41] LABS: Troponin T High Sens 2 HR 19 ng/L (<=14)
[2025-05-03 15:50] LABS: Hemoglobin A1c 5.5 % (<=5.6)
--- NOTE | 2025-05-03 19:11 | CM.ED ---
Social Work Reason for visit: Stroke Alert SW met with patient, patients daughter and patients sister. Patient stated that she was out weeding this morning when she started to have weakness and pain in her hand. Patient states she came inside and called her daughter and noticed she was also having some trouble with her speech. Daughter told her to call 911. Patient states she is glad she came in so quickly. Emotional support provided. No further needs identified at this time. Alma Delia Malhotra, DIGITAL CAMPAIGN MANAGER, PLAYROOM ATTENDANT
[2025-05-03] MEDS: Fluticasone 0.05% 1 SPRAY NASAL.SRY NASAL (21:53)
[2025-05-03] MEDS: Atorvastatin Calcium 40 MG Tablet PO (21:54)
[2025-05-04 01:51] VITALS: BP 113/63; PULSE 56; RESP 16; TEMP 36.5; O2SAT 93
[2025-05-04 02:14] VITALS: BMI 25.2
[2025-05-04 03:00] VITALS: PULSE 55
[2025-05-04 04:45] LABS: Hematocrit 33.8 % (37-47); Mean Corp Hgb Conc 32.5 g/dL (32-36); Mean Corpuscular Hgb 30.7 pg (27.0-32.0); Mean Corpuscular Volume 94.4 fL (81-99); Mean Platelet Vol. 9.6 fl (6.2-12.0); Platelet Count 489 K/mm3 (150-450); RBC Distribution Width CV 13.1 % (11.6-14.6); RBC Distribution Width SD 45.1 fl (35.1-43.9); Red Blood Count 3.58 M/mm3 (4.2-5.4); White Blood Count 5.1 K/mm3 (4.4-11.0)
[2025-05-04 05:06] LABS: Anion Gap 10 (5-15); BUN 16 mg/dL (4-19); BUN/Creat Ratio 13.4 RATIO (10-20); Calcium,Total 8.7 mg/dL (7.6-11.0); Carbon Dioxide 25.1 mmol/L (21.0-32.0); Chloride 106 mmol/L (98-108); Cholesterol 187 mg/dL (<=200); Creatinine, Serum 1.16 mg/dL (0.70-1.20); EST Glomerular Filtration Rate 45 (>60); Estimated Creatinine Clearance 33.82 ml/min (50-250); Glucose 78 mg/dL (70-99); High Density Lipoprotein 55 mg/dL; Low Density Lipoprotein Calc. 118 mg/dL; Potassium 3.9 mmol/L (3.3-5.1); Sodium Level 142 mmol/L (133-145); Triglycerides 72 mg/dL; Very Low Density Lipoprotein 14 mg/dL (5-40); cholesterol:hdl ratio screen 3.41
[2025-05-04 05:50] VITALS: BP 138/67; PULSE 56; RESP 13; TEMP 36.6; O2SAT 96
[2025-05-04 06:17] LABS: Bacteria 0 SEEN /hpf (None Seen); Mucous, Urine 0 SEEN /hpf (<or=2+); Red Blood Cells-Urine 0 SEEN /hpf (0-5); Squamous Epithelial Cells - UA 0 SEEN /hpf (5-10)
[2025-05-04 06:27] LABS: Color, Urine Yellow (Yellow); Glucose, Dipstick Normal (Normal); Ketone-Dipstick Negative (Negative); Leukocyte Esterase-Dipstick Negative /ul (Negative); Nitrite-Dipstick Negative (Negative); Occult Blood-Urine Negative /ul (Negative); Protein-Dipstick Negative (Negative); Urine Bilirubin Dipstick Negative (Negative); Urine Clarity Sl. Cloudy (Clear); Urine Urobilinogen Normal (Normal)
[2025-05-04 06:41] LABS: White Blood Cells 0-5 SEEN /hpf (0-5)
[2025-05-04 07:48] VITALS: BP 138/67; PULSE 55; RESP 12; TEMP 36.7; O2SAT 95
[2025-05-04] MEDS: Ascorbic Acid 500 MG Tablet PO (08:52)
[2025-05-04] MEDS: Aspirin 81 MG TAB.CHEW PO (08:52)
[2025-05-04] MEDS: Cyanocobalamin 500 MCG Tablet 1000 MCG PO (08:52)
[2025-05-04] MEDS: Multivitamins,Therapeutic Tablet 1 TABLET PO (08:52)
[2025-05-04] MEDS: Calcium Carb/Vitamin D 1 TABLET Tablet PO (08:52)
[2025-05-04] MEDS: Lactobacillis Acidophilus 1 CAP PO (08:52)
--- NOTE | 2025-05-04 11:10 | PCM.DC.SUM ---
Providers Date of Admission: 05/03/25 Date of Discharge: 05/04/25 Primary Care Physician: Dr. Angel Luis Contreras MD Consultations 05/03/25 16:42 Consult: Tele-Neurology Routine Consulting Provider: [facility] Reason for Consult: Acute Ischemic Stroke/TIA EMERGENT Consult: No Notified: No Date Notified: 05/03/25 Time Notified: 13:48 Nursing Unit Staff Notify [facility] of Tele-Neurology Consult: Yes Reason For Visit: STROKELIKE SYMPTOMS Diagnosis Discharge Diagnosis (1) Stroke-like symptoms: Status: Acute Code(s): R29.90 - Unspecified symptoms and signs involving the nervous system Medications at Discharge Home Medications multivitamin with folic acid 400 mcg tablet (Thera) 1 tab PO DAILY supplement 04/06/18 L.acidoph,paracasei,B.animalis 10 billion cell capsule 1 ea PO DAILY 11/18/18 calcium carbonate-vitamin D3 600 mg-125 unit tablet (Calcium) 1 ea PO DAILY 11/18/18 ascorbic acid (vitamin C) 500 mg capsule 500 mg PO DAILY 09/05/20 cyanocobalamin (vitamin B-12) 1,000 mcg capsule 1,000 mcg PO DAILY 09/05/20 acetaminophen 500 mg tablet 1,000 mg PO Q8H PRN Pain 04/06/22 ondansetron 4 mg disintegrating tablet 8 mg (2 x 4 mg) PO .now nausea #2 tabs 08/29/24 ondansetron HCl 8 mg tablet 8 mg PO Q8H PRN nausea and vomiting #14 tabs 08/29/24 fluticasone propionate 50 mcg/actuation nasal spray,suspension 1 spray intranasal QHS 05/03/25 oxybutynin chloride 5 mg tablet,extended release 24 hr 5 mg PO DAILY 05/03/25 aspirin 81 mg chewable tablet 81 mg PO BREAKFAST 90 days #90 tabs 05/04/25 atorvastatin 40 mg tablet 40 mg PO QHS 90 days #90 tabs 05/04/25 Hospital Course Operations None Procedures EKG, Transthoracic echo and - (MRA head/neck, MRI brain, chest x-ray, CT brain) Summary of Care Provided Minutes Spent on Discharge: 35 Hospital Course: Patient is an 89-year-old female who presented to [facility] ED on 05/03/2025 for strokelike symptoms. Short hospital course as noted below. Patient discharged home in stable condition on 05/04. 1. Strokelike symptoms, CVA ruled out ? Neurology evaluated. Presented with right hand numbness, right facial numbness and slurring of speech. Mostly resolved by arrival to ED, NIH score of 1. CT brain unremarkable. CTA head/neck deferred given history of nephrectomy. MRI brain and MRA head/neck unremarkable. Echo with bubble study showed no PFO, EF 65%, no other concerning findings. Lipid panel with total cholesterol 187, LDL 118, HDL 55. A1c 5.5%. TSH normal. Per neurology, most consistent with TIA. Recommended discharging on baby aspirin and atorvastatin 40 mg daily. 30-day event monitor ordered on discharge as well. Stable for discharge home on 05/04. 2. 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 Creatinine stable at baseline 1.1-1.2 during hospitalization. 3. Overactive bladder ? Continue home oxybutynin. Total clinical time spent by myself addressing the patient's medical issues, reviewing all the data, and collaborating with patient's care team: 35 minutes. Physical Exam Const alert, oriented x3, no apparent distress and average body habitus Constitutional Narrative: Elderly female, appears younger than stated age, sitting back comfortably in bed, conversing normally, in no acute distress. General Appearance: cooperative and comfortable HEENT normocephalic, head/scalp atraumatic, hearing grossly normal bilaterally, nasal mucous membranes and turbinates normal and moist oral mucous membranes Eyes PERRL, EOMs intact bilaterally and conjunctivae normal Neck full ROM Chest inspection of chest normal Resp normal respiratory effort, normal air movement, no use of accessory muscles and clear to auscultation bilaterally Cardio regular rate, regular rhythm, no murmurs and peripheral pulses 2+ throughout GI normal to inspection, nondistended, normoactive bowel sounds, soft to palpation, non-tender and non-distended Back/Spine normal ROM Extremity normal to inspection, full ROM and no pedal edema Skin no rashes or lesions noted Neuro moves all extremities and no focal motor deficits Speech: speech normal Motor Exam: strength 5/5 throughout Psych mental status grossly normal Weight / BMI Weight Weight: 75.115 kg Body Mass Index (BMI) 25.2 ABG / Lab / Microbiology Data 05/04/25 03:45 05/04/25 03:45 Laboratory: Laboratory Results - last 24 hr 05/03/25 11:14: Hemoglobin A1c 5.5, TSH 2.140 05/03/25 15:04: Troponin T Hi Sens 2 Hr 19 H 05/04/25 03:45: WBC 5.1, RBC 3.58 L, Hgb 11.0 L, Hct 33.8 L, MCV 94.4, MCH 30.7, MCHC 32.5, RDW Std Deviation 45.1 H, RDW Coeff of Ermias 13.1, Plt Count 489 H, MPV 9.6, Sodium 142, Potassium 3.9, Chloride 106, Carbon Dioxide 25.1, Anion Gap 10, BUN 16, Creatinine 1.16, Estim Creat Clear Calc 33.82 L, Est GFR (MDRD) Non-Af 45 L, BUN/Creatinine Ratio 13.4, Glucose 78, Calcium 8.7, Triglycerides 72, Cholesterol 187, LDL Cholesterol, Calc 118, VLDL Cholesterol 14, HDL Cholesterol 55, Cholesterol/HDL Ratio 3.41 05/04/25 06:02: Urine Color Yellow, Urine Clarity Sl. Cloudy, Urine pH 7.0, Ur Specific [place] 1.010, Urine Protein Negative, Urine Glucose (UA) Normal, Urine Ketones Negative, Urine Occult Blood Negative, Urine Nitrite Negative, Urine Bilirubin Negative, Urine Urobilinogen Normal, Ur Leukocyte Esterase Negative, Urine RBC 0 SEEN, Urine WBC 0-5 SEEN, Ur Squamous Epith Cells 0 SEEN, Urine Bacteria 0 SEEN, Urine Mucus 0 SEEN Radiography Diagnostic Testing: Radiology Impression Brain MRI 05/03/25 13:52 IMPRESSION: No acute intracranial abnormality. Chronic and ancillary findings as above. Reading Location: [id number] Echocardiogram 05/03/25 13:52 Interpretation Summary Mild concentric left ventricular hypertrophy. The LV systolic function is normal. EF is 65 %. Stage 1 diastolic dysfunction. Moderate focal bileaflet mitral valve calcification. Equivocal prolapse of the posterior leaflet. Mild mitral valve regurgitation. Moderate (2+) tricuspid valve insufficiency. Right ventricular systolic pressure estimated to be 45 mmHg. Ordering Physician: Pillo Michelle Referring Physician: Angel Luis Contreras Performed By: Sheila Noonan RDCS Neck MRA 05/03/25 13:52 IMPRESSION: No significant stenosis. Reading Location: [id number] Head MRA 05/03/25 14:23 IMPRESSION: No acute arterial abnormality of the head. 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 Reading Location: [id number] D/C Instructions DC O2, CPAP, BIPAP Needs Home O2 Discharge instructions: No Meaningful Use Info Meaningful Use Meaningful Use Diagnoses (Choose all that apply): None applicable Ischemic Stroke Statin Dosing Therapy Reference: STATIN DOSE THERAPY REFERENCE: * Patients > 75 years receive moderate or high dose statin therapy. * Patients 75 years or YOUNGER should receive HIGH intensity statin dose unless contraindicated. You will be required to document reason for non-treatment if statin daily dose does not meet guidelines. HIGH DOSE STATIN THERAPY DAILY Atorvastatin > than or = to 40 mg Rosuvastatin > than or = to 20 mg Amlodipine + Atorvastatin > than or = to 2.5/40 mg Ezetimibe + Simvastatin 10/80 mg Simvastatin 80mg Discharge Plan Admission Admit Date/Time: 05/03/25 13:45 Primary Reason for Your Visit: Strokelike symptoms Attending Provider: Pillo Michelle Primary Care Provider: Angel Luis Contreras Discharge Orders/Prescriptions Prescriptions: New aspirin 81 mg Tablet,Chewable 81 mg PO BREAKFAST 90 Days Qty: 90 0RF atorvastatin 40 mg Tablet 40 mg PO QHS 90 Days Qty: 90 0RF Continued ondansetron 4 mg tablet,disintegrating 8 mg PO .now Qty: 2 0RF ondansetron HCl 8 mg tablet 8 mg PO Q8H PRN (Reason: nausea and vomiting) Qty: 14 0RF multivitamin with folic acid [Thera] 1 TABLET tablet 1 tab PO DAILY Calcium 600 + D(3) 1 EACH tablet 1 ea PO DAILY L.acidoph,paracasei,B.animalis 1 EACH capsule 1 ea PO DAILY ascorbic acid (vitamin C) 500 MG capsule 500 mg PO DAILY cyanocobalamin (vitamin B-12) 1,000 MCG capsule 1,000 mcg PO DAILY acetaminophen 500 MG tablet 1,000 mg PO Q8H PRN (Reason: Pain) Rx Instructions: Do not take more than 3000 mg Tylenol in a 24-hour period. oxybutynin chloride 5 mg tablet extended release 24hr 5 mg PO DAILY fluticasone propionate 50 mcg/actuation spray,suspension 1 spray INTRANASAL QHS Other Ambulatory Orders: 30 Day Event Recorder Preventi (Urgent) Timeframe: 1 Month Facility: [facility] - Location: Cardiovascular Services Ordered By: Dr. Pillo Michelle Referrals / Follow Up: Angel Luis Contreras MD [Primary Care Provider] - Disposition Disposition (needs filled in before D/C Order can be placed): Home, Self Care Charges/Coding Visit Charges Inpatient E&M: 84686 Disch Hosp >30min
[2025-05-04 11:51] VITALS: BP 128/76; PULSE 65; RESP 18; TEMP 36.7; O2SAT 97
--- NOTE | 2025-05-04 14:39 | CASEMGMT ---
SCALES Met with patient to complete SCALES form. SCALES form and its content were verbally explained and patient's questions were answered to the best of my ability.? Patient voiced understanding and signed SCALES form.? Patient provided a copy of signed SCALES form and original placed in patient's chart.? Patient had no further questions. Krysta Matamoros, Discharge Planning Asst
--- NOTE | 2025-05-04 19:26 | CON.PCM.NE_ITS ---
Assessment and Plan: Stroke Assessment/Plan #Transient ischemic attack -start ASA 81mg daily. No DAPT as ABCD score<4 - atorvastatin 40. -MRI brain no stroke -MRA head/neck ?no significant stenosis -goal LDL<70, HBA1c <7 -obtain TTE -recommend 30 day cardiac event monitor -BP goal 120/80 -no smoking -follow up ?PCP 1-2 weeks, neurology ?4-6 weeks HPI Consult Data Date of Consult: 05/04/25 HPI Narrative HPI Narrative: 89 yo? F w no significant PMH present with transient dysarthria and R sided numbness for 30 minutes. ?She was out working in her flower bed for part of the morning today. When she went inside to look at her bills, she began to have right hand numbness, right facial numbness and slurring of speech. She was home alone and called her daughter who recommended that EMS bring her to the ED. Presented as a stroke alert. Hemodynamically stable on arrival and had NIH score of 1 due to dysarthria. Right hand and right facial numbness had resolved after about 30 minutes today. Never had prior similar episode. Symptoms have not reoccurred. Currently feels back to normal. [facility] Medical History Left knee pain Home Medications ?Medication ?Instructions ?Recorded ?Last Taken ?Type multivitamin with folic acid 400 1 tab PO DAILY supple ment 04/06/18 07/30/18 06:00 History mcg tablet (Thera) L.acidoph,paracasei,B.animalis 10 1 ea PO DAILY 11/24/18 08:00 History billion cell capsule calcium carbonate-vitamin D3 600 1 ea PO DAILY 8 Unknown History mg-125 unit tablet (Calcium) ascorbic acid (vitamin C) 500 mg 500 mg PO DAILY 09/05 Unknown History capsule cyanocobalamin (vitamin B-12) 1,000 mcg PO DAILY 09/05 Unknown History 1,000 mcg capsule acetaminophen 500 mg tablet 1,000 mg PO Q8H PRN Pain 0 04/06/22 Unknown History ondansetron 4 mg disintegrating 8 mg (2 x 4 mg) PO .no w nausea #2 08/29/24 Unknown Rx tablet tabs ondansetron HCl 8 mg tablet 8 mg PO Q8H PRN nausea and 10/07/24 Unknown Rx vomiting #14 tabs fluticasone propionate 50 1 spray intranasal QHS 05/03 Unknown History mcg/actuation nasal spray,suspension oxybutynin chloride 5 mg 5 mg PO DAILY 05/03/25 Unkno wn History tablet,extended release 24 hr aspirin 81 mg chewable tablet 81 mg PO BREAKFAST 90 da ys #90 tabs 05/04/25 Unknown Rx atorvastatin 40 mg tablet 40 mg PO QHS 90 days #90 tab s 05/04/25 Unknown Rx Allergy/AdvReac Type Severity Reaction Status Date / Time No Known Allergies Allergy Verified 05/03/25 11:20 Family History no significant family his Surgical History 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9 F 98.0 F Temperature Source Oral Oral Pulse Rate 55 L 56 L 55 L Respiratory Rate 13 12 Blood Pressure 138/67 H 138/67 H Blood Pressure Mean 90 90 Blood Pressure Source Monitor Monitor Blood Pressure Position Semi-Fowlers Semi-Fowlers Blood Pressure Location Right Arm Right Arm Pulse Ox 96 95 Oxygen Delivery Method Room Air Room Air 05/04/25 11:35 05/04/25 11:51 Temperature 98.0 F Temperature Source Oral Pulse Rate 65 Respiratory Rate 18 Blood Pressure 128/76 H Blood Pressure Mean 93 Blood Pressure Source Monitor Blood Pressure Position Sitting Blood Pressure Location Right Arm Pulse Ox 97 Oxygen Delivery Method Room Air Room Air Weight Weight: 75.115 kg Body Mass Index (BMI) 25.2 EEG Results Procedure Details EEG Procedure Details: DANIA LENTZ is a 89 year old F with a past medical history of , who presents for evaluation of Electroencephalogram on DATE at TIME Physical Exam Narrative MS: awake, alert, oriented x 3, follows commands, able to name, no aphasia, no dysarthria CN: VFF, EOMI , no facial weakness, nml facial sensation M:? Antigravity in all extremities, no drift S: nml to LT in all extremities C: no dysmetria Lab / Micro Data 05/04/25 03:45 05/04/25 03:45 Labs: Laboratory Results - last 24 hr 05/04/25 03:45: WBC 5.1, RBC 3.58 L, Hgb 11.0 L, Hct 33.8 L, MCV 94.4, MCH 30.7, MCHC 32.5, RDW Std Deviation 45.1 H, RDW Coeff of Ermias 13.1, Plt Count 489 H, MPV 9.6, Sodium 142, Potassium 3.9, Chloride 106, Carbon Dioxide 25.1, Anion Gap 10, BUN 16, Creatinine 1.16, Estim Creat Clear Calc 33.82 L, Est GFR (MDRD) Non-Af 45 L, BUN/Creatinine Ratio 13.4, Glucose 78, Calcium 8.7, Triglycerides 72, Cholesterol 187, LDL Cholesterol, Calc 118, VLDL Cholesterol 14, HDL Cholesterol 55, Cholesterol/HDL Ratio 3.41 05/04/25 06:02: Urine Color Yellow, Urine Clarity Sl. Cloudy, Urine pH 7.0, Ur Specific [place] 1.010, Urine Protein Negative, Urine Glucose (UA) Normal, Urine Ketones Negative, Urine Occult Blood Negative, Urine Nitrite Negative, Urine Bilirubin Negative, Urine Urobilinogen Normal, Ur Leukocyte Esterase Negative, Urine RBC 0 SEEN, Urine WBC 0-5 SEEN, Ur Squamous Epith Cells 0 SEEN, Urine Bacteria 0 SEEN, Urine Mucus 0 SEEN Imaging Radiology Impression Brain MRI 05/03/25 13:52 IMPRESSION: No acute intracranial abnormality. Chronic and ancillary findings as above. Reading Location: [place] [id number] Echocardiogram 05/03/25 13:52 Interpretation Summary Mild concentric left ventricular hypertrophy. The LV systolic function is normal. EF is 65 %. Stage 1 diastolic dysfunction. Moderate focal bileaflet mitral valve calcification. Equivocal prolapse of the posterior leaflet. Mild mitral valve regurgitation. Moderate (2+) tricuspid valve insufficiency. Right ventricular systolic pressure estimated to be 45 mmHg. Ordering Physician: Pillo Michelle Referring Physician: Angel Luis Contreras Performed By: Sheila Noonan RDCS Neck MRA 05/03/25 13:52 IMPRESSION: No significant stenosis. Reading Location: [id number] Head MRA 05/03/25 14:23 IMPRESSION: No acute arterial abnormality of the head. 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 Reading Location: [id number] NIHSS NIHSS Nursing Documentation NIHSS Nursing Documentation: NIHSS: Ischemic Stroke/TIA Start: 05/03/25 16:42 Text: For PCU Patients: NIH and Neuro Check every 4 Status: Discharge hours, PRN and with change in RN caregiver. Freq: [id number] Protocol: Activity Type Activity Date Activity User E-sign Co-sign Detail Recorded Client Recorded Date Recorded By Document 05/04/25 11:51 NB [id number] 05/04/25 11:51 NB 05/04/25 11:51 NIH Stroke Scale [NIHSS] A score of 0 is normal or asymptomatic . Total possible score is 42. Inpatient: RN or Physician to activate a stroke alert for onset of new stroke symptoms or with NIHSS increase >/= 3 points. Following change in neurological status, NIHSS will be performed per physician order or more frequently PRN. -1a. Level of Consciousness 0 - Alert; keenly responsive -1b. LOC Questions 0 - Answers BOTH questions correctly -1c. LOC Commands 0 - Performs BOTH tasks correctly -2. Best Gaze 0 - Normal -3. Visual 0 - No visual loss -4. Facial Palsy 0 - Normal symmetrical movements -5a. Left Arm 0 - No drift; arm holds 90 ( or 45) degrees for full 10 seconds -5b. Right Arm 0 - No drift; arm holds 90 ( or 45) degrees for full 10 seconds -6a. Left Leg 0 - No drift; leg holds 30- degree position for full 5 seconds -6b. Right Leg 0 - No drift; leg holds 30- degree position for full 5 seconds -7. Limb Ataxia 0 - Absent -8. Sensory 0 - Normal; no sensory loss -9. Best Language 0 - No aphasia; normal -10. Dysarthria 0 - Normal -11. Extinction and Inattention 0 - No abnormality -Total 0 Query Text:A score of 0 is normal or asymptomatic. Total possible score is 42 . ED: Notify Physician for NIHSS increase by > / = 3 points. Inpatient: RN or Physician to activate a stroke alert for NIHSS increase of > / = 3 points. NIHSS: Ischemic Stroke/TIA Start: 05/03/25 16:42 Text: For ICU Patients: NIH sroke scale at Status: Complete presentation and every 2 hours or with change in RN caregiver Freq: [id number] Protocol: Activity Type Activity Date Activity User E-sign Co-sign Detail Recorded Client Recorded Date Recorded By Document 05/04/25 01:51 [id number] 05/04/25 02:00 05/04/25 01:51 -1a. Level of Consciousness 0 - Alert; keenly responsive -1b. LOC Questions 0 - Answers BOTH questions correctly -1c. LOC Commands 0 - Performs BOTH tasks correctly -2. Best Gaze 0 - Normal -3. Visual 0 - No visual loss -4. Facial Palsy 0 - Normal symmetrical movements -5a. Left Arm 0 - No drift; arm holds 90 ( or 45) degrees for full 10 seconds -5b. Right Arm 0 - No drift; arm holds 90 ( or 45) degrees for full 10 seconds -6a. Left Leg 0 - No drift; leg holds 30- degree position for full 5 seconds -6b. Right Leg 1 - Drift; leg falls by the end of 5- seconds, but does not hit bed -7. Limb Ataxia 0 - Absent -8. Sensory 0 - Normal; no sensory loss -9. Best Language 0 - No aphasia; normal -10. Dysarthria 0 - Normal -11. Extinction and Inattention 1 - Visual, tactile, auditory, spatial, or personal inattention; -Total 2 Query Text:A score of 0 is normal or asymptomatic. Total possible score is 42 . ED: Notify Physician for NIHSS increase by > / = 3 points. Inpatient: RN or Physician to activate a stroke alert for NIHSS increase of > / = 3 points.
== END 2025-05-04 15:57 | disposition home or self-care (01) ==
LOC: ED 13:59 → MS2 15:36
PROVIDERS: Admitting Provider Hospitalist; Emergency Provider Surgery; PCP Family Medicine; Visit Provider Hospitalist
DX: R29.818 Other symptoms and signs involving the nervous system (principal); N18.31 Chronic kidney disease, stage 3a; R29.701 NIHSS score 1; R47.81 Slurred speech; N32.81 Overactive bladder; R00.1 Bradycardia, unspecified; Z90.5 Acquired absence of kidney; R20.0 Anesthesia of skin; Z79.899 Other long term (current) drug therapy; Z79.51 Long term (current) use of inhaled steroids; R47.1 Dysarthria and anarthria
CPT/HCPCS: 70450; 70544; 70547; 70551; 71045; 80048; 80061; 81001; 83036; 83735; 84443; 84484; 85025; 85027; 85610; 85730; 87086; 87088; 93005; 93306; 94762; 96360; 96361; 99221; 99285; A4216; G0378

== ENCOUNTER 2025-05-16 12:00 | Outpatient (RCR) | payer MEDICARE, SELFPAY ==
--- NOTE | 2025-05-15 14:12 | HP.PTEVAL_ITS ---
Patient's Visit Information Visit Information Visit Information: DANIA LENTZ is a 89 year old F referred to Physical Therapy by Dr. Angel Luis Contreras MD with a diagnosis of TIA. Date of Evaluation: 05/15/25 Physical Therapist: Giorgio Carter, DPT, OCS, CSCS Visit Plan Plan: No skilled intervention required or desired at this point. Pt doing well with mobility at baseline and is active and does not desire further intervention in PT. Will see OT and speech tomorrow. educated on possible benefits of regular ex program but not desired at this time. Subjective Subjective: I had a stroke last week. R hand went numb and R mouth went numb and speech difficult and not intelligible. Lasted 10 minutes. Called dtr adn then 911. Went to ER. Speech was slightly slurred. Did a lot of test including CATSCANs. Now takes baby aspirin as well as cholesterol med. All symptoms went away, Feels a little dizzy now and then but that was there prior. This is not unusual for her. Often happens when she stands up. No falls lately, Slid off bed one time a moth ago. Did not get hurt. No neuropathy, no spinning. Lives with dtr and sister and she is home all day. Basement steps and two to enter with railing and they are no problem. Basic ADLs dressing , showers, bathroom all I. Is being careful with heart monitor for 30 days. Not employed. Spends day helping with chores and carried bucket today without a problem. Sews , no problem. Hobbies: sews. Objective Objective: Walking into PT I, trasnfers no UE chair I, bed I. Steeps with onee rail reciprocally I up and down. sensation LE WNL to gross light touch B. reflexes 2/3 patella and achilles B strength LE 4-/5 hip flexion and abd, 4 knee flexion/ext and 4 ankles without asymmeetries. coordination to reciprocal toe adn heel tap is normal Good balance today Balance/Special Test Scores Functional Gait Assessment Score: 24 % Disability: 20.0000 CATSIB Score (Max score 120 seconds): 98 Lower Extremity Functional Score: 53 30 Second Chair Rise Test Seconds: 13 Anticipated Interventions Text: Thank you for the opportunity to evaluate your patient. For Medicare and Medicare HMO plans, please review the plan of care and approve it. It will need to be FAXED BACK to us at [phone] for Medicare purposes. For Medicare only, by signing this I certify the plan of care. Please let me know if there are questions or concerns regarding this plan of care. Physician Signature: Date :
--- NOTE | 2025-05-16 12:38 | HP.OTEVAL_ITS ---
Patient's Visit Information Visit Information Visit Information: DANIA LENTZ is a 89 year old F, referred to Occupational Therapy by Dr. Angel Luis Contreras MD, with a diagnosis of TIA. Date of Evaluation: 05/16/25 Occupational Therapist: Abeba Rodriguez Subjective Subjective: Patient seen after speech for an OT evaluation. Patient reports she had her TIA on 05/10/25 with symptoms of R hand numbness and some facial numbness with difficulty speaking. is having Dania Post wear a heart monitor for 30 days, she reports she is on day 5. Patient lives with her daughter and right now a sister as well. Denies any difficulty with tasks around the house including ADL's. Patient drives. She indep mows her lawn, does weeding, and all responsibilities around her house. Patient is right hand dominant. Patient reports she has some pain in her middle and ring finger from arthritis. She does not take any medication or intervene with the arthritis. 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 ROM Shoulder: WNL Elbow: WNL Forearm: WNL Wrist: WNL Strength Shoulder: WNL MMT (equal bilaterally) Elbow: WNL MMT (equal bilaterally) Landscape Maintenance Internship: R 55#, L 55# Lateral Pinch: R 10#, L 10# Tripod Pinch: R 10, L 8# Tip-to-Tip Pinch: R 6#, L6# Nine Hole Peg Right: 30 seconds Left: 31 seconds Comments: no difficulty noted Quick DASH-Disab of Arm,Shoulder& Hand Quick DASH Score: 9.0900 Rehabilitation General Assessment: patient presents for OT Evaluation after experiencing a TIA on 05/10/25. She reports feeling back to her baseline and about 10 minutes after the TIA, her R hand numbness resolved. She completes daily living tasks independently including fxnal mobility, driving, mowing, and pulling weeds. She reports she wants to stay busy. She has 4 kids in the area that can help as needed. Patient's overall range of motion and strength in her upper body is intact and equal bilaterally. She reports her biggest barrier is arthritis, which causes her pain in her R hand middle and ring finger. Discussed some joint protection techniques for daily tasks and she reports already adapting many of her tasks at home. No further OT recommended at this time. Visit Plan TEXT: Thank you for the opportunity to evaluate your patient. For Medicare and Medicare HMO plans, please review the plan of care and approve it. It will need to be FAXED BACK to us at [phone] for Medicare purposes. Please let me know if there are questions or concerns regarding this plan of care. Physician Signature: Date:
--- NOTE | 2025-05-16 15:47 | HP.SP.EV_ITS ---
Visit History Visit Info Date of Eval: 05/16/25 Today is Visit #: 1 Superintendent Meter Tests: MARQUIS History Attending Doctor: Referring Doctor: Reason for Referral: HX OF TIA, WORD FINDING DIFFICULTY. RX HERE Date of Onset of Diagnosis: 05/03/25 Previous speech therapy: No Other Relevant Medical History/Diagnoses/Surgery: Patient reported on Thursday she was exhibiting symptoms of stroke such as slurred speech and numb right hand. She called her daughter then called 911 to go to ER. She was admitted over night and released on 05/04/25. Currently she is wearing a heart monitor. PMH kidney removed 2019. Medications related to this diagnosis: multivitamin with folic acid 400 mcg tablet (Thera) 1 tab PO DAILY supplement 04/06/18 L.acidoph,paracasei,B.animalis 10 billion cell capsule 1 ea PO DAILY 11/18/18 calcium carbonate-vitamin D3 600 mg-125 unit tablet (Calcium) 1 ea PO DAILY 11/18/18 ascorbic acid (vitamin C) 500 mg capsule 500 mg PO DAILY 09/05/20 cyanocobalamin (vitamin B-12) 1,000 mcg capsule 1,000 mcg PO DAILY 09/05/20 acetaminophen 500 mg tablet 1,000 mg PO Q8H PRN Pain 04/06/22 ondansetron 4 mg disintegrating tablet 8 mg (2 x 4 mg) PO .now nausea #2 tabs 08/29/24 ondansetron HCl 8 mg tablet 8 mg PO Q8H PRN nausea and vomiting #14 tabs 08/29/24 fluticasone propionate 50 mcg/actuation nasal spray,suspension 1 spray intranasal QHS 05/03/25 oxybutynin chloride 5 mg tablet,extended release 24 hr 5 mg PO DAILY 05/03/25 aspirin 81 mg chewable tablet 81 mg PO BREAKFAST 90 days #90 tabs 05/04/25 atorvastatin 40 mg tablet 40 mg PO QHS 90 days #90 tabs 05/04/25 Smoking Status: Never smoker Pain Is pain an issue with your current prescribed condition?: No Personal Preferred language: Urdu Patient Allergies Allergies Allergies: Allergies No Known Allergies Allergy (Verified 05/03/25 11:20) BNT-2 BNT-2 BNT-2 Administered: Yes BNT: The BNT-2 is a confrontational naming test that asks the clinet to provide the best name for a given picture. The test was designed to detect word-finding impairments. In addition, stimulus cues that give semantic, phonemic (word- initial sound/s) and written information are provided as necessary. Date: 05/16/25 BNT-2 Number of spontaneously given correct responses: 6 Number of stimulus cues given: 4 Number of correct responses following a stimulus cue: 0 Number of phonemic cues: 4 Number of correct responses following a phonemic cues: 4 Number of multiple choices given: 3 Number of correct choices: 13 BNT-2 Score Total Number Correct: 6 BNT Comments Analysis: -: Patient was able to describe the words that she wasn't able to say. Words she had difficult were octopus, [place], volcano, cactus, hammock, sphinx, palette, tripod, etc. She was able to choose the word from a field of 4 easily when presented. Phonemic cuing helped for 4 words. She was able to describe every single time the word such as it lives in the sea, lots of legs for octopus. Common words such as house, comb and toothbrush had no anomia or hesitations. Palette she called a paint board. She stated easel for tripod and described it as a picture frame rosales. Conversation: -: In a lengthy conversation of 30 minutes she only had one time of anomia for the word alterations but she was able to describe it as making the dresses smaller. She stated that her word finding ability is no different than it has been for the last several years. Communication did not stop at any time. She reported that her speech/language/anomia is not different than prior to her TIA. Objective Dysarthira/Motor Speech Intelligibility Phonemes: WNL Single Words: WNL Phrases: WNL Sentences: WNL Conversation: WNL Volume Volume: WNL Sounds Sounds in Error: None Consistency w/Multiple Repetitions Words: WNL Phrases: WNL Observation Observation of Apraxia of Speech: No Oral Groping for Placement: No Inconsistent Errors: No Reference: Neuro-QoL instrument HDQLIFE - Speech Difficulties In the past 7 days. It was difficult for other people to understand me.: Never Is was difficult to speak clearly?: Never In the past 7 days.. How often did you limit your social activites because you had difficulty speaking?: Never In the past 7 days... I had trouble speaking.: Not at all I was frustrated by my speech difficulties.: Not at all How much DIFFICULTY do you have... ...saying what you want to say?: No difficulty Score HDQLIFE Speech Difficulties Raw Score: 6 HDQLIFE Speech Difficulties T - Score: 38 Radiation Oncology Patient Plan Plan Plan: No further speech therapy is necessary at this time. Patient is in agreement and was given information on how to return to therapy as appropriate. Education Patient has Indicated that the Following Identified Educational Needs: None The Patient has indicated that they have no educational or learning abilities that may effect their care.: Yes Patient Instruction Patient Education: Diagnosis Person Taught: Patient Teaching Method: Discussion Response to teaching: Verbalize Understanding
== END 2025-05-16 19:00 | disposition home or self-care (01) ==
LOC: OT 12:00
PROVIDERS: PCP Family Medicine; Referring Provider Family Medicine; Visit Provider Family Medicine
DX: I69.328 Other speech and language deficits following cerebral infarction (principal)
CPT/HCPCS: 92523; 97161; 97165

== ENCOUNTER 2025-05-19 17:20 | Observation (INO) | payer MEDICARE, SELFPAY ==
[2025-05-19] VITALS (8 sets, daily range): BP systolic 134–159; BP diastolic 76–89; PULSE 59–86; RESP 11–18; TEMP 36.6–37.2; O2SAT 96–99; BMI 25.4; BMI 24.3
--- NOTE | 2025-05-19 17:23 | CT_ITS ---
EXAM: CT Head Without Intravenous Contrast CLINICAL INDICATION: NEURO DEFICIT, ACUTE, STROKE SUSPECTED TECHNIQUE: Axial computed tomography images of the head/brain without intravenous contrast. This CT exam was performed using one or more of the following dose reduction techniques: automated exposure control, adjustment of the mA and/or kV according to patient size, and/or use of iterative reconstruction technique. COMPARISON: CT Head dated 05/03/2025 FINDINGS: BRAIN AND EXTRA-AXIAL SPACES: No acute intracranial hemorrhage, midline shift or mass effect. If symptoms persist, further evaluation with MRI is recommended. No significant white matter disease. BONES/JOINTS: Unremarkable. No acute fracture. SOFT TISSUES: Unremarkable. SINUSES: Unremarkable as visualized. No acute sinusitis. MASTOID AIR CELLS: Unremarkable as visualized. No mastoid effusion. CT/STROKE Brain/Head without Cont IMPRESSION: No acute intracranial hemorrhage, midline shift or mass effect. If symptoms per sist, further evaluation with MRI is recommended. Reading Location: [id number]
--- NOTE | 2025-05-19 17:24 | CT_ITS ---
EXAM: CT Angiography Head and Neck With Intravenous Contrast CLINICAL INDICATION: NEURO DEFICIT, ACUTE, STROKE SUSPECTED TECHNIQUE: [place] [facility] [place]/head and neck CT angiography protocol performed with intravenous contrast. This CT exam was performed using one or more of the following dose reduction techniques: automated exposure control, adjustment of the mA and/or kV according to patient size, and/or use of iterative reconstruction technique. MIP reconstructed images were created and reviewed. COMPARISON: None. FINDINGS: HEAD: RIGHT ANTERIOR CEREBRAL ARTERY: Unremarkable. No occlusion or significant stenosis. Anterior communicating artery is present. No aneurysm. RIGHT MIDDLE CEREBRAL ARTERY: Unremarkable. No occlusion or significant stenosis. No aneurysm. RIGHT POSTERIOR CEREBRAL ARTERY: Unremarkable. No occlusion or significant stenosis. No aneurysm. RIGHT INTRACRANIAL INTERNAL CAROTID ARTERY: Unremarkable. No significant stenosis. No dissection or occlusion. RIGHT INTRACRANIAL VERTEBRAL ARTERY: Unremarkable. No significant stenosis. No dissection or occlusion. LEFT ANTERIOR CEREBRAL ARTERY: Unremarkable. No occlusion or significant stenosis. No aneurysm. LEFT MIDDLE CEREBRAL ARTERY: Unremarkable. No occlusion or significant stenosis. No aneurysm. LEFT POSTERIOR CEREBRAL ARTERY: Unremarkable. No occlusion or significant stenosis. No aneurysm. LEFT INTRACRANIAL INTERNAL CAROTID ARTERY: Unremarkable. No significant stenosis. No dissection or occlusion. LEFT INTRACRANIAL VERTEBRAL ARTERY: Unremarkable. No significant stenosis. No dissection or occlusion. BASILAR ARTERY: Unremarkable. No occlusion or significant stenosis. No aneurysm. OTHER VASCULATURE: No vascular malformation. No large vessel occlusion. NECK: RIGHT COMMON CAROTID ARTERY: Unremarkable. No significant stenosis. No dissection or occlusion. RIGHT EXTRACRANIAL INTERNAL CAROTID ARTERY: Unremarkable. No significant stenosis. No dissection or occlusion. RIGHT EXTERNAL CAROTID ARTERY: Unremarkable. No occlusion. RIGHT EXTRACRANIAL VERTEBRAL ARTERY: Unremarkable. No significant stenosis. No dissection or occlusion. LEFT COMMON CAROTID ARTERY: Unremarkable. No significant stenosis. No dissection or occlusion. LEFT EXTRACRANIAL INTERNAL CAROTID ARTERY: Unremarkable. No significant stenosis. No dissection or occlusion. LEFT EXTERNAL CAROTID ARTERY: Unremarkable. No occlusion. LEFT EXTRACRANIAL VERTEBRAL ARTERY: Unremarkable. No significant stenosis. No dissection or occlusion. AORTA: Incomplete right-sided anterior arch. LUNG APICES: Unremarkable as visualized. HEAD and NECK: BONES/JOINTS: Unremarkable. No discrete lytic or blastic abnormalities. SOFT TISSUES: Unremarkable. CAROTID STENOSIS REFERENCE USING NASCET CRITERIA: % ICA stenosis = (1 - narrowest ICA diameter/diameter of distal cervical ICA) x 100. Mild - <50% stenosis. Moderate - 50-69% stenosis. Severe - 70-94% stenosis. Near occlusion - 95-99% stenosis. Occluded - 100% stenosis. CT/STROKE CTA Head AND Neck W/Con IMPRESSION: No large vessel occlusion. Reading Location: [id number]
--- NOTE | 2025-05-19 17:25 | ED.VIS.STROK ---
HPI History of Present Illness Chief Complaint: Stroke Alert Informant: patient and EMS Onset/Context/Timing Onset: Today Context: Sudden Onset Timing: Intermittent Quality and Location: Positive for Right Face Paresthesia and Slurred Speech Current Severity: Gone Maximum Severity: Moderate Narrative Narrative: 89-year-old female reportedly was diagnosed with a TIA about 2 weeks ago. Currently is on a baby aspirin a day. History of single kidney due to a kidney resection many years ago. Today about 20 minutes prior to arrival developed sudden onset of right facial droop right facial tingling and slurred speech. Paramedics said when he initially got there she had slurred speech that is since resolved. Currently she is symptom-free. Denies any headache. No arm or leg weakness. Prior similar symptoms: Yes Recent Illness/Hospitalization: Yes [facility] Medical History Left knee pain Home Medications ?Medication ?Instructions ?Recorded ?Last Taken ?Type multivitamin with folic acid 400 1 tab PO DAILY supplement 04/06/18 07/30/18 06:00 History mcg tablet (Thera) LRosauraacidoph,paracasei,B.animalis 10 1 ea PO DAILY 11/18/18 11/24/18 08:00 History billion cell capsule calcium carbonate-vitamin D3 600 1 ea PO DAILY 11/18/18 Unknown History mg-125 unit tablet (Calcium) ascorbic acid (vitamin C) 500 mg 500 mg PO DAILY 09/05/20 Unknown History capsule cyanocobalamin (vitamin B-12) 1,000 mcg PO DAILY 09/05/20 Unknown History 1,000 mcg capsule acetaminophen 500 mg tablet 1,000 mg PO Q8H PRN Pain 04/06/22 Unknown History ondansetron 4 mg disintegrating 8 mg (2 x 4 mg) PO .now nausea #2 08/29/24 Unknown Rx tablet tabs ondansetron HCl 8 mg tablet 8 mg PO Q8H PRN nausea and 08/29/24 Unknown Rx vomiting #14 tabs fluticasone propionate 50 1 spray intranasal QHS 05/03/25 Unknown History mcg/actuation nasal spray,suspension oxybutynin chloride 5 mg 5 mg PO DAILY 05/03/25 Unknown History tablet,extended release 24 hr aspirin 81 mg chewable tablet 81 mg PO BREAKFAST 90 days #90 tabs 06/12/25 Unknown Rx atorvastatin 40 mg tablet 40 mg PO QHS 90 days #90 tabs 05/04/25 Unknown Rx Allergy/AdvReac Type Severity Reaction Status Date / Time No Known Allergies Allergy Verified 05/19/25 17:31 Family History no significant family his Surgical History 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 Social History Smoking Status: Former smoker ROS ROS ED ROS Narrative Denies recent illness. Constitutional Constitutional ED: Denies chills or fever(s) Eyes Eyes: Denies blurry vision ENT ENT ED: Denies ear pain Cardiovascular Cardiovascular: Denies chest pain Respiratory/Chest Respiratory/Chest: Denies cough Gastrointestinal Gastrointestinal: Denies abdominal pain Genitourinary Genitourinary ED: Denies dysuria Musculoskeletal Musculoskeletal: Denies arthralgias Integumentary Denies abscess Neurologic Neurologic: Denies headache(s) Psychiatric Psychiatric: Denies anxiety Endocrine Endocrinology: Denies polydipsia Hematologic/Lymphatic Hematologic/Lymphatic: Denies easy bleeding Allergic/Immunologic Allergic/Immunologic ED: Denies mouth swelling or urticaria EXAM Physical Exam Narrative Exam Narrative: An 9-year-old female brought in by EMS. Vital signs are stable afebrile. H EENT exam pupils round react to light. Extra motions are intact. Normal speech. No facial droop. Neck nontender. No JVD. Lungs clear to auscultation bilaterally. Heart regular rhythm no murmur. Chest wall ribs nontender. Abdomen soft nontender. No peritoneal signs. Moving all 4 extremities. Calves are nontender without edema or cords. Normal manager practice strength. Normal dorsi plantarflexion. No drift. Neurologically she is awake alert. Answering questions following commands. Again no facial droop. Normal speech. Normal manager practice strength and dorsi and plantarflexion. NIH currently 0. Const Vital Signs: 05/19/25 17:23 05/19/25 17:29 05/19/25 17:33 Temperature 98 F Temperature Source Oral Pulse Rate 61 61 Respiratory Rate 16 16 Blood Pressure 159/76 H 159/76 H Blood Pressure Mean 103 103 Pulse Ox 98 98 Oxygen Delivery Method Room Air Room Air Room Air 05/19/25 17:52 Temperature Temperature Source Pulse Rate 61 Respiratory Rate 15 Blood Pressure 145/89 H Blood Pressure Mean 107 Pulse Ox 98 Oxygen Delivery Method Room Air Positive well nourished and well developed; Negative for obese, cachectic, contractures or unkempt General Appearance ED: well developed and NAD; Negative for unkempt, cachectic or contractures Nutritional Appearance: Negative for cachectic or obese HEENT Reports moist mucous membranes atraumatic Eyes PERRL and EOMs intact bilaterally Neck no lymphadenopathy, supple and no JVD Chest Wall inspection of chest normal and palpation of chest normal Resp normal respiratory effort and clear to auscultation bilaterally Effort and Inspection: Negative for retractions Auscultation: Negative for rales, rhonchi, wheezes or diminished lung sounds Cardio no murmurs Rate: regular rate Rhythm: regular rhythm Heart Sounds: Negative for S1 normal or S2 normal GI normal to inspection, nondistended, normoactive bowel sounds, soft to palpation, non-tender, non-distended and no masses Auscultation: normoactive bowel sounds Palpation: Negative for tender, guarding, hepatomegaly, splenomegaly, mass or rebound tenderness present Back/Spine no CVA tenderness General Back: Negative for CVA tenderness Cervical Spine: Negative for cervical spine tenderness Thoracic Spine / Upper Back: Negative for thoracic spinal tenderness Lumbar Spine / Lower Back: Negative for lumbar spinal tenderness Extremity normal to inspection General Extremety ED: Negative for deformity, edema or tenderness General Extremity: Negative for deformity or edema Neuro oriented x3 and CN's II-XII intact bilaterally Sensorium / Orientation: alert, oriented to person, oriented to place and oriented to time Speech: speech normal Motor Exam: strength 5/5 throughout Psych mental status grossly normal Appearance: Negative for unkempt Attitude: No agitated Mood & Affect: Negative for depressed Skin no wounds General Skin Exam: Negative for jaundice Lesions: no lesions Rashes: no rashes MDM MDM MDM Narrative Medical decision making narrative: 89-year-old female diagnosed with a TIA several weeks ago. Similar symptoms today with slurred speech, facial droop and tingling. Symptoms is since resolved. This occurred less than 30 minutes ago. Currently her NIH is 0. She will remain a stroke team. Currently she is not a tPA candidate. Repeat exam patient doing well at 6:22 PM. No recurrent symptoms. NIH remains 0. Exam benign. I spoke with the hospitalist who is currently in the room evaluating the patient for admission. History & Record Review Discussion w/independent historian: Patient Additional record(s) reviewed:: Prior inpatient record, Prior outpatient record, Prior ED visit and Prior labs Lab Data Attestation: I reviewed the patient's lab results. Lab results narrative: CBC shows white count 6. H&H 12 and 38. Platelets 270. PT/INR of 12 and 1. PTT 27. Electrolytes show sodium 135. Gap 12. BUN and creatinine of 21.24. Glucose 91. Initial troponin 19. Labs: Laboratory Results - last 24 hr 05/19/25 05/19/25 17:30 17:45 WBC 6.9 RBC 4.14 L Hgb 12.7 Hct 38.2 MCV 92.3 MCH 30.7 MCHC 33.2 RDW Std Deviation 43.4 RDW Coeff of Ermias 12.8 Plt Count 270 MPV 10.1 Immature Gran % (Auto) 0.300 Neut % (Auto) 66.9 Lymph % (Auto) 17.5 L [place] % (Auto) 9.6 Eos % (Auto) 5.0 Baso % (Auto) 0.7 Absolute Neuts (auto) 4.6 Absolute Lymphs (auto) 1.20 Nucleated RBC % 0 PT 12.9 INR 1.0 APTT 27.5 Sodium 135 Potassium 4.5 Chloride 98 Carbon Dioxide 25.2 Anion Gap 12 BUN 20 H Creatinine 1.24 H Estim Creat Clear Calc 31.64 L Est GFR (MDRD) Non-Af 42 L BUN/Creatinine Ratio 16.1 Glucose 91 Calcium 9.6 Troponin T High Sens 19 H POC Glucose 83 Radiography Diagnostic Testing: Clinical Impression(s) from Imaging Studies Brain CT 05/19/25 17:23 IMPRESSION: No acute intracranial hemorrhage, midline shift or mass effect. If symptoms persist, further evaluation with MRI is recommended. Reading Location: [facility] Head/Neck CTA 05/19/25 17:24 IMPRESSION: No large vessel occlusion. Reading Location: [facility] Rhythm Strip Rhythm Strip: Sinus Rhythm Rate: 60 Ectopy: None EKG Initial EKG: Attestation: I personally reviewed and interpreted this EKG as follows: Interpretation: Sinus Rhythm and No Acute Injury Pattern Comments: Sinus rhythm rate of 60 no acute signs of IA or ischemia. Discharge Plan Triage Chief Complaint: Stroke Alert ED Provider: Joey Cameron Dx/Rx/DC Orders Clinical Impression: Brain TIA, History of nephrectomy Prescriptions: No Action ondansetron 4 mg tablet,disintegrating 8 mg PO .now Qty: 2 0RF ondansetron HCl 8 mg tablet 8 mg PO Q8H PRN (Reason: nausea and vomiting) Qty: 14 0RF multivitamin with folic acid [Thera] 1 TABLET tablet 1 tab PO DAILY Calcium 600 + D(3) 1 EACH tablet 1 ea PO DAILY L.acidoph,paracasei,B.animalis 1 EACH capsule 1 ea PO DAILY ascorbic acid (vitamin C) 500 MG capsule 500 mg PO DAILY cyanocobalamin (vitamin B-12) 1,000 MCG capsule 1,000 mcg PO DAILY acetaminophen 500 MG tablet 1,000 mg PO Q8H PRN (Reason: Pain) Rx Instructions: Do not take more than 3000 mg Tylenol in a 24-hour period. oxybutynin chloride 5 mg tablet extended release 24hr 5 mg PO DAILY fluticasone propionate 50 mcg/actuation spray,suspension 1 spray INTRANASAL QHS aspirin 81 mg Tablet,Chewable 81 mg PO BREAKFAST 90 Days Qty: 90 0RF atorvastatin 40 mg Tablet 40 mg PO QHS 90 Days Qty: 90 0RF Primary Care Provider: Angel Luis Contreras Referrals: Angel Luis Contreras MD [Primary Care Provider] - Print Language: Thai Disposition Disposition: Acute Care Hospital [facility] NIHSS NIHSS 1a. Level of Consciousness: 0 - Alert; keenly responsive 1b. LOC Questions: 0 - Answers BOTH questions correctly 1c. LOC Commands: 0 - Performs BOTH tasks correctly 2. Best Gaze: 0 - Normal 3. Visual: 0 - No visual loss 4. Facial Palsy: 0 - Normal symmetrical movements 5a. Left Arm: 0 - No drift; arm holds 90 (or 45) degrees for full 10 seconds 5b. Right Arm: 0 - No drift; arm holds 90 (or 45) degrees for full 10 seconds 6a. Left Le - No drift; leg holds 30-degree position for full 5 seconds 6b. Right Le - No drift; leg holds 30-degree position for full 5 seconds 7. Limb Ataxia: 0 - Absent 8. Sensory: 0 - Normal; no sensory loss 9. Best Language: 0 - No aphasia; normal 10. Dysarthria: 0 - Normal 11. Extinction and Inattention: 0 - No abnormality Total: 0 Stroke Questions Stroke Team Activated: Yes Reviewed Inclusion/Exclusion criteria: Yes Was Patient considered for Endovascular Intervention?: No IV Thrombolytic Administered: No No contraindications from thrombolytic administration: No
[2025-05-19 17:39] LABS: Absolute Neutrophil Count 4.6 X10^3/uL (2.0-7.7); Basophil# 0.05 X10^3/uL; Basophil% 0.7 % (0-1); Eosinophil# 0.34 X10^3/uL; Hematocrit 38.2 % (37-47); Hemoglobin 12.7 g/dL (12.0-15.0); Lymphocyte % 17.5 % (19-41); Mean Corp Hgb Conc 33.2 g/dL (32-36); Mean Corpuscular Hgb 30.7 pg (27.0-32.0); Mean Corpuscular Volume 92.3 fL (81-99); Mean Platelet Vol. 10.1 fl (6.2-12.0); Monocyte# 0.66 X10^3/uL; Monocyte% 9.6 % (0-10); NRBC Flagged by Analyzer 0 % (0-5); Neutrophil # 4.58 X10^3/uL (2.7-7.7); Neutrophil % 66.9 % (47-70); Platelet Count 270 K/mm3 (150-450); RBC Distribution Width CV 12.8 % (11.6-14.6); RBC Distribution Width SD 43.4 fl (35.1-43.9); Red Blood Count 4.14 M/mm3 (4.2-5.4); White Blood Count 6.9 K/mm3 (4.4-11.0)
[2025-05-19 17:50] LABS: Prothrombin Time (Protime)PT. 12.9 SECONDS (11.7-14.9)
[2025-05-19 17:51] LABS: Partial Thromboplast Time 27.5 Seconds (24.1-36.2)
[2025-05-19 18:04] LABS: Bedside Glucose 83 mg/dL (74-106)
[2025-05-19 18:04] LABS: Anion Gap 12 (5-15); BUN 20 mg/dL (4-19); BUN/Creat Ratio 16.1 RATIO (10-20); Calcium,Total 9.6 mg/dL (7.6-11.0); Carbon Dioxide 25.2 mmol/L (21.0-32.0); Chloride 98 mmol/L (98-108); Creatinine, Serum 1.24 mg/dL (0.70-1.20); EST Glomerular Filtration Rate 42 (>60); Estimated Creatinine Clearance 31.64 ml/min (50-250); Glucose 91 mg/dL (70-99); Potassium 4.5 mmol/L (3.3-5.1); Sodium Level 135 mmol/L (133-145); Troponin T High Sensitivity 19 ng/L (<=14)
--- NOTE | 2025-05-19 18:34 | HP.PCM.HOS_ITS ---
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 By the time paramedics got there the slurred speech resolved and patient symptom-free. On arrival patient afebrile, heart rate 61 with blood pressure 159/76. Respiratory rate 16 and pulse ox 98% on room air. CBC unremarkable. Troponin 19 and [id number] glucose 83. BMP with BUN of [address] brain and CTA head and neck with no acute process. Stroke teleneurology evaluated and recommended admission locally for TIA workup so hospitalist contacted for admission. ED physician did clarify that they wanted patient admitted for further workup given her recent admission and this was confirmed per report. Patient evaluated with daughter at bedside. Earlier she developed facial tingling, possibly some dysarthria but had right arm tingling and weakness. Reportedly symptoms similar to 2 weeks ago. Symptoms resolved on their own and resolved fully 15 to 20 minutes and patient with no acute complaints at time of evaluation. Does report compliance with her aspirin and statin that she was started on after last admission [facility] Medical History Left knee pain Home Medications ?Medication ?Instructions ?Recorded ?Last Taken ?Type multivitamin with folic acid 400 1 tab PO DAILY supple ment 04/06/18 07/30/18 06:00 History mcg tablet (Thera) L.acidoph,paracasei,B.animalis 10 1 ea PO DAILY 11/24/18 08:00 History billion cell capsule calcium carbonate-vitamin D3 600 1 ea PO DAILY 8 Unknown History mg-125 unit tablet (Calcium) ascorbic acid (vitamin C) 500 mg 500 mg PO DAILY 09/05 Unknown History capsule cyanocobalamin (vitamin B-12) 1,000 mcg PO DAILY 09/05 Unknown History 1,000 mcg capsule acetaminophen 500 mg tablet 1,000 mg PO Q8H PRN Pain 0 04/06/22 Unknown History ondansetron 4 mg disintegrating 8 mg (2 x 4 mg) PO .no w nausea #2 08/29/24 Unknown Rx tablet tabs ondansetron HCl 8 mg tablet 8 mg PO Q8H PRN nausea and 08/29/24 Unknown Rx vomiting #14 tabs fluticasone propionate 50 1 spray intranasal QHS 05/03 Unknown History mcg/actuation nasal spray,suspension oxybutynin chloride 5 mg 5 mg PO DAILY 05/03/25 Unkno wn History tablet,extended release 24 hr aspirin 81 mg chewable tablet 81 mg PO BREAKFAST 90 da ys #90 tabs 05/04/25 Unknown Rx atorvastatin 40 mg tablet 40 mg PO QHS 90 days #90 tab s 05/04/25 Unknown Rx Allergy/AdvReac Type Severity Reaction Status Date / Time No Known Allergies Allergy Verified 05/19/25 17:31 Family History no significant family his Surgical History 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 Social History Smoking Status: Former smoker ROS ROS Narrative General: Denies fever/chills HENT: Denies headache, denies stuffy nose, denies sore throat, did have some decrease sensation right side of face EYES: Denies changes in vision Resp: Denies cough, denies shortness of breath Cardiac: Denies chest pain GI: Denies abdominal pain, denies changes in bowel, denies nausea/vomiting : Denies changes in urination Extremity: Denies swelling MSK: Weakness in right hand resolved Neuro: Numbness and tingling face and arm resolved Heme: Denies any bleeding or bruising Skin: Denies rashes Psychiatric: No complaints voiced Vital Signs Vital Signs Vital Signs: 05/19/25 17:23 05/19/25 17:29 05/19/25 17:33 Temperature 98 F Temperature Source Oral Pulse Rate 61 61 Respiratory Rate 16 16 Blood Pressure 159/76 H 159/76 H Blood Pressure Mean 103 103 Pulse Ox 98 98 Oxygen Delivery Method Room Air Room Air Room Air 05/19/25 17:52 05/19/25 18:20 05/19/25 18:31 Temperature 98.9 F Temperature Source Pulse Rate 61 86 78 Respiratory Rate 15 18 14 Blood Pressure 145/89 H 134/76 H 142/78 H Blood Pressure Mean 107 95 99 Pulse Ox 98 99 99 Oxygen Delivery Method Room Air Room Air Weight Weight: 75.9 kg Body Mass Index (BMI) 25.4 Physical Exam Narrative General: Alert, oriented, no apparent distress HEENT: Atraumatic, normocephalic Eyes: Anicteric, normal conjunctiva, extraocular movements intact, pupils equal Neck: Supple Respiratory: Clear to auscultation bilaterally, normal respiratory effort Cardiovascular: Regular rate and rhythm GI: Soft, nontender, nondistended Extremities: No edema Musculoskeletal: Strength 5 out of 5 in right upper extremity, 5 out of 5 left upper extremity, 5 out of 5 right lower extremity, 5 out of 5 left lower extremity Neuro: No overt focal neurological deficits, cranial nerves II through XII intact, [id number] without significant difficulty bilaterally Skin: No rashes appreciated Psych: Cooperative Results Lab / Micro Data 05/19/25 17:30 05/19/25 17:30 Labs: Laboratory Results - last 24 hr 05/19/25 17:30: WBC 6.9, RBC 4.14 L, Hgb 12.7, Hct 38.2, MCV 92.3, MCH 30.7, MCHC 33.2, RDW Std Deviation 43.4, RDW Coeff of Ermias 12.8, Plt Count 270, MPV 10.1, Immature Gran % (Auto) 0.300, Neut % (Auto) 66.9, Lymph % (Auto) 17.5 L, [place] % (Auto) 9.6, Eos % (Auto) 5.0, Baso % (Auto) 0.7, Absolute Neuts (auto) 4.6, Absolute Lymphs (auto) 1.20, Nucleated RBC % 0, PT 12.9, INR 1.0, APTT 27.5, Sodium 135, Potassium 4.5, Chloride 98, Carbon Dioxide 25.2, Anion Gap 12, BUN 20 H, Creatinine 1.24 H, Estim Creat Clear Calc 31.64 L, Est GFR (MDRD) Non- Af 42 L, BUN/Creatinine Ratio 16.1, Glucose 91, Calcium 9.6, Troponin T High Sens 19 H 05/19/25 17:45: POC Glucose 83 Rhythm Strip Rhythm Strip: Sinus Rhythm Rate: 60 Ectopy: None Imaging Radiology Impression Brain CT 05/19/25 17:23 IMPRESSION: No acute intracranial hemorrhage, midline shift or mass effect. If symptoms persist, further evaluation with MRI is recommended. Reading Location: [facility] Head/Neck CTA 05/19/25 17:24 IMPRESSION: No large vessel occlusion. Reading Location: [facility] Assessment & Plan Assessment/Plan (1) Brain TIA: (2) History of nephrectomy: PLAN: Plan # Right sided facial droop and paresthesias -Admit to tele -CT head with no acute process -CTA head and neck with no LVO -MRI ordered -NIH q4hr -asa, statin -Will check UA -Lipid panel and A1c in the a.m. 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 and RVSP of 45 -PT/OT/Speech eval -Teleneuro consult placed -Hold BP medications to allow for permissive hypertension for 24 hours unless SBP greater than 220 or DBP greater than 120 or until stroke is ruled out -Of note patient was here 2 weeks ago for a similar purpose, ED physician did clarify and stroke neurology did not want patient admitted for MRI workup again #Hx solitary kidney -Kidney fxn appears to be at or close to baseline #Hx recent TIA -On aspirin and Plavix as above #DVT ppx: SCDs Clementine Kowalski MD Time spent in the patient's overall evaluation, decision-making process, review of diagnostic data, adjustment of management, discussion with other providers, nursing and ancillary staff involved in patient's care documentation, [] Minutes
--- OUTSIDE RECORDS SUMMARY | 2025-05-19 19:47 | XMS RPT_ITS | CCD ---
Author Organization [facility] [place] [facility] Team Providers Care Machine Ii Engraver Name Role Phone Dr. Angel Luis Contreras Primary Care Provider Dr. Angel Luis Contreras Referring Provider Dr. Ravinder Nelson Attending Provider [phone] ISAIAH Hyde Attending Provider Dr. Angel Luis Contreras MD Primary Care Provider [phone] Dr. Angel Luis Contreras MD Attending Provider Dr. Angel Luis Contreras MD Referring Provider [phone] Dr. Roni Love DO Emergency Provider Miguel Angel TATE, Dr. Ferro Admit Provider Dr. Pillo Michelle DO Attending Provider Dr. Nilson Peterson MD Attending Provider Dr. Pillo Michelle DO Other Provider Angel Luis Contreras Primary Care Unavailable Angel Luis Contreras Attending Unavailable Angel Luis Contreras Referring Unavailable Pillo Michelle Attending Unavailable Angel Luis Contreras Primary Care Unavailable Pillo Michelle Admitting Unavailable Angel Luis Contreras Primary Care Unavailable Nilson Peterson Attending Unavailable Pillo Michelle Attending Unavailable Pillo Michelle Admitting Unavailable Angel Luis Contreras Primary Care Unavailable Pillo Michelle Consulting Unavailable Angel Luis Contreras Referring Unavailable Angel Luis Contreras Primary Care Unavailable Eros Vail Attending Unavailable Angel Luis Contreras Primary Care Unavailable Angel Luis Contreras Attending Unavailable Angel Luis Contreras Referring Unavailable Angel Luis Contreras Primary Care Unavailable Angel Luis Contreras Attending Unavailable Angel Luis Contreras Referring Unavailable Angel Luis Contreras Primary Care Unavailable Angel Luis Contreras Attending Unavailable Dr. Joey Cameron MD Emergency Provider Dex MELENDEZ, Dr. Spring Admit Provider [phone] Dex MELENDEZ, Dr. Spring Attending Provider [phone] Medications Current Medications Medication Drug Class(es) Dates Sig (Normalized) Sig (Original) acetaminophen 500 mg oral tablet (20 sources) Start: 09-20-2020 End: 04-06-2022 Acetaminophen 500 MG tablet Active 1000 mg PO Q8H as needed for Pain April 06, 2022 8:27am Do not take more than 3000 mg Tylenol in a 24-hour period. Start: 09-20-2020 End: 04-06-2022 take 3000 mg by mouth every eight hours Acetaminophen Active 1000 MG PO Q8H April 06, 2022 8:27am Do not take more than 3000 mg Tylenol in a 24-hour period. Start: 11-24-2018 End: 09-20-2020 take 1 tablet by mouth every four hours as needed for pain Acetaminophen 500 MG tablet Discontinued 500 mg PO EVERY 4 HOURS NEEDED as needed for Pain 20 0 November 24, 2018 1:00am September 20, 2020 10:02am ascorbic acid 500 mg oral capsule (12 sources) Vitamin C Start: 09-05-2020 take 1 capsule by mouth once daily Ascorbic Acid (Vitamin C) 500 MG capsule Active 500 mg PO DAILY September 05, 2020 12:00am aspirin 81 mg chewable tablet (2 sources) Platelet Aggregation Inhibitor, Nonsteroidal Anti-inflammatory Drug Start: 05-04-2025 take 1 tablet by mouth at breakfast Aspirin 81 mg Tablet,Chewable Active 81 mg PO WITH BREAKFAST 90 90 0 May 04, 2025 12:00am atorvastatin 40 mg oral tablet (2 sources) HMG-CoA Reductase Inhibitor Start: 05-04-2025 take 1 tablet by mouth at bedtime Atorvastatin 40 mg Tablet Active 40 mg PO AT BEDTIME 90 90 0 May 04, 2025 12:00am calcium carbonate 600 mg / cholecalciferol 125 unt oral tablet (4 sources) Vitamin D Start: 11-18-2018 Calcium Carbonate-Vitamin D3 (Calcium 600 + D(3)) 1 EACH tablet Active 1 EACH PO DAILY November 18, 2018 12:00am Calcium Carbonate-Vitamin D3 (Calcium 600 + D(3)) 1 EACH tablet (8 sources) Start: 11-18-2018 Calcium Carbonate-Vitamin D3 (Calcium 600 + D(3)) 1 EACH tablet Active 1 NMA PO DAILY November 18, 2018 1:00am Start: 11-18-2018 Calcium Carbon ate-Vitamin D3 (Calcium 600 + D(3)) 1 EACH tablet Active 1 EACH PO DAILY November 18, 2018 1:00am fluticasone propionate 0.05 mg/actuat metered dose nasal spray (3 sources) Corticosteroid Start: 05-03-2025 Fluticasone Pr opionate 50 mcg/actuation spray,suspension Active 1 NMA INTRANASAL AT BEDTIME as needed for nasal congestion May 03, 2025 12:00am L.Acidoph, Paracasei,B. Lactis (8 sources) Start: 11-18-2018 L.Acidoph, Par acasei,B. Lactis Active 1 EACH PO DAILY November 18, 2018 9:23am Start: 11-18-2018 L.Acidoph, Par acasei,B. Lactis Active 1 EACH PO DAILY November 18, 2018 12:00am Start: 11-18-2018 L.Acidoph, Par acasei,B. Lactis Active 1 EACH PO DAILY November 18, 2018 1:00am L.Acidoph,Paracasei,B.Animal is 1 EACH capsule (4 sources) Start: 11-18-2018 take 1 capsule by mouth once daily L.Acidoph,Paracasei,B.Animalis 1 EACH capsule Active 1 NMA PO DAILY November 18, 2018 1:00am Multivitamin With Folic Acid (Thera) 1 TABLET tablet (12 sources) Start: 04-06-2018 take 1 tablet by mouth once daily Multivitamin With Folic Acid (Thera) 1 TABLET tablet Active 1 TABLET PO DAILY April 06, 2018 10:07pm Start: 04-06-2018 take 1 tablet by lissa th once daily Multivitamin With Folic Acid (Thera) 1 TABLET tablet Active 1 {tbl} PO DAILY April 06, 2018 12:00am supplement Start: 04-06-2018 take 1 tablet by lissa th once daily Multivitamin With Folic Acid (Thera) 1 TABLET tablet Active 1 {tbl} PO DAILY April 06, 2018 12:00am Start: 04-06-2018 take 1 tablet by lissa th once daily Multivitamin With Folic Acid (Thera) 1 TABLET tablet Active 1 TABLET PO DAILY April 05, 2018 11:00pm Start: 04-06-2018 take 1 tablet by lissa th once daily Multivitamin With Folic Acid (Thera) 1 TABLET tablet Active 1 TABLET PO DAILY April 06, 2018 12:00am ondansetron 8 mg oral tablet (8 sources) Serotonin-3 Receptor Antagonist Start: 08-29-2024 take 1 tablet by mouth every eight hours as needed for nausea and vomiting Ondansetron Hcl 8 mg tablet Active 8 mg PO Q8H as needed for nausea and vomiting 14 0 August 29, 2024 12:00am Start: 08-29-2024 End: 05-19-2025 Ondansetron 4 mg tablet,disi ntegrating Discontinued 8 mg PO .now 2 0 August 29, 2024 12:00am May 19, 2025 6:45pm Nausea Nausea nausea psyllium 400 mg oral capsule (1 source) Start: 05-19-2025 Psyllium Husk (Daily Fiber) 0.4 gram capsule Active 0.4 - 0.8 g PO DAILY May 19, 2025 12:00am vitamin b12 1 mg oral capsule (12 sources) Vitamin B12 Start: 09-05-2020 take 1 capsule by mouth once daily Cyanocobalamin (Vitamin B-12) 1,000 MCG capsule Active 1000 ug PO DAILY September 05, 2020 12:00am Completed/Discontinued Medications Medication Drug Class(es) Dates Sig (Normalized) Sig (Original) 24 hr oxybutynin chloride 5 mg extended release oral tablet (3 sources) Cholinergic Muscarinic Antagonist Start: 05-03-2025 End: 05-19-2025 take 1 tablet by mouth once daily Oxybutynin Chloride 5 mg tablet extended release 24hr Discontinued 5 mg PO DAILY May 03, 2025 12:00am May 19, 2025 6:45pm oxyCODONE hydrochloride 5 mg oral tablet (12 sources) Opioid Agonist Start: 09-20-2020 End: 09-24-2020 take 5-10 mg by mouth every four hours as needed for pain Oxycodone 5 MG tablet Discontinued 5 - 10 mg PO EVERY 4 HOURS NEEDED as needed for Pain Score 4-10 48 4 0 September 20, 2020 September 23, 2020 12:00am September 24, 2020 1:02am Presence of left artificial knee joint Problems Active Problems Problem Classification Problem Date Documented Da te Episodic/Chronic Calculus of urinary tract (12 sources) Kidney stone; Translations: [Calculus of kidney] 11-24-2018 Episodic Chronic kidney disease (1 source) Chronic kidney disease; Translations: [Chronic kidney disease, stage 3 unspecified] Onset: 04-26-2025 Other connective tissue disease (4 sources) Neurological symptom; Translations: [Unspecified symptoms and signs involving the nervous system] 05-03-2025 Episodic Other connective tissue disease (1 source) Unspecified symptoms and signs involving the nervous system; Translations: [Unspecified symptoms and signs involving the nervous system] Onset: 05-04-2025 Episodic Other diseases of kidney and ureters (12 sources) Hydronephrosis; Translations: [Unspecified hydronephrosis] 11-24-2018 Episodic Other gastrointestinal disorders (12 sources) Diarrhea; Translations: [Diarrhea, unspecified] 04-14-2022 Episodic Other nervous system disorders (1 source) Slurred speech; Translations: [Slurred speech] Onset: 05-10-2025 Episodic Other non-traumatic joint disorders (6 sources) Pain in left knee; Translations: [Left knee pain] 03-16-2024 Episodic Other skin disorders (11 sources) Eruption; Translations: [Rash and other nonspecific skin eruption] 04-14-2022 Episodic Other upper respiratory infections (4 sources) Acute upper respiratory infection; Translations: [Acute upper respiratory infection, unspecified] 08-29-2024 Episodic Residual codes; unclassified (2 sources) History of nephrectomy; Translations: [Acquired absence of kidney] 05-19-2025 Episodic Transient cerebral ischemia (2 sources) Transient cerebral ischemia; Translations: [Transient cerebral ischemic attack, unspecified] 05-19-2025 Chronic Urinary tract infections (12 sources) Urinary tract infectious disease; Translations: [Urinary tract infection, site not specified] 11-24-2018 Episodic Past or Other Problems Problem Classification Problem Date Documented Da te Episodic/Chronic Nausea and vomiting (1 source) Nausea; Translations: [Nausea] Onset: 08-29-2024 Episodic Results Test Name Value Interpretation Reference Range Facility Absolute lymphocyte countOrd ered By: Joey Cameron on 05-19-2025 Lymphocytes Auto (Unsp spec) [#/Vol] 1.20 10*3/uL 0.83-4.51 [facility] Absolute neutrophil countOrd ered By: Joey Cameron on 05-19-2025 Neutrophils (Bld) [#/Vol] 4.6 10*3/uL 2.0-7.7 [facility] Activated partial thrombopla stin time (aPTT) in platelet poor plasma by coagulation aOrdered By: Joey Cameron on 05-19-2025 aPTT Coag (PPP) [Time] 27.5 s 24.1-36.2 [facility] Anion gap in Serum or Plasma Ordered By: Joey Cameron on 05-19-2025 Anion gap [Moles/Vol] 12 mmol/L 5-15 [facility] Automated lymphocyte count a s percentage of total leukocytesOrdered By: Joey Cameron on 05-19-2025 Lymphocytes/100 WBC Auto (Unsp spec) 17.5 % Low 19-41 [facility] BUN/creatinine ratioOrdered By: Joey Cameron on 05-19-2025 Urea nitrogen/Creatinine [Mass ratio] 16.1 mg/mg 10-20 [facility] Basophil percentageOrdered B y: Joey Cameron on 05-19-2025 Basophils/100 WBC (Bld) 0.7 % 0-1 [facility] Carbon dioxide, total [Moles /volume] in Central venous bloodOrdered By: Joey Cameron on 05-19-2025 CO2 [Moles/Vol] 25.2 mmol/L 21.0-32.0 [facility] Chloride assayOrdered By: Pablo Cameron on 05-19-2025 Chloride [Moles/Vol] 98 mmol/L 98-108 [facility] Eosinophil percentageOrdered By: Joey Cameron on 05-19-2025 Eosinophils/100 WBC (Bld) 5.0 % 0-5 [facility] Erythrocyte distribution wid th ratioOrdered By: Joey Cameron on 05-19-2025 Erythrocyte distribution width (RBC) [Ratio] 12.8 % 11.6-14.6 [facility] Erythrocyte distribution wid th standard deviationOrdered By: Joey Cameron on 05-19-2025 Erythrocyte distribution width (RBC) [Ratio] 43.4 fl 35.1-43.9 [facility] Glomerular filtration rate ( GFR) estimation/1.73 sq m using serum, plasma, or whole bOrdered By: Joey Cameron on 05-19-2025 GFR/1.73 sq M.predicted among non-blacks MDRD (S/P/Bld) [Vol rate/Area] 42 mL/min/{1.73_m2} Low >60 [facility] Comment on above: mL/min/1.73m2 CKD-EP I Creatinine Equation (2020) [facility]dered By: Joey Cameron on 05-19-2025 Glucose [Mass/Vol] 83 mg/dL 74-106 [facility] Comment on above: MANAGEMENT OF PATIEN T CARE PER NURSING PROTOCOL Hematocrit Auto (Bld) [Volum e fraction]Ordered By: Joey Cameron on 05-19-2025 Hematocrit (Bld) [Volume fraction] 38.2 % 37-47 [facility] Hemoglobin measurementOrdere d By: Joey Cameron on 05-19-2025 Hemoglobin (Bld) [Mass/Vol] 12.7 g/dL 12.0-15.0 [facility] Immature granulocytes/100 WB C Auto (Bld)Ordered By: Joey aCmeron on 05-19-2025 Immature granulocytes/100 WBC (Bld) 0.300 % 0.0-0.9 [facility] Comment on above: IG% - Immature Granu locytes (promyelocytes, myelocytes and metamyelocytes) > 1% indicates that a LEFT SHIFT is Present. International normalized rat io (INR) calculationOrdered By: Joey Cameron on 05-19-2025 INR Coag (Bld) [Relative time] 1.0 {INR} [facility] MCV (mean corpuscular volume ) determinationOrdered By: Joey Cameron on 05-19-2025 MCV (RBC) [Entitic vol] 92.3 fL 81-99 [facility] Mean corpuscular hemoglobin (MCH) determinationOrdered By: Joey Cameron on 05-19-2025 MCH (RBC) [Entitic mass] 30.7 pg 27.0-32.0 [facility] Mean corpuscular hemoglobin concentration (MCHC) determinationOrdered By: Joey Cameron on 05-19-2025 MCHC (RBC) [Mass/Vol] 33.2 g/dL 32-36 [facility] Mean platelet volume determi nationOrdered By: Joey Cameron on 05-19-2025 Platelet mean volume (Bld) [Entitic vol] 10.1 fL 6.2-12.0 [facility] Monocyte percentageOrdered B y: Joey Cameron on 05-19-2025 Monocytes/100 WBC (Bld) 9.6 % 0-10 [facility] Neutrophil percentageOrdered By: Joey Cameron on 05-19-2025 Neutrophils/100 WBC (Bld) 66.9 % 47-70 [facility] Nucleated red blood cell per centageOrdered By: Joey Cameron on 05-19-2025 Nucleated RBC/100 WBC (Bld) [Ratio] 0 % 0-5 [facility] Platelet countOrdered By: Pablo Cameron on 05-19-2025 Platelets (Bld) [#/Vol] 270 10*3/uL 150-450 [facility] Potassium measurement (mass/ volume)Ordered By: Joey Cameron on 05-19-2025 Potassium (Unsp spec) [Mass/Vol] 4.5 mmol/L 3.3-5.1 [facility] Prothrombin timeOrdered By: Joey Cameron on 05-19-2025 PT Coag (PPP) [Time] 12.9 s 11.7-14.9 [facility] RBC Auto (Bld) [#/Vol]Ordere d By: Joey Cameron on 05-19-2025 RBC (Bld) [#/Vol] 4.14 10*6/uL Low 4.2-5.4 [facility] Serum creatinine measurement (mass/volume)Ordered By: Joey Cameron on 05-19-2025 Creatinine [Mass/Vol] 1.24 mg/dL High 0.70-1.20 [facility] Serum glucose measurement (m ass/volume)Ordered By: Joey Cameron on 05-19-2025 Glucose [Mass/Vol] 91 mg/dL 70-99 [facility] Serum or plasma calcium dawson urement (mass/volume)Ordered By: Joey Cameron on 05-19-2025 Calcium [Mass/Vol] 9.6 mg/dL 7.6-11.0 [facility] Serum or plasma urea nitroge n measurement (mass/volume)Ordered By: Joey Cameron on 05-19-2025 Urea nitrogen [Mass/Vol] 20 mg/dL High 4-19 [facility] Sodium levelOrdered By: Joey Cameron on 05-19-2025 Sodium [Moles/Vol] 135 mmol/L 133-145 [facility] Troponin T.cardiac [Mass/vol ume] in Serum or Plasma by High sensitivity methodOrdered By: Joey Cameron on 05-19-2025 Troponin T.cardiac High sensitivity method [Mass/Vol] 19 ng/L High <14 [facility] White blood cell (WBC) count Ordered By: Joey Cameron on 05-19-2025 WBC (Bld) [#/Vol] 6.9 10*3/uL 4.4-11.0 [facility] OT General Evaluationon 04-24 OT General Evaluation [facility] Occupational Therapy [place] [id number] [facility] [place] [address] / REHABILITATION SERVICES INITIAL EVALUATION MR#: [id number] Acct: [id number] Name: DORYS LENTZ Rep #: [id number] : 1935 89 From: Abeba Rodriguez Referring Dr.: Dr. Angel Luis Contreras MD Status: REG [facility] Insurance: [facility] [id number] Eval Date: SELF PAY INSURANCE Patient's Visit Information Visit Information Visit Information: DORYS HOLMANPENNY is a 89 year old F, referred to Occupational Therapy by Dr. Angel Luis Contreras MD, with a diagnosis of TIA. Date of Evaluation: 05/16/25 Occupational Therapist: Abeba Rodriguez Subjective Subjective: Patient seen after speech for an OT evaluation. Patient reports she had her TIA on 05/10/25 with symptoms of R hand numbness and some facial numbness with difficulty speaking. is having Dorys Hathaway wear a heart monitor for 30 days, she reports she is on day 5. Patient lives with her daughter and right now a sister as well. Denies any difficulty with tasks around the house including ADL's. Patient drives. She indep mows her lawn, does weeding, and all responsibilities around her house. Patient is right hand dominant. Patient reports she has some pain in her middle and ring finger from arthritis. She does not take any medication or intervene with the arthritis. 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 ROM Shoulder: WNL Elbow: WNL Forearm: WNL Wrist: WNL Strength Shoulder: WNL MMT (equal bilaterally) Elbow: WNL MMT (equal bilaterally) Information Assurance Manager: R 55#, L 55# Lateral Pinch: R 10#, L 10# Tripod Pinch: R 10, L 8# Tip-to-Tip Pinch: R 6#, L6# Nine Hole Peg Right: 30 seconds Left: 31 seconds Comments: no difficulty noted Quick DASH-Disab of Arm,Shoulder Hand Quick DASH Score: 9.0900 Rehabilitation General Assessment: patient presents for OT Evaluation after experiencing a TIA on 05/10/25. She reports feeling back to her baseline and about 10 minutes after the TIA, her R hand numbness resolved. She completes daily living tasks independently including fxnal mobility, driving, mowing, and pulling weeds. She reports she wants to stay busy. She has 4 kids in the area that can help as needed. Patient's overall range of motion and strength in her upper body is intact and equal bilaterally. She reports her biggest barrier is arthritis, which causes her pain in her R hand middle and ring finger. Discussed some joint protection techniques for daily tasks and she reports already adapting many of her tasks at home. No further OT recommended at this time. Visit Plan TEXT: Thank you for the opportunity to evaluate your patient. For Medicare and Medicare HMO plans, please review the plan of care and approve it. It will need to be FAXED BACK to us at [phone] for Medicare purposes. Please let me know if there are questions or concerns regarding this plan of care. Physician Signature: Date:__ 05/16/25 1239 CC: Dr. Angel Luis Contreras MD DAVID Signed For Medicare only, by signing this I certify the plan of care. Physicians Signature Date Normal [facility] SP/HP.SP.Herb 05-16-2025 SP/HP.SP.EV [facility] Speech Pathology [facility] [address] [place] [address] / REHABILITATION SERVICES INITIAL EVALUATION MR#: [id number] Acct: [id number] Name: DORYS LENTZ Rep #: [id number] : 1935 89 From: John Charles M.A., [facility] Referring Dr.: Dr. Angel Luis Contreras MD Status: REG R Insurance: [facility] [id number] SELF PAY INSURANCE Visit History Visit Info Date of Eval: 05/16/25 Today is Visit #: 1 Preschool Head Teacher: MARQUIS History Attending Doctor: Referring Doctor: Reason for Referral: HX OF TIA, WORD FINDING DIFFICULTY. RX HERE Date of Onset of Diagnosis: 05/03/25 Previous speech therapy: No Other Relevant Medical History/Diagnoses/Surg kosta: Patient reported on Thursday she was exhibiting symptoms of stroke such as slurred speech and numb right hand. She called her daughter then called 911 to go to ER. She was admitted over night and released on 05/04/25. Currently she is wearing a heart monitor. PMH kidney removed 2019. Medications related to this diagnosis: multivitamin with folic acid 400 mcg tablet (Thera) 1 tab PO DAILY supplement 04/06/18 L.acidoph,paracasei,B. animalis 10 billion cell capsule 1 ea PO DAILY 11/18/18 calcium carbonate-vitamin D3 600 mg-125 unit tablet (Calcium) 1 ea PO DAILY 11/18/18 ascorbic acid (vitamin C) 500 mg capsule 500 mg PO DAILY 09/05/20 cyanocobalamin (vitamin B-12) 1,000 mcg capsule 1,000 mcg PO DAILY 09/05/20 acetaminophen 500 mg tablet 1,000 mg PO Q8H PRN Pain 04/06/22 ondansetron 4 mg disintegrating tablet 8 mg (2 x 4 mg) PO .now nausea #2 tabs 08/29/24 ondansetron HCl 8 mg tablet 8 mg PO Q8H PRN nausea and vomiting #14 tabs 08/29/24 fluticasone propionate 50 mcg/actuation nasal spray,suspension 1 spray intranasal QHS 05/03/25 oxybutynin chloride 5 mg tablet,extended release 24 hr 5 mg PO DAILY 05/03/25 aspirin 81 mg chewable tablet 81 mg PO BREAKFAST 90 days #90 tabs 05/04/25 atorvastatin 40 mg tablet 40 mg PO QHS 90 days #90 tabs 05/04/25 Smoking Status: Never smoker Pain Is pain an issue with your current prescribed condition?: No Personal Preferred language: Hungarian Patient Allergies Allergies Allergies: Allergies No Known Allergies Allergy (Verified 05/03/25 11:20) BNT-2 BNT-2 BNT-2 Administered: Yes BNT: The BNT-2 is a confrontational naming test that asks the clinet to provide the best name for a given picture. The test was designed to detect word-finding impairments. In addition, stimulus cues that give semantic, phonemic (word-initial sound/s) and written information are provided as necessary. Date: 05/16/25 BNT-2 Number of spontaneously given correct responses: 6 Number of stimulus cues given: 4 Number of correct responses following a stimulus cue: 0 Number of phonemic cues: 4 Number of correct responses following a phonemic cues: 4 Number of multiple choices given: 3 Number of correct choices: 13 BNT-2 Score Total Number Correct: 6 BNT Comments Analysis: -: Patient was able to describe the words that she wasn't able to say. Words she had difficult were octopus, ass[place] and [place] tribes, volcano, cactus, hammock, sphinx, palette, tripod, etc. She was able to choose the word from a field of 4 easily when presented. Phonemic cuing helped for 4 words. She was able to describe every single time the word such as it lives in the sea, lots of legs for octopus. Common words such as house, comb and toothbrush had no anomia or hesitations. Palette she called a paint board. She stated easel for tripod and described it as a picture frame rosales. Conversation: -: In a lengthy conversation of 30 minutes she only had one time of anomia for the word alterations but she was able to describe it as making the dresses smaller. She stated that her word finding ability is no different than it has been for the last several years. Communication did not stop at any time. She reported that her speech/language/anomia is not different than prior to her TIA. Objective Dysarthira/Motor Speech Intelligibility Phonemes: WNL Single Words: WNL Phrases: WNL Sentences: WNL Conversation: WNL Volume Volume: WNL Sounds Sounds in Error: None Consistency w/Multiple Repetitions Words: WNL Phrases: WNL Observation Observation of Apraxia of Speech: No Oral Groping for Placement: No Inconsistent Errors: No Reference: Neuro-QoL instrument HDQLIFE - Speech Difficulties In the past 7 days. It was difficult for other people to understand me.: Never Is was difficult to speak clearly?: Never In the past 7 days.. How often did you limit your social activites because you had difficulty speaking?: Never In the past 7 days... I had trouble speaking.: Not at all I was frustrated by my speech difficulties.: Not at all How much DIFFICULTY do you have... ...saying what you (more content not included)... Normal [facility] Inital Evaluation (1) - PTon 05-15-2025 Inital Evaluation (1) - PT [facility] Physical Therapy [facility] [address] [place] [address] [address] [place] [address] / REHABILITATION SERVICES INITIAL EVALUATION MR#: [id number] Acct: [id number] Name: DORYS LENTZ Rep #: [id number] : 1935 89 From: Giorgio Carter DPT, OCS, CSCS Referring Dr.: Dr. Angel Luis Contreras MD Status: REG [facility] Insurance: [facility] [id number] SELF PAY INSURANCE Patient's Visit Information Visit Information Visit Information: DORYS LENTZ is a 89 year old F referred to Physical Therapy by Dr. Angel Luis Contreras MD with a diagnosis of TIA. Date of Evaluation: 05/15/25 Physical Therapist: Giorgio Carter DPT, OCS, CSCS Visit Plan Plan: No skilled intervention required or desired at this point. Pt doing well with mobility at baseline and is active and does not desire further intervention in PT. Will see OT and speech tomorrow. educated on possible benefits of regular ex program but not desired at this time. Subjective Subjective: I had a stroke last week. R hand went numb and R mouth went numb and speech difficult and not intelligible. Lasted 10 minutes. Called dtr adn then 911. Went to ER. Speech was slightly slurred. Did a lot of test including CATSCANs. Now takes baby aspirin as well as cholesterol med. All symptoms went away, Feels a little dizzy now and then but that was there prior. This is not unusual for her. Often happens when she stands up. No falls lately, Slid off bed one time a moth ago. Did not get hurt. No neuropathy, no spinning. Lives with dtr and sister and she is home all day. Basement steps and two to enter with railing and they are no problem. Basic ADLs dressing , showers, bathroom all I. Is being careful with heart monitor for 30 days. Not employed. Spends day helping with chores and carried bucket today without a problem. Sews , no problem. Hobbies: sews. Objective Objective: Walking into PT I, trasnfers no UE chair I, bed I. Steeps with onee rail reciprocally I up and down. sensation LE WNL to gross light touch B. reflexes 2/3 patella and achilles B strength LE 4-/5 hip flexion and abd, 4 knee flexion/ext and 4 ankles without asymmeetries. coordination to reciprocal toe adn heel tap is normal Good balance today Balance/Special Test Scores Functional Gait Assessment Score: 24 % Disability: 20.0000 CATSIB Score (Max score 120 seconds): 98 Lower Extremity Functional Score: 53 30 Second Chair Rise Test Seconds: 13 Anticipated Interventions Text: Thank you for the opportunity to evaluate your patient. For Medicare and Medicare HMO plans, please review the plan of care and approve it. It will need to be FAXED BACK to us at [phone] for Medicare purposes. For Medicare only, by signing this I certify the plan of care. Please let me know if there are questions or concerns regarding this plan of care. Physician Signature: Date:__ 05/15/25 1413 CC: Dr. Angel Luis Contreras MD EBG Signed Normal [facility] Inital Evaluation (1) - PT [facility] Physical Therapy [facility] [address] [place] [address] / REHABILITATION SERVICES INITIAL EVALUATION MR#: [id number] Acct: [id number] Name: DORYS LENTZ Rep #: [id number] : 1935 89 From: Giorgio Carter DPT, OCS, CSCS Referring Dr.: Dr. Angel Luis Contreras MD Status: REG RCR Insurance: [facility] [id number] SELF PAY INSURANCE Patient's Visit Information Visit Information Visit Information: DORYS LENTZ is a 89 year old F referred to Physical Therapy by Dr. Angel Luis Contreras MD with a diagnosis of TIA. Date of Evaluation: 05/15/25 Physical Therapist: Giorgio Carter DPT, OCS, CSCS Visit Plan Plan: No skilled intervention required or desired at this point. Pt doing well with mobility at baseline and is active and does not desire further intervention in PT. Will see OT and speech tomorrow. educated on possible benefits of regular ex program but not desired at this time. Subjective Subjective: I had a stroke last week. R hand went numb and R mouth went numb and speech difficult and not intelligible. Lasted 10 minutes. Called dtr adn then 911. Went to ER. Speech was slightly slurred. Did a lot of test including CATSCANs. Now takes baby aspirin as well as cholesterol med. All symptoms went away, Feels a little dizzy now and then but that was there prior. This is not unusual for her. Often happens when she stands up. No falls lately, Slid off bed one time a moth ago. Did not get hurt. No neuropathy, no spinning. Lives with dtr and sister and she is home all day. Basement steps and two to enter with railing and they are no problem. Basic ADLs dressing , showers, bathroom all I. Is being careful with heart monitor for 30 days. Not employed. Spends day helping with chores and carried bucket today without a problem. Sews , no problem. Hobbies: sews. Objective Objective: Walking into PT I, trasnfers no UE chair I, bed I. Steeps with onee rail reciprocally I up and down. sensation LE WNL to gross light touch B. reflexes 2/3 patella and achilles B strength LE 4-/5 hip flexion and abd, 4 knee flexion/ext and 4 ankles without asymmeetries. coordination to reciprocal toe adn heel tap is normal Good balance today Balance/Special Test Scores Functional Gait Assessment Score: 24 % Disability: 20.0000 CATSIB Score (Max score 120 seconds): 98 Lower Extremity Functional Score: 53 30 Second Chair Rise Test Seconds: 13 Anticipated Interventions Text: Thank you for the opportunity to evaluate your patient. For Medicare and Medicare HMO plans, please review the plan of care and approve it. It will need to be FAXED BACK to us at [phone] for Medicare purposes. For Medicare only, by signing this I certify the plan of care. Please let me know if there are questions or concerns regarding this plan of care. Physician Signature: Date:__ 05/15/25 1412 CC: Dr. Angel Luis Contreras MD EBG Signed Normal [facility] Urine Cultureon 05-05-2025 URC Below infection leve l. Mixed Gram Pos Gram Neg Org [place] Count 1000-10,000 MIXC Mixed contaminants. Submit a new specimen if indicated. Normal [facility] Comment on above: Performed By: #### L 500.4100, L500.2500, L100.0500 #### [facility] [address] [place], [address] Anion gap in Serum or Plasma Ordered By: Pillo Michelle on 05-04-2025 Anion gap [Moles/Vol] 10 mmol/L 5-15 [facility] BUN/creatinine ratioOrdered By: Pillo Michelle on 05-04-2025 Urea nitrogen/Creatinine [Mass ratio] 13.4 mg/mg - [facility] Basic Metabolic Profile (BMP )on 05-04-2025 BUN/CRE 13.4 RATIO Normal - [facility] Comment on above: Order Comment: Comme nts: NPO at [place] prior to lipid panel Performed By: #### L 500.4100, L500.2500, L100.0500 #### [facility] [address] [place], [address] Calcium [Mass/Vol] 8.7 mg/dL Normal 7.6-11.0 [facility] Comment on above: Order Comment: Comme nts: NPO at [place] prior to lipid panel Performed By: #### L 500.4100, L500.2500, L100.0500 #### [facility] [address] [place], [address] Chloride [Moles/Vol] 106 mmol/L Normal 98-108 [facility] Comment on above: Order Comment: Comme nts: NPO at [place] prior to lipid panel Performed By: #### L 500.4100, L500.2500, L100.0500 #### [facility] [address] [place], [address] CO2 [Moles/Vol] 25.1 mmol/L Normal 21.0-32.0 [facility] Comment on above: Order Comment: Comme nts: NPO at [place] prior to lipid panel Performed By: #### L 500.4100, L500.2500, L100.0500 #### [facility] [address] [place], [address] Creatinine [Mass/Vol] 1.16 mg/dL Normal 0.70-1.20 [facility] Comment on above: Order Comment: Comme nts: NPO at [place] prior to lipid panel Performed By: #### L 500.4100, L500.2500, L100.0500 #### [facility] [address] [place], [address] ECRCL 33.82 ml/min Low 50-250 [facility] Comment on above: Order Comment: Comme nts: NPO at [place] prior to lipid panel Performed By: #### L 500.4100, L500.2500, L100.0500 #### [facility] [address] [place], [address] GAP 10 Normal 5-15 [facility] Comment on above: Order Comment: Comme nts: NPO at [place] prior to lipid panel Performed By: #### L 500.4100, L500.2500, L100.0500 #### [facility] [address] [place], [address] GFR/1.73 sq M.predicted among non-blacks MDRD (S/P/Bld) [Vol rate/Area] 45 mL/min/{1.73_m2} Low >60 [facility] Comment on above: Order Comment: Comme nts: NPO at [place] prior to lipid panel Result Comment: mL/m in/1.73m2 CKD-EPI Creatinine Equation (2020) Performed By: #### L 500.4100, L500.2500, L100.0500 #### [facility] [address] [place], [address] Glucose [Mass/Vol] 78 mg/dL Normal 70-99 [facility] Comment on above: Order Comment: Comme nts: NPO at [place] prior to lipid panel Performed By: #### L 500.4100, L500.2500, L100.0500 #### [facility] [address] [place], [address] Potassium [Moles/Vol] 3.9 mmol/L Normal 3.3-5.1 [facility] Comment on above: Order Comment: Comme nts: NPO at MN prior to lipid panel Performed By: #### L 500.4100, L500.2500, L100.0500 #### [facility] [address] [place], [address] Sodium [Moles/Vol] 142 mmol/L Normal 133-145 [facility] Comment on above: Order Comment: Comme nts: NPO at [place] prior to lipid panel Performed By: #### L 500.4100, L500.2500, L100.0500 #### [facility] [address] [place], [address] Urea nitrogen [Mass/Vol] 16 mg/dL Normal 4-19 [facility] Comment on above: Order Comment: Comme nts: NPO at [place] prior to lipid panel Performed By: #### L 500.4100, L500.2500, L100.0500 #### [facility] [address] [place], [address] Bilirubin Test strip Ql (U)O rdered By: Pillo Michelle on 05-04-2025 Bilirubin Ql (U) Negative Negative [facility] CBC-Complete Blood Cnt No Di ffon 05-04-2025 Erythrocyte distribution width (RBC) [Ratio] 13.1 % Normal 11.6-14.6 [facility] Comment on above: Performed By: #### L 500.4100, L500.2500, L100.0500 #### [facility] [address] [place], [address] Hematocrit (Bld) [Volume fraction] 33.8 % Low 37-47 [facility] Comment on above: Performed By: #### L 500.4100, L500.2500, L100.0500 #### [facility] [address] [place], [address] Hemoglobin (Bld) [Mass/Vol] 11.0 g/dL Low 12.0-15.0 [facility] Comment on above: Performed By: #### L 500.4100, L500.2500, L100.0500 #### [facility] [address] [place], [address] MCH (RBC) [Entitic mass] 30.7 pg Normal 27.0-32.0 [facility] Comment on above: Performed By: #### L 500.4100, L500.2500, L100.0500 #### [facility] [address] [place], [address] MCHC (RBC) [Mass/Vol] 32.5 g/dL Normal 32-36 [facility] Comment on above: Performed By: #### L 500.4100, L500.2500, L100.0500 #### [facility] [address] [place], [address] MCV (RBC) [Entitic vol] 94.4 fL Normal 81-99 [facility] Comment on above: Performed By: #### L 500.4100, L500.2500, L100.0500 #### [facility] [address] [place], [address] Platelet mean volume (Bld) [Entitic vol] 9.6 fL Normal 6.2-12.0 [facility] Comment on above: Performed By: #### L 500.4100, L500.2500, L100.0500 #### [facility] [address] [place], [address] Platelets (Bld) [#/Vol] 489 10*3/uL High 150-450 [facility] Comment on above: Performed By: #### L 500.4100, L500.2500, L100.0500 #### [facility] [address] [place], [address] RBC (Bld) [#/Vol] 3.58 10*6/uL Low 4.2-5.4 [facility] Comment on above: Performed By: #### L 500.4100, L500.2500, L100.0500 #### [facility] [address] [place], [address] RDW SD 45.1 fl High 35.1-43.9 [facility] Comment on above: Performed By: #### L 500.4100, L500.2500, L100.0500 #### [facility] [address] [place], [address] WBC (Bld) [#/Vol] 5.1 10*3/uL Normal 4.4-11.0 [facility] Comment on above: Performed By: #### L 500.4100, L500.2500, L100.0500 #### [facility] [address] [place], [address] Calculated very low density lipoprotein (VLDL) cholesterol measurementOrdered By: Pillo Michelle on 05-04-2025 Calculated very low density lipoprotein (VLDL) cholesterol measurement 14 mg/dL 5-40 [facility] Carbon dioxide, total [Moles /volume] in Central venous bloodOrdered By: Pillo Michelle on 05-04-2025 CO2 [Moles/Vol] 25.1 mmol/L 21.0-32.0 [facility] Chloride assayOrdered By: Ajay Michelle on 05-04-2025 Chloride [Moles/Vol] 106 mmol/L 98-108 [facility] Discharge Instructionon 04-23 Discharge Instruction [facility] Medical Records Department [address] [place] [address] Instructions for Home/Discharge Instructions 05/04/25 1110 MR#: [id number] Acct: [id number] Name: DORYS LENTZ Rep #: [id number] : 1935 89 From: Pillo Michelle DO PCP: Dr. Angel Luis Contreras MD Status:ADM BRYNN Discharge Instructions Diet Discharge Diet: No restrictions DC O2, CPAP, BIPAP needs Home O2 Discharge instructions: No Dressing / Incision Discharge Activity: No Restrictions Follow Up Care Test Results: Test results from this visit will be discussed in further detail at your follow-up appointment, if applicable. Discharge Plan Admission Admit Date/Time: 05/03/25 13:45 Primary Reason for Your Visit: Strokelike symptoms Attending Provider: Pillo Michelle Primary Care Provider: Angel Luis Contreras Discharge Orders/Prescriptions Prescriptions: New aspirin 81 mg Tablet,Chewable 81 mg PO BREAKFAST 90 Days Qty: 90 0RF atorvastatin 40 mg Tablet 40 mg PO QHS 90 Days Qty: 90 0RF Continued ondansetron 4 mg tablet,disintegrating 8 mg PO .now Qty: 2 0RF ondansetron HCl 8 mg tablet 8 mg PO Q8H PRN (Reason: nausea and vomiting) Qty: 14 0RF multivitamin with folic acid [Thera] 1 TABLET tablet 1 tab PO DAILY Calcium 600 + D(3) 1 EACH tablet 1 ea PO DAILY L.acidoph,paracasei,B. animalis 1 EACH capsule 1 ea PO DAILY ascorbic acid (vitamin C) 500 MG capsule 500 mg PO DAILY cyanocobalamin (vitamin B-12) 1,000 MCG capsule 1,000 mcg PO DAILY acetaminophen 500 MG tablet 1,000 mg PO Q8H PRN (Reason: Pain) Rx Instructions: Do not take more than 3000 mg Tylenol in a 24-hour period. oxybutynin chloride 5 mg tablet extended release 24hr 5 mg PO DAILY fluticasone propionate 50 mcg/actuation spray,suspension 1 spray INTRANASAL QHS Other Ambulatory Orders: 30 Day Event Recorder Preventi (Urgent) Timeframe: 1 Month Facility: [facility] - Location: Cardiovascular Services Ordered By: Dr. Pillo Michelle Referrals / Follow Up: Angel Luis Contreras MD [Primary Care Provider] - Disposition Disposition (needs filled in before D/C Order can be placed): Home, Self Care 05/04/25 1519 Pillo Michelle DO CC: Dr. Angel Luis Contreras MD Signed Normal [facility] Echocardiogram study reportO rdered By: Nilson Peterson on 05-04-2025 Study report [facility] [address] [place] [address] Echo Complete 05/03/25 1449 MR#: [id number] Acct: [id number] Name: DORYS LENTZ Rep #:[id number] : 1935 89 From: Nilson Peterson MD Attending Dr: Dr. Pillo Michelle, DO Status: ADM BRYNN Ordering Dr: Pillo Michelle te: 05/03/25 Location: MS2 Sex: F C Admitted: 05/03/25 Reason For Study Reason For Study: TIA/CVA Procedure This was a 2D Doppler, Color Flow transthoracic echocardiogram. Exam performed portable in ED. Left Ventricle Mild concentric left ventricular hypertrophy. Normal LV size. The LV systolic function is normal. EF is 65 %. Stage 1 diastolic dysfunction. Right Ventricle Normal right ventricle. Atria The left and right atria are normal. Mitral Valve Moderate focal bileaflet mitral valve calcification. Equivocal prolapse of the posterior leaflet. Mild mitral valve regurgitation. Tricuspid Valve Moderate (2+) tricuspid valve insufficiency. Right ventricular systolic pressureestimated to be 45 mmHg. Aortic Valve Trisinus/trileaflet aortic valve. Pulmonic Valve The pulmonic valve is not well visualized. Great Vessels Normal sized aortic root. Pericardium/Pleural No pericardial effusion. MMode/2D Measurements & Calculations LVIDd: 3.6 cm IVSd: 1.2 cm LVOT diam: 2.0 cm LVIDs: 2.7 cm LVPWd: 1.0 cm LVOT area: 3.1 cm2 RVDd: 3.9 cm FS: 26.6 % LA dimension: 4.0 cm asc Aorta Diam: 3.6 cm LAV(MOD-bp): 54.7 ml LAV(MOD-bp) Indexed: 28.5 ml/m2 LAV(MOD-sp2): 71.7 ml LAV(MOD-sp4): 40.8 ml SV(MOD-sp4): 46.4 ml LVAd ap4: 25.2 cm2 LVAd ap2: 22.6 cm2 LVLd ap4: 7.6 cm LVLd ap2: 7.8 cm SI(MOD-sp4): 24.2 ml/m2 EDV(MOD-sp4): 68.3 ml EDV(MOD-sp2): 52.8 ml EDV(sp4-el): 70.6 ml EDV(sp2-el): 55.4 ml LVAs ap4: 13.0 cm2 LVAs ap2: 12.2 cm2 LVLs ap4: 6.6 cm LVLs ap2: 6.5 cm ESV(MOD-sp4): 21.8 ml ESV(MOD-sp2): 19.6 ml ESV(sp4-el): 22.0 ml ESV(sp2-el): 19.4 ml EF(MOD-sp4): 68.0 % EF(MOD-sp2): 62.8 % EF(sp4-el): 68.9 % SV(MOD-sp2): 33.1 ml SV(sp4-el): 48.7 ml Ao sinus diam: 3.4 cm SI(MOD-sp2): 17.3 ml/m2 Ao ST Junction: 2.6 cm LA dimension(2D): 4.0 cm LA A4 area: 16.8 cm2 TAPSE: 2.1 cm RA A4 area: 15.6 cm2 Time Measurements MV dec time: 0.44 sec Doppler Measurements & Calculations MV E max chata: 94.6 cm/sec Lat Peak E' Chata: 7.0 cm/sec Med Peak E' Chata: 6.6 cm/sec MV A max chata: 120.7 cm/sec E/E' lat: 13.4 E/E' med: 14.3 MV E/A: 0.78 MV dec slope: 213.7 cm/sec2 Ao V2 max: 119.0 cm/sec LV V1 max: 82.0 cm/sec Ao max P.7 mmHg LV V1 max P.7 mmHg Ao V2 mean: 84.5 cm/sec LV V1 mean P.6 mmHg Ao mean P.2 mmHg LV V1 mean: 60.5 cm/sec Ao V2 VTI: 33.8 cm LV V1 VTI: 21.9 cm AV (velocity ratio): 0.65 YOUNG(I,D): 2.0 cm2 YOUNG(V,D): 2.1 cm2 SV(LVOT): 68.2 ml PA V2 max: 67.9 cm/sec TR max chata: 273.7 cm/sec TR max P.0 mmHg ECHO/Echo Complete Interpretation Summary Mild concentric left ventricular hypertrophy. The LV systolic function is normal. EF is 65 %. Stage 1 diastolic dysfunction. Moderate focal bileaflet mitral valve calcification. Equivocal prolapse of the posterior leaflet. Mild mitral valve regurgitation. Moderate (2+) tricuspid valve insufficiency. Right ventricular systolic pressure estimated to be 45 mmHg. Ordering Physician: Pillo Michelle Referring Physician: Angel Luis Contreras Performed By: Sheila Noonan RDCS 05/04/25 1422 Date _ Nilson Peterson MD CC: Dr. Pillo Michelle DO; Dr. 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 Pillo Michelle DO Status: ADM BRYNN Ordering Dr: Roni Love ate: 05/03/25 Location: MS2 Sex: F C Admitted: 05/03/25 Test Reason : Blood Pressure : */* mmHG Vent. Rate : 54 BPM Atrial Rate : 54 BPM P-R Int : 176 ms QRS Dur : 88 ms QT Int : 472 ms P-R-T Axes : * -52 1 degrees QTcB Int : 447 ms Sinus bradycardia Left axis deviation Cannot rule out Anteroseptal infarct , age undetermined Abnormal ECG Confirmed by Patrice Willard ([id number]), science editor AMAN MOLINA ([id number]) on 56:49:21 AM Referred By: Confirmed By: Patrice Willard 05/04/2549 Date _ Patrice Willard MD CC: Dr. Pillo Michelle DO; Dr. Roni Love DO; Dr. Angel Luis Contreras MD ~ Signed [facility] Other Phone: Erythrocyte distribution wid th ratioOrdered By: Pillo Michelle on 05-04-2025 Erythrocyte distribution width (RBC) [Ratio] 13.1 % 11.6-14.6 [facility] Erythrocyte distribution wid th standard deviationOrdered By: Pillo Michelle on 05-04-2025 Erythrocyte distribution width (RBC) [Ratio] 45.1 fl High 35.1-43.9 [facility] Glomerular filtration rate ( GFR) estimation/1.73 sq m using serum, plasma, or whole bOrdered By: Pillo Michelle on 05-04-2025 GFR/1.73 sq M.predicted among non-blacks MDRD (S/P/Bld) [Vol rate/Area] 45 mL/min/{1.73_m2} Low >60 [facility] Comment on above: mL/min/1.73m2 CKD-EP I Creatinine Equation (2020) Hematocrit Auto (Bld) [Volum e fraction]Ordered By: Pillo Michelle on 05-04-2025 Hematocrit (Bld) [Volume fraction] 33.8 % Low 37-47 [facility] Hemoglobin measurementOrdere d By: Pillo Gilnury on 05-04-2025 Hemoglobin (Bld) [Mass/Vol] 11.0 g/dL Low 12.0-15.0 [facility] Ketones Test strip Ql (U)Ord ered By: Pillo nury on 05-04-2025 Ketones Ql (U) Negative Negative [facility] LDL calc ser/plasOrdered By: Pillo Michelle on 05-04-2025 Cholesterol in LDL [Mass/Vol] 118 mg/dL [facility] Comment on above: Xenenngrmo=618-144 m g/dL & Higher Zzuu=969 mg/dL or greater Lipid Profileon 05-04-2025 CHOL:HDL 3.41 Normal [facility] Comment on above: Order Comment: Comme nts: NPO at [place] prior to lipid panel Performed By: #### L 500.4100, L500.2500, L100.0500 #### [facility] [address] [place], [place], [address] Cholesterol [Mass/Vol] 187 mg/dL Normal <=200 [facility] Comment on above: Order Comment: Comme nts: NPO at [place] prior to lipid panel Result Comment: Chol esterol level, Desirable <200 mg/dL Borderline high cholesterol 200-239 mg/dL High cholesterol >=240 mg/dL Recommendations of the NCEP Adult Treatment Panel for the following risk-cutoff thresholds for the [place] population. Performed By: #### L 500.4100, L500.2500, L100.0500 #### [facility] [address] [place], [address] Cholesterol in HDL [Mass/Vol] 55 mg/dL Normal [facility] Comment on above: Order Comment: Comme nts: NPO at [place] prior to lipid panel Result Comment: Ginger onal Cholesterol Education Program (NCEP) guidelines: <40 mg/dL: Low HDL-cholesterol (major risk factor for CHD) >= 60 mg/dL: High HDL-cholesterol (negative risk factor for CHD) HDL-cholesterol is affected by a number of factors, e.g. smoking, exercise, hormones, sex and age. Performed By: #### L 500.4100, L500.2500, L100.0500 #### [facility] [address] [place], [address] Cholesterol in LDL [Mass/Vol] 118 mg/dL Normal [facility] Comment on above: Order Comment: Comme nts: NPO at MN prior to lipid panel Result Comment: Bord hqhehe=450-064 mg/dL Higher Bypf=051 mg/dL or greater Performed By: #### L 500.4100, L500.2500, L100.0500 #### [facility] [address] [place], [address] Cholesterol in VLDL [Mass/Vol] 14 mg/dL Normal 5-40 [facility] Comment on above: Order Comment: Comme nts: NPO at MN prior to lipid panel Performed By: #### L 500.4100, L500.2500, L100.0500 #### [facility] [address] [place], [address] Triglyceride [Mass/Vol] 72 mg/dL Normal [facility] Comment on above: Order Comment: Comme nts: NPO at MN prior to lipid panel Result Comment: The drugs N-Acetylcysteine and Metamizole may falsely depress this assay. Normal range: <150 mg/dL Borderline High: 150-199 mg/dL High: 200-499 mg/dL Very High: >500 mg/dL Performed By: #### L 500.4100, L500.2500, L100.0500 #### [facility] [address] [place], [address] MCV (mean corpuscular volume ) determinationOrdered By: Pillo Michelle on 05-04-2025 MCV (RBC) [Entitic vol] 94.4 fL 81-99 [facility] MR/CON.PCM.NEon 05-04-2025 MR/CON.PCM.NE [facility] Medical Records Department [address] [place] [address] Consultation - Neurology 05/04/251925 MR#: [id number] Acct: [id number] Name: DORYS LENTZ Rep #: [id number] : 1935 89 From: Kareem Manuel MD PCP: Dr. Angel Luis Contreras MD Status:DIS BRYNN Location: [facility] DX318-0 Assessment and Plan: Stroke Assessment/Plan #Transient ischemic attack -start ASA 81mg daily. No DAPT as ABCD score<4 - atorvastatin 40. -MRI brain no stroke -MRA head/neck ???no significant stenosis -goal LDL<70, HBA1c <7 -obtain TTE -recommend 30 day cardiac event monitor -BP goal 120/80 -no smoking -follow up ???PCP 1-2 weeks, neurology ???4-6 weeks HPI Consult Data Date of Consult: 05/04/25 HPI Narrative HPI Narrative: 89 yo??? F w no significant PMH present with transient dysarthria and R sided numbness for 30 minutes. ???She was out working in her flower bed for part of the morning today. When she went inside to look at her bills, she began to have right hand numbness, right facial numbness and slurring of speech. She was home alone and called her daughter who recommended that EMS bring her to the ED. Presented as a stroke alert. Hemodynamically stable on arrival and had NIH score of 1 due to dysarthria. Right hand and right facial numbness had resolved after about 30 minutes today. Never had prior similar episode. Symptoms have not reoccurred. Currently feels back to normal. [facility] Medical History Left knee pain Home Medications ???Medication ???Instructions ???Recorded ???Last Taken ???Type multivitamin with folic acid 400 1 tab PO DAILY supplement 04/06/18 07/30/18 06:00 History mcg tablet (Thera) obdulia Johnson,B. animalis 10 1 ea PO DAILY 11/18/18 11/24/18 0 8:00 History billion cell capsule calcium carbonate-vitamin D3 600 1 ea PO DAILY 11/18/18 Unknown His tory mg-125 unit tablet (Calcium) ascorbic acid (vitamin C) 500 mg 500 mg PO DAILY 09/05/20 Unknown H istory capsule cyanocobalamin (vitamin B-12) 1,000 mcg PO DAILY 09/05/20 Unknow n History 1,000 mcg capsule acetaminophen 500 mg tablet 1,000 mg PO Q8H PRN Pain 04/06/22 Unknown History ondansetron 4 mg disintegrating 8 mg (2 x 4 mg) PO .now nausea #2 08/29/24 Unknown Rx tablet tabs ondansetron HCl 8 mg tablet 8 mg PO Q8H PRN nausea and 4 Unknown Rx vomiting #14 tabs fluticasone propionate 50 1 spray intranasal QHS 05/03/25 Un known History mcg/actuation nasal spray,suspension oxybutynin chloride 5 mg 5 mg PO DAILY 05/03/25 Unknown His tory tablet,extended release 24 hr aspirin 81 mg chewable tablet 81 mg PO BREAKFAST 90 days #90 tab s 05/04/25 Unknown Rx atorvastatin 40 mg tablet 40 mg PO QHS 90 days #90 tabs 04/23 01/17 Unknown Rx Allergy/AdvReac Type Severity Reaction Status Date / Time No Known Allergies Allergy Verified 05/03/25 11:20 Family History no significant family his Surgical History 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9 F 98.0 F Temperature Source Oral Oral Pulse Rate 55 L 56 L 55 L Respiratory Rate 13 12 Blood Pressure 138/67 H 138/67 H Blood Pressure Mean 90 90 Blood Pressure Source Monitor Monitor Blood Pressure Position Semi-Fowlers Semi-Fowlers Blood Pressure Location Right Arm Right Arm Pulse Ox 96 95 Oxygen Delivery Method Room Air Room Air 05/04/25 11:35 05/04/25 11:51 Temperature 98.0 F Temperature Source Oral Pulse Rate 65 Respiratory Rate 18 Blood Pressure 128/76 H Blood Pressure Mean 93 Blood Pressure Source Monitor Blood Pressure Position Sitting Blood Pressure Location Right Arm Pulse Ox 97 Oxygen Delivery Method Room Air Room Air Weight Weight: 75.115 kg Body Mass Index (BMI) 25.2 EEG Results Procedure Details EEG Procedure Details: DORYS LENTZ is a 89 year old F with a past medical history of , who presents for evalu (more content not included)... Normal [facility] Mean corpuscular hemoglobin (MCH) determinationOrdered By: Pillo Michelle on 05-04-2025 MCH (RBC) [Entitic mass] 30.7 pg 27.0-32.0 [facility] Mean corpuscular hemoglobin concentration (MCHC) determinationOrdered By: Pillo Michelle on 05-04-2025 MCHC (RBC) [Mass/Vol] 32.5 g/dL 32-36 [facility] Mean platelet volume determi nationOrdered By: Pillo Michelle on 05-04-2025 Platelet mean volume (Bld) [Entitic vol] 9.6 fL 6.2-12.0 [facility] Microscopic analysis of urin e for red blood cells (RBC)Ordered By: Pillo Michelle on 05-04-2025 Microscopic analysis of urine for red blood cells (RBC) 0 SEEN /hpf 0-5 [facility] Mucus LM Ql (Urine sed)Order ed By: Pillo Michelle on 05-04-2025 Mucus Ql (Urine sed) 0 SEEN /hpf [facility] Nitrite Test strip Ql (U)Ord ered By: Pillo Michelle on 05-04-2025 Nitrite Ql (U) Negative Negative [facility] Platelet countOrdered By: Ajay Michelle on 05-04-2025 Platelets (Bld) [#/Vol] 489 10*3/uL High 150-450 [facility] Potassium measurement (mass/ volume)Ordered By: Pillo Michelle on 05-04-2025 Potassium (Unsp spec) [Mass/Vol] 3.9 mmol/L 3.3-5.1 [facility] Protein Test strip Ql (U)Ord ered By: Pillo Michelle on 05-04-2025 Protein Ql (U) Negative Negative [facility] RBC Auto (Bld) [#/Vol]Ordere d By: Pillo Michelle on 05-04-2025 RBC (Bld) [#/Vol] 3.58 10*6/uL Low 4.2-5.4 [facility] Screening total cholesterol/ high density lipoprotein (HDL) cholesterol ratioOrdered By: Pillo Michelle on 05-04-2025 Cholesterol.total/Choles terol in HDL [Mass ratio] 3.41 {ratio} [facility] Serum creatinine measurement (mass/volume)Ordered By: Pillo Michelle on 05-04-2025 Creatinine [Mass/Vol] 1.16 mg/dL 0.70-1.20 [facility] Serum glucose measurement (m ass/volume)Ordered By: Pillo Michelle on 05-04-2025 Glucose [Mass/Vol] 78 mg/dL 70-99 [facility] Serum or plasma calcium dawson urement (mass/volume)Ordered By: Pillo Michelle on 05-04-2025 Calcium [Mass/Vol] 8.7 mg/dL 7.6-11.0 [facility] Serum or plasma cholesterol in HDL measurement (mass/volume)Ordered By: Pillo Michelle on 05-04-2025 Cholesterol in HDL [Mass/Vol] 55 mg/dL >40 [facility] Comment on above: National Cholesterol Education Program (NCEP) guidelines:<40 mg/dL: Low HDL-cholesterol (major risk factor for CHD)>= 60 mg/dL: High HDL-cholesterol (negative risk factor for CHD)HDL-cholesterol is affected by a number of factors, e.g. smoking, exercise, hormones, sex and age. Serum or plasma cholesterol measurement (mass/volume)Ordered By: Pillo Michelle on 05-04-2025 Cholesterol [Mass/Vol] 187 mg/dL <201 [facility] Comment on above: Cholesterol level, D esirable <200 mg/dLBorderline high cholesterol 200-239 mg/dLHigh cholesterol >=240 mg/dLRecommendations of the NCEP Adult Treatment Panel for the following risk-cutoff thresholds for the [place] population. Serum or plasma urea nitroge n measurement (mass/volume)Ordered By: Pillo Michelle on 05-04-2025 Urea nitrogen [Mass/Vol] 16 mg/dL 4-19 [facility] Sodium levelOrdered By: Bryant Michelle on 05-04-2025 Sodium [Moles/Vol] 142 mmol/L 133-145 [facility] Squamous epithelial cells de tection in urine sediment by light microscopyOrdered By: Pillo Michelle on 05-04-2025 Epithelial cells.squamous LM Ql (Urine sed) 0 SEEN /hpf 5-10 [facility] Triglycerides measurementOrd ered By: Pillo Michelle on 05-04-2025 Triglyceride [Mass/Vol] 72 mg/dL <199 [facility] Comment on above: The drugs N-Acetylcy steine and Metamizole may falsely depress this assay. Normal range: <150 mg/dLBorderline High: 150-199 mg/dLHigh: 200-499 mg/dLVery High: >500 mg/dL Urinalysis, Completeon 05-04 WBC 0-5 SEEN Normal 0-5 [facility] Comment on above: Order Comment: Comme nts: NPO at NM prior to lipid panel Performed By: #### L 500.4100, L500.2500, L100.0500 #### [facility] [address] [place], [address] BACTERIA 0 SEEN Normal None Seen [facility] Comment on above: Order Comment: Comme nts: NPO at NM prior to lipid panel Performed By: #### L 500.4100, L500.2500, L100.0500 #### [facility] [address] [place], [address] EPI,SQUAMOUS 0 SEEN Normal 5-10 [facility] Comment on above: Order Comment: Comme nts: NPO at NM prior to lipid panel Performed By: #### L 500.4100, L500.2500, L100.0500 #### [facility] [address] [place], [address] Mucus Ql (Urine sed) 0 SEEN Normal [facility] Comment on above: Order Comment: Comme nts: NPO at NM prior to lipid panel Performed By: #### L 500.4100, L500.2500, L100.0500 #### [facility] [address] [place], [address] RBC 0 SEEN Normal 0-5 [facility] Comment on above: Order Comment: Comme nts: NPO at NM prior to lipid panel Performed By: #### L 500.4100, L500.2500, L100.0500 #### [facility] [address] [place], [address] Urine clarityOrdered By: Belle Michelle on 05-04-2025 Clarity (U) Sl. Cloudy Clear [facility] Urine color determinationOrd ered By: Pillo Michelle on 05-04-2025 Color (U) Yellow Yellow [facility] Urine cultureOrdered By: Belle Michelle on 05-04-2025 Bacteria identified Cx Nom (U) Mixed Gram Pos & Gram Neg Org Abnormal [facility] Urine glucose detectionOrder ed By: Pillo Michelle on 05-04-2025 Glucose Ql (U) Normal mg/dl Normal [facility] Urine leukocyte esterase det ection by dipstickOrdered By: Pillo Michelle on 05-04-2025 Leukocyte esterase Test strip Ql (U) Negative Negative [facility] Urine pHOrdered By: Jj Michelle on 05-04-2025 pH (U) 7.0 [pH] 5.0 - 8.0 [facility] Urine sediment bacteria coun t by microscopy (number/high power field)Ordered By: Pillo Michelle on 05-04-2025 Bacteria LM.HPF (Urine sed) [#/Area] 0 /[HPF] None Seen [facility] Urine specific gravity measu rementOrdered By: Pillo Michelle on 05-04-2025 Specific gravity (U) [Rel density] 1.010 1.002-1.030 [facility] Urine urobilinogen measureme ntOrdered By: Pillo Michelle on 05-04-2025 Urobilinogen Ql (U) Normal mg/dl Normal [facility] White blood cell (WBC) count Ordered By: Pillo Michelle on 05-04-2025 WBC (Bld) [#/Vol] 5.1 10*3/uL 4.4-11.0 [facility] White blood cell countOrdere d By: Pillo Michelle on 05-04-2025 White blood cell count 0-5 SEEN /hpf 0-5 [facility] 12 Lead EKGon 05-03-2025 12 Lead EKG [facility] Services [address] [place] [address] 12 Lead EKG 05/03/25 1215 MR#: [id number] Acct: [id number] Name: DORYS LENTZ Rep #: [id number] : 1935 89 From: Patrice Willard MD Attending Dr: Dr. Pillo Michelle DO Status : ADM BRYNN Ordering Dr: Roni Love DO Date: 5 Location: [facility] Sex: F C Admitted: 05/03/25 Test Reason : Blood Pressure : */* mmHG Vent. Rate : 54 BPM Atrial Rate : 54 BPM P-R Int : 176 ms QRS Dur : 88 ms QT Int : 472 ms P-R-T Axes : * -52 1 degrees QTcB Int : 447 ms Sinus bradycardia Left axis deviation Cannot rule out Anteroseptal infarct , age undetermined Abnormal ECG Confirmed by Patrice Willard ([id number]), science editor AMAN MOLINA ([id number]) on 05/04/2025 6:49:21 AM Referred By: Confirmed By: Patrice Willard 05/04/25 0649 Date Patrice Willard MD CC: Dr. Pillo Michelle DO; Dr. Roni Love DO; Dr. Angel Luis Contreras MD Signed Normal [facility] Absolute lymphocyte countOrd ered By: Roni Love on 05-03-2025 Lymphocytes Auto (Unsp spec) [#/Vol] 0.92 10*3/uL 0.83-4.51 [facility] Absolute neutrophil countOrd ered By: Roni Love on 05-03-2025 Neutrophils (Bld) [#/Vol] 3.9 10*3/uL 2.0-7.7 [facility] Activated partial thrombopla stin time (aPTT) in platelet poor plasma by coagulation aOrdered By: Roni Love on 05-03-2025 aPTT Coag (PPP) [Time] 29.3 s 24.1-36.2 [facility] Anion gap in Serum or Plasma Ordered By: Roni Love on 05-03-2025 Anion gap [Moles/Vol] 12 mmol/L - [facility] Automated lymphocyte count a s percentage of total leukocytesOrdered By: Roni Love on 05-03-2025 Lymphocytes/100 WBC Auto (Unsp spec) 16.2 % Low - [facility] BUN/creatinine ratioOrdered By: Roni Love on 05-03-2025 Urea nitrogen/Creatinine [Mass ratio] 14.2 mg/mg - [facility] Basic Metabolic Profile (BMP )on 05-03-2025 BUN/CRE 14.2 RATIO Normal - [facility] Comment on above: Performed By: #### L 500.4100, L500.2500, L100.0500 #### [facility] [address] [place], [address] Calcium [Mass/Vol] 9.4 mg/dL Normal 7.6-11.0 [facility] Comment on above: Performed By: #### L 500.4100, L500.2500, L100.0500 #### [facility] [address] [place], [address] Chloride [Moles/Vol] 101 mmol/L Normal 98-108 [facility] Comment on above: Performed By: #### L 500.4100, L500.2500, L100.0500 #### [facility] [address] [place], [address] CO2 [Moles/Vol] 24.8 mmol/L Normal 21.0-32.0 [facility] Comment on above: Performed By: #### L 500.4100, L500.2500, L100.0500 #### [facility] [address] [place], [address] Creatinine [Mass/Vol] 1.14 mg/dL Normal 0.70-1.20 [facility] Comment on above: Performed By: #### L 500.4100, L500.2500, L100.0500 #### [facility] [address] [place], [address] ECRCL 37.49 ml/min Low 50-250 [facility] Comment on above: Performed By: #### L 500.4100, L500.2500, L100.0500 #### [facility] [address] [place], [address] GAP 12 Normal 5-15 [facility] Comment on above: Performed By: #### L 500.4100, L500.2500, L100.0500 #### [facility] [address] [place], [address] GFR/1.73 sq M.predicted among non-blacks MDRD (S/P/Bld) [Vol rate/Area] 46 mL/min/{1.73_m2} Low >60 [facility] Comment on above: Result Comment: mL/m in/1.73m2 CKD-EPI Creatinine Equation (2020) Performed By: #### L 500.4100, L500.2500, L100.0500 #### [facility] [address] [place], [address] Glucose [Mass/Vol] 90 mg/dL Normal 70-99 [facility] Comment on above: Performed By: #### L 500.4100, L500.2500, L100.0500 #### [facility] [address] [place], [address] Potassium [Moles/Vol] 4.2 mmol/L Normal 3.3-5.1 [facility] Comment on above: Performed By: #### L 500.4100, L500.2500, L100.0500 #### [facility] [address] [place], [address] Sodium [Moles/Vol] 138 mmol/L Normal 133-145 [facility] Comment on above: Performed By: #### L 500.4100, L500.2500, L100.0500 #### [facility] [address] [place], [address] Urea nitrogen [Mass/Vol] 16 mg/dL Normal 4-19 [facility] Comment on above: Performed By: #### L 500.4100, L500.2500, L100.0500 #### [facility] [address] [place], [address] Basophil percentageOrdered B y: Roni Love on 05-03-2025 Basophils/100 WBC (Bld) 0.7 % 0-1 [facility] Brain without Contraston Brain without Contrast [facility] Imaging Services [address] [place] [address] Brain without Contrast MR#: [id number] Acct: [id number] Name: MARCINMADHAVIDORYS Rep #: [id number] : 1935 F 89 From: Matthew Al MD PCP: Dr. Angel Luis Contreras MD Status: ADM BRYNN Study: Brain without Contrast Date of Exam: 05/03/25 Exam# [id number] Ordering Dr: Pillo Michelle DO PROCEDURE: BRAIN WITHOUT CONTRAST 05/03/2025 REASON FOR EXAM: CVA RULE OUT TECHNIQUE: Noncontrast brain MRI. Multiplanar and multisequence images were obtained. COMPARISON: 05/03/2025. FINDINGS: Mild global parenchymal atrophy. Periventricular white matter T2/FLAIR hyperintense foci likely representing bxqd-ts-gkacljve chronic microvascular ischemia. Small bilateral frontal lobe chronic lacunar infarctions. Mild mucosal and ethmoid sinus mucosal thickening. The mastoid air cells are clear. MRI/Brain without Contrast IMPRESSION: No acute intracranial abnormality. Chronic and ancillary findings as above. Reading Location: [id number] CC: Dr. Pillo Michelle DO; Dr. Angel Luis Contreras MD Bread Packer: Signed Normal [facility] CBC W/Diff, Automatedon 04-23 Absolute Lymph 0.92 X10 3/uL Normal 0.83-4.51 [facility] Comment on above: Performed By: #### L 300.4310, L300.3900, L501.5200, L500.2500, L100.0100, L501.4021 #### [facility] [address] [place], [address] Absolute Neut 3.9 X10 3/uL Normal 2.0-7.7 [facility] Comment on above: Performed By: #### L 300.4310, L300.3900, L501.5200, L500.2500, L100.0100, L501.4021 #### [facility] [address] [place], [address] Basophils/100 WBC (Bld) 0.7 % Normal 0-1 [facility] Comment on above: Performed By: #### L 300.4310, L300.3900, L501.5200, L500.2500, L100.0100, L501.4021 #### [facility] [address] [place], [address] Eosinophils/100 WBC (Bld) 4.9 % Normal 0-5 [facility] Comment on above: Performed By: #### L 300.4310, L300.3900, L501.5200, L500.2500, L100.0100, L501.4021 #### [facility] [address] [place], [address] Erythrocyte distribution width (RBC) [Ratio] 13.2 % Normal 11.6-14.6 [facility] Comment on above: Performed By: #### L 300.4310, L300.3900, L501.5200, L500.2500, L100.0100, L501.4021 #### [facility] [address] [place], [address] Hematocrit (Bld) [Volume fraction] 38.9 % Normal 37-47 [facility] Comment on above: Performed By: #### L 300.4310, L300.3900, L501.5200, L500.2500, L100.0100, L501.4021 #### [facility] [address] [place], [address] Hemoglobin (Bld) [Mass/Vol] 12.7 g/dL Normal 12.0-15.0 [facility] Comment on above: Performed By: #### L 300.4310, L300.3900, L501.5200, L500.2500, L100.0100, L501.4021 #### [facility] [address] [facility] [place], [address] IG% 0.200 Normal 0.0-0.9 [facility] Comment on above: Result Comment: IG% - Immature Granulocytes (promyelocytes, myelocytes and metamyelocytes) > 1% indicates that a LEFT SHIFT is Present. Performed By: #### L 300.4310, L300.3900, L501.5200, L500.2500, L100.0100, L501.4021 #### [facility] [address] [place], [address] Lymphocytes/100 WBC (Bld) 16.2 % Low 19-41 [facility] Comment on above: Performed By: #### L 300.4310, L300.3900, L501.5200, L500.2500, L100.0100, L501.4021 #### [facility] [address] [place], [address] MCH (RBC) [Entitic mass] 30.5 pg Normal 27.0-32.0 [facility] Comment on above: Performed By: #### L 300.4310, L300.3900, L501.5200, L500.2500, L100.0100, L501.4021 #### [facility] [address] [place], [address] MCHC (RBC) [Mass/Vol] 32.6 g/dL Normal 32-36 [facility] Comment on above: Performed By: #### L 300.4310, L300.3900, L501.5200, L500.2500, L100.0100, L501.4021 #### [facility] [address] [place], [address] MCV (RBC) [Entitic vol] 93.3 fL Normal 81-99 [facility] Comment on above: Performed By: #### L 300.4310, L300.3900, L501.5200, L500.2500, L100.0100, L501.4021 #### [facility] [address] [place], [address] Monocytes/100 WBC (Bld) 10.2 % High 0-10 [facility] Comment on above: Performed By: #### L 300.4310, L300.3900, L501.5200, L500.2500, L100.0100, L501.4021 #### [facility] [address] [place], [address] Neutrophils/100 WBC (Bld) 67.8 % Normal 47-70 [facility] Comment on above: Performed By: #### L 300.4310, L300.3900, L501.5200, L500.2500, L100.0100, L501.4021 #### [facility] [address] [place], [address] Nucleated RBC (Bld) [#/Vol] 0 10*3/uL Normal 0-5 [facility] Comment on above: Performed By: #### L 300.4310, L300.3900, L501.5200, L500.2500, L100.0100, L501.4021 #### [facility] [address] [place], [address] Platelet mean volume (Bld) [Entitic vol] 9.2 fL Normal 6.2-12.0 [facility] Comment on above: Performed By: #### L 300.4310, L300.3900, L501.5200, L500.2500, L100.0100, L501.4021 #### [facility] [address] [place], [address] Platelets (Bld) [#/Vol] 534 10*3/uL High 150-450 [facility] Comment on above: Performed By: #### L 300.4310, L300.3900, L501.5200, L500.2500, L100.0100, L501.4021 #### [facility] [address] [place], [address] RBC (Bld) [#/Vol] 4.17 10*6/uL Low 4.2-5.4 [facility] Comment on above: Performed By: #### L 300.4310, L300.3900, L501.5200, L500.2500, L100.0100, L501.4021 #### [facility] [address] [place], [address] RDW SD 45.1 fl High 35.1-43.9 [facility] Comment on above: Performed By: #### L 300.4310, L300.3900, L501.5200, L500.2500, L100.0100, L501.4021 #### [facility] [address] [place], [address] WBC (Bld) [#/Vol] 5.7 10*3/uL Normal 4.4-11.0 [facility] Comment on above: Performed By: #### L 300.4310, L300.3900, L501.5200, L500.2500, L100.0100, L501.4021 #### [facility] [address] [place], [address] Carbon dioxide, total [Moles /volume] in Central venous bloodOrdered By: Roni Love on 05-03-2025 CO2 [Moles/Vol] 24.8 mmol/L 21.0-32.0 [facility] Chest 1 Viewon 05-03-2025 Chest 1 View [facility] Imaging Services [address] [place] [address] Chest 1 View MR#: [id number] Acct: [id number] Name: DORYS LENTZ Rep #: [id number] : 1935 F 89 From: Hilario remy MD PCP: Dr. Angel Luis Contreras MD Status: [facility] Study: Chest 1 View Date of Exam: 05/03/25 Exam# [id number] Ordering Dr: Roni Love DO PROCEDURE: CHEST 1 VIEW 05/03/2025 REASON FOR EXAM: NEURO DEFICIT, ACUTE, STROKE SUSPECTED TECHNIQUE: Frontal view of the chest. COMPARISON: None FINDINGS: Hardware: EKG electrodes are seen. Heart: Borderline cardiomegaly. Lungs: Hyperinflation. The lungs are clear. Bones: Degenerative changes are identified within the thoracic spine. Other: Atherosclerotic calcification of the aortic arch. RAD/Chest 1 View IMPRESSION: No Acute Findings. Reading Location: [place] [address] CC: Dr. Roni Love DO; Dr. Angel Luis Contreras MD Bread Packer: Signed Normal [facility] Chloride assayOrdered By: Magnus Love on 05-03-2025 Chloride [Moles/Vol] 101 mmol/L 98-108 [facility] Echo Completeon 05-03-2025 Echo Complete [facility] [address] [address] Echo Complete 05/03/25 1449 MR#: [id number] Acct: [id number] Name: DORYS LENTZ Rep #: [id number] : 1935 89 From: Nilson Peterson MD Attending Dr: Dr. Pillo Michelle, DO Status : ADM BRYNN Ordering Dr: Pillo Michelle DO Date: 05/03/25 Location: [facility] Sex: F C Admitted: 05/03/25 Reason For Study Reason For Study: TIA/CVA Procedure This was a 2D Doppler, Color Flow transthoracic echocardiogram. Exam performed portable in ED. Left Ventricle Mild concentric left ventricular hypertrophy. Normal LV size. The LV systolic function is normal. EF is 65 %. Stage 1 diastolic dysfunction. Right Ventricle Normal right ventricle. Atria The left and right atria are normal. Mitral Valve Moderate focal bileaflet mitral valve calcification. Equivocal prolapse of the posterior leaflet. Mild mitral valve regurgitation. Tricuspid Valve Moderate (2+) tricuspid valve insufficiency. Right ventricular systolic pressure estimated to be 45 mmHg. Aortic Valve Trisinus/trileaflet aortic valve. Pulmonic Valve The pulmonic valve is not well visualized. Great Vessels Normal sized aortic root. Pericardium/Pleural No pericardial effusion. MMode/2D Measurements Calculations LVIDd: 3.6 cm IVSd: 1.2 cm LVOT diam: 2.0 cm LVIDs: 2.7 cm LVPWd: 1.0 cm LVOT area: 3.1 cm2 RVDd: 3.9 cm FS: 26.6 % LA dimension: 4.0 cm asc Aorta Diam: 3.6 cm LAV(MOD-bp): 54.7 ml LAV(MOD-bp) Indexed: 28.5 ml/m2 LAV(MOD-sp2): 71.7 ml LAV(MOD-sp4): 40.8 ml SV(MOD-sp4): 46.4 ml LVAd ap4: 25.2 cm2 LVAd ap2: 22.6 cm2 LVLd ap4: 7.6 cm LVLd ap2: 7.8 cm SI(MOD-sp4): 24.2 ml/m2 EDV(MOD-sp4): 68.3 ml EDV(MOD-sp2): 52.8 ml EDV(sp4-el): 70.6 ml EDV(sp2-el): 55.4 ml LVAs ap4: 13.0 cm2 LVAs ap2: 12.2 cm2 LVLs ap4: 6.6 cm LVLs ap2: 6.5 cm ESV(MOD-sp4): 21.8 ml ESV(MOD-sp2): 19.6 ml ESV(sp4-el): 22.0 ml ESV(sp2-el): 19.4 ml EF(MOD-sp4): 68.0 % EF(MOD-sp2): 62.8 % EF(sp4-el): 68.9 % SV(MOD-sp2): 33.1 ml SV(sp4-el): 48.7 ml Ao sinus diam: 3.4 cm SI(MOD-sp2): 17.3 ml/m2 Ao ST Junction: 2.6 cm LA dimension(2D): 4.0 cm LA A4 area: 16.8 cm2 TAPSE: 2.1 cm RA A4 area: 15.6 cm2 Time Measurements MV dec time: 0.44 sec Doppler Measurements Calculations MV E max chata: 94.6 cm/sec Lat Peak E' Chata: 7.0 cm/sec Med Peak E' Chata: 6.6 cm/sec MV A max chata: 120.7 cm/sec E/E' lat: 13.4 E/E' med: 14.3 MV E/A: 0.78 MV dec slope: 213.7 cm/sec2 Ao V2 max: 119.0 cm/sec LV V1 max: 82.0 cm/sec Ao max P.7 mmHg LV V1 max P.7 mmHg Ao V2 mean: 84.5 cm/sec LV V1 mean P.6 mmHg Ao mean P.2 mmHg LV V1 mean: 60.5 cm/sec Ao V2 VTI: 33.8 cm LV V1 VTI: 21.9 cm AV (velocity ratio): 0.65 YOUNG(I,D): 2.0 cm2 YOUNG(V,D): 2.1 cm2 SV(LVOT): 68.2 ml PA V2 max: 67.9 cm/sec TR max chata: 273.7 cm/sec TR max P.0 mmHg ECHO/Echo Complete Interpretation Summary Mild concentric left ventricular hypertrophy. The LV systolic function is normal. EF is 65 %. Stage 1 diastolic dysfunction. Moderate focal bileaflet mitral valve calcification. Equivocal prolapse of the posterior leaflet. Mild mitral valve regurgitation. Moderate (2+) tricuspid valve insufficiency. Right ventricular systolic pressure estimated to be 45 mmHg. Ordering Physician: Pillo Michelle Referring Physician: Angel Luis Contreras Performed By: Sheila Noonan RDCS 05/04/25 1422 Date Nilson Peterson MD CC: Dr. Pillo Micehlle DO; Dr. Angel Luis Contreras MD Date Dictated: 05/03/25 1449 Date Transcribed: 05/04/25 1422 Bread Packer: Signed Normal [facility] Emergency Department Summary on 05-03-2025 Emergency Department Summary [facility] Medical Records Department [address] [place] [address] Emergency Department Summary 05/03/25 MR#: [id number] Acct: [id number] Name: DORYS LENTZ Rep #: [id number] : 1935 89 From: Roni Love DO PCP: Dr. Angel Luis Contreras MD Status:REG ER Location: ED HPI History of Present Illness Chief Complaint: Stroke Alert Narrative Narrative: Chief complaint and HPI: Strokelike symptoms. 89-year-old female with past medical history of nephrectomy presents for evaluation of strokelike symptoms. Patient's last known normal 9 AM. Patient states that she was outside in her flower bed when she went inside to look at her bills. States that she drank little water today. States she had a episode of right hand/facial numbness with slurring of the speech while doing her bills. Patient states that her slurring is improving and that her face and hand no longer feel numb but feel heavy. Not on any blood thinners. Denies any headache, vision changes, weakness, nausea, vomiting. Arrives via EMS. Review of systems: See HPI Medications: As listed on the chart Allergies: As listed on the chart PFSH: Per chart Vital signs: As listed on the chart. Reviewed. Physical exam: Gen: A O x3, NAD Head: Normocephalic, atraumatic Eyes: No sclera icterus, conjunctiva clear, PERRL, EOMI ENT: Moist mucous membranes, No facial asymmetry Neck: Trachea midline, No JVD CV: RRR, no murmurs, no peripheral edema Resp: Lungs CTA BL, no w/r/c GI: Abd soft, non-distended, non-tender, no r/r/g Musc: Full ROM, no deformity, strength +5/5 in all extremities, no pronator drift, no ataxia Skin: Warm, dry, intact Neuro: Alert, oriented, grossly intact, sensation intact, + dysarthria, NIH 1 Psych: Cooperative, appropriate mood and affect PFSH PFSH Medical History Left knee pain Home Medications ???Medication ???Instructions ???Recorded ???Last Taken ???Type multivitamin with folic acid 400 1 tab PO DAILY supplement 04/06/18 07/30/18 06:00 History mcg tablet (Thera) obdulia Johnson B. animalis 10 1 ea PO DAILY 11/18/18 11/24/18 0 8:00 History billion cell capsule calcium carbonate-vitamin D3 600 1 ea PO DAILY 11/18/18 Unknown His tory mg-125 unit tablet (Calcium) ascorbic acid (vitamin C) 500 mg 500 mg PO DAILY 09/05/20 Unknown H istory capsule cyanocobalamin (vitamin B-12) 1,000 mcg PO DAILY 09/05/20 Unknow n History 1,000 mcg capsule acetaminophen 500 mg tablet 1,000 mg PO Q8H PRN Pain 04/06/22 Unknown History ondansetron 4 mg disintegrating 8 mg (2 x 4 mg) PO .now nausea #2 08/29/24 Unknown Rx tablet tabs ondansetron HCl 8 mg tablet 8 mg PO Q8H PRN nausea and 4 Unknown Rx vomiting #14 tabs fluticasone propionate 50 1 spray intranasal QHS 05/03/25 Un known History mcg/actuation nasal spray,suspension oxybutynin chloride 5 mg 5 mg PO DAILY 05/03/25 Unknown His tory tablet,extended release 24 hr Allergy/AdvReac Type Severity Reaction Status Date / Time No Known Allergies Allergy Verified 05/03/25 11:20 Surgical History 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 Social History Smoking Status: Never smoker EXAM Physical Exam Const Vital Signs: 05/03/25 11:09 05/03/25 11:17 05/03/25 11:19 Temperature 98.2 F 98.2 F Temperature Source Oral Oral Pulse Rate 72 60 Respiratory Rate 17 12 Blood Pressure 161/65 H 143/77 H Blood Pressure Mean 97 99 Pulse Ox 99 98 Oxygen Delivery Method Room Air Room Air 05/03/25 11:22 05/03/25 12:17 05/03/25 12:30 Temperature Temperature Source Pulse Rate 63 64 Respiratory Rate 16 16 Blood Pressure 149/77 H 143/74 H Blood Pressure Mean 101 97 Pulse Ox 98 98 Oxygen Delivery Method Room Air Room Air 05/03/25 12:39 05/03/25 13:00 05/03/25 13:30 Temperature Temperature Source Pulse Rate 63 59 L 54 L Respiratory Rate 16 16 19 H Blood Pressure 155/80 H 155/80 H 164/90 H Blood Pressure Mean 105 105 114 Pulse Ox 99 98 100 Oxygen Delivery Method Room Air Room Air Room Air 05/03/25 13:40 Temperature 97.9 F Temperature Source Pulse Rate 54 L Respiratory Rate 19 H Blood Pressure 164/90 H Blood Pressure Mean 114 Pulse Ox 100 Oxygen Delivery Method MDM MDM MDM Narrative Medical decision making narrative: 89-year-old female with past medical history of nephrectomy presents for evaluation of strokelike symptoms. Patient's last known normal 9 AM. Symptoms consisted of slurring of the speech, face/hand numbness. Face/hand numbness (more content not included)... Normal [facility] Eosinophil percentageOrdered By: Roni Love on 05-03-2025 Eosinophils/100 WBC (Bld) 4.9 % 0-5 [facility] Erythrocyte distribution wid th ratioOrdered By: Roni Love on 05-03-2025 Erythrocyte distribution width (RBC) [Ratio] 13.2 % 11.6-14.6 [facility] Erythrocyte distribution wid th standard deviationOrdered By: Roni Trejo on 05-03-2025 Erythrocyte distribution width (RBC) [Ratio] 45.1 fl High 35.1-43.9 [facility] Glomerular filtration rate ( GFR) estimation/1.73 sq m using serum, plasma, or whole bOrdered By: Roni Love on 05-03-2025 GFR/1.73 sq M.predicted among non-blacks MDRD (S/P/Bld) [Vol rate/Area] 46 mL/min/{1.73_m2} Low >60 [facility] Comment on above: mL/min/1.73m2 CKD-EP I Creatinine Equation (2020) H AND P Exam - Hospital[place] 05-03-2025 H&P Exam - Hospitalist [facility] Medical Records Department [address] [place] [address] H P Exam - Hospitalist 05/03/25 1343 MR#: [id number] Acct: [id number] Name: DORYS LENTZ Rep #: [id number] : 1935 89 From: Pillo Michelle DO PCP: Dr. Angel Luis Contreras MD Status:ADM BRYNN Location: [place] [address]-1 HPI - General General Date of Admission: 05/03/25 Date of Service: 05/03/25 Chief Complaint: Strokelike symptoms HPI Narrative DORYS LENTZ, is a 89 F who presented to [facility] ED on 05/03/2025 with strokelike symptoms. Patient lives at home with her daughter. Has good functional status at baseline. She was out working in her flower bed for part of the morning today. When she went inside to look at her bills, she began to have right hand numbness, right facial numbness and slurring of speech. She was home alone and called her daughter who recommended that EMS bring her to the ED. Presented as a stroke alert. Hemodynamically stable on arrival and had NIH score of 1 due to dysarthria. Right hand and right facial numbness had resolved after about 10 to [address] brain was unremarkable. CTA head/neck was deferred as patient has history of only 1 kidney, though creatinine was at baseline. Given the symptoms, hospitalist was contacted for admission. I saw the patient at bedside in the ED, daughter was present. Patient was sitting back comfortably in bed, conversing normally, in no acute distress. Had no slurred speech noted and stated she felt back to baseline. Denies any recent illnesses. Denies any history of stroke. Noted that she does not drink very much at baseline and was feeling a bit dehydrated today. No other acute concerns at this time. [facility] Medical History Left knee pain Home Medications ???Medication ???Instructions ???Recorded ???Last Taken ???Type multivitamin with folic acid 400 1 tab PO DAILY supplement 04/06/18 07/30/18 06:00 History mcg tablet (Thera) L.acidoph,paracasei,B. animalis 10 1 ea PO DAILY 11/18/18 11/24/18 0 8:00 History billion cell capsule calcium carbonate-vitamin D3 600 1 ea PO DAILY 11/18/18 Unknown His tory mg-125 unit tablet (Calcium) ascorbic acid (vitamin C) 500 mg 500 mg PO DAILY 09/05/20 Unknown H istory capsule cyanocobalamin (vitamin B-12) 1,000 mcg PO DAILY 09/05/20 Unknow n History 1,000 mcg capsule acetaminophen 500 mg tablet 1,000 mg PO Q8H PRN Pain 04/06/22 Unknown History ondansetron 4 mg disintegrating 8 mg (2 x 4 mg) PO .now nausea #2 08/29/24 Unknown Rx tablet tabs ondansetron HCl 8 mg tablet 8 mg PO Q8H PRN nausea and 4 Unknown Rx vomiting #14 tabs fluticasone propionate 50 1 spray intranasal QHS 05/03/25 Un known History mcg/actuation nasal spray,suspension oxybutynin chloride 5 mg 5 mg PO DAILY 05/03/25 Unknown His tory tablet,extended release 24 hr Allergy/AdvReac Type Severity Reaction Status Date / Time No Known Allergies Allergy Verified 05/03/25 11:20 Family History no significant family his Surgical History 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 Social History Smoking Status: Never smoker ROS Constitutional Constitutional: Denies chills, fatigue, fever(s) or weakness Eyes Eyes: Denies change in vision Cardiovascular Cardiovascular: Denies chest pain Respiratory/Chest Respiratory/Chest: Denies shortness of breath at rest Gastrointestinal Gastrointestinal: Denies abdominal pain Musculoskeletal Musculoskeletal: Denies arthralgias or myalgias Neurologic Neurologic: Denies abnormal speech, confusion, disequilibrium, dizziness, focal weakness, headache(s), numbness, paresthesias or tingling Vital Signs Vital Signs Vital Signs: 05/03/25 11:09 05/03/25 11:17 05/03/25 11:19 Temperature 98.2 F 98.2 F Temperature Source Oral Oral Pulse Rate 72 60 Respiratory Rate 17 12 Blood Pressure 161/65 H 143/77 H Blood Pressure Mean 97 99 Pulse Ox 99 98 Oxygen Delivery Method Room Air Room Air 05/03/25 11:22 05/03/25 12:17 05/03/25 12:30 Temperature Temperature Source Pulse Rate 63 64 Respiratory Rate 16 16 Blood Pressure 149/77 H 143/74 H Blood Pressure Mean 101 97 Pulse Ox 98 98 Oxygen Delivery Method Room Air Room Air 05/03/25 12:39 05/03/25 13:00 05/03/25 13:30 Temperature Temperature Source Pulse Rate 63 59 L 54 L Respiratory Rate 16 16 19 H Blood Pressure 155/80 H 155/80 H 164/90 H Blood Pressure Mean 105 105 114 Pulse Ox 99 98 100 Oxygen Delivery Method Room Air Room Air Room Air 05/03/25 13:40 (more content not included)... Normal [facility] Hematocrit Auto (Bld) [Volum e fraction]Ordered By: Roni Love on 05-03-2025 Hematocrit (Bld) [Volume fraction] 38.9 % 37-47 [facility] Hemoglobin A1con 05-03-2025 HbA1c (Bld) [Mass fraction] 5.5 % Normal <=5.6 [facility] Comment on above: Result Comment: Norm al < 5.7 % Prediabetic 5.7 - 6.4 % Diabetic >or= 6.5 % Please note range changes. Performed By: #### L 501.9985, L501.9520 #### [facility] [address] [place] [address], [address] Hemoglobin A1c percentageOrd ered By: Pillo Michelle on 05-03-2025 HbA1c (Bld) [Mass fraction] 5.5 % <5.7 [facility] Comment on above: Normal < 5.7 % Predi abetic 5.7 - 6.4 % Diabetic >or= 6.5 % Please note range changes. Hemoglobin measurementOrdere d By: Roni Love on 05-03-2025 Hemoglobin (Bld) [Mass/Vol] 12.7 g/dL 12.0-15.0 [facility] Immature granulocytes/100 WB C Auto (Bld)Ordered By: Roni Love on 05-03-2025 Immature granulocytes/100 WBC (Bld) 0.200 % 0.0-0.9 [facility] Comment on above: IG% - Immature Granu locytes (promyelocytes, myelocytes and metamyelocytes) > 1% indicates that a LEFT SHIFT is Present. International normalized rat io (INR) calculationOrdered By: Roni Love on 05-03-2025 INR Coag (Bld) [Relative time] 1.0 {INR} [facility] L499.0042on 05-03-2025 Trop T High Sen 19 ng/L High <=14 [facility] Comment on above: Performed By: #### L 499.0042 #### [facility] [address] [place], [address] L499.0043on 05-03-2025 Trop T High Sen Normal <=14 [facility] Comment on above: Result Comment: Canc elled via OM: Ordered Performed By: #### L 500.4100, L500.2500, L100.0500 #### [facility] [address] [place], [address] L501.4021on 05-03-2025 Trop T High Sen 20 ng/L High <=14 [facility] Comment on above: Performed By: #### L 500.4100, L500.2500, L100.0500 #### [facility] [address] [place], [address] MCV (mean corpuscular volume ) determinationOrdered By: Roni Love on 05-03-2025 MCV (RBC) [Entitic vol] 93.3 fL 81-99 [facility] MRA Head ONLY without Contra ston 05-03-2025 MRA Head ONLY without Contrast [facility] Imaging Services [address] [place] [address] MRA Head ONLY without Contrast MR#: [id number] Acct: [id number] Name: DORYS LENTZ Rep #: [id number] : 1935 89 From: Matthew Al MD PCP: Dr. Angel Luis Contreras MD Status: ADM BRYNN Study: MRA Head ONLY without Contrast Date of Exam: 0 05/03/25 Exam# [id number] Ordering Dr: Pillo Michelle DO PROCEDURE: MRA HEAD ONLY WITHOUT CONTRAST 05/03/2025 REASON FOR EXAM: CVA RULE OUT COMPARISON: None. TECHNIQUE: 3D Time of Flight MRA of the head. Multiplanar multisequential imaging was performed without IV contrast administration. FINDINGS: The carotid siphons are patent. 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 The remainder of the anterior cerebral arteries are patent. The anterior communicating, middle cerebral, and posterior cerebral arteries are patent. The vertebrobasilar system is patent. No visualized aneurysm (MRA not sensitive for aneurysms less than 3 mm). MRI/MRA Head ONLY without Contrast IMPRESSION: No acute arterial abnormality of the head. 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 Reading Location: [id number] CC: Dr. Pillo Michelle DO; Dr. Angel Luis Contreras MD Bread Packer: Signed Normal [facility] MRA Neck without Contraston 05-03-2025 MRA Neck without Contrast [facility] Imaging Services [address] [place] [address] MRA Neck without Contrast MR#: [id number] Acct: [id number] Name: DORYS LENTZ ANN Rep #: [id number] : 1935 89 From: Matthew Al MD PCP: Dr. Angel Luis Contreras MD Status: ADM BRYNN Study: MRA Neck without Contrast Date of Exam: Exam# [id number] Ordering Dr: Pillo Michelle DO PROCEDURE: MRA NECK WITHOUT CONTRAST 05/03/2025 REASON FOR EXAM: CVA R/O, COULD NOT GET CTA HEAD/NECK COMPARISON: None. TECHNIQUE: Neck MRA without contrast using 2D and 3D Time of Flight technique. FINDINGS: Flow: 2D Time of Flight images demonstrate antegrade carotid and vertebral artery flow. Carotids: No evidence of significant stenosis on time of flight imaging. Limited noncontrast exam. Vertebrals: Codominant without evidence of high grade stenosis. Arch: Not included in the volume of these images. MRI/MRA Neck without Contrast IMPRESSION: No significant stenosis. Reading Location: [place] [address] CC: Dr. Pillo Michelle DO; Dr. Angel Luis Contreras MD Bread Packer: Signed Normal [facility] Magnesiumon 05-03-2025 Magnesium [Mass/Vol] 2.1 mg/dL Normal 1.5-2.2 [facility] Comment on above: Performed By: #### L 500.4100, L500.2500, L100.0500 #### [facility] [address] [place], [place], [address] Magnesium measurement (mass/ volume)Ordered By: Roni Love on 05-03-2025 Magnesium (Unsp spec) [Mass/Vol] 2.1 mg/dL 1.5-2.2 [facility] Magnetic resonance imaging r eportOrdered By: Matthew Al on 05-03-2025 Study report [facility] [address] [place], [place] [id number] Brain without Contrast MR#: [id number] Acct: [id number] Name: DORYS LENTZ Rep #: [id number] : 1935 F 89 From: Popeye Al MD PCP: Dr. Angel Luis Contreras MD Status: AD M BRYNN Study:Brain without Contrast Date of Exam: 05/03/25 Exam# [id number] Ordering Dr: Pillo Hernandes DO PROCEDURE: BRAIN WITHOUT CONTRAST 05/03/2025 REASON FOR EXAM: CVA RULE OUT TECHNIQUE: Noncontrast brain MRI. Multiplanar and multisequence images were obtained. COMPARISON: 05/03/2025. FINDINGS: Mild global parenchymal atrophy. Periventricular white matter T2/FLAIR hyperintense foci likely representing [id number] chronic microvascular ischemia. Small bilateral frontal lobe chronic lacunar infarctions. Mild mucosal and ethmoid sinus mucosal thickening. The mastoid air cells are clear. MRI/Brain without Contrast IMPRESSION: No acute intracranial abnormality. Chronic and ancillary findings as above. Reading Location: [id number] CC: Dr. Pillo Michelle DO; Dr. Angel Luis Contreras MD ~ Bread Packer: Signed [facility] Study report [facility] Services [address] [place] [address] MRA Neck without Contrast MR#: [id number] Acct: [id number] Name: DOYRS LENTZ ANN Rep #: [id number] : 1935 89 From: Popeye Al MD PCP: Dr. Angel Luis Contreras MD Status: BERENICE Phelps BRYNN Study:MRA Neck without Contrast Date of Exam: 05/03/25 Exam# [id number] Ordering Dr: Pillo Hernandes DO PROCEDURE: MRA NECK WITHOUT CONTRAST 05/03/2025 REASON FOR EXAM: CVA R/O, COULD NOT GET CTA HEAD/NECK COMPARISON: None. TECHNIQUE: Neck MRA without contrast using 2D and 3D Time of Flight technique. FINDINGS: Flow: 2D Time of Flight images demonstrate antegrade carotid and vertebral artery flow. Carotids: No evidence of significant stenosis on time of flight imaging. Limited noncontrast exam. Vertebrals: Codominant without evidence of high grade stenosis. Arch: Not included in the volume of these images. MRI/MRA Neck without Contrast IMPRESSION: No significant stenosis. Reading Location: [id number] CC: Dr. Pillo Michelle DO; Dr. Angel Luis Contreras MD ~ Bread Packer: Signed [facility] Study report [facility] Imaging Services [address] [place], [place] [id number] MRA Head ONLY without Contrast MR#: [id number] Acct: [id number] Name: DORYS LENTZ Rep #: [id number] : 1935 F 89 From: Popeye Al MD PCP: Dr. Angel Luis Contreras MD Status: BERENICE M BRYNN Study:MRA Head ONLY without Contrast Date of Exam: 05/03/25 Exam# [id number] Ordering Dr: Pillo Hernandes DO PROCEDURE: MRA HEAD ONLY WITHOUT CONTRAST 05/03/2025 REASON FOR EXAM: CVA RULE OUT COMPARISON: None. TECHNIQUE: 3D Time of Flight MRA of the head. Multiplanar multisequential imaging was performed without IV contrast administration. FINDINGS: The carotid siphons are patent. 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 The remainder of the anterior cerebral arteries are patent. The anterior communicating, middle cerebral, and posterior cerebral arteries are patent. The vertebrobasilar system is patent. No visualized aneurysm (MRA not sensitive foraneurysms less than 3 mm). MRI/MRA Head ONLY without Contrast IMPRESSION: No acute arterial abnormality of the head. 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 Reading Location: [place] [address] CC: Dr. Pillo Michelle DO; Dr. Angel Luis Contreras MD ~ Bread Packer: Signed [facility] Mean corpuscular hemoglobin (MCH) determinationOrdered By: Ronijune Love on 05-03-2025 MCH (RBC) [Entitic mass] 30.5 pg 27.0-32.0 [facility] Mean corpuscular hemoglobin concentration (MCHC) determinationOrdered By: Roni Love on 05-03-2025 MCHC (RBC) [Mass/Vol] 32.6 g/dL 32-36 [facility] Mean platelet volume determi nationOrdered By: Roni Love on 05-03-2025 Platelet mean volume (Bld) [Entitic vol] 9.2 fL 6.2-12.0 [facility] Monocyte percentageOrdered B y: Roni Love on 05-03-2025 Monocytes/100 WBC (Bld) 10.2 % High 0-10 [facility] Neutrophil percentageOrdered By: Roni Love on 05-03-2025 Neutrophils/100 WBC (Bld) 67.8 % 47-70 [facility] Nucleated red blood cell per centageOrdered By: Roni Love on 05-03-2025 Nucleated RBC/100 WBC (Bld) [Ratio] 0 % 0-5 [facility] Partial Thromboplast Timeon 05-03-2025 aPTT Coag (Bld) [Time] 29.3 s Normal 24.1-36.2 [facility] Comment on above: Performed By: #### L 300.4310, L300.3900, L501.5200, L500.2500, L100.0100, L501.4021 #### [facility] [address] [place], [address] Platelet countOrdered By: Magnus Love on 05-03-2025 Platelets (Bld) [#/Vol] 534 10*3/uL High 150-450 [facility] Potassium measurement (mass/ volume)Ordered By: Roni Love on 05-03-2025 Potassium (Unsp spec) [Mass/Vol] 4.2 mmol/L 3.3-5.1 [facility] Prothrombin Time w/INRon INR Coag (PPP) [Relative time] 1.0 {INR} Normal [facility] Comment on above: Performed By: #### L 300.4310, L300.3900, L501.5200, L500.2500, L100.0100, L501.4021 #### [facility] [address] [place], [address] PT Coag (PPP) [Time] 13.3 s Normal 11.7-14.9 [facility] Comment on above: Performed By: #### L 300.4310, L300.3900, L501.5200, L500.2500, L100.0100, L501.4021 #### [facility] [address] [place], [address] Prothrombin timeOrdered By: Roni Love on 05-03-2025 PT Coag (PPP) [Time] 13.3 s 11.7-14.9 [facility] RBC Auto (Bld) [#/Vol]Ordere d By: Roni Love on 05-03-2025 RBC (Bld) [#/Vol] 4.17 10*6/uL Low 4.2-5.4 [facility] STROKE Brain/Head without Co nton 05-03-2025 STROKE Brain/Head without Cont [facility] [address] [place] [address] STROKE Brain/Head without Cont MR#: [id number] Acct: [id number] Name: DORYS LENTZ Rep #: [id number] : 1935 F 89 From: Hilario remy MD PCP: Dr. Angel Luis Contreras MD Status: REG ER Study: STROKE Brain/Head without Cont Date of Exam: 0 05/03/25 Exam# [id number] Ordering Dr: Roni Love DO PROCEDURE: STROKE BRAIN/HEAD WITHOUT CONT 05/03/2025 REASON FOR EXAM: NEURO DEFICIT, ACUTE, STROKE SUSPECTED TECHNIQUE: Head CT without intravenous contrast. Coronal and Sagittal reconstruction series were provided. One or more dose reduction techniques were used (e.g., Automated exposure control, adjustment of the mA and/or kV according to patient size, use of iterative reconstruction technique. RADIATION DOSE SUMMARY: CTDlvol: 44.99 mGy DLP: 846.73 mGycm COMPARISON: None FINDINGS: Brain: Low density in the periventricular white matter suggests mild chronic small vessel ischemic changes. CSF Spaces: Mild generalized cerebral atrophy Sinuses/Mastoids: Minimal mucosal thickening along the inferior aspect of both maxillary sinuses. Bones: Hyperostosis frontalis interna. CT/STROKE Brain/Head without Cont IMPRESSION: CHRONIC CHANGES. NO ACUTE FINDINGS. Red Alert: Chronic changes The critical information above was relayed directly by me by telephone to Roni Love on 05/03/2025 at 11:44 am with readback verification. Reading Location: [id number] CC: Dr. Roni Love, DO; Dr. Angel Luis Contreras MD Bread Packer: Signed Normal [facility] Serum creatinine measurement (mass/volume)Ordered By: Roni Love on 05-03-2025 Creatinine [Mass/Vol] 1.14 mg/dL 0.70-1.20 [facility] Serum glucose measurement (m ass/volume)Ordered By: Roni Love on 05-03-2025 Glucose [Mass/Vol] 90 mg/dL 70-99 [facility] Serum or plasma calcium dawson urement (mass/volume)Ordered By: Roni Trejo on 05-03-2025 Calcium [Mass/Vol] 9.4 mg/dL 7.6-11.0 [facility] Serum or plasma urea nitroge n measurement (mass/volume)Ordered By: Roni Love on 05-03-2025 Urea nitrogen [Mass/Vol] 16 mg/dL 4-19 [facility] Sodium levelOrdered By: Jason Love on 05-03-2025 Sodium [Moles/Vol] 138 mmol/L 133-145 [facility] TSH DL <= 0.005 mIU/L QnOrde red By: Pillo Michelle on 05-03-2025 TSH Qn 2.140 uIU/mL 0.300-4.200 [facility] Thyroid Stim Hormone (TSH)on 05-03-2025 TSH 2.140 uIU/mL Normal 0.300-4.200 [facility] Comment on above: Performed By: #### L 501.9985, L501.9520 #### [facility] [address] [place], [address] Troponin T.cardiac [Mass/vol ume] in Serum or Plasma by High sensitivity methodOrdered By: Roni Love on 05-03-2025 Troponin T.cardiac High sensitivity method [Mass/Vol] 19 ng/L High <14 [facility] Troponin T.cardiac High sensitivity method [Mass/Vol] 20 ng/L High <14 [facility] White blood cell (WBC) count Ordered By: Roni Love on 05-03-2025 WBC (Bld) [#/Vol] 5.7 10*3/uL 4.4-11.0 [facility] Absolute lymphocyte countOrd ered By: Angel Luis Contreras on 04-20-2025 Lymphocytes Auto (Unsp spec) [#/Vol] 0.59 10*3/uL Low 0.83-4.51 [facility] Absolute neutrophil countOrd ered By: Angel Luis Contreras on 04-20-2025 Neutrophils (Bld) [#/Vol] 5.8 10*3/uL 2.0-7.7 [facility] Anion gap in Serum or Plasma Ordered By: Angel Luis Contreras on 04-20-2025 Anion gap [Moles/Vol] 10 mmol/L 5-15 [facility] Automated lymphocyte count a s percentage of total leukocytesOrdered By: Angel Luis Contreras on 04-20-2025 Lymphocytes/100 WBC Auto (Unsp spec) 8.0 % Low 19-41 [facility] BUN/creatinine ratioOrdered By: Angel Luis Contreras on 04-20-2025 Urea nitrogen/Creatinine [Mass ratio] 18.5 mg/mg 10-20 [facility] Basophil percentageOrdered B y: Angel Luis Contreras on 04-20-2025 Basophils/100 WBC (Bld) 0.7 % 0-1 [facility] Bilirubin Test strip Ql (U)O rdered By: Angel Luis Contreras on 04-20-2025 Bilirubin Ql (U) Negative Negative [facility] Bilirubin, totalOrdered By: Angel Luis Contreras on 04-20-2025 Bilirubin [Mass/Vol] 0.39 mg/dL 0.00-1.30 [facility] CBC W/Diff, Automatedon 03-24 Absolute Lymph 0.59 X10 3/uL Low 0.83-4.51 [facility] Comment on above: Order Comment: Order Date: 04/19/25Order Info: [id number] - CBCD Performed By: #### L 500.4100, L500.2500, L100.0500 #### [facility] [address] [place], [address] Absolute Neut 5.8 X10 3/uL Normal 2.0-7.7 [facility] Comment on above: Order Comment: Order Date: 04/19/25Order Info: [id number] - CBCD Performed By: #### L 500.4100, L500.2500, L100.0500 #### [facility] [address] [place], [address] Basophils/100 WBC (Bld) 0.7 % Normal 0-1 [facility] Comment on above: Order Comment: Order Date: 04/19/25Order Info: [id number]- - CBCD Performed By: #### L 500.4100, L500.2500, L100.0500 #### [facility] [address] [place], [address] Eosinophils/100 WBC (Bld) 2.9 % Normal 0-5 [facility] Comment on above: Order Comment: Order Date: 04/19/25Order Info: [id number]- - CBCD Performed By: #### L 500.4100, L500.2500, L100.0500 #### [facility] [address] [place], [address] Erythrocyte distribution width (RBC) [Ratio] 13.0 % Normal 11.6-14.6 [facility] Comment on above: Order Comment: Order Date: 04/19/25Order Info: [id number]- - CBCD Performed By: #### L 500.4100, L500.2500, L100.0500 #### [facility] [address] [place], [address] Hematocrit (Bld) [Volume fraction] 38.4 % Normal 37-47 [facility] Comment on above: Order Comment: Order Date: 04/19/25Order Info: [id number]- - CBCD Performed By: #### L 500.4100, L500.2500, L100.0500 #### [facility] [address] [place], [address] Hemoglobin (Bld) [Mass/Vol] 12.3 g/dL Normal 12.0-15.0 [facility] Comment on above: Order Comment: Order Date: 04/19/25Order Info: [id number]- - CBCD Performed By: #### L 500.4100, L500.2500, L100.0500 #### [facility] [address] [place], [address] IG% 0.500 Normal 0.0-0.9 [facility] Comment on above: Order Comment: Order Date: 04/19/25Order Info: [id number]- - CBCD Result Comment: IG% - Immature Granulocytes (promyelocytes, myelocytes and metamyelocytes) > 1% indicates that a LEFT SHIFT is Present. Performed By: #### L 500.4100, L500.2500, L100.0500 #### [facility] [address] [place], [address] Lymphocytes/100 WBC (Bld) 8.0 % Low 19-41 [facility] Comment on above: Order Comment: Order Date: 04/19/25Order Info: [id number]- - CBCD Performed By: #### L 500.4100, L500.2500, L100.0500 #### [facility] [address] [place], [address] MCH (RBC) [Entitic mass] 30.4 pg Normal 27.0-32.0 [facility] Comment on above: Order Comment: Order Date: 04/19/25Order Info: [id number] - CBCD Performed By: #### L 500.4100, L500.2500, L100.0500 #### [facility] [address] [place], [address] MCHC (RBC) [Mass/Vol] 32.0 g/dL Normal 32-36 [facility] Comment on above: Order Comment: Order Date: 04/19/25Order Info: [id number] - CBCD Performed By: #### L 500.4100, L500.2500, L100.0500 #### [facility] [address] [place], [address] MCV (RBC) [Entitic vol] 95.0 fL Normal 81-99 [facility] Comment on above: Order Comment: Order Date: 04/19/25Order Info: [id number]- - CBCD Performed By: #### L 500.4100, L500.2500, L100.0500 #### [facility] [address] [place], [address] Monocytes/100 WBC (Bld) 8.6 % Normal 0-10 [facility] Comment on above: Order Comment: Order Date: 04/19/25Order Info: [id number]- - CBCD Performed By: #### L 500.4100, L500.2500, L100.0500 #### [facility] [address] [place], [address] Neutrophils/100 WBC (Bld) 79.3 % High 47-70 [facility] Comment on above: Order Comment: Order Date: 04/19/25Order Info: [id number]- - CBCD Performed By: #### L 500.4100, L500.2500, L100.0500 #### [facility] [address] [place], [address] Nucleated RBC (Bld) [#/Vol] 0 10*3/uL Normal 0-5 [facility] Comment on above: Order Comment: Order Date: 04/19/25Order Info: [id number]- - CBCD Performed By: #### L 500.4100, L500.2500, L100.0500 #### [facility] [address] [place], [address] Platelet mean volume (Bld) [Entitic vol] 10.2 fL Normal 6.2-12.0 [facility] Comment on above: Order Comment: Order Date: 04/19/25Order Info: [id number] - CBCD Performed By: #### L 500.4100, L500.2500, L100.0500 #### [facility] [address] [place], [address] Platelets (Bld) [#/Vol] 460 10*3/uL High 150-450 [facility] Comment on above: Order Comment: Order Date: 04/19/25Order Info: [id number] - CBCD Performed By: #### L 500.4100, L500.2500, L100.0500 #### [facility] [address] [place], [address] RBC (Bld) [#/Vol] 4.04 10*6/uL Low 4.2-5.4 [facility] Comment on above: Order Comment: Order Date: 04/19/25Order Info: [id number] - CBCD Performed By: #### L 500.4100, L500.2500, L100.0500 #### [facility] [address] [place], [address] RDW SD 45.0 fl High 35.1-43.9 [facility] Comment on above: Order Comment: Order Date: 04/19/25Order Info: [id number] - CBCD Performed By: #### L 500.4100, L500.2500, L100.0500 #### [facility] [address] [place], [address] WBC (Bld) [#/Vol] 7.3 10*3/uL Normal 4.4-11.0 [facility] Comment on above: Order Comment: Order Date: 04/19/25Order Info: [id number] - CBCD Performed By: #### L 500.4100, L500.2500, L100.0500 #### [facility] [address] [place], [address] Carbon dioxide, total [Moles /volume] in Central venous bloodOrdered By: Angel Luis Contreras on 04-20-2025 CO2 [Moles/Vol] 26.4 mmol/L 21.0-32.0 [facility] Chloride assayOrdered By: Dorys Contreras on 04-20-2025 Chloride [Moles/Vol] 101 mmol/L 98-108 [facility] Comprehensive Metabolic Prof ilon 04-20-2025 Albumin [Mass/Vol] 4.1 g/dL Normal 3.4-4.8 [facility] Comment on above: Order Comment: Order Date: 04/19/25Order Info: [id number] - CMPOrder Info: [id number] - PHOS Performed By: #### L 500.4100, L500.2500, L100.0500 #### [facility] [address] [place], [address] Albumin/Globulin [Mass ratio] 1.5 {ratio} Normal 0.9-2.4 [facility] Comment on above: Order Comment: Order Date: 04/19/25Order Info: [id number]- - CMPOrder Info: [id number] - PHOS Performed By: #### L 500.4100, L500.2500, L100.0500 #### [facility] [address] [place], [address] ALK PHOS 59 U/L Normal 35-104 [facility] Comment on above: Order Comment: Order Date: 04/19/25Order Info: [id number] - CMPOrder Info: [id number] - PHOS Performed By: #### L 500.4100, L500.2500, L100.0500 #### [facility] [address] [place], [address] ALT [Catalytic activity/Vol] 14 U/L Normal <=34 [facility] Comment on above: Order Comment: Order Date: 04/19/25Order Info: [id number] - CMPOrder Info: [id number] - PHOS Performed By: #### L 500.4100, L500.2500, L100.0500 #### [facility] [address] [place], [address] AST [Catalytic activity/Vol] 20 U/L Normal <=31 [facility] Comment on above: Order Comment: Order Date: 04/19/25Order Info: [id number] - CMPOrder Info: [id number]- - PHOS Performed By: #### L 500.4100, L500.2500, L100.0500 #### [facility] [address] [place], [address] Bilirubin [Mass/Vol] 0.39 mg/dL Normal 0.00-1.30 [facility] Comment on above: Order Comment: Order Date: 04/19/25Order Info: [id number] - CMPOrder Info: [id number]- - PHOS Performed By: #### L 500.4100, L500.2500, L100.0500 #### [facility] [address] [place], [address] BUN/CRE 18.5 RATIO Normal 10-20 [facility] Comment on above: Order Comment: Order Date: 04/19/25Order Info: [id number]- - CMPOrder Info: [id number] - PHOS Performed By: #### L 500.4100, L500.2500, L100.0500 #### [facility] [address] [place], [address] Calcium [Mass/Vol] 9.2 mg/dL Normal 7.6-11.0 [facility] Comment on above: Order Comment: Order Date: 04/19/25Order Info: [id number] - CMPOrder Info: [id number] - PHOS Performed By: #### L 500.4100, L500.2500, L100.0500 #### [facility] [address] [place], [address] Chloride [Moles/Vol] 101 mmol/L Normal 98-108 [facility] Comment on above: Order Comment: Order Date: 04/19/25Order Info: [id number] - CMPOrder Info: [id number] - PHOS Performed By: #### L 500.4100, L500.2500, L100.0500 #### [facility] [address] [place], [address] CO2 [Moles/Vol] 26.4 mmol/L Normal 21.0-32.0 [facility] Comment on above: Order Comment: Order Date: 04/19/25Order Info: [id number] - CMPOrder Info: [id number] - PHOS Performed By: #### L 500.4100, L500.2500, L100.0500 #### [facility] [address] [place], [address] Creatinine [Mass/Vol] 1.24 mg/dL High 0.70-1.20 [facility] Comment on above: Order Comment: Order Date: 04/19/25Order Info: [id number]- - CMPOrder Info: [id number] - PHOS Performed By: #### L 500.4100, L500.2500, L100.0500 #### [facility] [address] [place], [address] GAP 10 Normal 5-15 [facility] Comment on above: Order Comment: Order Date: 04/19/25Order Info: [id number]- - CMPOrder Info: [id number]- - PHOS Performed By: #### L 500.4100, L500.2500, L100.0500 #### [facility] [address] [place], [address] GFR/1.73 sq M.predicted among non-blacks MDRD (S/P/Bld) [Vol rate/Area] 42 mL/min/{1.73_m2} Low >60 [facility] Comment on above: Order Comment: Order Date: 04/19/25Order Info: [id number] - CMPOrder Info: [id number] - PHOS Result Comment: mL/m in/1.73m2 CKD-EPI Creatinine Equation (2020) Performed By: #### L 500.4100, L500.2500, L100.0500 #### [facility] [address] [place], [address] Globulin (S) [Mass/Vol] 2.7 g/dL Normal 2.2-4.2 [facility] Comment on above: Order Comment: Order Date: 04/19/25Order Info: [id number] - CMPOrder Info: [id number] - PHOS Performed By: #### L 500.4100, L500.2500, L100.0500 #### [facility] [address] [place], [address] Glucose [Mass/Vol] 103 mg/dL High 70-99 [facility] Comment on above: Order Comment: Order Date: 04/19/25Order Info: [id number]- - CMPOrder Info: [id number] - PHOS Performed By: #### L 500.4100, L500.2500, L100.0500 #### [facility] [address] [place], [address] Potassium [Moles/Vol] 4.5 mmol/L Normal 3.3-5.1 [facility] Comment on above: Order Comment: Order Date: 04/19/25Order Info: [id number] - CMPOrder Info: [id number] - PHOS Performed By: #### L 500.4100, L500.2500, L100.0500 #### [facility] [address] [place], [address] Sodium [Moles/Vol] 138 mmol/L Normal 133-145 [facility] Comment on above: Order Comment: Order Date: 04/19/25Order Info: [id number] - CMPOrder Info: [id number] - PHOS Performed By: #### L 500.4100, L500.2500, L100.0500 #### [facility] [address] [place], [address] T PROT 6.8 g/dL Normal 5.9-8.4 [facility] Comment on above: Order Comment: Order Date: 04/19/25Order Info: [id number] - CMPOrder Info: [id number] - PHOS Performed By: #### L 500.4100, L500.2500, L100.0500 #### [facility] [address] [place], [place], [id number] Urea nitrogen [Mass/Vol] 23 mg/dL High 4-19 [facility] Comment on above: Order Comment: Order Date: 04/19/25Order Info: [id number] - CMPOrder Info: [id number] - PHOS Performed By: #### L 500.4100, L500.2500, L100.0500 #### [facility] [address] [place], [address] Eosinophil percentageOrdered By: Angel Luis Contreras on 04-20-2025 Eosinophils/100 WBC (Bld) 2.9 % 0-5 [facility] Erythrocyte distribution wid th ratioOrdered By: Angel Luis Contreras on 04-20-2025 Erythrocyte distribution width (RBC) [Ratio] 13.0 % 11.6-14.6 [facility] Erythrocyte distribution wid th standard deviationOrdered By: Angel Luis Contreras on 04-20-2025 Erythrocyte distribution width (RBC) [Ratio] 45.0 fl High 35.1-43.9 [facility] Glomerular filtration rate ( GFR) estimation/1.73 sq m using serum, plasma, or whole bOrdered By: Angel Luis Contreras on 04-20-2025 GFR/1.73 sq M.predicted among non-blacks MDRD (S/P/Bld) [Vol rate/Area] 42 mL/min/{1.73_m2} Low >60 [facility] Comment on above: mL/min/1.73m2 CKD-EP I Creatinine Equation (2020) Hematocrit Auto (Bld) [Volum e fraction]Ordered By: Angel Luis Contreras on 04-20-2025 Hematocrit (Bld) [Volume fraction] 38.4 % 37-47 [facility] Hemoglobin measurementOrdere d By: Angel Luis Contreras on 04-20-2025 Hemoglobin (Bld) [Mass/Vol] 12.3 g/dL 12.0-15.0 [facility] Hyaline casts LM.LPF (Urine sed) [#/Area]Ordered By: Angel Luis Contreras on 04-20-2025 Hyaline casts (Urine sed) [#/Area] 0 /[LPF] 0-5 [facility] Immature granulocytes/100 WB C Auto (Bld)Ordered By: Angel Luis Contreras on 04-20-2025 Immature granulocytes/100 WBC (Bld) 0.500 % 0.0-0.9 [facility] Comment on above: IG% - Immature Granu locytes (promyelocytes, myelocytes and metamyelocytes) > 1% indicates that a LEFT SHIFT is Present. Ketones Test strip Ql (U)Ord ered By: Angel Luis Contreras on 04-20-2025 Ketones Ql (U) Negative Negative [facility] - Chemistry and C hemistry - challengeOrdered By: Angel Luis Contreras on 04-20-2025 AST [Catalytic activity/Vol] 20 U/L <32 [facility] MCV (mean corpuscular volume ) determinationOrdered By: Angel Luis Contreras on 04-20-2025 MCV (RBC) [Entitic vol] 95.0 fL 81-99 [facility] Mean corpuscular hemoglobin (MCH) determinationOrdered By: Angel Luis Contreras on 04-20-2025 MCH (RBC) [Entitic mass] 30.4 pg 27.0-32.0 [facility] Mean corpuscular hemoglobin concentration (MCHC) determinationOrdered By: Angel Luis Contreras on 04-20-2025 MCHC (RBC) [Mass/Vol] 32.0 g/dL 32-[facility] Mean platelet volume determi nationOrdered By: Angel Luis Contreras on 04-20-2025 Platelet mean volume (Bld) [Entitic vol] 10.2 fL 6.2-12.0 [facility] Microscopic analysis of urin e for red blood cells (RBC)Ordered By: Angel Luis Contreras on 04-20-2025 Microscopic analysis of urine for red blood cells (RBC) 0-5 SEEN /hpf 0-5 [facility] Monocyte percentageOrdered B y: Angel Luis Contreras on 04-20-2025 Monocytes/100 WBC (Bld) 8.6 % 0-10 [facility] Mucus LM Ql (Urine sed)Order ed By: Angel Luis Contreras on 04-20-2025 Mucus Ql (Urine sed) 0 SEEN /hpf [facility] Neutrophil percentageOrdered By: Angel Luis Contreras on 04-20-2025 Neutrophils/100 WBC (Bld) 79.3 % High 47-70 [facility] Nitrite Test strip Ql (U)Ord ered By: Angel Luis Contreras on 04-20-2025 Nitrite Ql (U) Negative Negative [facility] Nucleated red blood cell per centageOrdered By: Angel Luis Contreras on 04-20-2025 Nucleated RBC/100 WBC (Bld) [Ratio] 0 % 0-5 [facility] PTHINon 04-20-2025 PTH 36 pg/mL Normal 11-61 [facility] Comment on above: Order Comment: Order Date: 04/19/25Order Info: [id number] - PTHIN Performed By: #### L 500.4100, L500.2500, L100.0500 #### [facility] [address] [place], [place], [address] Phosphoruson 04-20-2025 Phosphate [Mass/Vol] 3.6 mg/dL Normal 2.7-4.5 [facility] Comment on above: Order Comment: Order Date: 04/19/25Order Info: [id number] - CMPOrder Info: [id number] - PHOS Performed By: #### L 500.4100, L500.2500, L100.0500 #### [facility] [address] [place], [address] Platelet countOrdered By: Dorys Contreras on 04-20-2025 Platelets (Bld) [#/Vol] 460 10*3/uL High 150-450 [facility] Potassium measurement (mass/ volume)Ordered By: Angel Luis Contreras on 04-20-2025 Potassium (Unsp spec) [Mass/Vol] 4.5 mmol/L 3.3-5.1 [facility] Protein Test strip Ql (U)Ord ered By: Angel Luis Contreras on 04-20-2025 Protein Ql (U) 15 mg/dl High Negative [facility] Protein+Creatinine Ratio,Uri neon 04-20-2025 PROT:CRE RATIO 96 mg/g CRE Normal 0-200 [facility] Comment on above: Performed By: #### L 500.4100, L500.2500, L100.0500 #### [facility] [address] [place], [address] Protein (U) [Mass/Vol] 13.4 mg/dL High 0.0-12.0 [facility] Comment on above: Performed By: #### L 500.4100, L500.2500, L100.0500 #### [facility] [address] [place], [address] UR CREAT 140.00 mg/dL Normal 28.00-217.00 [facility] Comment on above: Performed By: #### L 500.4100, L500.2500, L100.0500 #### [facility] [address] [place], [address] RBC Auto (Bld) [#/Vol]Ordere d By: Angel Luis Contreras on 04-20-2025 RBC (Bld) [#/Vol] 4.04 10*6/uL Low 4.2-5.4 [facility] Random urine creatinine dawson urement (mass/volume)Ordered By: Angel Luis Contreras on 04-20-2025 Creatinine Unsp time (U) [Mass/Vol] 140.00 mg/dL 28.00-217.00 [facility] Serum creatinine measurement (mass/volume)Ordered By: Angel Luis Contreras on 04-20-2025 Creatinine [Mass/Vol] 1.24 mg/dL High 0.70-1.20 [facility] Serum globulin measurementOr dered By: Angel Luis Contreras on 04-20-2025 Globulin (S) [Mass/Vol] 2.7 g/dL 2.2-4.2 [facility] Serum glucose measurement (m ass/volume)Ordered By: Angel Luis Contreras on 04-20-2025 Glucose [Mass/Vol] 103 mg/dL High 70-99 [facility] Serum or plasma alanine palomino otransferase (ALT) measurementOrdered By: Angel Luis Contreras on 04-20-2025 ALT [Catalytic activity/Vol] 14 U/L <35 [facility] Serum or plasma albumin dawson urement (mass/volume)Ordered By: Angel Luis Contreras on 04-20-2025 Albumin [Mass/Vol] 4.1 g/dL 3.4-4.8 [facility] Serum or plasma albumin/glob ulin mass ratioOrdered By: Angel Luis Contreras on 04-20-2025 Albumin/Globulin [Mass ratio] 1.5 {ratio} 0.9-2.4 [facility] Serum or plasma alkaline erica sphatase measurementOrdered By: Angel Luis Contreras on 04-20-2025 ALP [Catalytic activity/Vol] 59 U/L 35-104 [facility] Serum or plasma calcium dawson urement (mass/volume)Ordered By: Angel Luis Contreras on 04-20-2025 Calcium [Mass/Vol] 9.2 mg/dL 7.6-11.0 [facility] Serum or plasma urea nitroge n measurement (mass/volume)Ordered By: Angel Luis Contreras on 04-20-2025 Urea nitrogen [Mass/Vol] 23 mg/dL High 4-19 [facility] Sodium levelOrdered By: Angel Luis Contreras on 04-20-2025 Sodium [Moles/Vol] 138 mmol/L 133-145 [facility] Squamous epithelial cells de tection in urine sediment by light microscopyOrdered By: Angel Luis Contreras on 04-20-2025 Epithelial cells.squamous LM Ql (Urine sed) 0-5 SEEN /hpf 5-10 [facility] Total proteinOrdered By: Camilo Contreras on 04-20-2025 Protein [Mass/Vol] 6.8 g/dL 5.9-8.4 [facility] Urinalysis, Completeon 04-20 BACTERIA RARE Normal None Seen [facility] Comment on above: Order Comment: Comme nts: NPO at [place] prior to lipid panel Performed By: #### L 500.4100, L500.2500, L100.0500 #### [facility] [address] [place], [address] EPI,SQUAMOUS 0-5 SEEN Normal 5-10 [facility] Comment on above: Order Comment: Comme nts: NPO at [place] prior to lipid panel Performed By: #### L 500.4100, L500.2500, L100.0500 #### [facility] [address] [place], [address] RBC 0-5 SEEN Normal 0-5 [facility] Comment on above: Order Comment: Comme nts: NPO at [place] prior to lipid panel Performed By: #### L 500.4100, L500.2500, L100.0500 #### [facility] [address] [place], [address] WBC 0-5 SEEN Normal 0-5 [facility] Comment on above: Order Comment: Comme nts: NPO at [place] prior to lipid panel Performed By: #### L 500.4100, L500.2500, L100.0500 #### [facility] [address] [place], [address] CAST,HYALINE 0-5 SEEN Normal 0-5 [facility] Comment on above: Order Comment: Comme nts: NPO at [place] prior to lipid panel Performed By: #### L 500.4100, L500.2500, L100.0500 #### [facility] [address] [place], [address] Mucus Ql (Urine sed) 0 SEEN Normal [facility] Comment on above: Order Comment: Comme nts: NPO at [place] prior to lipid panel Performed By: #### L 500.4100, L500.2500, L100.0500 #### [facility] [address] [place], [address] Urine clarityOrdered By: Camilo Contreras on 04-20-2025 Clarity (U) Clear Clear [facility] Urine color determinationOrd ered By: Angel Luis Contreras on 04-20-2025 Color (U) Yellow Yellow [facility] Urine glucose detectionOrder ed By: Angel Luis Contreras on 04-20-2025 Glucose Ql (U) Normal mg/dl Normal [facility] Urine leukocyte esterase det ection by dipstickOrdered By: Angel Luis Contreras on 04-20-2025 Leukocyte esterase Test strip Ql (U) 25 /ul High Negative [facility] Urine pHOrdered By: Angel Luis almanzar on 04-20-2025 pH (U) 6.0 [pH] 5.0 - 8.0 [facility] Urine protein measurement (m ass/volume)Ordered By: Angel Luis Contreras on 04-20-2025 Protein (U) [Mass/Vol] 13.4 mg/dL High 0.0-12.0 [facility] Urine protein/creatinine mas s ratioOrdered By: Angel Luis Contreras on 04-20-2025 Protein/Creatinine (U) [Mass ratio] 96 mg/g CRE 0-200 [facility] Urine sediment bacteria coun t by microscopy (number/high power field)Ordered By: Angel Luis Contreras on 04-20-2025 Bacteria LM.HPF (Urine sed) [#/Area] RARE /hpf None Seen [facility] Urine specific gravity measu rementOrdered By: Angel Luis Contreras on 04-20-2025 Specific gravity (U) [Rel density] 1.015 1.002-1.030 [facility] Urine urobilinogen measureme ntOrdered By: Angel Luis Contreras on 04-20-2025 Urobilinogen Ql (U) 1 mg/dl High Normal [facility] Vitamin B12on 04-20-2025 Cobalamin (Vitamin B12) [Mass/Vol] 547 pg/mL Normal 180-914 [facility] Comment on above: Order Comment: Order Date: 04/19/25Order Info: [id number] - CMPOrder Info: [id number] - PHOS Performed By: #### L 501.9985, L501.9520 #### [facility] [address] [place], [address] Vitamin B12 ser/plasOrdered By: Angel Luis Contreras on 04-20-2025 Cobalamin (Vitamin B12) [Mass/Vol] 547 pg/mL 180-914 [facility] Vitamin D,25 Hydroxyon 04-20 Vitamin D 25-OH 79.0 ng/mL Normal 30-100 [facility] Comment on above: Order Comment: Order Date: 04/19/25Order Info: [id number] - CMPOrder Info: [id number] - PHOS Result Comment: Leatha min D Status Deficiency: <20 ng/mL (50nmol/L) Insufficiency: 20-30 ng/mL (50-75 nmol/L) Sufficiency: 30-100 ng/mL (75-250 nmol/L) Toxicity: >100 ng/mL (>250 nmol/L) Performed By: #### L 501.9985, L501.9520 #### [facility] [address] [place], [address] White blood cell (WBC) count Ordered By: Angel Luis Contreras on 04-20-2025 WBC (Bld) [#/Vol] 7.3 10*3/uL 4.4-11.0 [facility] White blood cell countOrdere d By: Angel Luis Contreras on 04-20-2025 White blood cell count 0-5 SEEN /hpf 0-5 [facility] CBC W/Diff, Automatedon - Absolute Lymph 0.73 X10 3/uL Low 0.83-4.51 [facility] Comment on above: Order Comment: Order Date: 11/18/24Order Info: [id number] - CBCD Performed By: #### L 500.4100, L500.2500, L100.0500 #### [facility] [address] [place], [address] Absolute Neut 4.7 X10 3/uL Normal 2.0-7.7 [facility] Comment on above: Order Comment: Order Date: 11/18/24Order Info: [id number] - CBCD Performed By: #### L 500.4100, L500.2500, L100.0500 #### [facility] [address] [place], [address] Basophils/100 WBC (Bld) 0.6 % Normal 0-1 [facility] Comment on above: Order Comment: Order Date: 11/18/24Order Info: [id number] - CBCD Performed By: #### L 500.4100, L500.2500, L100.0500 #### [facility] [address] [place], [address] Eosinophils/100 WBC (Bld) 4.5 % Normal 0-5 [facility] Comment on above: Order Comment: Order Date: 11/18/24Order Info: 183- - CBCD Performed By: #### L 500.4100, L500.2500, L100.0500 #### [facility] [address] [place], [address] Erythrocyte distribution width (RBC) [Ratio] 13.1 % Normal 11.6-14.6 [facility] Comment on above: Order Comment: Order Date: 11/18/24Order Info: [id number]- - CBCD Performed By: #### L 500.4100, L500.2500, L100.0500 #### [facility] [address] [place], [address] Hematocrit (Bld) [Volume fraction] 40.4 % Normal 37-47 [facility] Comment on above: Order Comment: Order Date: 11/18/24Order Info: 018- - CBCD Performed By: #### L 500.4100, L500.2500, L100.0500 #### [facility] [address] [place], [address] Hemoglobin (Bld) [Mass/Vol] 12.8 g/dL Normal 12.0-15.0 [facility] Comment on above: Order Comment: Order Date: 11/18/24Order Info: 018- - CBCD Performed By: #### L 500.4100, L500.2500, L100.0500 #### [facility] [address] [place], [address] IG% 0.300 Normal 0.0-0.9 [facility] Comment on above: Order Comment: Order Date: 11/18/24Order Info: [id number]- - CBCD Result Comment: IG% - Immature Granulocytes (promyelocytes, myelocytes and metamyelocytes) > 1% indicates that a LEFT SHIFT is Present. Performed By: #### L 500.4100, L500.2500, L100.0500 #### [facility] [address] [place], [address] Lymphocytes/100 WBC (Bld) 11.6 % Low 19-41 [facility] Comment on above: Order Comment: Order Date: 11/18/24Order Info: [id number] - CBCD Performed By: #### L 500.4100, L500.2500, L100.0500 #### [facility] [address] [place], [address] MCH (RBC) [Entitic mass] 29.9 pg Normal 27.0-32.0 [facility] Comment on above: Order Comment: Order Date: 11/18/24Order Info: 018- - CBCD Performed By: #### L 500.4100, L500.2500, L100.0500 #### [facility] [address] [place], [address] MCHC (RBC) [Mass/Vol] 31.7 g/dL Low 32-36 [facility] Comment on above: Order Comment: Order Date: 11/18/24Order Info: 018- - CBCD Performed By: #### L 500.4100, L500.2500, L100.0500 #### [facility] [address] [place], [address] MCV (RBC) [Entitic vol] 94.4 fL Normal 81-99 [facility] Comment on above: Order Comment: Order Date: 11/18/24Order Info: 018- - CBCD Performed By: #### L 500.4100, L500.2500, L100.0500 #### [facility] [address] [place], [address] Monocytes/100 WBC (Bld) 8.4 % Normal 0-10 [facility] Comment on above: Order Comment: Order Date: 11/18/24Order Info: 018- - CBCD Performed By: #### L 500.4100, L500.2500, L100.0500 #### [facility] [address] [place], [address] Neutrophils/100 WBC (Bld) 74.6 % High 47-70 [facility] Comment on above: Order Comment: Order Date: 11/18/24Order Info: 018- - CBCD Performed By: #### L 500.4100, L500.2500, L100.0500 #### [facility] [address] [place], [address] Nucleated RBC (Bld) [#/Vol] 0 10*3/uL Normal 0-5 [facility] Comment on above: Order Comment: Order Date: 11/18/24Order Info: 018- - CBCD Performed By: #### L 500.4100, L500.2500, L100.0500 #### [facility] [address] [place], [address] Platelet mean volume (Bld) [Entitic vol] 10.4 fL Normal 6.2-12.0 [facility] Comment on above: Order Comment: Order Date: 11/18/24Order Info: 018- - CBCD Performed By: #### L 500.4100, L500.2500, L100.0500 #### [facility] [address] [place], [address] Platelets (Bld) [#/Vol] 280 10*3/uL Normal 150-450 [facility] Comment on above: Order Comment: Order Date: 11/18/24Order Info: 018- - CBCD Performed By: #### L 500.4100, L500.2500, L100.0500 #### [facility] [address] [place], [address] RBC (Bld) [#/Vol] 4.28 10*6/uL Normal 4.2-5.4 [facility] Comment on above: Order Comment: Order Date: 11/18/24Order Info: 018- - CBCD Performed By: #### L 500.4100, L500.2500, L100.0500 #### [facility] [address] [place], [address] RDW SD 45.2 fl High 35.1-43.9 [facility] Comment on above: Order Comment: Order Date: 11/18/24Order Info: 018- - CBCD Performed By: #### L 500.4100, L500.2500, L100.0500 #### [facility] [address] [place], [address] WBC (Bld) [#/Vol] 6.3 10*3/uL Normal 4.4-11.0 [facility] Comment on above: Order Comment: Order Date: 11/18/24Order Info: 018- - CBCD Performed By: #### L 500.4100, L500.2500, L100.0500 #### [facility] [address] [place], [address] Comprehensive Metabolic Prof ilon 11-18-2024 Albumin [Mass/Vol] 3.7 g/dL Normal 3.2-5.0 [facility] Comment on above: Order Comment: Comme nts: NPO at [place] prior to lipid panel Performed By: #### L 500.4100, L500.2500, L100.0500 #### [facility] [address] [place], [address] Albumin/Globulin [Mass ratio] 1.1 {ratio} Normal 0.9-2.4 [facility] Comment on above: Order Comment: Comme nts: NPO at [place] prior to lipid panel Performed By: #### L 500.4100, L500.2500, L100.0500 #### [facility] [address] [place], [address] ALK P 62 U/L Normal 45-117 [facility] Comment on above: Order Comment: Comme nts: NPO at [place] prior to lipid panel Performed By: #### L 500.4100, L500.2500, L100.0500 #### [facility] [address] [place], [address] ALT [Catalytic activity/Vol] 20 U/L Normal 13-56 [facility] Comment on above: Order Comment: Comme nts: NPO at [place] prior to lipid panel Performed By: #### L 500.4100, L500.2500, L100.0500 #### [facility] [address] [place], [address] AST [Catalytic activity/Vol] 16 U/L Normal 15-37 [facility] Comment on above: Order Comment: Comme nts: NPO at [place] prior to lipid panel Performed By: #### L 500.4100, L500.2500, L100.0500 #### [facility] [address] [place], [address] Bilirubin [Mass/Vol] 0.50 mg/dL Normal 0.20-1.00 [facility] Comment on above: Order Comment: Comme nts: NPO at [place] prior to lipid panel Result Comment: For patients on eltrombopag therapy, use of Dimension [place] TBIL is not recommended. Performed By: #### L 500.4100, L500.2500, L100.0500 #### [facility] [address] [place], [address] BUN/CRE 15.8 RATIO Normal 10-20 [facility] Comment on above: Order Comment: Comme nts: NPO at [place] prior to lipid panel Performed By: #### L 500.4100, L500.2500, L100.0500 #### [facility] [address] [place], [address] CA,Total 9.2 mg/dL Normal 8.5-10.1 [facility] Comment on above: Order Comment: Comme nts: NPO at [place] prior to lipid panel Performed By: #### L 500.4100, L500.2500, L100.0500 #### [facility] [address] [place], [address] Chloride [Moles/Vol] 105 mmol/L Normal 98-107 [facility] Comment on above: Order Comment: Comme nts: NPO at [place] prior to lipid panel Performed By: #### L 500.4100, L500.2500, L100.0500 #### [facility] [address] [place], [address] CO2 [Moles/Vol] 28.0 mmol/L Normal 21.0-32.0 [facility] Comment on above: Order Comment: Comme nts: NPO at [place] prior to lipid panel Performed By: #### L 500.4100, L500.2500, L100.0500 #### [facility] [address] [place], [address] Creatinine [Mass/Vol] 1.20 mg/dL High 0.55-1.02 [facility] Comment on above: Order Comment: Comme nts: NPO at [place] prior to lipid panel Result Comment: The validity of the calculated GFR GFRAA in patients over 70 years has not been determined. Clinical correlation is essential. Performed By: #### L 500.4100, L500.2500, L100.0500 #### [facility] [address] [place], [address] EST GFR - AA 55 mL/min Low >60 [facility] Comment on above: Order Comment: Comme nts: NPO at [place] prior to lipid panel Result Comment: Afri can Indonesian GFR Calc Performed By: #### L 500.4100, L500.2500, L100.0500 #### [facility] [address] [place], [address] GAP 6 Normal 5-15 [facility] Comment on above: Order Comment: Comme nts: NPO at [place] prior to lipid panel Performed By: #### L 500.4100, L500.2500, L100.0500 #### [facility] [address] [place], [address] GFR/1.73 sq M.predicted among non-blacks MDRD (S/P/Bld) [Vol rate/Area] 45 mL/min/{1.73_m2} Low >60 [facility] Comment on above: Order Comment: Comme nts: NPO at [place] prior to lipid panel Result Comment: Non- GFR Calc Performed By: #### L 500.4100, L500.2500, L100.0500 #### [facility] [address] [place], [address] Globulin (S) [Mass/Vol] 3.5 g/dL Normal 2.2-4.2 [facility] Comment on above: Order Comment: Comme nts: NPO at [place] prior to lipid panel Performed By: #### L 500.4100, L500.2500, L100.0500 #### [facility] [address] [place], [address] Glucose [Mass/Vol] 97 mg/dL Normal 74-106 [facility] Comment on above: Order Comment: Comme nts: NPO at [place] prior to lipid panel Performed By: #### L 500.4100, L500.2500, L100.0500 #### [facility] [address] [place], [address] Potassium [Moles/Vol] 4.6 mmol/L Normal 3.5-5.1 [facility] Comment on above: Order Comment: Comme nts: NPO at [place] prior to lipid panel Performed By: #### L 500.4100, L500.2500, L100.0500 #### [facility] [address] [place], [address] Sodium [Moles/Vol] 139 mmol/L Normal 136-145 [facility] Comment on above: Order Comment: Comme nts: NPO at NM prior to lipid panel Performed By: #### L 500.4100, L500.2500, L100.0500 #### [facility] [address], [address] T PROT 7.2 g/dL Normal 6.4-8.2 [facility] Comment on above: Order Comment: Comme nts: NPO at [place] prior to lipid panel Performed By: #### L 500.4100, L500.2500, L100.0500 #### [facility] [address] [place], [address] Urea nitrogen [Mass/Vol] 19 mg/dL High 7-18 [facility] Comment on above: Order Comment: Comme nts: NPO at NM prior to lipid panel Performed By: #### L 500.4100, L500.2500, L100.0500 #### [facility] [address] [place], [address] Lipid Profileon 11-18-2024 Cholesterol [Mass/Vol] 241 mg/dL High 200 [facility] Comment on above: Order Comment: Comme nts: NPO at NM prior to lipid panel Result Comment: <200 mg/dL Desirable 200-240 mg/dL Borderline >240 mg/dL High Risk Performed By: #### L 500.4100, L500.2500, L100.0500 #### [facility] [address] [place], [address] Cholesterol in HDL [Mass/Vol] 75 mg/dL Normal [facility] Comment on above: Order Comment: Comme nts: NPO at [place] prior to lipid panel Result Comment: The drugs N-Acetylcysteine and Metamizole may falsely depress this assay. Reference Range HDL <40 mg/dL Low HDL Cholesterol HDL >or= 60 mg/dL High HDL Cholesterol Performed By: #### L 500.4100, L500.2500, L100.0500 #### [facility] [address] [place], [address] Cholesterol in LDL [Mass/Vol] 137 mg/dL High 0-130 [facility] Comment on above: Order Comment: Comme nts: NPO at MN prior to lipid panel Performed By: #### L 500.4100, L500.2500, L100.0500 #### [facility] [address] [place], [address] Cholesterol in VLDL [Mass/Vol] 29 mg/dL Normal 5-40 [facility] Comment on above: Order Comment: Comme nts: NPO at MN prior to lipid panel Performed By: #### L 500.4100, L500.2500, L100.0500 #### [facility] [address] [place], [address] Triglyceride [Mass/Vol] 143 mg/dL Normal [facility] Comment on above: Order Comment: Comme nts: NPO at [place] prior to lipid panel Result Comment: The drugs N-Acetylcysteine and Metamizole may falsely depress this assay. Serum Triglycerides Reference Interval Normal <150 mg/dL Borderline high 150 - 199 mg/dL High 200 - 499 mg/dL Very High > or = 500 mg/dL Performed By: #### L 500.4100, L500.2500, L100.0500 #### [facility] [address] [place], [address] PTHINon 11-18-2024 PTH 58.8 pg/mL Normal 18.4-80.1 [facility] Comment on above: Order Comment: Comme nts: NPO at [place] prior to lipid panel Performed By: #### L 500.4100, L500.2500, L100.0500 #### [facility] [address] [place], [address] Phosphoruson 11-18-2024 Phosphate [Mass/Vol] 3.2 mg/dL Normal 2.5-4.9 [facility] Comment on above: Order Comment: Comme nts: NPO at [place] prior to lipid panel Performed By: #### L 500.4100, L500.2500, L100.0500 #### [facility] [address] [place], [address] Protein+Creatinine Ratio,Uri neon 11-18-2024 PROT:CRE RATIO 131 mg/g CRE Normal 0-200 [facility] Comment on above: Performed By: #### L 500.4100, L500.2500, L100.0500 #### [facility] [address] [place], [address] Protein (U) [Mass/Vol] 7.7 mg/dL Normal <11.9 [facility] Comment on above: Performed By: #### L 500.4100, L500.2500, L100.0500 #### [facility] [address] [place], [address] UR CREAT 58.80 mg/dL Normal NO RANGE EST. [facility] Comment on above: Performed By: #### L 500.4100, L500.2500, L100.0500 #### [facility] [address] [place], [address] Urinalysis, Completeon 11-18 BACTERIA 0 SEEN Normal None Seen [facility] Comment on above: Order Comment: CLEAN CATCH Performed By: #### L 500.4100, L500.2500, L100.0500 #### [facility] [address] [place], [address] EPI,SQUAMOUS 0 SEEN Normal 5-10 [facility] Comment on above: Order Comment: CLEAN CATCH Performed By: #### L 500.4100, L500.2500, L100.0500 #### [facility] [address] [place], [address] Mucus Ql (Urine sed) 0 SEEN Normal [facility] Comment on above: Order Comment: CLEAN CATCH Performed By: #### L 500.4100, L500.2500, L100.0500 #### [facility] [address] [place], [address] RBC 0 SEEN Normal 0-5 [facility] Comment on above: Order Comment: CLEAN CATCH Performed By: #### L 500.4100, L500.2500, L100.0500 #### [facility] [address] [place], [address] WBC 0 SEEN Normal 0-5 [facility] Comment on above: Order Comment: CLEAN CATCH Performed By: #### L 500.4100, L500.2500, L100.0500 #### [facility] [address] [place], [address] Vitamin B12on 11-18-2024 Cobalamin (Vitamin B12) [Mass/Vol] 652 pg/mL Normal 211-911 [facility] Comment on above: Order Comment: Comme nts: NPO at [place] prior to lipid panel Performed By: #### L 500.4100, L500.2500, L100.0500 #### [facility] [address] [place], [address] Vitamin D,25 Hydroxyon 11-18 Vitamin D 25-OH 74.3 ng/mL Normal [facility] Comment on above: Order Comment: Comme nts: NPO at [place] prior to lipid panel Result Comment: Leatha min D 25(OH) Status Range Deficiency <20 ng/mL (50nmol/L) Insufficiency 20 - 30 ng/mL (50 - 75 nmol/L) Sufficiency 30 - 100 ng/mL (75 - 250 nmol/L) Toxicity >100 ng/mL (>250 nmol/L) Performed By: #### L 500.4100, L500.2500, L100.0500 #### [facility] [address] [place], [address] Urgent Care Visit Reporton 1 Urgent Care Visit Report [facility] [address] [place] [address] OFFICE VISIT Date of Service: 08/29/24 MR#: [id number] Acct: [id number] Name: MARCINMADHAVIDORYS HATHAWAY Rep #: [id number] : 1935 Provider: ISAIAH Garcia Age/Sex: 88/F Location[place] [facility] Status: Signed Intake Vital Signs 03/16/24 14:38 08/29/24 11:25 Height 5 ft 8 in 5 ft 8 in Weight: 170 lb 169 lb BMI 25.8 25.7 BP 132/62 H 126/86 H Blood Pressure Location Rt brachial Rt brachial Position Sitting Sitting Respiration 17 16 Pulse 68 78 Pulse Source NIBP Monitor Temp 97.5 F L 98.1 F Temp Source Temporal Temporal Pulse Oximetry (%) 96 98 Oxygen Delivery Method room air room air Intake Visit Reasons: SINUS KYLAH/PRESSURE/COUGH Chief Complaint: SINUS CONGESTION PRESSURE COUGH [employer] Supervisor Required: No Accompanied by: Self Is patient in pain?: No Allergies No Known Allergies Allergy (Verified 08/29/24 11:27) Medications ???Medication ???Instructions ???Recorded ???Confirmed ???Type multivitamin with folic acid 400 1 tab PO DAILY supplement 04/06/18 08/29/24 History mcg tablet (Thera) L.acidoph, paracasei,B. lactis 10 1 ea PO DAILY 11/18/18 08/29/24 History billion cell capsule calcium carbonate-vitamin D3 600 1 ea PO DAILY 11/18/18 08/29/24 History mg-125 unit tablet (Calcium) ascorbic acid (vitamin C) 500 mg 500 mg PO DAILY 09/05/20 08/29/24 History capsule cyanocobalamin (vitamin B-12) 1,000 mcg PO DAILY 09/05/20 08/29/24 History 1,000 mcg capsule acetaminophen 500 mg tablet 1,000 mg PO Q8H PRN Pain 04/06/22 08/29/24 History ondansetron 4 mg disintegrating 8 mg (2 x 4 mg) PO .now nausea #2 08/29/24 08/29/24 Rx tablet tabs ondansetron HCl 8 mg tablet 8 mg PO Q8H PRN nausea and 08/29/24 08/29/24 Rx vomiting #14 tabs Have you fallen in the past year?: No Nurse's Note: ZOfran 4mg, 2 tabs sublingual given per Cm today at 1145 PFSH Medical History Left knee pain Surgical History 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 Patient states that she has had a minor cough for the past 2 days and then while she was out today had a moment of feeling lightheaded and nausea. She denies vomiting or diarrhea. No hemoptysis, shortness of breath or difficulty breathing. No fever, chills, sweats. No loss of taste or smell. No other associated symptoms or alleviating/aggravatin g factors. ROS Const Constitutional: No other (as above) Exam Const General: cooperative and healthy appearing [facility] Head: normocephalic and atraumatic Ears: hearing grossly normal bilaterally Nose: external nose normal Face and sinus: normal facial exam and face symmetric Mouth: oral mucosae normal Throat: posterior oropharynx normal Eyes General: appearance normal, both eyes and all related structures Pupils: PERRL Resp Effort Inspection: normal respiratory effort Auscultation: Bilateral: Clear to Auscultation Cardio Rate: regular rate Rhythm: regular rhythm GI Auscultation: hyperactive bowel sounds Palpation: soft and no hepatosplenomegaly Skin General: no rashes or lesions noted Neuro General: patient alert and CN's II-XI intact bilaterally Psych Appearance: grossly normal Mental Status: mental status grossly normal Results POC Glucose POC Glucose 88 mg/dL Last Edit by Rose Chaudhary on 08/29/24 11:47 POC SARS AG POC SARS AG Negative Last Edit by Rose Chaudhary on 08/29/24 11:56 Coding Level of Care Code Off vis,est,level 3 Diagnoses Acute upper respiratory infection J06.9 Assessment and Plan Assessment and Plan (1) Acute upper respiratory infection: Status: Acute Plan: Patient tested negative for COVID in the office today. Zofran in the office did make her stomach feel better therefore she will be prescribed ondansetron as prescribed today. Encouraged to get plenty of rest, drink lots of clear liquids, and use Tylenol or Ibuprofen (unless contraindicated) for fever and comfort. Patient also educated on other symptomatic management techniques. To be seen in 7-10 days if no improvement; sooner if worsening of symptoms. Orders: Orders POC Glucose Today R11.0 - Nausea POC Rapid SARS Antigen Today Medications: New ondansetron 8 mg (2 x 4 mg) PO .now 2 tabs 0RF nausea NS R11.0 - Nausea ondansetron HCl 8 mg PO Q8H PRN 14 tabs 0RF nausea and vo (more content not included)... Normal [facility] Basic Metabolic Profile (BMP )on 05-30-2024 BUN/CRE 18.4 RATIO Normal 10-20 [facility] Comment on above: Order Comment: Order Date: 05/20/24 Order Info: 0667-1 - BMP Decline in kidney function Performed By: #### L [id number] #### [facility] [address] [place], [place], [id number] [place],Total 9.3 mg/dL Normal 8.5-10.1 [facility] Comment on above: Order Comment: Order Date: 05/20/24 Order Info: 0667-1 - BMP Decline in kidney function Performed By: #### L [id number] #### [facility] [address] [place], [place], [id number] Chloride [Moles/Vol] 105 mmol/L Normal 98-107 [facility] Comment on above: Order Comment: Order Date: 05/20/24 Order Info: 666- - BMP Decline in kidney function Performed By: #### L [id number] #### [facility] [address] [place], [address] CO2 [Moles/Vol] 25.0 mmol/L Normal 21.0-32.0 [facility] Comment on above: Order Comment: Order Date: 05/20/24 Order Info: 666-1 - BMP Decline in kidney function Performed By: #### L [id number] #### [facility] [address] [place], [address] Creatinine [Mass/Vol] 1.36 mg/dL High 0.55-1.02 [facility] Comment on above: Order Comment: Order Date: 05/20/24 Order Info: 666-1 - BMP Decline in kidney function Result Comment: The validity of the calculated GFR GFRAA in patients over 70 years has not been determined. Clinical correlation is essential. Performed By: #### L [id number] #### [facility] [address] [place], [address] EST GFR - AA 47 mL/min Low >60 [facility] Comment on above: Order Comment: Order Date: 05/20/24 Order Info: 666-1 - BMP Decline in kidney function Result Comment: Afri can Indonesian GFR Calc Performed By: #### L [id number] #### [facility] [address] [place], [address] GAP 8 Normal 5-15 [facility] Comment on above: Order Comment: Order Date: 05/20/24 Order Info: 06- - BMP Decline in kidney function Performed By: #### L [id number] #### [facility] [address] [place], [address] GFR/1.73 sq M.predicted among non-blacks MDRD (S/P/Bld) [Vol rate/Area] 39 mL/min/{1.73_m2} Low >60 [facility] Comment on above: Order Comment: Order Date: 05/20/24 Order Info: 666-1 - BMP Decline in kidney function Result Comment: Non- GFR Calc Performed By: #### L [id number] #### [facility] [address] [place], [address] Glucose [Mass/Vol] 105 mg/dL Normal 74-106 [facility] Comment on above: Order Comment: Order Date: 05/20/24 Order Info: 67-1 - BMP Decline in kidney function Result Comment: Fast ing Glucose result from 100 to 125 mg/dL suggests IMPAIRED HOMEOSTASIS per A.D.A. criteria. Performed By: #### L [id number] #### [facility] [address] [place], [address] Potassium [Moles/Vol] 4.1 mmol/L Normal 3.5-5.1 [facility] Comment on above: Order Comment: Order Date: 05/20/24 Order Info: 666-1 - BMP Decline in kidney function Performed By: #### L [id number] #### [facility] [address] [place], [address] Sodium [Moles/Vol] 138 mmol/L Normal 136-145 [facility] Comment on above: Order Comment: Order Date: 05/20/24 Order Info: 666-1 - BMP Decline in kidney function Performed By: #### L [id number] #### [facility] [address] [place], [address] Urea nitrogen [Mass/Vol] 25 mg/dL High 7-18 [facility] Comment on above: Order Comment: Order Date: 05/20/24 Order Info: 67-1 - BMP Decline in kidney function Performed By: #### L [id number] #### [facility] [address] [place], [address] Absolute lymphocyte countOrd ered By: Angel Luis Contreras on 02-09-2024 Lymphocytes Auto (Unsp spec) [#/Vol] 0.89 10*3/uL 0.83-4.51 [facility] Automated lymphocyte count a s percentage of total leukocytesOrdered By: Angel Luis Contreras on 02-09-2024 Lymphocytes/100 WBC Auto (Unsp spec) 16.5 % 19-41 [facility] Basophil percentageOrdered B y: Angel Luis Contreras on 02-09-2024 Basophil percentage 0-5 SEEN /hpf 0-5 [facility] Basophil percentage 3.4 mg/dL 2.5-4.9 [facility] Basophils/100 WBC (Bld) 0.6 % 0-1 [facility] Bilirubin [Mass/Vol] 0.50 mg/dL 0.20-1.00 [facility] Comment on above: For patients on eltr ombopag therapy, use of Dimension [place] TBIL is not recommended. Chloride [Moles/Vol] 103 mmol/L 98-107 [facility] Eosinophils/100 WBC (Bld) 4.5 % 0-5 [facility] Glucose [Mass/Vol] 70 mg/dL 74-106 [facility] Hemoglobin (Bld) [Mass/Vol] 12.9 g/dL 12.0-15.0 [facility] Monocytes/100 WBC (Bld) 9.5 % 0-10 [facility] Neutrophils (Bld) [#/Vol] 3.7 10*3/uL 2.0-7.7 [facility] Neutrophils/100 WBC (Bld) 68.5 % 47-70 [facility] Potassium [Moles/Vol] 4.2 mmol/L 3.5-5.1 [facility] Protein [Mass/Vol] 7.2 g/dL 6.4-8.2 [facility] Sodium [Moles/Vol] 140 mmol/L 136-145 [facility] WBC (Bld) [#/Vol] 5.4 10*3/uL 4.4-11.0 [facility] Bilirubin Test strip Ql (U)O rdered By: Angel Luis Contreras on 02-09-2024 Bilirubin Ql (U) Negative Negative [facility] Determination of erythrocyte mean corpuscular volume (MCV)Ordered By: Angel Luis Contreras on 02-09-2024 MCV (RBC) [Entitic vol] 94.2 fL 81-99 [facility] Erythrocyte distribution wid th ratioOrdered By: Angel Luis Contreras on 02-09-2024 Erythrocyte distribution width (RBC) [Ratio] 13.4 % 11.6-14.6 [facility] Erythrocyte distribution wid th standard deviationOrdered By: Angel Luis Contreras on 02-09-2024 Erythrocyte distribution width (RBC) [Entitic vol] 45.7 fL 35.1-43.9 [facility] Hematocrit Auto (Bld) [Volum e fraction]Ordered By: Angel Luis Contreras on 02-09-2024 Hematocrit (Bld) [Volume fraction] 40.5 % 37-47 [facility] Immature granulocytes/100 WB C Auto (Bld)Ordered By: Angel Luis Contreras on 02-09-2024 Immature granulocytes/100 WBC (Bld) 0.400 % 0.0-0.9 [facility] Comment on above: IG% - Immature Granu locytes (promyelocytes, myelocytes and metamyelocytes) > 1% indicates that a LEFT SHIFT is Present. Ketones Test strip Ql (U)Ord ered By: Angel Luis Contreras on 02-09-2024 Ketones Ql (U) Negative Negative [facility] - Chemistry and C hemistry - challengeOrdered By: Angel Luis Contreras on 02-09-2024 Albumin/Globulin [Mass ratio] 1.1 {ratio} 0.9-2.4 [facility] ALP [Catalytic activity/Vol] 54 U/L 45-117 [facility] ALT [Catalytic activity/Vol] 18 U/L 13-56 [facility] CO2 [Moles/Vol] 29.0 mmol/L 21.0-32.0 [facility] Globulin (S) [Mass/Vol] 3.5 g/dL 2.2-4.2 [facility] Urea nitrogen/Creatinine [Mass ratio] 19.7 mg/mg 10-20 [facility] - Hematology and Cell countsOrdered By: Angel Luis Contreras on 02-09-2024 MCH (RBC) [Entitic mass] 30.0 pg 27.0-32.0 [facility] MCHC (RBC) [Mass/Vol] 31.9 g/dL 32-36 [facility] Nucleated RBC/100 WBC (Bld) [Ratio] 0 % 0-5 [facility] Platelet mean volume (Bld) [Entitic vol] 10.8 fL 6.2-12.0 [facility] Platelets (Bld) [#/Vol] 270 10*3/uL 150-450 [facility] Mucus LM Ql (Urine sed)Order ed By: Angel Luis Contreras on 02-09-2024 Mucus Ql (Urine sed) 0 SEEN /hpf [facility] Nitrite Test strip Ql (U)Ord ered By: Angel Luis Contreras on 02-09-2024 Nitrite Ql (U) Negative Negative [facility] No Panel InformationOrdered By: Angel Luis Contreras on 02-09-2024 Estimated GFR (MDRD) Amer 49 mL/min >60 [facility] Comment on above: GFR Calc Estimated GFR (MDRD) Non-Af Amer 40 mL/min >60 [facility] Comment on above: Non- GFR Calc Parathyroid Hormone (Intact) 39.9 pg/mL 18.4-80.1 [facility] Urine RBC 0-5 SEEN /hpf 0-5 [facility] Protein Test strip Ql (U)Ord ered By: Angel Luis Contreras on 02-09-2024 Protein Ql (U) 15 mg/dl Negative [facility] RBC Auto (Bld) [#/Vol]Ordere d By: Angel Luis Contreras on 02-09-2024 RBC (Bld) [#/Vol] 4.30 10*6/uL 4.2-5.4 [facility] Serum or plasma calcium dawson urement (mass/volume)Ordered By: Angel Luis Contreras on 02-09-2024 Calcium [Mass/Vol] 9.1 mg/dL 8.5-10.1 [facility] Serum or plasma creatinine m easurement (mass/volume)Ordered By: Angel Luis Contreras on 02-09-2024 Creatinine [Mass/Vol] 1.32 mg/dL 0.55-1.02 [facility] Comment on above: The validity of the calculated GFR & GFRAA in patients over 70 years has not been determined. Clinical correlation is essential. Serum or plasma urea nitroge n measurement (mass/volume)Ordered By: Angel Luis Contreras on 02-09-2024 Urea nitrogen [Mass/Vol] 26 mg/dL 7-18 [facility] Squamous epithelial cells de tection in urine sediment by light microscopyOrdered By: Angel Luis Contreras on 02-09-2024 Epithelial cells.squamous LM Ql (Urine sed) 0-5 SEEN /hpf 5-10 [facility] Thin prep Papanicolaou smear with manual screeningOrdered By: Angel Luis Contreras on 02-09-2024 Protein (U) [Mass/Vol] 13.5 mg/dL 0.0-11.8 [facility] Thin prep Papanicolaou smear with manual screening 3.7 g/dL 3.2-5.0 [facility] Thin prep Papanicolaou smear with manual screening 16 U/L 15-37 [facility] Thin prep Papanicolaou smear with manual screening 8 5-15 [facility] Urine blood detectionOrdered By: Angel Luis Contreras on 02-09-2024 RBC Ql (U) Negative Negative [facility] Urine clarityOrdered By: Camilo Contreras on 02-09-2024 Clarity (U) Cloudy Clear [facility] Urine color determinationOrd ered By: Angel Luis Contreras on 02-09-2024 Color (U) Yellow Yellow [facility] Urine creatinine measurement (mass/volume)Ordered By: Angel Luis Contreras on 02-09-2024 Creatinine (U) [Mass/Vol] 99.00 mg/dL NO RANGE EST. [facility] Urine glucose detectionOrder ed By: Angel Luis Contreras on 02-09-2024 Glucose Ql (U) Normal mg/dl Normal [facility] Urine leukocyte esterase det ection by dipstickOrdered By: Angel Luis Contreras on 02-09-2024 Leukocyte esterase Test strip Ql (U) 500 /ul Negative [facility] Urine pHOrdered By: Angel Luis almanzar on 02-09-2024 pH (U) 6.0 [pH] 5.0 - 8.0 [facility] Urine protein/creatinine mas s ratioOrdered By: Angel Luis Contreras on 02-09-2024 Protein/Creatinine (U) [Mass ratio] 136 mg/g CRE 0-200 [facility] Urine sediment bacteria coun t by microscopy (number/high power field)Ordered By: Angel Luis Contreras on 02-09-2024 Bacteria LM.HPF (Urine sed) [#/Area] 1 /[HPF] None Seen [facility] Urine specific gravity measu rementOrdered By: Angel Luis Contreras on 02-09-2024 Specific gravity (U) [Rel density] 1.015 1.002-1.030 [facility] Urine urobilinogen measureme ntOrdered By: Angel Luis Contreras on 02-09-2024 Urobilinogen Ql (U) Normal mg/dl Normal [facility] Absolute lymphocyte countOrd ered By: Angel Luis Contreras on 08-04-2023 Lymphocytes Auto (Unsp spec) [#/Vol] 0.64 10*3/uL 0.83-4.51 [facility] Basophil percentageOrdered B y: Angel Luis Contreras on 08-04-2023 Basophil percentage 0 SEEN /hpf 0-5 [facility] Basophil percentage 3.5 mg/dL 2.5-4.9 [facility] Basophils/100 WBC (Bld) 0.7 % 0-1 [facility] Bilirubin [Mass/Vol] 0.50 mg/dL 0.20-1.00 [facility] Comment on above: For patients on eltr ombopag therapy, use of Dimension [place] TBIL is not recommended. Chloride [Moles/Vol] 106 mmol/L 98-107 [facility] Eosinophils/100 WBC (Bld) 5.5 % 0-5 [facility] Glucose [Mass/Vol] 90 mg/dL 74-106 [facility] Neutrophils (Bld) [#/Vol] 4.4 10*3/uL 2.0-7.7 [facility] Neutrophils/100 WBC (Bld) 73.1 % 47-70 [facility] Potassium [Moles/Vol] 4.3 mmol/L 3.5-5.1 [facility] Protein [Mass/Vol] 7.2 g/dL 6.4-8.2 [facility] Sodium [Moles/Vol] 139 mmol/L 136-145 [facility] WBC (Bld) [#/Vol] 6.0 10*3/uL 4.4-11.0 [facility] Bilirubin Test strip Ql (U)O rdered By: Angel Luis Contreras on 08-04-2023 Bilirubin Ql (U) Negative Negative [facility] Blood erythrocytes count (nu mber/volume)Ordered By: Angel Luis Contreras on 08-04-2023 RBC (Bld) [#/Vol] 4.22 10*6/uL 4.2-5.4 [facility] Blood hemoglobin measurement (mass/volume)Ordered By: Angel Luis Contreras on 08-04-2023 Hemoglobin (Bld) [Mass/Vol] 12.8 g/dL 12.0-15.0 [facility] Blood lymphocytes/100 leukoc ytesOrdered By: Angel Luis Contreras on 08-04-2023 Lymphocytes/100 WBC (Bld) 10.6 % 19-41 [facility] Blood monocytes/100 leukocyt esOrdered By: Angel Luis Contreras on 08-04-2023 Monocytes/100 WBC (Bld) 9.8 % 0-10 [facility] Blood platelet mean volumeOr dered By: Angel Luis Contreras on 08-04-2023 Platelet mean volume (Bld) [Entitic vol] 11.6 fL 6.2-12.0 [facility] Determination of erythrocyte mean corpuscular volume (MCV)Ordered By: Angel Luis Contreras on 08-04-2023 MCV (RBC) [Entitic vol] 98.8 fL 81-99 [facility] Hematocrit Auto (Bld) [Volum e fraction]Ordered By: Angel Luis Contreras on 08-04-2023 Hematocrit (Bld) [Volume fraction] 41.7 % 37-47 [facility] Ketones Test strip Ql (U)Ord ered By: Angel Luis Contreras on 08-04-2023 Ketones Ql (U) Negative Negative [facility] - Chemistry and C hemistry - challengeOrdered By: Angel Luis Contreras on 08-04-2023 ALP [Catalytic activity/Vol] 57 U/L 45-117 [facility] ALT [Catalytic activity/Vol] 19 U/L 13-56 [facility] CO2 [Moles/Vol] 28.0 mmol/L 21.0-32.0 [facility] Globulin (S) [Mass/Vol] 3.5 g/dL 2.2-4.2 [facility] Urea nitrogen/Creatinine [Mass ratio] 20.7 mg/mg 10-20 [facility] - Hematology and Cell countsOrdered By: Angel Luis Contreras on 08-04-2023 Erythrocyte distribution width (RBC) [Entitic vol] 47.8 fL 35.1-43.9 [facility] Erythrocyte distribution width (RBC) [Ratio] 13.2 % 11.6-14.6 [facility] Immature granulocytes/100 WBC (Bld) 0.300 % 0.0-0.9 [facility] Comment on above: IG% - Immature Granu locytes (promyelocytes, myelocytes and metamyelocytes) > 1% indicates that a LEFT SHIFT is Present. MCH (RBC) [Entitic mass] 30.3 pg 27.0-32.0 [facility] Nucleated RBC/100 WBC (Bld) [Ratio] 0 % 0-5 [facility] MCHC Auto (RBC) [Mass/Vol]Or dered By: Angel Luis Contreras on 08-04-2023 MCHC (RBC) [Mass/Vol] 30.7 g/dL 32-36 [facility] Mucus LM Ql (Urine sed)Order ed By: Angel Luis Contreras on 08-04-2023 Mucus Ql (Urine sed) 0 SEEN /hpf [facility] Nitrite Test strip Ql (U)Ord ered By: Angel Luis Contreras on 08-04-2023 Nitrite Ql (U) Negative Negative [facility] No Panel InformationOrdered By: Angel Luis Contreras on 08-04-2023 Estimated GFR (MDRD) Amer 54 mL/min >60 [facility] Comment on above: GFR Calc Estimated GFR (MDRD) Non-Af Amer 45 mL/min >60 [facility] Comment on above: Non- GFR Calc Parathyroid Hormone (Intact) 33.1 pg/mL 18.4-80.1 [facility] Vitamin D 25-Hydroxy 80.1 ng/mL [facility] Comment on above: Vitamin D 25(OH) Sta tus Range Deficiency <20 ng/mL (50nmol/L) Insufficiency 20 - 30 ng/mL (50 - 75 nmol/L) Sufficiency 30 - 100 ng/mL (75 - 250 nmol/L) Toxicity >100 ng/mL (>250 nmol/L) Platelets bldOrdered By: Camilo Contreras on 08-04-2023 Platelets (Bld) [#/Vol] 260 10*3/uL 150-450 [facility] Protein Test strip Ql (U)Ord ered By: Angel Luis Contreras on 08-04-2023 Protein Ql (U) Negative Negative [facility] Serum or plasma albumin dawson urement (mass/volume)Ordered By: Angel Luis Contreras on 08-04-2023 Albumin [Mass/Vol] 3.7 g/dL 3.2-5.0 [facility] Serum or plasma albumin/glob ulin mass ratioOrdered By: Angel Luis Contreras on 08-04-2023 Albumin/Globulin [Mass ratio] 1.1 {ratio} 0.9-2.4 [facility] Serum or plasma calcium dawson urement (mass/volume)Ordered By: Angel Luis Contreras on 08-04-2023 Calcium [Mass/Vol] 8.9 mg/dL 8.5-10.1 [facility] Serum or plasma creatinine m easurement (mass/volume)Ordered By: Angel Luis Contreras on 08-04-2023 Creatinine [Mass/Vol] 1.21 mg/dL 0.55-1.02 [facility] Comment on above: The validity of the calculated GFR & GFRAA in patients over 70 years has not been determined. Clinical correlation is essential. Serum or plasma urea nitroge n measurement (mass/volume)Ordered By: Angel Luis Contreras on 08-04-2023 Urea nitrogen [Mass/Vol] 25 mg/dL 7-18 [facility] Squamous epithelial cells de tection in urine sediment by light microscopyOrdered By: Angel Luis Contreras on 08-04-2023 Epithelial cells.squamous LM Ql (Urine sed) 0 SEEN /hpf 5-10 [facility] Thin prep Papanicolaou smear with manual screeningOrdered By: Angel Luis Contreras on 08-04-2023 Thin prep Papanicolaou smear with manual screening 15 U/L 15-37 [facility] Thin prep Papanicolaou smear with manual screening 5 5-15 [facility] Urine blood detectionOrdered By: Angel Luis Contreras on 08-04-2023 RBC Ql (U) Negative Negative [facility] RBC Ql (U) 0 SEEN /hpf 0-5 [facility] Urine clarityOrdered By: Camilo Contreras on 08-04-2023 Clarity (U) Clear Clear [facility] Urine color determinationOrd ered By: Angel Luis Contreras on 08-04-2023 Color (U) Yellow Yellow [facility] Urine creatinine measurement (mass/volume)Ordered By: Angel Luis Contreras on 08-04-2023 Creatinine (U) [Mass/Vol] 24.10 mg/dL NO RANGE EST. [facility] Urine glucose detectionOrder ed By: Angel Luis Contreras on 08-04-2023 Glucose Ql (U) Normal mg/dl Normal [facility] Urine leukocyte esterase det ection by dipstickOrdered By: Angel Luis Contreras on 08-04-2023 Leukocyte esterase Test strip Ql (U) Negative Negative [facility] Urine pHOrdered By: Angel Luis almanzar on 08-04-2023 pH (U) 5.0 [pH] 5.0 - 8.0 [facility] Urine protein measurement (m ass/volume)Ordered By: Angel Luis Contreras on 08-04-2023 Protein (U) [Mass/Vol] mg/dL 0.0-11.8 [facility] Urine protein/creatinine mas s ratioOrdered By: Angel Luis Contreras on 08-04-2023 Protein/Creatinine (U) [Mass ratio] TNP [facility] Comment on above: Test not performed Urine sediment bacteria coun t by microscopy (number/high power field)Ordered By: Angel Luis Contreras on 08-04-2023 Bacteria LM.HPF (Urine sed) [#/Area] 0 /[HPF] None Seen [facility] Urine specific gravity measu rementOrdered By: Angel Luis Contreras on 08-04-2023 Specific gravity (U) [Rel density] 1.010 1.002-1.030 [facility] Urobilinogen Auto test strip Ql (U)Ordered By: Angel Luis Contreras on 08-04-2023 Urobilinogen Ql (U) Normal mg/dl Normal [facility] Absolute lymphocyte counton 09-29-2022 Lymphocytes Auto (Unsp spec) [#/Vol] 0.69 10*3/uL 0.83-4.51 [facility] Work Phone: Basophil percentageon 2021 Basophil percentage 0-5 SEEN /hpf 0-[address] [facility] Work Phone: Basophil percentage 4.0 mg/dL 2.5-4.9 [facility] Work Phone: Basophils/100 WBC (Bld) 0.6 % 0-1 [facility] Work Phone: Bilirubin [Mass/Vol] 0.50 mg/dL 0.20-1.00 [facility] Work Phone: Comment on above: For patients on eltr ombopag therapy, use of Dimension [place] TBIL is not recommended. Chloride [Moles/Vol] 104 mmol/L 98-107 [facility] Work Phone: Cholesterol [Mass/Vol] 236 mg/dL <200 [facility] Work Phone: Comment on above: <200 mg/dL Desirable 200-240 mg/dL Borderline >240 mg/dL High Risk Eosinophils/100 WBC (Bld) 7.2 % 0-5 [facility] Work Phone: Glucose [Mass/Vol] 78 mg/dL 74-106 [facility] Work Phone: Neutrophils (Bld) [#/Vol] 3.4 10*3/uL 2.0-7.7 [facility] Work Phone: Neutrophils/100 WBC (Bld) 68.5 % 47-70 [facility] Work Phone: Potassium [Moles/Vol] 4.4 mmol/L 3.5-5.1 [facility] Work Phone: Protein [Mass/Vol] 7.0 g/dL 6.4-8.2 [facility] Work Phone: Sodium [Moles/Vol] 139 mmol/L 136-145 [facility] Work Phone: Triglyceride [Mass/Vol] 83 mg/dL <199 [facility] Work Phone: Comment on above: The drugs N-Acetylcy steine and Metamizole may falsely depress this assay.Serum Triglycerides Reference Interval Normal <150 mg/dL Borderline high 150 - 199 mg/dL High 200 - 499 mg/dL Very High > or = 500 mg/dL WBC (Bld) [#/Vol] 5.0 10*3/uL 4.4-11.0 [facility] Work Phone: [phone] Bilirubin Test strip Ql (U)o n 09-29-2022 Bilirubin Ql (U) Negative Negative [facility] Work Phone: [phone] Blood erythrocytes count (nu mber/volume)on 09-29-2022 RBC (Bld) [#/Vol] 4.29 10*6/uL 4.2-5.4 [facility] Work Phone: [phone] Blood hemoglobin measurement (mass/volume)on 09-29-2022 Hemoglobin (Bld) [Mass/Vol] 13.0 g/dL 12.0-15.0 [facility] Work Phone: [phone] Blood lymphocytes/100 leukoc yteson 09-29-2022 Lymphocytes/100 WBC (Bld) 13.7 % 19-41 [facility] Work Phone: [phone] Blood monocytes/100 leukocyt eson 09-29-2022 Monocytes/100 WBC (Bld) 9.8 % 0-10 [facility] Work Phone: [phone] Blood platelet mean volumeon 09-29-2022 Platelet mean volume (Bld) [Entitic vol] 11.1 fL 6.2-12.0 [facility] Work Phone: [phone] Determination of erythrocyte mean corpuscular volume (MCV)on 09-29-2022 MCV (RBC) [Entitic vol] 96.5 fL 81-99 [facility] Work Phone: [phone] Hematocrit Auto (Bld) [Volum e fraction]on 09-29-2022 Hematocrit (Bld) [Volume fraction] 41.4 % 37-47 [facility] Work Phone: [phone] Ketones Test strip Ql (U)on 09-29-2022 Ketones Ql (U) Negative Negative [facility] Work Phone: [phone] Laboratory - Chemistry and C hemistry - challengeon 09-29-2022 ALP [Catalytic activity/Vol] 58 U/L 45-117 [facility] Work Phone: [phone] ALT [Catalytic activity/Vol] 20 U/L 13-56 [facility] Work Phone: [phone] CO2 [Moles/Vol] 28.0 mmol/L 21.0-32.0 [facility] Work Phone: [phone] Globulin (S) [Mass/Vol] 3.4 g/dL 2.2-4.2 [facility] Work Phone: [phone] Urea nitrogen/Creatinine [Mass ratio] 16.7 mg/mg 10-20 [facility] Work Phone: [phone] Laboratory - Hematology and Cell countson 09-29-2022 Erythrocyte distribution width (RBC) [Entitic vol] 46.3 fL 35.1-43.9 [facility] Work Phone: [phone] Erythrocyte distribution width (RBC) [Ratio] 13.0 % 11.6-14.6 [facility] Work Phone: [phone] Immature granulocytes/100 WBC (Bld) 0.200 % 0.0-0.9 [facility] Work Phone: [phone] Comment on above: IG% - Immature Granu locytes (promyelocytes, myelocytes and metamyelocytes) > 1% indicates that a LEFT SHIFT is Present. MCH (RBC) [Entitic mass] 30.3 pg 27.0-32.0 [facility] Work Phone: [phone] Nucleated RBC/100 WBC (Bld) [Ratio] 0 % 0-5 [facility] Work Phone: [phone] MCHC Auto (RBC) [Mass/Vol]on 09-29-2022 MCHC (RBC) [Mass/Vol] 31.4 g/dL 32-36 [facility] Work Phone: [phone] Mucus LM Ql (Urine sed)on Mucus Ql (Urine sed) 0 SEEN /hpf [facility] Work Phone: Nitrite Test strip Ql (U)on 09-29-2022 Nitrite Ql (U) Negative Negative [facility] Work Phone: No Panel Informationon 09-29 Estimated GFR (MDRD) Amer 47 mL/min >60 [facility] Work Phone: Comment on above: GFR Calc Estimated GFR (MDRD) Non-Af Amer 39 mL/min >60 [facility] Work Phone: Comment on above: Non- GFR Calc Parathyroid Hormone (Intact) 35.2 pg/mL 18.4-80.1 [facility] Work Phone: Vitamin D 25-Hydroxy 69.7 ng/mL [facility] Work Phone: Comment on above: Vitamin D 25(OH) Sta tus Range Deficiency <20 ng/mL (50nmol/L) Insufficiency 20 - 30 ng/mL (50 - 75 nmol/L) Sufficiency 30 - 100 ng/mL (75 - 250 nmol/L) Toxicity >100 ng/mL (>250 nmol/L) Platelets bldon 09-29-2022 Platelets (Bld) [#/Vol] 300 10*3/uL 150-450 [facility] Work Phone: Protein Test strip Ql (U)on 09-29-2022 Protein Ql (U) Negative Negative [facility] Work Phone: [phone] Serum or plasma albumin dawson urement (mass/volume)on 09-29-2022 Albumin [Mass/Vol] 3.6 g/dL 3.2-5.0 [facility] Work Phone: [phone] Serum or plasma albumin/glob ulin mass ratioon 09-29-2022 Albumin/Globulin [Mass ratio] 1.1 {ratio} 0.9-2.4 [facility] Work Phone: [phone] Serum or plasma calcium dawson urement (mass/volume)on 09-29-2022 Calcium [Mass/Vol] 9.2 mg/dL 8.5-10.1 [facility] Work Phone: Serum or plasma cholesterol in HDL measurement (mass/volume)on 09-29-2022 Cholesterol in HDL [Mass/Vol] 78 mg/dL >40 [facility] Work Phone: [phone] Comment on above: The drugs N-Acetylcy steine and Metamizole may falsely depress this assay. Reference Range HDL <40 mg/dL Low HDL Cholesterol HDL >or= 60 mg/dL High HDL Cholesterol Serum or plasma cholesterol in VLDL measurement (mass/volume)on 09-29-2022 Cholesterol in VLDL [Mass/Vol] 17 mg/dL 5-40 [facility] Work Phone: [phone] Serum or plasma creatinine m easurement (mass/volume)on 09-29-2022 Creatinine [Mass/Vol] 1.38 mg/dL 0.55-1.02 [facility] Work Phone: Comment on above: The validity of the calculated GFR & GFRAA in patients over 70 years has not been determined. Clinical correlation is essential. Serum or plasma low density lipoprotein (LDL) cholesterol measurement (mass/volume)on 09-29-2022 Cholesterol in LDL [Mass/Vol] 141 mg/dL 0-130 [facility] Work Phone: [phone] Serum or plasma urea nitroge n measurement (mass/volume)on 09-29-2022 Urea nitrogen [Mass/Vol] 23 mg/dL 7-18 [facility] Work Phone: [phone] Squamous epithelial cells de tection in urine sediment by light microscopyon 09-29-2022 Epithelial cells.squamous LM Ql (Urine sed) 0-5 SEEN /hpf 5-10 [facility] Work Phone: Thin prep Papanicolaou smear with manual screeningon 09-29-2022 Thin prep Papanicolaou smear with manual screening 16 U/L 15-37 [facility] Work Phone: [phone] Thin prep Papanicolaou smear with manual screening 7 5-15 [facility] Work Phone: [phone] Urine blood detectionon 11- RBC Ql (U) Negative Negative [facility] Work Phone: RBC Ql (U) 0 SEEN /hpf 0-5 [facility] Work Phone: Urine clarityon 09-29-2022 Clarity (U) Sl. Cloudy Clear [facility] Work Phone: Urine color determinationon 09-29-2022 Color (U) Yellow Yellow [facility] Work Phone: Urine creatinine measurement (mass/volume)on 09-29-2022 Creatinine (U) [Mass/Vol] 44.60 mg/dL NO RANGE EST. [facility] Work Phone: Urine glucose detectionon Glucose Ql (U) Normal mg/dl Normal [facility] Work Phone: Urine leukocyte esterase det ection by dipstickon 09-29-2022 Leukocyte esterase Test strip Ql (U) 25 /ul Negative [facility] Work Phone: Urine pHon 09-29-2022 pH (U) 6.0 [pH] 5.0 - 8.0 [facility] Work Phone: Urine protein measurement (m ass/volume)on 09-29-2022 Protein (U) [Mass/Vol] mg/dL 0.0-11.8 [facility] Work Phone: Urine protein/creatinine mas s ratioon 09-29-2022 Protein/Creatinine (U) [Mass ratio] TNP [facility] Work Phone: Comment on above: Test not performed Urine sediment bacteria coun t by microscopy (number/high power field)on 09-29-2022 Bacteria LM.HPF (Urine sed) [#/Area] 1 /[HPF] None Seen [facility] Work Phone: Urine specific gravity measu rementon 09-29-2022 Specific gravity (U) [Rel density] 1.010 1.002-1.030 [facility] Work Phone: Urobilinogen Auto test strip Ql (U)on 09-29-2022 Urobilinogen Ql (U) Normal mg/dl Normal [facility] Work Phone: Basophil percentageon 2021 Chloride [Moles/Vol] 102 mmol/L 98-107 [facility] Work Phone: Glucose [Mass/Vol] 89 mg/dL 74-106 [facility] Work Phone: Potassium [Moles/Vol] 4.2 mmol/L 3.5-5.1 [facility] Work Phone: Sodium [Moles/Vol] 139 mmol/L 136-145 [facility] Work Phone: Laboratory - Chemistry and C hemistry - challengeon 04-10-2022 CO2 [Moles/Vol] 30.0 mmol/L 21.0-32.0 [facility] Work Phone: Urea nitrogen/Creatinine [Mass ratio] 15.2 mg/mg 10-20 [facility] Work Phone: No Panel Informationon 04-10 Estimated GFR (MDRD) Amer 52 mL/min >60 [facility] Work Phone: Comment on above: GFR Calc Estimated GFR (MDRD) Non-Af Amer 43 mL/min >60 [facility] Work Phone: Comment on above: Non- GFR Calc Serum or plasma calcium dawson urement (mass/volume)on 04-10-2022 Calcium [Mass/Vol] 9.5 mg/dL 8.5-10.1 [facility] Work Phone: Serum or plasma creatinine m easurement (mass/volume)on 04-10-2022 Creatinine [Mass/Vol] 1.25 mg/dL 0.55-1.02 [facility] Work Phone: Comment on above: The validity of the calculated GFR & GFRAA in patients over 70 years has not been determined. Clinical correlation is essential. Serum or plasma urea nitroge n measurement (mass/volume)on 04-10-2022 Urea nitrogen [Mass/Vol] 19 mg/dL 7-18 [facility] Work Phone: Thin prep Papanicolaou smear with manual screeningon 04-10-2022 Thin prep Papanicolaou smear with manual screening 7 5-15 [facility] Work Phone: Absolute lymphocyte counton 04-06-2022 Lymphocytes Auto (Unsp spec) [#/Vol] 0.72 10*3/uL 0.83-4.51 [facility] Work Phone: Basophil percentageon 2021 Basophils/100 WBC (Bld) 0.3 % 0-1 [facility] Work Phone: Bilirubin [Mass/Vol] 0.60 mg/dL 0.20-1.00 [facility] Work Phone: Comment on above: For patients on eltr ombopag therapy, use of Dimension [place] TBIL is not recommended. Chloride [Moles/Vol] 107 mmol/L 98-107 [facility] Work Phone: Eosinophils/100 WBC (Bld) 6.1 % 0-5 [facility] Work Phone: Glucose [Mass/Vol] 90 mg/dL 74-106 [facility] Work Phone: Neutrophils (Bld) [#/Vol] 2.2 10*3/uL 2.0-7.7 [facility] Work Phone: Neutrophils/100 WBC (Bld) 61.5 % 47-70 [facility] Work Phone: Potassium [Moles/Vol] 3.8 mmol/L 3.5-5.1 [facility] Work Phone: Protein [Mass/Vol] 6.9 g/dL 6.4-8.2 [facility] Work Phone: Sodium [Moles/Vol] 138 mmol/L 136-145 [facility] Work Phone: WBC (Bld) [#/Vol] 3.6 10*3/uL 4.4-11.0 [facility] Work Phone: Bilirubin Test strip Ql (U)o n 04-06-2022 Bilirubin Ql (U) Negative Negative [facility] Work Phone: Blood erythrocytes count (nu mber/volume)on 04-06-2022 RBC (Bld) [#/Vol] 4.33 10*6/uL 4.2-5.4 [facility] Work Phone: Blood hemoglobin measurement (mass/volume)on 04-06-2022 Hemoglobin (Bld) [Mass/Vol] 13.2 g/dL 12.0-15.0 [facility] Work Phone: Blood lymphocytes/100 leukoc yteson 04-06-2022 Lymphocytes/100 WBC (Bld) 20.1 % 19-41 [facility] Work Phone: Blood monocytes/100 leukocyt eson 04-06-2022 Monocytes/100 WBC (Bld) 11.7 % 0-10 [facility] Work Phone: Blood platelet mean volumeon 04-06-2022 Platelet mean volume (Bld) [Entitic vol] 9.7 fL 6.2-12.0 [facility] Work Phone: Determination of erythrocyte mean corpuscular volume (MCV)on 04-06-2022 MCV (RBC) [Entitic vol] 94.9 fL 81-99 [facility] Work Phone: Hematocrit Auto (Bld) [Volum e fraction]on 04-06-2022 Hematocrit (Bld) [Volume fraction] 41.1 % 37-47 [facility] Work Phone: Ketones Test strip Ql (U)on 04-06-2022 Ketones Ql (U) 15 mg/dl Negative [facility] Work Phone: Laboratory - Chemistry and C hemistry - challengeon 04-06-2022 ALP [Catalytic activity/Vol] 52 U/L 45-117 [facility] Work Phone: ALT [Catalytic activity/Vol] 22 U/L 13-56 [facility] Work Phone: [phone] CO2 [Moles/Vol] 27.0 mmol/L 21.0-32.0 [facility] Work Phone: [phone] Globulin (S) [Mass/Vol] 3.5 g/dL 2.2-4.2 [facility] Work Phone: [phone] Lipase [Catalytic activity/Vol] 40 U/L 73-393 [facility] Work Phone: [phone] Urea nitrogen/Creatinine [Mass ratio] 10.6 mg/mg 10-20 [facility] Work Phone: [phone] Laboratory - Hematology and Cell countson 04-06-2022 Erythrocyte distribution width (RBC) [Entitic vol] 44.6 fL 35.1-43.9 [facility] Work Phone: [phone] Erythrocyte distribution width (RBC) [Ratio] 12.8 % 11.6-14.6 [facility] Work Phone: [phone] Immature granulocytes/100 WBC (Bld) 0.300 % 0.0-0.9 [facility] Work Phone: [phone] Comment on above: IG% - Immature Granu locytes (promyelocytes, myelocytes and metamyelocytes) > 1% indicates that a LEFT SHIFT is Present. MCH (RBC) [Entitic mass] 30.5 pg 27.0-32.0 [facility] Work Phone: [phone] Nucleated RBC/100 WBC (Bld) [Ratio] 0 % 0-5 [facility] Work Phone: [phone] MCHC Auto (RBC) [Mass/Vol]on 04-06-2022 MCHC (RBC) [Mass/Vol] 32.1 g/dL 32-36 [facility] Work Phone: [phone] Nitrite Test strip Ql (U)on 04-06-2022 Nitrite Ql (U) Negative Negative [facility] Work Phone: [phone] No Panel Informationon 04-06 Estimated Creatinine Clearance Calc 33.73 ml/min [facility] Work Phone: [phone] Estimated GFR (MDRD) Amer 53 mL/min >60 [facility] Work Phone: Comment on above: GFR Calc Estimated GFR (MDRD) Non-Af Amer 44 mL/min >60 [facility] Work Phone: [phone] Comment on above: Non- GFR Calc Troponin I High Sensitivity 5 pg/mL 3.0-54.0 [facility] Work Phone: Comment on above: Please Note: New Pratima t Units and Gender Specific Reference Ranges. For more information see Policy Stat Procedure [place] High Sensitivity Troponin (TNIH) and attachments. Platelets bldon 04-06-2022 Platelets (Bld) [#/Vol] 216 10*3/uL 150-450 [facility] Work Phone: [phone] Protein Test strip Ql (U)on 04-06-2022 Protein Ql (U) Negative Negative [facility] Work Phone: Serum or plasma albumin dawson urement (mass/volume)on 04-06-2022 Albumin [Mass/Vol] 3.4 g/dL 3.2-5.0 [facility] Work Phone: [phone] Serum or plasma albumin/glob ulin mass ratioon 04-06-2022 Albumin/Globulin [Mass ratio] 1.0 {ratio} 0.9-2.4 [facility] Work Phone: [phone] Serum or plasma calcium dawson urement (mass/volume)on 04-06-2022 Calcium [Mass/Vol] 8.7 mg/dL 8.5-10.1 [facility] Work Phone: [phone] Serum or plasma creatinine m easurement (mass/volume)on 04-06-2022 Creatinine [Mass/Vol] 1.23 mg/dL 0.55-1.02 [facility] Work Phone: Comment on above: The validity of the calculated GFR & GFRAA in patients over 70 years has not been determined. Clinical correlation is essential. Serum or plasma urea nitroge n measurement (mass/volume)on 04-06-2022 Urea nitrogen [Mass/Vol] 13 mg/dL 7-18 [facility] Work Phone: Thin prep Papanicolaou smear with manual screeningon 04-06-2022 Thin prep Papanicolaou smear with manual screening 23 U/L 15-37 [facility] Work Phone: Thin prep Papanicolaou smear with manual screening 4 -15 [facility] Work Phone: Urine blood detectionon 03-23 RBC Ql (U) 10 /ul Negative [facility] Work Phone: Urine clarityon 04-06-2022 Clarity (U) Clear Clear [facility] Work Phone: Urine color determinationon 04-06-2022 Color (U) Yellow Yellow [facility] Work Phone: Urine glucose detectionon Glucose Ql (U) Normal mg/dl Normal [facility] Work Phone: Urine leukocyte esterase det ection by dipstickon 04-06-2022 Leukocyte esterase Test strip Ql (U) 25 /ul Negative [facility] Work Phone: Urine pHon 04-06-2022 pH (U) 6.0 [pH] [facility] Work Phone: Urine specific gravity measu rementon 04-06-2022 Specific gravity (U) [Rel density] 1.015 [facility] Work Phone: Urobilinogen Auto test strip Ql (U)on 04-06-2022 Urobilinogen Ql (U) Normal mg/dl Normal [facility] Work Phone: Culture, urine Bacteria identified Cx Nom (U) Presumptive E. coli [facility] Work Phone: Vital Signs Date Time Vital Sign Value Performing Clinician Elderi rosalba 05-19-2025 19:00-0400 Diastolic blood pressure 82 mm[Hg] Dr. Angel Luis Contreras MD Work Phone: [facility] 05-19-2025 19:00-0400 Heart rate 59 /min Dr. Angel Luis Contreras MD Work Phone: [facility] 05-19-2025 19:00-0400 Respiratory rate 11 /min Dr. Angel Luis Contreras MD Work Phone: [facility] 05-19-2025 19:00-0400 SaO2% (BldA) [Mass fraction] 97 % Dr. Angel Luis Contreras MD Work Phone: [phone] [place] [address] 05-19-2025 19:00-0400 Systolic blood pressure 144 mm[Hg] Dr. Angel Luis Contreras MD Work Phone: [phone])354-695165 [place] [address] 05-19-2025 18:31-0400 Body temperature 98.9 [degF] Dr. Angel Luis Contreras MD Work Phone: [phone])466-473765 [place] [address] 05-19-2025 17:32-0400 Body height 172.[address] Angel Luis Contreras MD Work Phone: [phone] [place] [address] 05-19-2025 17:32-0400 Body mass index (BMI) [Ratio] 25.4 kg/m2 Dr. Angel Luis Contreras MD Work Phone: [phone])[phone] [place] [address] 05-19-2025 17:32-0400 Body weight 75.[address] Angel Luis Contreras MD Work Phone: [phone] [place] [address] 05-04-2025 11:51-0400 Body temperature 98 [degF] Dr. Angel Luis Contreras MD Work Phone: [facility] 05-04-2025 11:51-0400 Diastolic blood pressure 76 mm[Hg] Dr. Angel Luis Contreras MD Work Phone: [facility] 05-04-2025 11:51-0400 Heart rate 65 /min Dr. Angel Luis Contreras MD Work Phone: [facility] 05-04-2025 11:51-0400 Respiratory rate 18 /min Dr. Angel Luis Contreras MD Work Phone: [facility] 05-04-2025 11:51-0400 SaO2% (BldA) [Mass fraction] 97 % Dr. Angel Luis Contreras MD Work Phone: [facility] 05-04-2025 11:51-0400 Systolic blood pressure 128 mm[Hg] Dr. Angel Luis Contreras MD Work Phone: [phone])522-132365 [place] [address] 05-04-2025 02:14-0400 Body mass index (BMI) [Ratio] 25.2 kg/m2 Dr. Angel Luis Contreras MD Work Phone: 6(117)203-024115 [place] [address] 05-03-2025 16:44-0400 Body height 172.[address] Angel Luis Contreras MD Work Phone: 8([phone])517-683165 [address] 05-03-2025 16:44-0400 Body weight 75.[address] Angel Luis Contreras MD Work Phone: 9(637)981-176815 [place] [address] 05-03-2025 16:00-0400 Diastolic blood pressure 79 mm[Hg] Dr. Angel Luis Contreras MD Work Phone: 0([phone])390-909115 [place] [address] 05-03-2025 16:00-0400 Heart rate 53 /min Dr. Angel Luis Contreras MD Work Phone: 1(265)089-254715 [place] [address] 05-03-2025 16:00-0400 Respiratory rate 18 /min Dr. Angel Luis Contreras MD Work Phone: 8(142)612-746115 [place] [address] 05-03-2025 16:00-0400 SaO2% (BldA) [Mass fraction] 97 % Dr. Angel Luis Contreras MD Work Phone: 7([phone])430-752765 [place] [address] 05-03-2025 16:00-0400 Systolic blood pressure 168 mm[Hg] Dr. Angel Luis Contreras MD Work Phone: 2(951)555-228565 [place] [address] 05-03-2025 13:40-0400 Body temperature 97.9 [degF] Dr. Angel Luis Contreras MD Work Phone: 7(407)601-021265 [place] [address] 05-03-2025 11:21-0400 Body height 172.[address] Angel Luis Contreras MD Work Phone: 4([phone] [address] 05-03-2025 11:21-0400 Body mass index (BMI) [Ratio] 26.2 kg/m2 Dr. Angel Luis Contreras MD Work Phone: [facility] 05-03-2025 11:21-0400 Body weight 78.[address] Angel Luis Contreras MD Work Phone: [facility] 03-16-2024 14:38-0400 Body height 172.[address] Angel Luis Contreras Work Phone: [facility] 03-16-2024 14:38-0400 Body mass index (BMI) [Ratio] 25.8 kg/m2 Dr. Angel Luis Contreras Work Phone: [facility] 03-16-2024 14:38-0400 Body temperature 97.5 [degF] Dr. Angel Luis Contreras Work Phone: [facility] 03-16-2024 14:38-0400 Body weight 77.[address] Angel Luis Contreras Work Phone: [facility] 03-16-2024 14:38-0400 Diastolic blood pressure 62 mm[Hg] Dr. Angel Luis Contreras Work Phone: [facility] 03-16-2024 14:38-0400 Heart rate 68 /min Dr. Angel Luis Contreras Work Phone: [facility] 03-16-2024 14:38-0400 Respiratory rate 17 /min Dr. Angel Luis Contreras Work Phone: [facility] 03-16-2024 14:38-0400 SaO2% (BldA) [Mass fraction] 96 % Dr. Angel Luis Contreras Work Phone: [facility] 03-16-2024 14:38-0400 Systolic blood pressure 132 mm[Hg] Dr. Angel Luis Contreras Work Phone: [facility] 04-06-2022 10:07-0400 Diastolic blood pressure 79 mm[Hg] [facility] Work Phone: 04-06-2022 10:07-0400 Heart rate 62 /min [facility] Work Phone: 04-06-2022 10:07-0400 Respiratory rate 16 /min [facility] Work Phone: 04-06-2022 10:07-0400 Systolic blood pressure 128 mm[Hg] [facility] Work Phone: 04-06-2022 08:10-0400 Body height 172.72 cm [facility] Work Phone: 04-06-2022 08:10-0400 Body mass index (BMI) [Ratio] 25.7 kg/m2 [facility] Work Phone: 04-06-2022 08:10-0400 Body temperature 97.8 [degF] [facility] Work Phone: 04-06-2022 08:10-0400 Body weight 76.9 kg [facility] Work Phone: 04-06-2022 08:10-0400 SaO2% (BldA) [Mass fraction] 98 % [facility] Work Phone: Encounters Encounter Date Encounter Type Care Provider Facility Start: 05-19-2025 Evaluation and management of inpatient Dr. Clementien Kowalski MD -Progressive Care Unit Work Phone: Start: 05-19-[address] Angel Luis Contreras MD Work Phone: -Progressive Care Unit Start: 05-16-2025 ambulatory Angel Luis Contreras Facilit y:[facility] Start: 05-16-[address] Angel Luis Contreras MD -Occupational Therapy Work Phone: Start: 05-04-2025 Non-patient / Non-visit Dr. Spike TATE -[facility] Work Phone: Start: 05-03-2025 ambulatory Angel Luis Joshi y:[facility] Start: 05-03-2025 Non-patient / Non-visit Dr. Nilson abreu MD -[facility] Start: 05-03-2025 End: 05-04-2025 ambulatory Pillo Michelle Facility:[facility] Start: 05-03-2025 End: 05-04-2025 Evaluation and management of inpatient Dr. Pillo Michelle DO -Medical Surgical 2 Work Phone: Start: 05-03-2025 End: 05-04-[address] Angel Luis Contreras MD Work Phone: [facility] Work Phone: Start: 04-20-2025 End: 04-20-[address] Angel Luis Contreras MD Work Phone: [facility] Work Phone: Start: 04-20-2025 End: 04-20-[address] Angel Luis Contreras MD -Laboratory [facility] Start: 04-20-2025 End: 04-20-2025 ambulatory Angel Luis Contreras Facility:[facility] Start: 11-18-2024 End: 11-18-2024 ambulatory Angel Luis Contreras Facility:[facility] Start: 08-29-2024 End: 08-29-2024 ambulatory Angel Luis Contreras [place] Start: 05-30-2024 End: 05-30-2024 ambulatory Angel Luis Contreras Facility:[facility] Start: 03-16-2024 End: 03-16-[address] Angel Luis Contreras Work Phone: [facility] Work Phone: Start: 03-16-2024 End: 03-16-[address] Angel Luis Contreras Work Phone: [facility] Work Phone: Start: 02-09-2024 Non-patient / Non-visit Dr. Dorys Contreras Work Phone: [facility] Start: 02-09-2024 End: 02-09-[address] Angel Luis Contreras Work Phone: [facility] Work Phone: Start: 02-09-2024 End: 02-09-[address] [facility] Work [facility]: Start: 02-09-2024 End: 02-09-[address] Angel Luis Contreras Work Phone: [facility] Work Phone: Start: 02-09-2024 End: 02-09-[address] Angel Luis Contreras Work Phone: [facility] Start: 08-04-2023 End: 08-04-2023 ambulatory [facility] Work Phone: Start: 08-04-2023 End: 08-04-2023 Patient encounter procedure [facility] Start: 09-29-2022 End: 09-29-2022 ambulatory [facility] Work Phone: Start: 09-29-2022 End: 09-29-2022 Patient encounter procedure [facility] Start: 09-10-2022 End: 09-10-2022 ambulatory [facility] Work Phone: Start: 09-10-2022 End: 09-10-2022 Patient encounter procedure [facility] Start: 04-10-2022 End: 04-10-2022 Patient encounter procedure [facility] Start: 04-06-2022 End: 04-06-2022 Emergency department patient visit [facility]-Emergency Department Procedures Date Procedure Procedure Detail Performing Clinician Start: 05-19-[address] Angel Luis Contreras MD Work Phone: Start: 05-19-2025 CT angiography of he ad and neck Dr. Angel Luis Contreras MD Work Phone: Start: 05-19-2025 CT of head without contrast Dr. Angel Luis Contreras MD Work Phone: Start: 05-04-[address] Angel Luis Contreras MD Work Phone: Start: 05-04-2025 Urnls dip stick/tabl et reagent auto microscopy Dr. Angel Luis Contreras MD Work Phone: Start: 05-04-[address] Angel Luis Contreras MD Work Phone: Start: 05-03-2025 Magnetic resonance angiography of head without contrast Dr. Angel Luis Contreras MD Work Phone: Start: 05-03-2025 Magnetic resonance angiography of neck without contrast Dr. Angel Luis Contreras MD Work Phone: Start: 05-03-2025 MRI of brain without contrast Dr. Angel Luis Contreras MD Work Phone: Start: 05-03-2025 Plain chest X-ray Dr. Selwyn Contreras MD Work Phone: Start: 05-03-2025 CT of head without contrast Dr. Angel Luis Contreras MD Work Phone: Start: 05-03-[address] Angel Luis Contreras MD Work Phone: Start: 04-20-2025 Urnls dip stick/tabl et reagent auto microscopy Dr. Angel Luis Contreras MD Work Phone: Start: 04-20-[address] Angel Luis Contreras MD Work Phone: Start: 04-20-2025 Serum inorganic phos phate measurement Dr. Angel Luis Contreras MD Work Phone: Start: 04-20-2025 Vitamin D, 25-hydrox y measurement Dr. Anegl Luis Contreras MD Work Phone: Comment on above: Vitamin D StatusDefi ciency: <20 ng/mL (50nmol/L)Insufficiency: 20-30 ng/mL (50-75 nmol/L)Sufficiency: 30-100 ng/mL (75-250 nmol/L)Toxicity: >100 ng/mL (>250 nmol/L) Start: 03-16-2024 Radiologic examinati on of knee Dr. Angel Luis Contreras Work Phone: Start: 04-06-2022 CT of abdomen and pe lvis without contrast Urine culture Plan of Treatment Date Care Activity Detail Author Start: 05-20-2025 Thyroid stimulating hormone measurement [facility] Start: 05-19-2025 End: 05-19-2025 [facility] Start: 05-19-2025 Aspiration precautions [facility] Start: 05-19-2025 Assessment of risk o f venous thromboembolism [facility] Start: 05-19-2025 Cardiac monitoring [facility] Start: 05-19-2025 Catheterization of vein [facility] Start: 05-19-2025 Consultation [facility] Start: 05-19-2025 Continuous pulse oximetry [facility] Start: 05-19-2025 Elevation of head of bed [facility] Start: 05-19-2025 Exercises [facility] Start: 05-19-2025 Insertion of cathete r into peripheral vein [facility] Start: 05-19-2025 Notification of physician [facility] Start: 05-19-2025 Oxygen therapy [facility] Start: 05-19-2025 Patient referral to dietitian [facility] Start: 05-19-2025 Providing care accor ding to standard [facility] Start: 05-19-2025 Provision of activit y privileges [facility] Start: 05-19-2025 Referral to occupati onal therapist [facility] Start: 05-19-2025 Referral to service [facility] Start: 05-19-2025 Speech therapy assessment [facility] Start: 05-19-2025 Telemedicine consult ation with patient [facility] Start: 05-19-2025 Tobacco use cessatio n education [facility] Start: 05-19-2025 Urinalysis complete panel - Urine [facility] Start: 05-19-2025 Following clinical p athway protocol [facility] Start: 05-19-2025 Vital signs measurements [facility] Start: 05-19-2025 MRI of brain without contrast Brain without Contrast [facility] Start: 05-19-2025 Admission procedure [facility] Start: 05-19-2025 Verification routine [facility] Start: 05-19-2025 Hospital admission, emergency, from emergency room, medical nature [facility] Start: 05-19-2025 Oxygen therapy [facility] Start: 05-19-2025 [facility] Start: 05-04-2025 Patient discharge [facility] Start: 05-04-2025 Bacteria identified in Urine by Culture Urine Culture [facility] Start: 05-04-2025 [facility] Start: 05-04-2025 Complete blood count [facility] Start: 05-03-2025 Following clinical p athway protocol [facility] Start: 05-03-2025 Aspiration precautions [facility] Start: 05-03-2025 Assessment of risk o f venous thromboembolism [facility] Start: 05-03-2025 Cardiac monitoring [facility] Start: 05-03-2025 Catheterization of vein [facility] Start: 05-03-2025 Consultation [facility] Start: 05-03-2025 Continuous pulse oximetry [facility] Start: 05-03-2025 Elevation of head of bed [facility] Start: 05-03-2025 Exercises [facility] Start: 05-03-2025 Insertion of cathete r into peripheral vein [facility] Start: 05-03-2025 Notification of physician [facility] Start: 05-03-2025 Oxygen therapy [facility] Start: 05-03-2025 Patient referral to dietitian [facility] Start: 05-03-2025 Providing care accor ding to standard [facility] Start: 05-03-2025 Referral to occupati onal therapist [facility] Start: 05-03-2025 Referral to service [facility] Start: 05-03-2025 Speech therapy assessment [facility] Start: 05-03-2025 Telemedicine consult ation with patient [facility] Start: 05-03-2025 Tobacco use cessatio n education [facility] Start: 05-03-2025 End: 05-03-2025 [facility] Start: 05-03-2025 Vital signs measurements [facility] Start: 05-03-2025 Verification routine [facility] Start: 05-03-2025 Magnetic resonance angiography of head without contrast MRA Head ONLY without Contrast [facility] Start: 05-03-2025 Magnetic resonance angiography of neck without contrast MRA Neck without Contrast [facility] Start: 05-03-2025 MRI of brain without contrast Brain without Contrast [facility] Start: 05-03-2025 Urinalysis complete panel - Urine [facility] Start: 05-03-2025 Admission procedure [facility] Start: 05-03-2025 Oxygen therapy [facility] Start: 05-03-2025 [facility] Anion gap in Serum o r Plasma [facility] Anion gap in Serum o r Plasma [facility] BUN/Creatinine ratio [facility] BUN/Creatinine ratio [facility] Calcium [Mass/volume ] in Serum or Plasma [facility] Calcium [Mass/volume ] in Serum or Plasma [facility] Carbon dioxide, tota l [Moles/volume] in Central venous blood [facility] Carbon dioxide, tota l [Moles/volume] in Central venous blood [facility] Cardiac event recording [facility] Cholesterol [Mass/vo lume] in Serum or Plasma [facility] Cholesterol in HDL [Mass/volume] in Serum or Plasma [facility] Creatinine [Mass/vol ume] in Serum or Plasma [facility] Creatinine [Mass/vol ume] in Serum or Plasma [facility] Erythrocyte mean corpuscular volume determination [facility] Erythrocyte mean corpuscular volume determination [facility] Glucose [Mass/volume ] in Serum or Plasma [facility] Glucose [Mass/volume ] in Serum or Plasma [facility] Hematocrit [Volume Fraction] of Blood [facility] Hematocrit [Volume Fraction] of Blood [facility] Hemoglobin [Mass/vol ume] in Blood [facility] Hemoglobin [Mass/vol ume] in Blood [facility] Leukocytes [#/volume ] in Blood [facility] Leukocytes [#/volume ] in Blood [facility] Low density lipoprot ein cholesterol measurement [facility] Mean corpuscular hem oglobin concentration determination [facility] Mean corpuscular hem oglobin concentration determination [facility] Mean corpuscular hem oglobin determination [facility] Mean corpuscular hem oglobin determination [facility] Measurement of renal function [facility] Measurement of renal function [facility] Neutrophil count [facility] Neutrophil percent differential count [facility] Patient Education ED Diarrhea, U nknown Cause [facility] Work Phone: Patient referral [facility] Work Phone: Platelets [#/volume] in Blood [facility] Platelets [#/volume] in Blood [facility] Potassium measurement [facility] Potassium measurement [facility] Red blood cell count [facility] Red blood cell count [facility] Red cell distributio n width determination [facility] Red cell distributio n width determination [facility] Serum chloride measurement [facility] Serum chloride measurement [facility] Sodium measurement [facility] Sodium measurement [facility] Total cholesterol:HD L ratio measurement [facility] Triglycerides measurement [facility] Troponin T.cardiac [Mass/volume] in Serum or Plasma by High sensitivity method [facility] Troponin T.cardiac [Mass/volume] in Serum or Plasma by High sensitivity method [facility] Urea nitrogen [Mass/ volume] in Serum or Plasma [facility] Urea nitrogen [Mass/ volume] in Serum or Plasma [facility] Urine culture [facility] VLDL cholesterol measurement [facility] Immunizations Immunization Date Immunization Notes Care Provider Fa [facility] 08-02-2024 tetanus toxoid, redu demetri diphtheria toxoid, and acellular pertussis vaccine, adsorbed Dr. Angel Luis Contreras MD Work Phone: [facility] 08-04-2023 Pneumococcal Vaccine PCV20 (Prevnar 20) Dr. Angel Luis Contreras MD Work Phone: [facility] 06-23-2022 Covid (Moderna) Dr. Angel Luis almanzar MD Work Phone: [facility] 10-25-2021 Covid (Moderna) Dr. Angel Luis almanzar MD Work Phone: [facility] 10-04-2021 influenza, injectabl e, quadrivalent, preservative free Dr. Angel Luis Contreras MD Work Phone: [facility] 01-17-2021 Covid (Moderna) Dr. Angel Luis almanzar MD Work Phone: [facility] 12-20-2020 Covid (Moderna) Dr. Angel Luis almanzar MD Work Phone: [facility] 09-20-2020 influenza, injectabl e, quadrivalent, preservative free [facility] 09-20-2020 influenza, seasonal, injectable [facility] Work Phone: 09-20-2020 influenza, seasonal, injectable, preservative free Dr. Angel Luis Contreras MD Work Phone: [facility] 12-20-2019 influenza, high dose seasonal, preservative-free Dr. Angel Luis Contreras MD Work Phone: [facility] 03-14-2019 pneumococcal conjuga te vaccine, [address] Angel Luis Contreras MD Work Phone: [facility] 11-25-2018 influenza, injectabl e, quadrivalent, preservative free [facility] 11-25-2018 influenza, seasonal, injectable [facility] Work Phone: 11-25-2018 influenza, seasonal, injectable, preservative free Dr. Angel Luis Contrears MD Work Phone: [facility] 08-23-2017 Influenza virus vaccine [facility] 01-28-2012 tetanus toxoid, redu demetri diphtheria toxoid, and acellular pertussis vaccine, adsorbed Dr. Angel Luis Contreras MD Work Phone: [facility] 09-03-2010 influenza, injectabl e, quadrivalent, preservative free Dr. Angel Luis Contreras MD Work Phone: [facility] 07-24-2010 hepatitis A vaccine, adult dosage Dr. Angel Luis Contreras MD Work Phone: [facility] 07-24-2010 typhoid capsular polysaccharide vaccine Dr. Angel Luis Contreras MD Work Phone: [facility] 10-02-2009 influenza, injectabl e, quadrivalent, preservative free Dr. Angel Luis Contreras MD Work Phone: [facility] 10-05-2007 influenza, injectabl e, quadrivalent, preservative free Dr. Angel Luis Contreras MD Work Phone: [facility] Payers Date Payer Category Payer Self-pay [id number] 2024 Private Health Insurance [id number] 2024 Self-pay [id number] 2001 Private Health Insurance [id number] Medicare [id number] Private Health Insurance [facility] [id number] Unknown [id number] 62 Unknown [id number] 62 Unknown [id number] 62 Unknown [id number] 62 Unknown [id number] 62 Unknown [id number] 62 Unknown [id number] 62 Unknown [id number] 62 Unknown [id number] 62 Social History Date Type Detail Facility Start: 04-06-2022 End: 04-06-2022 Tobacco smoking status NHIS Unknown if ever smoked [facility] Start: 09-05-2020 Non-smoker [facility] Start: 1935 Sex Assigned At Female W [facility] Start: 07-31-2018 None [facility] Start: 07-31-2018 Alone [facility] Start: 04-06-2022 End: 05-03-2025 Tobacco smoking status NHIS Never smoked tobacco (finding) [facility] Start: 05-19-2025 Tobacco smoking stat us NHIS Ex-smoker (finding) [facility] Medical Equipment Procedure Code Equipment Code Equipment Origin al Text Equipment Identifier Dates STENT,URETERAL 6 FR PIG 6X26 FDA Start: 04-07-2018 STENT,6x28 GABRIELA PIG FDA Start: 08-11-2018 MANAV MAXWELL LG FDA Start: 11-24-2018 MANAV MAXWELL LG FDA Start: 11-24-2018 MANAV MAXWELL LG FDA Start: 11-24-2018 MANAV MAXWELL FDA Start: 11-24-2018 MANAV MAXWELL FDA Start: 11-24-2018 CEMENT,BONE FELICIA H 1/2 BATCH FDA Start: 09-19-2020 CEMENT,BONE FELICIA H 1/2 BATCH FDA Start: 09-19-2020 DOUGH,CEMENT 6191-1-010 FDA Start: 09-19-2020 TRIATHLON CRUCIA TE RETAIN FEMO FDA Start: 09-19-2020 TRIATHLON PRIM TIBIAL BASEPLAT FDA Start: 09-19-2020 TRIATHLON X3 ASY M PATELLA FDA Start: 09-19-2020 TRIATHLON X3 TIB IAL BEARING FDA Start: 09-19-2020 STENT,URETERAL 6 FR PIG 6X26 FDA Start: 04-07-2018 STENT,6x28 GABRIELA PIG FDA Start: 08-11-2018 MANAV MAXWELL LG FDA Start: 11-24-2018 MANAV MAXWELL LG FDA Start: 11-24-2018 MANAV MAXWELL LG FDA Start: 11-24-2018 MANAV MAXWELL FDA Start: 11-24-2018 MANAV MAXWELL FDA Start: 11-24-2018 CEMENT,BONE FELICIA H 1/2 BATCH FDA Start: 09-19-2020 CEMENT,BONE FELICIA H 1/2 BATCH FDA Start: 09-19-2020 DOUGH,CEMENT 6191-1-010 FDA Start: 09-19-2020 TRIATHLON CRUCIA TE RETAIN FEMO FDA Start: 09-19-2020 TRIATHLON PRIM TIBIAL BASEPLAT FDA Start: 09-19-2020 TRIATHLON X3 ASY M PATELLA FDA Start: 09-19-2020 TRIATHLON X3 TIB IAL BEARING FDA Start: 09-19-2020 STENT,URETERAL 6 FR PIG 6X26 FDA Start: 04-07-2018 STENT,6x28 GABRIELA PIG FDA Start: 08-11-2018 MANAV MAXWELL LG FDA Start: 11-24-2018 MANAV MAXWELL LG FDA Start: 11-24-2018 MANAV MAXWELL LG FDA Start: 11-24-2018 MANAV MAXWELL FDA Start: 11-24-2018 MANAV MAXWELL FDA Start: 11-24-2018 CEMENT,BONE FELICIA H 1/2 BATCH FDA Start: 09-19-2020 CEMENT,BONE FELICIA H 1/2 BATCH FDA Start: 09-19-2020 DOUGH,CEMENT 6191-1-010 FDA Start: 09-19-2020 TRIATHLON CRUCIA TE RETAIN FEMO FDA Start: 09-19-2020 TRIATHLON PRIM TIBIAL BASEPLAT FDA Start: 09-19-2020 TRIATHLON X3 ASY M PATELLA FDA Start: 09-19-2020 TRIATHLON X3 TIB IAL BEARING FDA Start: 09-19-2020 STENT,URETERAL 6 FR PIG 6X26 FDA Start: 04-07-2018 STENT,6x28 GABRIELA PIG FDA Start: 08-11-2018 MANAV MAXWELL LG FDA Start: 11-24-2018 MANAV MAXWELL LG FDA Start: 11-24-2018 MANAV MAXWELL LG FDA Start: 11-24-2018 MANAV MAXWELL FDA Start: 11-24-2018 MANAV MAXWELL FDA Start: 11-24-2018 CEMENT,BONE FELICIA H 1/2 BATCH FDA Start: 09-19-2020 CEMENT,BONE FELICIA H 1/2 BATCH FDA Start: 09-19-2020 DOUGH,CEMENT 6191-1-010 FDA Start: 09-19-2020 TRIATHLON CRUCIA TE RETAIN FEMO FDA Start: 09-19-2020 TRIATHLON PRIM TIBIAL BASEPLAT FDA Start: 09-19-2020 TRIATHLON X3 ASY M PATELLA FDA Start: 09-19-2020 TRIATHLON X3 TIB IAL BEARING FDA Start: 09-19-2020 STENT,URETERAL 6 FR PIG 6X26 FDA Start: 04-07-2018 STENT,6x28 GABRIELA PIG FDA Start: 08-11-2018 MANAV MAXWELL LG FDA Start: 11-24-2018 MANAV MAXWELL LG FDA Start: 11-24-2018 MANAV MAXWELL LG FDA Start: 11-24-2018 MANAV MAXWELL FDA Start: 11-24-2018 MANAV MAXWELL FDA Start: 11-24-2018 CEMENT,BONE FELICIA H 1/2 BATCH FDA Start: 09-19-2020 CEMENT,BONE FELICIA H 1/2 BATCH FDA Start: 09-19-2020 DOUGH,CEMENT 6191-1-010 FDA Start: 09-19-2020 TRIATHLON CRUCIA TE RETAIN FEMO FDA Start: 09-19-2020 TRIATHLON PRIM TIBIAL BASEPLAT FDA Start: 09-19-2020 TRIATHLON X3 ASY M PATELLA FDA Start: 09-19-2020 TRIATHLON X3 TIB IAL BEARING FDA Start: 09-19-2020 STENT,URETERAL 6 FR PIG 6X26 FDA Start: 04-07-2018 STENT,6x28 GABRIELA PIG FDA Start: 08-11-2018 MANAV MAXWELL LG FDA Start: 11-24-2018 MANAV MAXWELL LG FDA Start: 11-24-2018 MANAV MAXWELL LG FDA Start: 11-24-2018 AMNAV MAXWELL FDA Start: 11-24-2018 MANAV MAXWELL FDA Start: 11-24-2018 CEMENT,BONE FELICIA H 1/2 BATCH FDA Start: 09-19-2020 CEMENT,BONE FELICIA H 1/2 BATCH FDA Start: 09-19-2020 DOUGH,CEMENT 6191-1-010 FDA Start: 09-19-2020 TRIATHLON CRUCIA TE RETAIN FEMO FDA Start: 09-19-2020 TRIATHLON PRIM TIBIAL BASEPLAT FDA Start: 09-19-2020 TRIATHLON X3 ASY M PATELLA FDA Start: 09-19-2020 TRIATHLON X3 TIB IAL BEARING FDA Start: 09-19-2020 STENT,URETERAL 6 FR PIG 6X26 FDA Start: 04-07-2018 STENT,6x28 GABRIELA PIG FDA Start: 08-11-2018 MANAV MAXWELL LG FDA Start: 11-24-2018 MANAV MAXWELL LG FDA Start: 11-24-2018 MANAV MAXWELL LG FDA Start: 11-24-2018 MANAV MAXWELL FDA Start: 11-24-2018 MANAV MAXWELL FDA Start: 11-24-2018 CEMENT,BONE FELICIA H 1/2 BATCH FDA Start: 09-19-2020 CEMENT,BONE FELICIA H 1/2 BATCH FDA Start: 09-19-2020 DOUGH,CEMENT 6191-1-010 FDA Start: 09-19-2020 TRIATHLON CRUCIA TE RETAIN FEMO FDA Start: 09-19-2020 TRIATHLON PRIM TIBIAL BASEPLAT FDA Start: 09-19-2020 TRIATHLON X3 ASY M PATELLA FDA Start: 09-19-2020 TRIATHLON X3 TIB IAL BEARING FDA Start: 09-19-2020 STENT,URETERAL 6 FR PIG 6X26 FDA Start: 04-07-2018 STENT,6x28 GABRIELA PIG FDA Start: 08-11-2018 MANAV MAXWELL LG FDA Start: 11-24-2018 MANAV MAXWELL LG FDA Start: 11-24-2018 MANAV MAXWELL LG FDA Start: 11-24-2018 MANAV MAXWELL FDA Start: 11-24-2018 MANAV MAXWELL FDA Start: 11-24-2018 CEMENT,BONE FELICIA H 1/2 BATCH FDA Start: 09-19-2020 CEMENT,BONE FELICIA H 1/2 BATCH FDA Start: 09-19-2020 DOUGH,CEMENT 6191-1-010 FDA Start: 09-19-2020 TRIATHLON CRUCIA TE RETAIN FEMO FDA Start: 09-19-2020 TRIATHLON PRIM TIBIAL BASEPLAT FDA Start: 09-19-2020 TRIATHLON X3 ASY M PATELLA FDA Start: 09-19-2020 TRIATHLON X3 TIB IAL BEARING FDA Start: 09-19-2020 STENT,URETERAL 6 FR PIG 6X26 FDA Start: 04-07-2018 STENT,6x28 GABRIELA PIG FDA Start: 08-11-2018 MANAV MAXWELL LG FDA Start: 11-24-2018 MANAV MAXWELL LG FDA Start: 11-24-2018 MANAV MAXWELL LG FDA Start: 11-24-2018 MANAV MAXWELL FDA Start: 11-24-2018 MANAV MAXWELL FDA Start: 11-24-2018 CEMENT,BONE FELICIA H 1/2 BATCH FDA Start: 09-19-2020 CEMENT,BONE FELICIA H 1/2 BATCH FDA Start: 09-19-2020 DOUGH,CEMENT 6191-1-010 FDA Start: 09-19-2020 TRIATHLON CRUCIA TE RETAIN FEMO FDA Start: 09-19-2020 TRIATHLON PRIM TIBIAL BASEPLAT FDA Start: 09-19-2020 TRIATHLON X3 ASY M PATELLA FDA Start: 09-19-2020 TRIATHLON X3 TIB IAL BEARING FDA Start: 09-19-2020 STENT,URETERAL 6 FR PIG 6X26 FDA Start: 04-07-2018 STENT,6x28 GABRIELA PIG FDA Start: 08-11-2018 MANAV MAXWELL LG FDA Start: 11-24-2018 MANAV MAXWELL LG FDA Start: 11-24-2018 MANAV MAXWELL LG FDA Start: 11-24-2018 MANAV MAXWELL FDA Start: 11-24-2018 MANAV MAXWELL FDA Start: 11-24-2018 CEMENT,BONE FELICIA H 1/2 BATCH FDA Start: 09-19-2020 CEMENT,BONE FELICIA H 1/2 BATCH FDA Start: 09-19-2020 DOUGH,CEMENT 6191-1-010 FDA Start: 09-19-2020 TRIATHLON CRUCIA TE RETAIN FEMO FDA Start: 09-19-2020 TRIATHLON PRIM TIBIAL BASEPLAT FDA Start: 09-19-2020 TRIATHLON X3 ASY M PATELLA FDA Start: 09-19-2020 TRIATHLON X3 TIB IAL BEARING FDA Start: 09-19-2020 STENT,URETERAL 6 FR PIG 6X26 FDA Start: 04-07-2018 STENT,6x28 GABRIELA PIG FDA Start: 08-11-2018 MANAV MAXWELL LG FDA Start: 11-24-2018 MANAV MAXWELL LG FDA Start: 11-24-2018 MANAV MAXWELL LG FDA Start: 11-24-2018 MANAV MAXWELL FDA Start: 11-24-2018 MANAV MAXWELL FDA Start: 11-24-2018 CEMENT,BONE FELICIA H 1/2 BATCH FDA Start: 09-19-2020 CEMENT,BONE FELICIA H 1/2 BATCH FDA Start: 09-19-2020 DOUGH,CEMENT 6191-1-010 FDA Start: 09-19-2020 TRIATHLON CRUCIA TE RETAIN FEMO FDA Start: 09-19-2020 TRIATHLON PRIM TIBIAL BASEPLAT FDA Start: 09-19-2020 TRIATHLON X3 ASY M PATELLA FDA Start: 09-19-2020 TRIATHLON X3 TIB IAL BEARING FDA Start: 09-19-2020 STENT,URETERAL 6 FR PIG 6X26 FDA Start: 04-07-2018 STENT,6x28 GABRIELA PIG FDA Start: 08-11-2018 MANAV MAXWELL LG FDA Start: 11-24-2018 MANAV MAXWELL LG FDA Start: 11-24-2018 MANAV MAXWELL LG FDA Start: 11-24-2018 MANAV MAXWELL FDA Start: 11-24-2018 MANAV MAXWELL FDA Start: 11-24-2018 CEMENT,BONE FELICIA H 1/2 BATCH FDA Start: 09-19-2020 CEMENT,BONE FELICIA H 1/2 BATCH FDA Start: 09-19-2020 DOUGH,CEMENT 6191-1-010 FDA Start: 09-19-2020 TRIATHLON CRUCIA TE RETAIN FEMO FDA Start: 09-19-2020 TRIATHLON PRIM TIBIAL BASEPLAT FDA Start: 09-19-2020 TRIATHLON X3 ASY M PATELLA FDA Start: 09-19-2020 TRIATHLON X3 TIB IAL BEARING FDA Start: 09-19-2020 Goals Date Patient Goal Desired Activity /State Functional Status Date Assessment Result Facility 05-04-2025 Functional status Ambulates [facility] Work Phone: Mental Status Date Assessment Result Facility 05-19-2025 Cognitive function Voice/Name [facility] Work Phone: 05-04-2025 Cognitive function Voice/Name [facility] Work Phone: 05-03-2025 Cognitive function Voice/Name [facility] Work Phone: 04-06-2022 Cognitive function Level Of Cons ciousness Awake;Alert;Appropriate;Follow s Commands [facility] Work Phone: Clinical Notes 05-03-2025 to 05-19-2025 Note Date & Type Note Facility 05-19-2025 History and physi peterson note [facility] 05-19-2025 Discharge summary [facility] 05-19-2025 Radiology Diagnostic study note [facility] Services [address] [place], [place] [id number] STROKE CTA Head AND Neck W/Con MR#: [id number] Acct: [id number] Name: DORYS LENTZ ANN Rep #: [id number] : 1935 F [id number] From: [place] MD PCP: Dr. Angel Luis Contreras MD Status: RE G ER Study:STROKE CTA Head AND Neck W/Con Date of Exam: 05/19/25 Exam# [id number] Ordering Dr: Selwyn Cameron MD EXAM: CT Angiography Head and Neck With Intravenous Contrast CLINICAL INDICATION: NEURO DEFICIT, ACUTE, STROKE SUSPECTED TECHNIQUE: [place]/head and neck CT angiography protocol performed with intravenous contrast. This CT exam was performed using one or more of the following dose reduction techniques: automated exposure control, adjustment of the mA and/or kV according to patient size, and/or use of iterative reconstruction technique. MIP reconstructed images were created and reviewed. COMPARISON: None. FINDINGS: HEAD: RIGHT ANTERIOR CEREBRAL ARTERY: Unremarkable. No occlusion or significant stenosis. Anterior communicating artery is present. No aneurysm. RIGHT MIDDLE CEREBRAL ARTERY: Unremarkable. No occlusion or significant stenosis. No aneurysm. RIGHT POSTERIOR CEREBRAL ARTERY: Unremarkable. No occlusion or significant stenosis. No aneurysm. RIGHT INTRACRANIAL INTERNAL CAROTID ARTERY: Unremarkable. No significant stenosis. No dissection or occlusion. RIGHT INTRACRANIAL VERTEBRAL ARTERY: Unremarkable. No significant stenosis. No dissection or occlusion. LEFT ANTERIOR CEREBRAL ARTERY: Unremarkable. No occlusion or significant stenosis. No aneurysm. LEFT MIDDLE CEREBRAL ARTERY: Unremarkable. No occlusion or significant stenosis. No aneurysm. LEFT POSTERIOR CEREBRAL ARTERY: Unremarkable. No occlusion or significant stenosis. No aneurysm. LEFT INTRACRANIAL INTERNAL CAROTID ARTERY: Unremarkable. No significant stenosis. No dissection or occlusion. LEFT INTRACRANIAL VERTEBRAL ARTERY: Unremarkable. No significant stenosis. Nodissection or occlusion. BASILAR ARTERY: Unremarkable. No occlusion or significant stenosis. No aneurysm. OTHER VASCULATURE: No vascular malformation. No large vessel occlusion. NECK: RIGHT COMMON CAROTID ARTERY: Unremarkable. No significant stenosis. No dissection or occlusion. RIGHT EXTRACRANIAL INTERNAL CAROTID ARTERY: Unremarkable. No significant stenosis. No dissection or occlusion. RIGHT EXTERNAL CAROTID ARTERY: Unremarkable. No occlusion. RIGHT EXTRACRANIAL VERTEBRAL ARTERY: Unremarkable. No significant stenosis. No dissection or occlusion. LEFT COMMON CAROTID ARTERY: Unremarkable. No significant stenosis. No dissection or occlusion. LEFT EXTRACRANIAL INTERNAL CAROTID ARTERY: Unremarkable. No significant stenosis. No dissection or occlusion. LEFT EXTERNAL CAROTID ARTERY: Unremarkable. No occlusion. LEFT EXTRACRANIAL VERTEBRAL ARTERY: Unremarkable. No significant stenosis. Nodissection or occlusion. AORTA: Incomplete right-sided anterior arch. LUNG APICES: Unremarkable as visualized. HEAD and NECK: BONES/JOINTS: Unremarkable. No discrete lytic or blastic abnormalities. SOFT TISSUES: Unremarkable. CAROTID STENOSIS REFERENCE USING NASCET CRITERIA: % ICA stenosis = (1 - narrowest ICA diameter/diameter of distal cervical ICA) x 100. Mild - <50% stenosis. Moderate - 50-69% stenosis. Severe - 70-94% stenosis. Near occlusion - 95-99% stenosis. Occluded - 100% stenosis. CT/STROKE CTA Head AND Neck W/Con IMPRESSION: No large vessel occlusion. Reading Location: [facility] CC: Dr. Joey Cameron MD; Dr. Angel Luis Contreras MD ~ Bread Packer: Signed [facility] 05-19-2025 Radiology Diagnostic study note [facility] Imaging Services [address] [place] [address] STROKE Brain/Head without Cont MR#: [id number] Acct: [id number] Name: DORYS LENTZ ANN Rep #: [id number] : 1935 F From: Lashon Vegas MD PCP: Dr. Angel Luis Contreras MD Status: RE G ER Study:STROKE Brain/Head without Cont Date of Exam: 05/19/25 Exam# [id number] Ordering Dr: Selwyn Cameron MD EXAM: CT Head Without Intravenous Contrast CLINICAL INDICATION: NEURO DEFICIT, ACUTE, STROKE SUSPECTED TECHNIQUE: Axial computed tomography images of the head/brain without intravenous contrast. This CT exam was performed using one or more of the following dose reduction techniques: automated exposure control, adjustment of the mA and/or kV according to patient size, and/or use of iterative reconstruction technique. COMPARISON: CT Head dated 05/03/2025 FINDINGS: BRAIN AND EXTRA-AXIAL SPACES: No acute intracranial hemorrhage, midline shift or mass effect. If symptoms persist, further evaluation with MRI is recommended. No significant white matter disease. BONES/JOINTS: Unremarkable. No acute fracture. SOFT TISSUES: Unremarkable. SINUSES: Unremarkable as visualized. No acute sinusitis. MASTOID AIR CELLS: Unremarkable as visualized. No mastoid effusion. CT/STROKE Brain/Head without Cont IMPRESSION: No acute intracranial hemorrhage, midline shift or mass effect. If symptoms persist, further evaluation with MRI is recommended. Reading Location: [facility] CC: Dr. Joey Cameron MD; Dr. Angel Luis Contreras MD ~ Bread Packer: Signed [facility] 05-19-2025 Discharge summary Note Date/Time May 19, 2025 6:23pm [facility] Medical Records Department [address] [place] [address] Emergency Department Summary 05/19/25 MR#: [id number] Acct: [id number] Name: DORYS LENTZ ANN Rep #:[id number] : 1935 89 From: Joey Cameron MD PCP: Dr. Angel Luis Contreras MD Status:RE G ER Location: ED HPI History of Present Illness Chief Complaint: Stroke Alert Informant: patient and EMS Onset/Context/Timing Onset: Today Context: Sudden Onset Timing: Intermittent Quality and Location: Positive for Right Face Paresthesia and Slurred Speech Current Severity: Gone Maximum Severity: Moderate Narrative Narrative: 89-year-old female reportedly was diagnosed with a TIA about 2 weeks ago. Currently is on a baby aspirin a day. History of single kidney due to a kidney resection many years ago. Today about 20 minutes prior to arrival developed sudden onset of right facial droop right facial tingling and slurred speech. Paramedics said when he initially got there she had slurred speech that is sinceresolved. Currently she is symptom-free. Denies any headache. No arm or leg weakness. Prior similar symptoms: Yes Recent Illness/Hospitalization: Yes PFSH [facility] Medical History Left knee pain Home Medications ?Medication ?Instructions ?Recorded ?Last Taken ?Type multivitamin with folic acid 400 1 tab PO DAILY supple ment 04/06/18 07/30/18 06:00 History mcg tablet (Thera) obdulia Johnson B.animalis 10 1 ea PO DAILY 11/24/18 08:00 History billion cell capsule calcium carbonate-vitamin D3 600 1 ea PO DAILY 8 Unknown History mg-125 unit tablet (Calcium) ascorbic acid (vitamin C) 500 mg 500 mg PO DAILY 09/05 Unknown History capsule cyanocobalamin (vitamin B-12) 1,000 mcg PO DAILY 09/05 Unknown History 1,000 mcg capsule acetaminophen 500 mg tablet 1,000 mg PO Q8H PRN Pain 0 04/06/22 Unknown History ondansetron 4 mg disintegrating 8 mg (2 x 4 mg) PO .no w nausea #2 08/29/24 Unknown Rx tablet tabs ondansetron HCl 8 mg tablet 8 mg PO Q8H PRN nausea and 08/29/24 Unknown Rx vomiting #14 tabs fluticasone propionate 50 1 spray intranasal QHS 05/03 Unknown History mcg/actuation nasal spray,suspension oxybutynin chloride 5 mg 5 mg PO DAILY 05/03/25 Unkno wn History tablet,extended release 24 hr aspirin 81 mg chewable tablet 81 mg PO BREAKFAST 90 da ys #90 tabs 05/04/25 Unknown Rx atorvastatin 40 mg tablet 40 mg PO QHS 90 days #90 tab s 05/04/25 Unknown Rx Allergy/AdvReac Type Severity Reaction Status Date / Time No Known Allergies Allergy Verified 05/19/25 17:31 Family History no significant family his Surgical History 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 Social History Smoking Status: Former smoker ROS ROS ED ROS Narrative Denies recent illness. Constitutional Constitutional ED: Denies chills or fever(s) Eyes Eyes: Denies blurry vision ENT ENT ED: Denies ear pain Cardiovascular Cardiovascular: Denies chest pain Respiratory/Chest Respiratory/Chest: Denies cough Gastrointestinal Gastrointestinal: Denies abdominal pain Genitourinary Genitourinary ED: Denies dysuria Musculoskeletal Musculoskeletal: Denies arthralgias Integumentary Denies abscess Neurologic Neurologic: Denies headache(s) Psychiatric Psychiatric: Denies anxiety Endocrine Endocrinology: Denies polydipsia Hematologic/Lymphatic Hematologic/Lymphatic: Denies easy bleeding Allergic/Immunologic Allergic/Immunologic ED: Denies mouth swelling or urticaria EXAM Physical Exam Narrative Exam Narrative: An 9-year-old female brought in by EMS. Vital signs are stable afebrile. H EENT exam pupils round react to light. Extra motions are intact. Normal speech. No facial droop. Neck nontender. No JVD. Lungs clear to auscultationbilaterally. Heart regular rhythm no murmur. Chest wall ribs nontender. Abdomen soft nontender. No peritoneal signs. Moving all 4 extremities. Calvesare nontender without edema or cords. Normal television repairer strength. Normal dorsi plantarflexion. No drift. Neurologically she is awake alert. Answering questions following commands. Again no facial droop. Normal speech. Normal television repairer strength and dorsi and plantarflexion. NIH currently 0. Const Vital Signs: 05/19/25 17:23 05/19/25 17:29 05/19/25 17:33 Temperature 98 F Temperature Source Oral Pulse Rate 61 61 Respiratory Rate 16 16 Blood Pressure 159/76 H 159/76 H Blood Pressure Mean 103 103 Pulse Ox 98 98 Oxygen Delivery Method Room Air Room Air Room Air 05/19/25 17:52 Temperature Temperature Source Pulse Rate 61 Respiratory Rate 15 Blood Pressure 145/89 H Blood Pressure Mean 107 Pulse Ox 98 Oxygen Delivery Method Room Air Positive well nourished and well developed; Negative for obese, cachectic, contractures or unkempt General Appearance ED: well developed and NAD; Negative for unkempt, cachectic or contractures Nutritional Appearance: Negative for cachectic or obese HEENT Reports moist mucous membranes atraumatic Eyes PERRL and EOMs intact bilaterally Neck no lymphadenopathy, supple and no JVD Chest Wall inspection of chest normal and palpation of chest normal Resp normal respiratory effort and clear to auscultation bilaterally Effort and Inspection: Negative for retractions Auscultation: Negative for rales, rhonchi, wheezes or diminished lung sounds Cardio no murmurs Rate: regular rate Rhythm: regular rhythm Heart Sounds: Negative for S1 normal or S2 normal GI normal to inspection, nondistended, normoactive bowel sounds, soft to palpation,non-tender, non-distended and no masses Auscultation: normoactive bowel sounds Palpation: Negative for tender, guarding, hepatomegaly, splenomegaly, mass or rebound tenderness present Back/Spine no CVA tenderness General Back: Negative for CVA tenderness Cervical Spine: Negative for cervical spine tenderness Thoracic Spine / Upper Back: Negative for thoracic spinal tenderness Lumbar Spine / Lower Back: Negative for lumbar spinal tenderness Extremity normal to inspection General Extremety ED: Negative for deformity, edema or tenderness General Extremity: Negative for deformity or edema Neuro oriented x3 and CN's II-XII intact bilaterally Sensorium / Orientation: alert, oriented to person, oriented to place and oriented to time Speech: speech normal Motor Exam: strength 5/5 throughout Psych mental status grossly normal Appearance: Negative for unkempt Attitude: No agitated Mood & Affect: Negative for depressed Skin no wounds General Skin Exam: Negative for jaundice Lesions: no lesions Rashes: no rashes MDM MDM MDM Narrative Medical decision making narrative: 89-year-old female diagnosed with a TIA several weeks ago. Similar symptoms today with slurred speech, facial droop and tingling. Symptoms is since resolved. This occurred less than 30 minutes ago. Currently her NIH is 0. Shewill remain a stroke team. Currently she is not a tPA candidate. Repeat exam patient doing well at 6:22 PM. No recurrent symptoms. NIH remains 0. Exam benign. I spoke with the hospitalist who is currently in the room evaluating the patient for admission. History & Record Review Discussion w/independent historian: Patient Additional record(s) reviewed:: Prior inpatient record, Prior outpatient record,Prior ED visit and Prior labs Lab Data Attestation: I reviewed the patient's lab results. Lab results narrative: CBC shows white count 6. H&H 12 and 38. Platelets 270. PT/INR of 12 and 1. PTT 27. Electrolytes show sodium 135. Gap 12. BUN and creatinine of 21.24. Glucose 91. Initial troponin 19. Labs: Laboratory Results - last 24 hr 05/19/25 05/19/25 17:30 17:45 WBC 6.9 RBC 4.14 L Hgb 12.7 Hct 38.2 MCV 92.3 MCH 30.7 MCHC 33.2 RDW Std Deviation 43.4 RDW Coeff of Ermias 12.8 Plt Count 270 MPV 10.1 Immature Gran % (Auto) 0.300 Neut % (Auto) 66.9 Lymph % (Auto) 17.5 L [place] % (Auto) 9.6 Eos % (Auto) 5.0 Baso % (Auto) 0.7 Absolute Neuts (auto) 4.6 Absolute Lymphs (auto) 1.20 Nucleated RBC % 0 PT 12.9 INR 1.0 APTT 27.5 Sodium 135 Potassium 4.5 Chloride 98 Carbon Dioxide 25.2 Anion Gap 12 BUN 20 H Creatinine 1.24 H Estim Creat Clear Calc 31.64 L Est GFR (MDRD) Non-Af 42 L BUN/Creatinine Ratio 16.1 Glucose 91 Calcium 9.6 Troponin T High Sens 19 H POC Glucose 83 Radiography Diagnostic Testing: Clinical Impression(s) from Imaging Studies Brain CT 05/19/25 17:23 IMPRESSION: No acute intracranial hemorrhage, midline shift or mass effect. If symptoms persist, further evaluation with MRI is recommended. Reading Location: [facility] Head/Neck CTA 05/19/25 17:24 IMPRESSION: No large vessel occlusion. Reading Location: [facility] Rhythm Strip Rhythm Strip: Sinus Rhythm Rate: 60 Ectopy: None EKG Initial EKG: Attestation: I personally reviewed and interpreted this EKG as follows: Interpretation: Sinus Rhythm and No Acute Injury Pattern Comments: Sinus rhythm rate of 60 no acute signs of MS or ischemia. Discharge Plan Triage Chief Complaint: Stroke Alert ED Provider: Joey Cameron Dx/Rx/DC Orders Clinical Impression: Brain TIA, History of nephrectomy Prescriptions: No Action ondansetron 4 mg tablet,disintegrating 8 mg PO .now Qty: 2 0RF ondansetron HCl 8 mg tablet 8 mg PO Q8H PRN (Reason: nausea and vomiting) Qty: 14 0RF multivitamin with folic acid [Thera] 1 TABLET tablet 1 tab PO DAILY Calcium 600 + D(3) 1 EACH tablet 1 ea PO DAILY L.acidoph,paracasei,B.animalis 1 EACH capsule 1 ea PO DAILY ascorbic acid (vitamin C) 500 MG capsule 500 mg PO DAILY cyanocobalamin (vitamin B-12) 1,000 MCG capsule 1,000 mcg PO DAILY acetaminophen 500 MG tablet 1,000 mg PO Q8H PRN (Reason: Pain) Rx Instructions: Do not take more than 3000 mg Tylenol in a 24-hour period. oxybutynin chloride 5 mg tablet extended release 24hr 5 mg PO DAILY fluticasone propionate 50 mcg/actuation spray,suspension 1 spray INTRANASAL QHS aspirin 81 mg Tablet,Chewable 81 mg PO BREAKFAST 90 Days Qty: 90 0RF atorvastatin 40 mg Tablet 40 mg PO QHS 90 Days Qty: 90 0RF Primary Care Provider: Angel Luis Contreras Referrals: Angel Luis Contreras MD [Primary Care Provider] - Print Language: Hungarian Disposition Disposition: Acute Care Hospital [facility] NIHSS NIHSS 1a. Level of Consciousness: 0 - Alert; keenly responsive 1b. LOC Questions: 0 - Answers BOTH questions correctly 1c. LOC Commands: 0 - Performs BOTH tasks correctly 2. Best Gaze: 0 - Normal 3. Visual: 0 - No visual loss 4. Facial Palsy: 0 - Normal symmetrical movements 5a. Left Arm: 0 - No drift; arm holds 90 (or 45) degrees for full 10 seconds 5b. Right Arm: 0 - No drift; arm holds 90 (or 45) degrees for full 10 seconds 6a. Left Le - No drift; leg holds 30-degree position for full 5 seconds 6b. Right Le - No drift; leg holds 30-degree position for full 5 seconds 7. Limb Ataxia: 0 - Absent 8. Sensory: 0 - Normal; no sensory loss 9. Best Language: 0 - No aphasia; normal 10. Dysarthria: 0 - Normal 11. Extinction and Inattention: 0 - No abnormality Total: 0 Stroke Questions Stroke Team Activated: Yes Reviewed Inclusion/Exclusion criteria: Yes Was Patient considered for Endovascular Intervention?: No IV Thrombolytic Administered: No No contraindications from thrombolytic administration: No What to do if you have Problems For any increased pain, shortness of breath, bleeding, nausea or vomiting, chestpain, or any unexpected problems, contact your Primary Care Provider. Call [facility] ([phone]) or report to the closest Emergency Room. Call 911 if necessary. 05/19/251822 <Electronically signed by Joey Cameron MD> Cosigner Signature (if applicable): CC: Dr. Angel Luis Contreras MD ~ Signed [facility] Work Phone: [phone] 251-329306-12-2025 Discharge summary [facility] Medical Records Department [address] [place] [id number] Discharge Summary 05/04/25 1110 MR#: [id number] Acct: [id number] Name: DORYS LENTZ Rep #:[id number] : 1935 89 From: Pillo del castillo DO PCP: Dr. Angel Luis Contreras MD Status:[facility] Location: [facility] [id number] Providers Date of Admission: 05/03/25 Date of Discharge: 05/04/25 Primary Care Physician: Dr. Angel Luis Contreras MD Consultations 05/03/25 16:42 Consult: Tele-Neurology Routine Consulting Provider: [facility] Reason for Consult: Acute Ischemic Stroke/TIA EMERGENT Consult: No MD Notified: No Date Notified: 05/03/25 Time Notified: 13:48 Nursing Unit Staff Notify [facility] of Tele-Neurology Consult: Yes Reason For Visit: STROKELIKE SYMPTOMS Diagnosis Discharge Diagnosis (1) Stroke-like symptoms: Status: Acute Code(s): R29.90 - Unspecified symptoms and signs involving the nervous system Medications at Discharge Home Medications multivitamin with folic acid 400 mcg tablet (Thera) 1 tab PO DAILY supplement 04/06/18 L.acidoph,paracasei,B.animalis 10 billion cell capsule 1 ea PO DAILY 11/18/18 calcium carbonate-vitamin D3 600 mg-125 unit tablet (Calcium) 1 ea PO DAILY 11/18/18 ascorbic acid (vitamin C) 500 mg capsule 500 mg PO DAILY 09/05/20 cyanocobalamin (vitamin B-12) 1,000 mcg capsule 1,000 mcg PO DAILY 09/05/20 acetaminophen 500 mg tablet 1,000 mg PO Q8H PRN Pain 04/06/22 ondansetron 4 mg disintegrating tablet 8 mg (2 x 4 mg) PO .now nausea #2 tabs 08/29/24 ondansetron HCl 8 mg tablet 8 mg PO Q8H PRN nausea and vomiting #14 tabs 08/29/24 fluticasone propionate 50 mcg/actuation nasal spray,suspension 1 spray intranasal QHS 05/03/25 oxybutynin chloride 5 mg tablet,extended release 24 hr 5 mg PO DAILY 05/03/25 aspirin 81 mg chewable tablet 81 mg PO BREAKFAST 90 days #90 tabs 05/04/25 atorvastatin 40 mg tablet 40 mg PO QHS 90 days #90 tabs 05/04/25 Hospital Course Operations None Procedures EKG, Transthoracic echo and - (MRA head/neck, MRI brain, chest x-ray, CT brain) Summary of Care Provided Minutes Spent on Discharge: 35 Hospital Course: Patient is an 89-year-old female who presented to [facility] ED on 05/03/2025 for strokelike symptoms. Short hospital course as noted below. Patient discharged home in stable conditionon 05/04. 1. Strokelike symptoms, CVA ruled out ? Neurology evaluated. Presented with right hand numbness, right facial numbness and slurring of speech. Mostly resolved by arrival to ED, NIH score of1. CT brain unremarkable. CTA head/neck deferredgiven history of nephrectomy. MRI brain and MRA head/neck unremarkable. Echo with bubble study showed no PFO, EF 65%, no other concerning findings. Lipid panel with total cholesterol 187, LDL 118, HDL 55. A1c 5.5%. TSH normal. Per neurology, most consistent with TIA. Recommended discharging on babyaspirin and atorvastatin 40 mg daily. 30-day event monitor ordered on discharge as well. Stable fordischarge home on 05/04. 2. 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 Creatinine stable at baseline 1.1-1.2 during hospitalization. 3. Overactive bladder ? Continue home oxybutynin. Total clinical time spent by myself addressing the patient's medical issues, reviewing all the data, and collaborating with patient's care team: 35 minutes. Physical Exam Const alert, oriented x3, no apparent distress and average body habitus Constitutional Narrative: Elderly female, appears younger than stated age, sitting back comfortably in bed, conversing normally, in no acute distress. General Appearance: cooperative and comfortable HEENT normocephalic, head/scalp atraumatic, hearing grossly normal bilaterally, nasal mucous membranes and turbinates normal and moist oral mucous membranes Eyes PERRL, EOMs intact bilaterally and conjunctivae normal Neck full ROM Chest inspection of chest normal Resp normal respiratory effort, normal air movement, no use of accessory muscles and clear to auscultation bilaterally Cardio regular rate, regular rhythm, no murmurs and peripheral pulses 2+ throughout GI normal to inspection, nondistended, normoactive bowel sounds, soft to palpation,non-tender and non-distended Back/Spine normal ROM Extremity normal to inspection, full ROM and no pedal edema Skin no rashes or lesions noted Neuro moves all extremities and no focal motor deficits Speech: speech normal Motor Exam: strength 5/5 throughout Psych mental status grossly normal Weight / BMI Weight Weight: 75.115 kg Body Mass Index (BMI) 25.2 ABG / Lab / Microbiology Data 05/04/25 03:45 05/04/25 03:45 Laboratory: Laboratory Results - last 24 hr 05/03/25 11:14: Hemoglobin A1c 5.5, TSH 2.140 05/03/25 15:04: Troponin T Hi Sens 2 Hr 19 H 05/04/25 03:45: WBC 5.1, RBC 3.58 L, Hgb 11.0 L, Hct 33.8 L, MCV 94.4, MCH 30.7,MCHC 32.5, RDW Std Deviation 45.1 H, RDW Coeff of Ermias 13.1, Plt Count 489 H, MPV9.6, Sodium 142, Potassium 3.9, Chloride 106, Carbon Dioxide 25.1, Anion Gap 10,BUN 16, Creatinine 1.16, Estim Creat Clear Calc 33.82 L, Est GFR (MDRD) Non-Af 45 L, BUN/Creatinine Ratio 13.4, Glucose 78, Calcium 8.7, Triglycerides 72, Cholesterol 187, LDL Cholesterol, Calc 118, VLDL Cholesterol 14, HDL [id number], Cholesterol/HDL Ratio 3.41 05/04/25 06:02: Urine Color Yellow, Urine Clarity Sl. Cloudy, Urine pH 7.0, Ur Specific [place] 1.010, Urine Protein Negative, Urine Glucose (UA) Normal, UrineKetones Negative, Urine Occult Blood Negative, Urine Nitrite Negative, Urine Bilirubin Negative, Urine Urobilinogen Normal, Ur Leukocyte Esterase Negative, Urine RBC 0 SEEN, Urine WBC 0-5 SEEN, Ur Squamous Epith Cells 0 SEEN, Urine Bacteria0 SEEN, Urine Mucus 0 SEEN Radiography Diagnostic Testing: Radiology Impression Brain MRI 05/03/25 13:52 IMPRESSION: No acute intracranial abnormality. Chronic and ancillary findings as above. Reading Location: [place] [address] Echocardiogram 05/03/25 13:52 Interpretation Summary Mild concentric left ventricular hypertrophy. The LV systolic function is normal. EF is 65 %. Stage 1 diastolic dysfunction. Moderate focal bileaflet mitral valve calcification. Equivocal prolapse of the posterior leaflet. Mild mitral valve regurgitation. Moderate (2+) tricuspid valve insufficiency. Right ventricular systolic pressure estimated to be 45 mmHg. Ordering Physician: Pillo Michelle Referring Physician: Angel Luis Contreras Performed By: Sheila Noonan RDCS Neck MRA 05/03/25 13:52 IMPRESSION: No significant stenosis. Reading Location: [id number] Head MRA 05/03/25 14:23 IMPRESSION: No acute arterial abnormality of the head. 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 Reading Location: [place] [address] D/C Instructions DC O2, CPAP, BIPAP Needs Home O2 Discharge instructions: No Meaningful Use Info Meaningful Use Meaningful Use Diagnoses (Choose all that apply): None applicable Ischemic Stroke Statin Dosing Therapy Reference: STATIN DOSE THERAPY REFERENCE: * Patients > 75 years receive moderate or high dose statin therapy. * Patients 75 years or YOUNGER should receive HIGH intensity statin dose unless contraindicated. You will be required to document reason for non-treatment if statin daily dose does not meet guidelines. HIGH DOSE STATIN THERAPY DAILY Atorvastatin > than or = to 40 mg Rosuvastatin > than or = to 20 mg Amlodipine + Atorvastatin > than or = to 2.5/40 mg Ezetimibe + Simvastatin 10/80 mg Simvastatin 80mg Discharge Plan Admission Admit Date/Time: 05/03/25 13:45 Primary Reason for Your Visit: Strokelike symptoms Attending Provider: Pillo Michelle Primary Care Provider: Angel Luis Contreras Discharge Orders/Prescriptions Prescriptions: New aspirin 81 mg Tablet,Chewable 81 mg PO BREAKFAST 90 Days Qty: 90 0RF atorvastatin 40 mg Tablet 40 mg PO QHS 90 Days Qty: 90 0RF Continued ondansetron 4 mg tablet,disintegrating 8 mg PO .now Qty: 2 0RF ondansetron HCl 8 mg tablet 8 mg PO Q8H PRN (Reason: nausea and vomiting) Qty: 14 0RF multivitamin with folic acid [Thera] 1 TABLET tablet 1 tab PO DAILY Calcium 600 + D(3) 1 EACH tablet 1 ea PO DAILY L.acidoph,paracasei,B.animalis 1 EACH capsule 1 ea PO DAILY ascorbic acid (vitamin C) 500 MG capsule 500 mg PO DAILY cyanocobalamin (vitamin B-12) 1,000 MCG capsule 1,000 mcg PO DAILY acetaminophen 500 MG tablet 1,000 mg PO Q8H PRN (Reason: Pain) Rx Instructions: Do not take more than 3000 mg Tylenol in a 24-hour period. oxybutynin chloride 5 mg tablet extended release 24hr 5 mg PO DAILY fluticasone propionate 50 mcg/actuation spray,suspension 1 spray INTRANASAL QHS Other Ambulatory Orders: 30 Day Event Recorder Preventi (Urgent) Timeframe: 1 Month Facility: [facility] - Location: Cardiovascular Services Ordered By: Dr. Pillo Michelle Referrals / Follow Up: Angel Luis Contreras MD [Primary Care Provider] - Disposition Disposition (needs filled in before D/C Order can be placed): Home, Self Care Charges/Coding Visit Charges Inpatient E&M: 44387 Disch Hosp >30min 05/04/25 1520 Cosigner Signature (if applicable): CC: Dr. Pillo Michelle DO; Dr. Angel Luis Contreras MD~ Signed [facility]06-12-2025 Discharge summary [facility] Medical Records Department [address] [place] [address] Instructions for Home/Discharge Instructions 05/04/25 1110 MR#: [id number] Acct: [id number] Name: DORYS LENTZ Rep #:[id number] : 1935 89 From: Pillo del castillo DO PCP: Dr. Angel Luis Contreras MD Status:AD M [facility] Discharge Instructions Diet Discharge Diet: No restrictions DC O2, CPAP, BIPAP needs Home O2 Discharge instructions: No Dressing / Incision Discharge Activity: No Restrictions Follow Up Care Test Results: Test results from this visit will be discussed in further detail at your follow- up appointment, if applicable. Discharge Plan Admission Admit Date/Time: 05/03/25 13:45 Primary Reason for Your Visit: Strokelike symptoms Attending Provider: Pillo Michelle Primary Care Provider: Angel Luis Contreras Discharge Orders/Prescriptions Prescriptions: New aspirin 81 mg Tablet,Chewable 81 mg PO BREAKFAST 90 Days Qty: 90 0RF atorvastatin 40 mg Tablet 40 mg PO QHS 90 Days Qty: 90 0RF Continued ondansetron 4 mg tablet,disintegrating 8 mg PO .now Qty: 2 0RF ondansetron HCl 8 mg tablet 8 mg PO Q8H PRN (Reason: nausea and vomiting) Qty: 14 0RF multivitamin with folic acid [Thera] 1 TABLET tablet 1 tab PO DAILY Calcium 600 + D(3) 1 EACH tablet 1 ea PO DAILY L.acidoph,paracasei,B.animalis 1 EACH capsule 1 ea PO DAILY ascorbic acid (vitamin C) 500 MG capsule 500 mg PO DAILY cyanocobalamin (vitamin B-12) 1,000 MCG capsule 1,000 mcg PO DAILY acetaminophen 500 MG tablet 1,000 mg PO Q8H PRN (Reason: Pain) Rx Instructions: Do not take more than 3000 mg Tylenol in a 24-hour period. oxybutynin chloride 5 mg tablet extended release 24hr 5 mg PO DAILY fluticasone propionate 50 mcg/actuation spray,suspension 1 spray INTRANASAL QHS Other Ambulatory Orders: 30 Day Event Recorder Preventi (Urgent) Timeframe: 1 Month Facility: [facility] - Location: Cardiovascular Services Ordered By: Dr. Pillo Michelle Referrals / Follow Up: Angel Luis Contreras MD [Primary Care Provider] - Disposition Disposition (needs filled in before D/C Order can be placed): Home, Self Care 05/04/[facility] Angel T[facility] CC: Dr. Angel Luis Contreras MD ~ Signed [facility]06-12-2025 Discharge summary Author Pillo Michelle [facility] Note Date/Time May 04, 2025 3:19 pm [facility] Medical Records Department [address] [place] [address] Instructions for Home/Discharge Instructions 05/04/25 1110 MR#: [id number] Acct: [id number] Name: DORYS LENTZ ANN Rep #:[id number] : 1935 89 From: Pillo del castillo DO PCP: Dr. Angel Luis Contreras MD Status:AD M BRYNN Discharge Instructions Diet Discharge Diet: No restrictions DC O2, CPAP, BIPAP needs Home O2 Discharge instructions: No Dressing / Incision Discharge Activity: No Restrictions Follow Up Care Test Results: Test results from this visit will be discussed in further detail at your follow- up appointment, if applicable. Discharge Plan Admission Admit Date/Time: 05/03/25 13:45 Primary Reason for Your Visit: Strokelike symptoms Attending Provider: Pillo Michelle Primary Care Provider: Angel Luis Contreras Discharge Orders/Prescriptions Prescriptions: New aspirin 81 mg Tablet,Chewable 81 mg PO BREAKFAST 90 Days Qty: 90 0RF atorvastatin 40 mg Tablet 40 mg PO QHS 90 Days Qty: 90 0RF Continued ondansetron 4 mg tablet,disintegrating 8 mg PO .now Qty: 2 0RF ondansetron HCl 8 mg tablet 8 mg PO Q8H PRN (Reason: nausea and vomiting) Qty: 14 0RF multivitamin with folic acid [Thera] 1 TABLET tablet 1 tab PO DAILY Calcium 600 + D(3) 1 EACH tablet 1 ea PO DAILY L.acidoph,paracasei,B.animalis 1 EACH capsule 1 ea PO DAILY ascorbic acid (vitamin C) 500 MG capsule 500 mg PO DAILY cyanocobalamin (vitamin B-12) 1,000 MCG capsule 1,000 mcg PO DAILY acetaminophen 500 MG tablet 1,000 mg PO Q8H PRN (Reason: Pain) Rx Instructions: Do not take more than 3000 mg Tylenol in a 24-hour period. oxybutynin chloride 5 mg tablet extended release 24hr 5 mg PO DAILY fluticasone propionate 50 mcg/actuation spray,suspension 1 spray INTRANASAL QHS Other Ambulatory Orders: 30 Day Event Recorder Preventi (Urgent) Timeframe: 1 Month Facility: [facility] - Location: Cardiovascular Services Ordered By: Dr. Pillo Michelle Referrals / Follow Up: Angel Luis Contreras MD [Primary Care Provider] - Disposition Disposition (needs filled in before D/C Order can be placed): Home, Self Care 05/04/25 2666<Electronically signed by Pillo Michelle DO>Pillo Michelle DO CC: Dr. Angel Luis Contreras MD ~ Signed [facility] Work Phone: [phone]) 228-580206-12-2025 Discharge summary Author [facility] Note Date/Time May 04, 2025 3:20 pm [facility] Medical Records Department [address] [place] [address] Discharge Summary 05/04/25 1110 MR#: [id number] Acct: [id number] Name: DORYS LENTZ ANN Rep #:[id number] : 1935 89 From: Pillo del castillo DO PCP: Dr. Angel Luis Contreras MD Status:BERENICE SWAIN Location: MS2 LT280-0 Providers Date of Admission: 05/03/25 Date of Discharge: 05/04/25 Primary Care Physician: Dr. Angel Luis Contreras MD Consultations 05/03/25 16:42 Consult: Tele-Neurology Routine Consulting Provider: [facility] Reason for Consult: Acute Ischemic Stroke/TIA EMERGENT Consult: No MD Notified: No Date Notified: 05/03/25 Time Notified: 13:48 Nursing Unit Staff Notify [facility] of Tele-Neurology Consult: Yes Reason For Visit: STROKELIKE SYMPTOMS Diagnosis Discharge Diagnosis (1) Stroke-like symptoms: Status: Acute Code(s): R29.90 - Unspecified symptoms and signs involving the nervous system Medications at Discharge Home Medications multivitamin with folic acid 400 mcg tablet (Thera) 1 tab PO DAILY supplement 04/06/18 L.acidoph,paracasei,B.animalis 10 billion cell capsule 1 ea PO DAILY 11/18/18 calcium carbonate-vitamin D3 600 mg-125 unit tablet (Calcium) 1 ea PO DAILY 11/18/18 ascorbic acid (vitamin C) 500 mg capsule 500 mg PO DAILY 09/05/20 cyanocobalamin (vitamin B-12) 1,000 mcg capsule 1,000 mcg PO DAILY 09/05/20 acetaminophen 500 mg tablet 1,000 mg PO Q8H PRN Pain 04/06/22 ondansetron 4 mg disintegrating tablet 8 mg (2 x 4 mg) PO .now nausea #2 tabs 08/29/24 ondansetron HCl 8 mg tablet 8 mg PO Q8H PRN nausea and vomiting #14 tabs 08/29/24 fluticasone propionate 50 mcg/actuation nasal spray,suspension 1 spray intranasal QHS 05/03/25 oxybutynin chloride 5 mg tablet,extended release 24 hr 5 mg PO DAILY 05/03/25 aspirin 81 mg chewable tablet 81 mg PO BREAKFAST 90 days #90 tabs 05/04/25 atorvastatin 40 mg tablet 40 mg PO QHS 90 days #90 tabs 05/04/25 Hospital Course Operations None Procedures EKG, Transthoracic echo and - (MRA head/neck, MRI brain, chest x-ray, CT brain) Summary of Care Provided Minutes Spent on Discharge: 35 Hospital Course: Patient is an 89-year-old female who presented to [facility] ED on 05/03/2025 for strokelike symptoms. Short hospital course as noted below. Patient discharged home in stable condition on 05/04. 1. Strokelike symptoms, CVA ruled out ? Neurology evaluated. Presented with right hand numbness, right facial numbness and slurring of speech. Mostly resolved by arrival to ED, NIH score of1. CT brain unremarkable. CTA head/neck deferred given history of nephrectomy. MRI brain and MRA head/neck unremarkable. Echo with bubble study showed no PFO, EF 65%, no other concerning findings. Lipid panel with total cholesterol 187, LDL 118, HDL 55. A1c 5.5%. TSH normal. Per neurology, most consistent with TIA. Recommended discharging on baby aspirin and atorvastatin 40 mg daily. 30-day event monitor ordered on discharge as well. Stable for discharge home on 05/04. 2. 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 Creatinine stable at baseline 1.1-1.2 during hospitalization. 3. Overactive bladder ? Continue home oxybutynin. Total clinical time spent by myself addressing the patient's medical issues, reviewing all the data, and collaborating with patient's care team: 35 minutes. Physical Exam Const alert, oriented x3, no apparent distress and average body habitus Constitutional Narrative: Elderly female, appears younger than stated age, sitting back comfortably in bed, conversing normally, in no acute distress. General Appearance: cooperative and comfortable HEENT normocephalic, head/scalp atraumatic, hearing grossly normal bilaterally, nasal mucous membranes and turbinates normal and moist oral mucous membranes Eyes PERRL, EOMs intact bilaterally and conjunctivae normal Neck full ROM Chest inspection of chest normal Resp normal respiratory effort, normal air movement, no use of accessory muscles and clear to auscultation bilaterally Cardio regular rate, regular rhythm, no murmurs and peripheral pulses 2+ throughout GI normal to inspection, nondistended, normoactive bowel sounds, soft to palpation,non-tender and non-distended Back/Spine normal ROM Extremity normal to inspection, full ROM and no pedal edema Skin no rashes or lesions noted Neuro moves all extremities and no focal motor deficits Speech: speech normal Motor Exam: strength 5/5 throughout Psych mental status grossly normal Weight / BMI Weight Weight: 75.115 kg Body Mass Index (BMI) 25.2 ABG / Lab / Microbiology Data 05/04/25 03:45 05/04/25 03:45 Laboratory: Laboratory Results - last 24 hr 05/03/25 11:14: Hemoglobin A1c 5.5, TSH 2.140 05/03/25 15:04: Troponin T Hi Sens 2 Hr 19 H 05/04/25 03:45: WBC 5.1, RBC 3.58 L, Hgb 11.0 L, Hct 33.8 L, MCV 94.4, MCH 30.7,MCHC 32.5, RDW Std Deviation 45.1 H, RDW Coeff of Ermias 13.1, Plt Count 489 H, MPV9.6, Sodium 142, Potassium 3.9, Chloride 106, Carbon Dioxide 25.1, Anion Gap 10,BUN 16, Creatinine 1.16, Estim Creat Clear Calc 33.82 L, Est GFR (MDRD) Non-Af 45 L, BUN/Creatinine Ratio 13.4, Glucose 78, Calcium 8.7, Triglycerides 72, Cholesterol 187, LDL Cholesterol, Calc 118, VLDL Cholesterol 14, HDL [id number], Cholesterol/HDL Ratio 3.41 05/04/25 06:02: Urine Color Yellow, Urine Clarity Sl. Cloudy, Urine pH 7.0, Ur Specific [place] 1.010, Urine Protein Negative, Urine Glucose (UA) Normal, UrineKetones Negative, Urine Occult Blood Negative, Urine Nitrite Negative, Urine Bilirubin Negative, Urine Urobilinogen Normal, Ur Leukocyte Esterase Negative, Urine RBC 0 SEEN, Urine WBC 0-5 SEEN, Ur Squamous Epith Cells 0 SEEN, Urine Bacteria 0 SEEN, Urine Mucus 0 SEEN Radiography Diagnostic Testing: Radiology Impression Brain MRI 05/03/25 13:52 IMPRESSION: No acute intracranial abnormality. Chronic and ancillary findings as above. Reading Location: [place] [address] Echocardiogram 05/03/25 13:52 Interpretation Summary Mild concentric left ventricular hypertrophy. The LV systolic function is normal. EF is 65 %. Stage 1 diastolic dysfunction. Moderate focal bileaflet mitral valve calcification. Equivocal prolapse of the posterior leaflet. Mild mitral valve regurgitation. Moderate (2+) tricuspid valve insufficiency. Right ventricular systolic pressure estimated to be 45 mmHg. Ordering Physician: Pillo Michelle Referring Physician: Angel Luis Contreras Performed By: Sheila Noonan RDCS Neck MRA 05/03/25 13:52 IMPRESSION: No significant stenosis. Reading Location: [id number] Head MRA 05/03/25 14:23 IMPRESSION: No acute arterial abnormality of the head. 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 Reading Location: [id number] D/C Instructions DC O2, CPAP, BIPAP Needs Home O2 Discharge instructions: No Meaningful Use Info Meaningful Use Meaningful Use Diagnoses (Choose all that apply): None applicable Ischemic Stroke Statin Dosing Therapy Reference: STATIN DOSE THERAPY REFERENCE: * Patients > 75 years receive moderate or high dose statin therapy. * Patients 75 years or YOUNGER should receive HIGH intensity statin dose unless contraindicated. You will be required to document reason for non-treatment if statin daily dose does not meet guidelines. HIGH DOSE STATIN THERAPY DAILY Atorvastatin > than or = to 40 mg Rosuvastatin > than or = to 20 mg Amlodipine + Atorvastatin > than or = to 2.5/40 mg Ezetimibe + Simvastatin 10/80 mg Simvastatin 80mg Discharge Plan Admission Admit Date/Time: 05/03/25 13:45 Primary Reason for Your Visit: Strokelike symptoms Attending Provider: Pillo Michelle Primary Care Provider: Angel Luis Contreras Discharge Orders/Prescriptions Prescriptions: New aspirin 81 mg Tablet,Chewable 81 mg PO BREAKFAST 90 Days Qty: 90 0RF atorvastatin 40 mg Tablet 40 mg PO QHS 90 Days Qty: 90 0RF Continued ondansetron 4 mg tablet,disintegrating 8 mg PO .now Qty: 2 0RF ondansetron HCl 8 mg tablet 8 mg PO Q8H PRN (Reason: nausea and vomiting) Qty: 14 0RF multivitamin with folic acid [Thera] 1 TABLET tablet 1 tab PO DAILY Calcium 600 + D(3) 1 EACH tablet 1 ea PO DAILY L.acidoph,paracasei,B.animalis 1 EACH capsule 1 ea PO DAILY ascorbic acid (vitamin C) 500 MG capsule 500 mg PO DAILY cyanocobalamin (vitamin B-12) 1,000 MCG capsule 1,000 mcg PO DAILY acetaminophen 500 MG tablet 1,000 mg PO Q8H PRN (Reason: Pain) Rx Instructions: Do not take more than 3000 mg Tylenol in a 24-hour period. oxybutynin chloride 5 mg tablet extended release 24hr 5 mg PO DAILY fluticasone propionate 50 mcg/actuation spray,suspension 1 spray INTRANASAL QHS Other Ambulatory Orders: 30 Day Event Recorder Preventi (Urgent) Timeframe: 1 Month Facility: [facility] - Location: Cardiovascular Services Ordered By: Dr. Pillo Michelle Referrals / Follow Up: Angel Luis Contreras MD [Primary Care Provider] - Disposition Disposition (needs filled in before D/C Order can be placed): Home, Self Care Charges/Coding Visit Charges Inpatient E&M: 24940 Disch Hosp >30min 05/04/25 1520 <Electronically signed by Pillo Michelle DO> Cosigner Signature (if applicable): CC: Dr. Pillo Michelle DO; Dr. Angel Luis Contreras MD~ Signed [facility] Work Phone: 1(976) 376-453006-12-2025 [facility] Medical Records Department [address] [place] [address] Discharge Summary 05/04/25 1110 MR#: [id number] Acct: [id number] Name: DORYS LENTZ ANN Rep #: [id number] : 1935 89 From: Pillo Michelle DO PCP: Dr. Angel Luis Contreras MD Status:ADM BRYNN Location: [place] [address] Providers Date of Admission: 05/03/25 Date of Discharge: 05/04/25 Primary Care Physician: Dr. Angel Luis Contreras MD Consultations 05/03/25 16:42 Consult: Tele-Neurology Routine Consulting Provider: [facility] Reason for Consult: Acute Ischemic Stroke/TIA EMERGENT Consult: No MD Notified: No Date Notified: 05/03/25 Time Notified: 13:48 Nursing Unit Staff Notify [facility] of Tele-Neurology Consult: Yes Reason For Visit: STROKELIKE SYMPTOMS Diagnosis Discharge Diagnosis (1) Stroke-like symptoms: Status: Acute Code(s): R29.90 - Unspecified symptoms and signs involving the nervous system Medications at Discharge Home Medications multivitamin with folic acid 400 mcg tablet (Thera) 1 tab PO DAILY supplement 04/06/18 L.acidoph,paracasei,B.animalis 10 billion cell capsule 1 ea PO DAILY 11/18/18 calcium carbonate-vitamin D3 600 mg-125 unit tablet (Calcium) 1 ea PO DAILY 11/18/18 ascorbic acid (vitamin C) 500 mg capsule 500 mg PO DAILY 09/05/20 cyanocobalamin (vitamin B-12) 1,000 mcg capsule 1,000 mcg PO DAILY 09/05/20 acetaminophen 500 mg tablet 1,000 mg PO Q8H PRN Pain 04/06/22 ondansetron 4 mg disintegrating tablet 8 mg (2 x 4 mg) PO .now nausea #2 tabs 08/29/24 ondansetron HCl 8 mg tablet 8 mg PO Q8H PRN nausea and vomiting #14 tabs 08/29/24 fluticasone propionate 50 mcg/actuation nasal spray,suspension 1 spray intranasal QHS 05/03/25 oxybutynin chloride 5 mg tablet,extended release 24 hr 5 mg PO DAILY 05/03/25 aspirin 81 mg chewable tablet 81 mg PO BREAKFAST 90 days #90 tabs 05/04/25 atorvastatin 40 mg tablet 40 mg PO QHS 90 days #90 tabs 05/04/25 Hospital Course Operations None Procedures EKG, Transthoracic echo and - (MRA head/neck, MRI brain, chest x-ray, CT brain) Summary of Care Provided Minutes Spent on Discharge: 35 Hospital Course: Patient is an 89-year-old female who presented to [facility] ED on 05/03/2025 for strokelike symptoms. Short hospital course as noted below. Patient discharged home in stable condition on 05/04. 1. Strokelike symptoms, CVA ruled out ??? Neurology evaluated. Presented with right hand numbness, right facial numbness and slurring of speech. Mostly resolved by arrival to ED, NIH score of 1. CT brain unremarkable. CTA head/neck deferred given history of nephrectomy. MRI brain and MRA head/neck unremarkable. Echo with bubble study showed no PFO, EF 65%, no other concerning findings. Lipid panel with total cholesterol 187, LDL 118, HDL 55. A1c 5.5%. TSH normal. Per neurology, most consistent with TIA. Recommended discharging on baby aspirin and atorvastatin 40 mg daily. 30-day event monitor ordered on discharge as well. Stable for discharge home on 05/04. 2. 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 Creatinine stable at baseline 1.1-1.2 during hospitalization. 3. Overactive bladder ??? Continue home oxybutynin. Total clinical time spent by myself addressing the patient's medical issues, reviewing all the data, and collaborating with patient's care team: 35 minutes. Physical Exam Const alert, oriented x3, no apparent distress and average body habitus Constitutional Narrative: Elderly female, appears younger than stated age, sitting back comfortably in bed, conversing normally, in no acute distress. General Appearance: cooperative and comfortable HEENT normocephalic, head/scalp atraumatic, hearing grossly normal bilaterally, nasal mucous membranes and turbinates normal and moist oral mucous membranes Eyes PERRL, EOMs intact bilaterally and conjunctivae normal Neck full ROM Chest inspection of chest normal Resp normal respiratory effort, normal air movement, no use of accessory muscles and clear to auscultation bilaterally Cardio regular rate, regular rhythm, no murmurs and peripheral pulses 2+ throughout GI normal to inspection, nondistended, normoactive bowel sounds, soft to palpation, non-tender and non- distended Back/Spine normal ROM Extremity normal to inspection, full ROM and no pedal edema Skin no rashes or lesions noted Neuro moves all extremities and no focal motor deficits Speech: speech normal Motor Exam: strength 5/5 throughout Psych mental status grossly normal Weight / BMI Weight Weight: 75.115 kg Body Mass Index (BMI) 25.2 ABG / Lab / Microbiology Data 05/04/25 03:45 05/04/25 03:45 Laboratory: Laboratory Results - last 24 hr 05/03/25 11:14: Hemoglobin A1c 5.5, TSH 2.140 05/03/25 15:04: Troponin T Hi Sens 2 Hr 19 H 05/04/25 03: (more content not included)...[facility]06-11-2025 History and physical note Author Pillo [facility] Note Date/Time May 03, 2025 9:43 pm [facility] Medical Records Department [address] [place] [address] H&P Exam - Hospitalist 05/03/25 1343 MR#: [id number] Acct: [id number] Name: DORYS LENTZ ANN Rep #:[id number] : 1935 89 From: Pillo del castillo DO PCP: Dr. Angel Luis Contreras MD Status:AD [facility] Location: [place] [address] HPI - General General Date of Admission: 05/03/25 Date of Service: 05/03/25 Chief Complaint: Strokelike symptoms HPI Narrative DORYS LENTZ, is a 89 F who presented to [facility] ED on 05/03/2025 with strokelike symptoms. Patient lives at home with her daughter. Has good functional status at baseline. She was out working in her flower bed for part of the morning today. When she went inside to look at her bills, she began to have right hand numbness, right facial numbness and slurring of speech. She was home alone and called her daughter who recommended that EMS bring her to the ED. Presented as a stroke alert. Hemodynamically stable on arrival and had NIH score of 1 due to dysarthria. Right hand and right facial numbness had resolved after about 10 to [address] brain was unremarkable. CTA head/neck was deferred as patient has history of only 1 kidney, though creatinine was at baseline. Given the symptoms, hospitalist was contacted for admission. I saw the patient at bedside in the ED, daughter was present. Patient was sitting back comfortably in bed, conversing normally, in no acute distress. Had no slurred speech noted and stated she felt back to baseline. Denies any recent illnesses. Denies any history of stroke. Noted that she doesnot drink very much at baseline and was feeling a bit dehydrated today. No other acute concerns at this time. [facility] Medical History Left knee pain Home Medications ?Medication ?Instructions ?Recorded ?Last Taken ?Type multivitamin with folic acid 400 1 tab PO DAILY supple ment 04/06/18 07/30/18 06:00 History mcg tablet (Thera) L.acidoph,paracasei,B.animalis 10 1 ea PO DAILY 11/24/18 08:00 History billion cell capsule calcium carbonate-vitamin D3 600 1 ea PO DAILY 8 Unknown History mg-125 unit tablet (Calcium) ascorbic acid (vitamin C) 500 mg 500 mg PO DAILY 09/05 Unknown History capsule cyanocobalamin (vitamin B-12) 1,000 mcg PO DAILY 09/05 Unknown History 1,000 mcg capsule acetaminophen 500 mg tablet 1,000 mg PO Q8H PRN Pain 0 04/06/22 Unknown History ondansetron 4 mg disintegrating 8 mg (2 x 4 mg) PO .no w nausea #2 08/29/24 Unknown Rx tablet tabs ondansetron HCl 8 mg tablet 8 mg PO Q8H PRN nausea and 08/29/24 Unknown Rx vomiting #14 tabs fluticasone propionate 50 1 spray intranasal QHS 05/03 Unknown History mcg/actuation nasal spray,suspension oxybutynin chloride 5 mg 5 mg PO DAILY 05/03/25 Unkno wn History tablet,extended release 24 hr Allergy/AdvReac Type Severity Reaction Status Date / Time No Known Allergies Allergy Verified 05/03/25 11:20 Family History no significant family his Surgical History 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 Social History Smoking Status: Never smoker ROS Constitutional Constitutional: Denies chills, fatigue, fever(s) or weakness Eyes Eyes: Denies change in vision Cardiovascular Cardiovascular: Denies chest pain Respiratory/Chest Respiratory/Chest: Denies shortness of breath at rest Gastrointestinal Gastrointestinal: Denies abdominal pain Musculoskeletal Musculoskeletal: Denies arthralgias or myalgias Neurologic Neurologic: Denies abnormal speech, confusion, disequilibrium, dizziness, focal weakness, headache(s), numbness, paresthesias or tingling Vital Signs Vital Signs Vital Signs: 05/03/25 11:09 05/03/25 11:17 05/03/25 11:19 Temperature 98.2 F 98.2 F Temperature Source Oral Oral Pulse Rate 72 60 Respiratory Rate 17 12 Blood Pressure 161/65 H 143/77 H Blood Pressure Mean 97 99 Pulse Ox 99 98 Oxygen Delivery Method Room Air Room Air 05/03/25 11:22 05/03/25 12:17 05/03/25 12:30 Temperature Temperature Source Pulse Rate 63 64 Respiratory Rate 16 16 Blood Pressure 149/77 H 143/74 H Blood Pressure Mean 101 97 Pulse Ox 98 98 Oxygen Delivery Method Room Air Room Air 05/03/25 12:39 05/03/25 13:00 05/03/25 13:30 Temperature Temperature Source Pulse Rate 63 59 L 54 L Respiratory Rate 16 16 19 H Blood Pressure 155/80 H 155/80 H 164/90 H Blood Pressure Mean 105 105 114 Pulse Ox 99 98 100 Oxygen Delivery Method Room Air Room Air Room Air 05/03/25 13:40 Temperature 97.9 F Temperature Source Pulse Rate 54 L Respiratory Rate 19 H Blood Pressure 164/90 H Blood Pressure Mean 114 Pulse Ox 100 Oxygen Delivery Method Weight Weight: 78.2 kg Body Mass Index (BMI) 26.2 Physical Exam Const alert, oriented x3, no apparent distress and average body habitus Constitutional Narrative: Elderly female, appears younger than stated age, sitting back comfortably in bed, conversing normally, in no acute distress. General Appearance: cooperative and comfortable HEENT normocephalic, head/scalp atraumatic, hearing grossly normal bilaterally, nasal mucous membranes and turbinates normal and moist oral mucous membranes Eyes PERRL, EOMs intact bilaterally and conjunctivae normal Neck full ROM Chest inspection of chest normal Resp normal respiratory effort, normal air movement, no use of accessory muscles and clear to auscultation bilaterally Cardio regular rate, regular rhythm, no murmurs and peripheral pulses 2+ throughout GI normal to inspection, nondistended, normoactive bowel sounds, soft to palpation,non-tender and non-distended Back/Spine normal ROM Extremity normal to inspection, full ROM and no pedal edema Skin no rashes or lesions noted Neuro moves all extremities and no focal motor deficits Speech: speech normal Motor Exam: strength 5/5 throughout Psych mental status grossly normal Results Lab / Micro Data 05/03/25 11:14 05/03/25 11:14 Labs: Laboratory Results - last 24 hr 05/03/25 11:14: WBC 5.7, RBC 4.17 L, Hgb 12.7, Hct 38.9, MCV 93.3, MCH 30.5, MCHC 32.6, RDW Std Deviation 45.1 H, RDW Coeff of Ermias 13.2, Plt Count 534 H, MPV9.2, Immature Gran % (Auto) 0.200, Neut % (Auto) 67.8, Lymph % (Auto) 16.2 L, [place] % (Auto) 10.2 H, Eos % (Auto) 4.9, Baso % (Auto) 0.7, Absolute Neuts (auto) 3.9, Absolute Lymphs (auto) 0.92, Nucleated RBC % 0, PT 13.3, INR 1.0, APTT 29.3, Sodium 138, Potassium 4.2, Chloride 101, Carbon Dioxide 24.8, Anion Gap 12, BUN 16, Creatinine 1.14, Estim Creat Clear Calc 37.49 L, Est GFR (MDRD) Non-Af 46 L, BUN/Creatinine Ratio 14.2, Glucose 90, Calcium 9.4, Magnesium 2.1, Troponin T High Sens 20 H Imaging Radiology Impression Brain CT 05/03/25 11:17 IMPRESSION: CHRONIC CHANGES. NO ACUTE FINDINGS. Red Alert: Chronic changes The critical information above was relayed directly by me by telephone to Roni Love on 05/03/2025 at 11:44 am with readback verification. Reading Location: [facility] Chest X-Ray 05/03/25 11:40 IMPRESSION: No Acute Findings. Reading Location: [place] [facility] Assessment & Plan Assessment/Plan (1) Stroke-like symptoms: PLAN: Plan Patient is an 89-year-old female who presented to [facility] ED on 05/03/2025 for strokelike symptoms. 1. Strokelike symptoms, CVA rule out ? Admit under observation status to PCU. Neurology consulted. Presented with right hand numbness, right facial numbness and slurring of speech. Most resolved by arrival to ED, NIH score of 1. CT brain unremarkable. CTA head/neck deferred given history of nephrectomy. MRI brain and MRA head/neck ordered. Echo with bubble study ordered. Lipid panel, A1c and TSH ordered. Other orders placed per stroke protocol order set. Will start baby aspirin and statin for now. Appreciate neurology recommendations. 2. 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 Creatinine stable at baseline 1.1-1.2 on admission. 3. Overactive bladder ? Continue home oxybutynin. DVT prophylaxis: SCDs CODE STATUS: Full code, verified Expected disposition: Home, 1 to 2 days Total clinical time spent by myself addressing the patient's medical issues, reviewing all the data, and collaborating with patient's care team: 55 minutes. Charges/Coding Visit Charges Inpatient E&M: 04700 Init Hosp L2 05/03/25 2143 <Electronically signed by Pillo Michelle DO> Cosigner Signature (if applicable): CC: Dr. Pillo Michelle DO; Dr. Angel Luis Contreras MD~ Signed [facility] Work Phone: 1([phone] 645-164706-11-2025 History and physical note [facility] Medical Records Department [address] [place] [address] H&P Exam - Hospitalist 05/03/25 1343 MR#: [id number] Acct: [id number] Name: DORYS LENTZ Rep #:[id number] : 1935 89 From: Pillo del castillo DO PCP: Dr. Angel Luis Contreras MD Status:BERENICE SWAIN Location: [address] HPI - General General Date of Admission: 05/03/25 Date of Service: 05/03/25 Chief Complaint: Strokelike symptoms HPI Narrative DORYS LENTZ, is a 89 F who presented to [facility] ED on 05/03/2025 with strokelikesymptoms. Patient lives at home with her daughter. Has good functional status at baseline. She was out working in her flower bed for part of the morning today. When she went inside to look at her bills, she began to have right hand numbness, right facial numbness and slurring of speech. She was home alone and called her daughter who recommended that EMS bring her to the ED. Presented as a stroke alert. Hemodynamically stable on arrival and had NIH score of 1 due to dysarthria. Right hand and right facial numbness had resolved after about 10 to [address] brain was unremarkable.CTA head/neck was deferred as patient has history of only 1 kidney, though creatinine was at baseline. Given the symptoms, hospitalist was contacted for admission. I saw the patient at bedside in theED, daughter was present. Patient was sitting back comfortably in bed, conversing normally, in no acute distress. Had no slurred speech noted and stated she felt back to baseline. Denies any recent illnesses. Denies any history of stroke. Noted that she doesnot drink very much at baseline and was feeling a bit dehydrated today. No other acute concerns at this time. [facility] Medical History Left knee pain Home Medications ?Medication ?Instructions ?Recorded ?Last Taken ?Type multivitamin with folic acid 400 1 tab PO DAILY supple ment 04/06/18 07/30/18 06:00 History mcg tablet (Thera) obdulia Johnson B.animalis 10 1 ea PO DAILY 11/24/18 08:00 History billion cell capsule calcium carbonate-vitamin D3 600 1 ea PO DAILY 8 Unknown History mg-125 unit tablet (Calcium) ascorbic acid (vitamin C) 500 mg 500 mg PO DAILY 09/05 Unknown History capsule cyanocobalamin (vitamin B-12) 1,000 mcg PO DAILY 09/05 Unknown History 1,000 mcg capsule acetaminophen 500 mg tablet 1,000 mg PO Q8H PRN Pain 0 04/06/22 Unknown History ondansetron 4 mg disintegrating 8 mg (2 x 4 mg) PO .no w nausea #2 08/29/24 Unknown Rx tablet tabs ondansetron HCl 8 mg tablet 8 mg PO Q8H PRN nausea and 08/29/24 Unknown Rx vomiting #14 tabs fluticasone propionate 50 1 spray intranasal QHS 05/03 Unknown History mcg/actuation nasal spray,suspension oxybutynin chloride 5 mg 5 mg PO DAILY 05/03/25 Unkno wn History tablet,extended release 24 hr Allergy/AdvReac Type Severity Reaction Status Date / Time No Known Allergies Allergy Verified 05/03/25 11:20 Family History no significant family his Surgical History 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 Social History Smoking Status: Never smoker ROS Constitutional Constitutional: Denies chills, fatigue, fever(s) or weakness Eyes Eyes: Denies change in vision Cardiovascular Cardiovascular: Denies chest pain Respiratory/Chest Respiratory/Chest: Denies shortness of breath at rest Gastrointestinal Gastrointestinal: Denies abdominal pain Musculoskeletal Musculoskeletal: Denies arthralgias or myalgias Neurologic Neurologic: Denies abnormal speech, confusion, disequilibrium, dizziness, focal weakness, headache(s), numbness, paresthesias or tingling Vital Signs Vital Signs Vital Signs: 05/03/25 11:09 05/03/25 11:17 05/03/25 11:19 Temperature 98.2 F 98.2 F Temperature Source Oral Oral Pulse Rate 72 60 Respiratory Rate 17 12 Blood Pressure 161/65 H 143/77 H Blood Pressure Mean 97 99 Pulse Ox 99 98 Oxygen Delivery Method Room Air Room Air 05/03/25 11:22 05/03/25 12:17 05/03/25 12:30 Temperature Temperature Source Pulse Rate 63 64 Respiratory Rate 16 16 Blood Pressure 149/77 H 143/74 H Blood Pressure Mean 101 97 Pulse Ox 98 98 Oxygen Delivery Method Room Air Room Air 05/03/25 12:39 05/03/25 13:00 05/03/25 13:30 Temperature Temperature Source Pulse Rate 63 59 L 54 L Respiratory Rate 16 16 19 H Blood Pressure 155/80 H 155/80 H 164/90 H Blood Pressure Mean 105 105 114 Pulse Ox 99 98 100 Oxygen Delivery Method Room Air Room Air Room Air 05/03/25 13:40 Temperature 97.9 F Temperature Source Pulse Rate 54 L Respiratory Rate 19 H Blood Pressure 164/90 H Blood Pressure Mean 114 Pulse Ox 100 Oxygen Delivery Method Weight Weight: 78.2 kg Body Mass Index (BMI) 26.2 Physical Exam Const alert, oriented x3, no apparent distress and average body habitus Constitutional Narrative: Elderly female, appears younger than stated age, sitting back comfortably in bed, conversing normally, in no acute distress. General Appearance: cooperative and comfortable HEENT normocephalic, head/scalp atraumatic, hearing grossly normal bilaterally, nasal mucous membranes and turbinates normal and moist oral mucous membranes Eyes PERRL, EOMs intact bilaterally and conjunctivae normal Neck full ROM Chest inspection of chest normal Resp normal respiratory effort, normal air movement, no use of accessory muscles and clear to auscultation bilaterally Cardio regular rate, regular rhythm, no murmurs and peripheral pulses 2+ throughout GI normal to inspection, nondistended, normoactive bowel sounds, soft to palpation,non-tender and non-distended Back/Spine normal ROM Extremity normal to inspection, full ROM and no pedal edema Skin no rashes or lesions noted Neuro moves all extremities and no focal motor deficits Speech: speech normal Motor Exam: strength 5/5 throughout Psych mental status grossly normal Results Lab / Micro Data 05/03/25 11:14 05/03/25 11:14 Labs: Laboratory Results - last 24 hr 05/03/25 11:14: WBC 5.7, RBC 4.17 L, Hgb 12.7, Hct 38.9, MCV 93.3, MCH 30.5, MCHC 32.6, RDW Std Deviation 45.1 H, RDW Coeff of Ermias 13.2, Plt Count 534 H, MPV9.2, Immature Gran % (Auto) 0.200, Neut % (Auto) 67.8, Lymph % (Auto) 16.2 L, Baraga % (Auto) 10.2 H, Eos % (Auto) 4.9, Baso % (Auto) 0.7, Absolute Neuts (auto) 3.9, Absolute Lymphs (auto) 0.92, Nucleated RBC % 0, PT 13.3, INR 1.0, APTT 29.3, Sodium 138, Potassium 4.2, Chloride 101, Carbon Dioxide 24.8, Anion Gap 12, BUN 16, Creatinine 1.14, Estim Creat Clear Calc 37.49 L, Est GFR (MDRD) Non- Af 46 L, BUN/Creatinine Ratio 14.2, Glucose 90, Calcium 9.4, Magnesium 2.1, Troponin T High Sens 20 H Imaging Radiology Impression Brain CT 05/03/25 11:17 IMPRESSION: CHRONIC CHANGES. NO ACUTE FINDINGS. Red Alert: Chronic changes The critical information above was relayed directly by me by telephone to Roni Love on 05/03/2025 at 11:44 am with readback verification. Reading Location: [facility] Chest X-Ray 05/03/25 11:40 IMPRESSION: No Acute Findings. Reading Location: [facility] Assessment & Plan Assessment/Plan (1) Stroke-like symptoms: PLAN: Plan Patient is an 89-year-old female who presented to [facility] ED on 05/03/2025 for strokelike symptoms. 1. Strokelike symptoms, CVA rule out ? Admit under observation status to PCU. Neurology consulted. Presented with right hand numbness, right facial numbness and slurring of speech. Most resolved by arrival to ED, NIH score of 1. CT brain unremarkable. CTA head/neck deferred given history of nephrectomy. MRI brain and MRA head/neck ordered. Echo with bubble study ordered. Lipid panel, A1c and TSH ordered. Other orders placed per stroke protocol order set. Will start baby aspirin and statin for now. Appreciate neurology recommendations. 2. 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 Creatinine stable at baseline 1.1-1.2 on admission. 3. Overactive bladder ? Continue home oxybutynin. DVT prophylaxis: SCDs CODE STATUS: Full code, verified Expected disposition: Home, 1 to 2 days Total clinical time spent by myself addressing the patient's medical issues, reviewing all the data, and collaborating with patient's care team: 55 minutes. Charges/Coding Visit Charges Inpatient E&M: 53995 Init Hosp L2 05/03/25 1948 Cosigner Signature (if applicable): CC: Dr. Pillo Michelle DO; Dr. Angel Luis Contreras MD~ Signed [facility]06-11-2025 Discharge summary Author Roni Love [facility] Note Date/Time May 03, 2025 2:21 pm [facility] Medical Records Department [address] [place] [address] Emergency Department Summary 05/03/25 MR#: [id number] Acct: [id number] Name: DORYS LENTZ Rep #:[id number] : 1935 89 From: Roni huang DO PCP: Dr. Angel Luis Contreras MD Status:RE G ER Location: ED HPI History of Present Illness Chief Complaint: Stroke Alert Narrative Narrative: Chief complaint and HPI: Strokelike symptoms. 89-year-old female with past medical history of nephrectomy presents for evaluation of strokelike symptoms. Patient's last known normal 9 AM. Patient states that she was outside in her flower bed when she went inside to look at her bills. States that she drank little water today. States she had a episode of right hand/facial numbness withslurring of the speech while doing her bills. Patient states that her slurring is improving and that her face and hand no longer feel numb but feel heavy. Noton any blood thinners. Denies any headache, vision changes, weakness, nausea, vomiting. Arrives via EMS. Review of systems: See HPI Medications: As listed on the chart Allergies: As listed on the chart PFSH: Per chart Vital signs: As listed on the chart. Reviewed. Physical exam: Gen: A&O x3, NAD Head: Normocephalic, atraumatic Eyes: No sclera icterus, conjunctiva clear, PERRL, EOMI ENT: Moist mucous membranes, No facial asymmetry Neck: Trachea midline, No JVD CV: RRR, no murmurs, no peripheral edema Resp: Lungs CTA BL, no w/r/c GI: Abd soft, non-distended, non-tender, no r/r/g Musc: Full ROM, no deformity, strength +5/5 in all extremities, no pronator drift, no ataxia Skin: Warm, dry, intact Neuro: Alert, oriented, grossly intact, sensation intact, + dysarthria, NIH 1 Psych: Cooperative, appropriate mood and affect [facility] Medical History Left knee pain Home Medications ?Medication ?Instructions ?Recorded ?Last Taken ?Type multivitamin with folic acid 400 1 tab PO DAILY supple ment 04/06/18 07/30/18 06:00 History mcg tablet (Thera) obdulia Johnson B.animalis 10 1 ea PO DAILY 11/24/18 08:00 History billion cell capsule calcium carbonate-vitamin D3 600 1 ea PO DAILY 8 Unknown History mg-125 unit tablet (Calcium) ascorbic acid (vitamin C) 500 mg 500 mg PO DAILY 09/05 Unknown History capsule cyanocobalamin (vitamin B-12) 1,000 mcg PO DAILY 09/05 Unknown History 1,000 mcg capsule acetaminophen 500 mg tablet 1,000 mg PO Q8H PRN Pain 0 04/06/22 Unknown History ondansetron 4 mg disintegrating 8 mg (2 x 4 mg) PO .no w nausea #2 08/29/24 Unknown Rx tablet tabs ondansetron HCl 8 mg tablet 8 mg PO Q8H PRN nausea and 08/29/24 Unknown Rx vomiting #14 tabs fluticasone propionate 50 1 spray intranasal QHS 05/03 Unknown History mcg/actuation nasal spray,suspension oxybutynin chloride 5 mg 5 mg PO DAILY 05/03/25 Unkno wn History tablet,extended release 24 hr Allergy/AdvReac Type Severity Reaction Status Date / Time No Known Allergies Allergy Verified 05/03/25 11:20 Surgical History 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 Social History Smoking Status: Never smoker EXAM Physical Exam Const Vital Signs: 05/03/25 11:09 05/03/25 11:17 05/03/25 11:19 Temperature 98.2 F 98.2 F Temperature Source Oral Oral Pulse Rate 72 60 Respiratory Rate 17 12 Blood Pressure 161/65 H 143/77 H Blood Pressure Mean 97 99 Pulse Ox 99 98 Oxygen Delivery Method Room Air Room Air 05/03/25 11:22 05/03/25 12:17 05/03/25 12:30 Temperature Temperature Source Pulse Rate 63 64 Respiratory Rate 16 16 Blood Pressure 149/77 H 143/74 H Blood Pressure Mean 101 97 Pulse Ox 98 98 Oxygen Delivery Method Room Air Room Air 05/03/25 12:39 05/03/25 13:00 05/03/25 13:30 Temperature Temperature Source Pulse Rate 63 59 L 54 L Respiratory Rate 16 16 19 H Blood Pressure 155/80 H 155/80 H 164/90 H Blood Pressure Mean 105 105 114 Pulse Ox 99 98 100 Oxygen Delivery Method Room Air Room Air Room Air 05/03/25 13:40 Temperature 97.9 F Temperature Source Pulse Rate 54 L Respiratory Rate 19 H Blood Pressure 164/90 H Blood Pressure Mean 114 Pulse Ox 100 Oxygen Delivery Method MDM MDM MDM Narrative Medical decision making narrative: 89-year-old female with past medical history of nephrectomy presents for evaluation of strokelike symptoms. Patient's last known normal 9 AM. Symptoms consisted of slurring of the speech, face/hand numbness. Face/hand numbness resolved. Slurring improving. On physical exam, patient is NIH 1 due to dysarthria. Patient was immediately made a stroke alert. Glucose within normallimits. Taken to CT. CTA head and neck not ordered given patient has history of nephrectomy and low suspicion for LVO. Stroke workup ordered. CT head showsno acute intracranial abnormality. Chronic changes. I personally spoke to the radiologist. [facility] evaluated the patient. Given patient's symptomsare improving with low NIH, neurology agrees that patient is not a TNK candidate. Recommended aspirin which was ordered. Okay with not doing CTA headand neck at this time given patient's nephrectomy. Recommended MRI and further CVA workup. Differential diagnosis includes but is not limited to CVA, TIA, electrolyte abnormality, dehydration. EKG was personally reviewed and interpreted by me, ED physician. EKG shows sinus bradycardia with heart rate of54. No acute ischemic changes. CBC without leukocytosis or anemia. Patient hasthrombocytosis of 534 however this was seen on previous labs at 04/20. Coagulation panel unremarkable. BMP unremarkable. Magnesium level unremarkable. Troponin 20. Patient not having any chest pain. Chest x-ray without pneumonia, effusion, cardiomegaly, pneumothorax. Radiology in agreement. On reevaluation, patient's dysarthria has almost completely resolved. Patient will warrant admission for MRI brain and further workup. Patient was updated of all results and confirmed understanding the plan. I spoke with the hospitalist service who accepted admission. 35 minutes of critical care time utilized in managing the patient. This is due to high probability of and deterioration of the patient based on the patient's condition and excludes any separately billable procedures. Impression: 1. Dysarthria, resolving 2. Right hand/facial numbness, resolved 3. Concern for TIA/CVA 4. Chronic thrombocytosis Lab Data Labs: Laboratory Results - last 24 hr 05/03/25 11:14 WBC 5.7 RBC 4.17 L Hgb 12.7 Hct 38.9 MCV 93.3 MCH 30.5 MCHC 32.6 RDW Std Deviation 45.1 H RDW Coeff of Ermias 13.2 Plt Count 534 H MPV 9.2 Immature Gran % (Auto) 0.200 Neut % (Auto) 67.8 Lymph % (Auto) 16.2 L Baraga % (Auto) 10.2 H Eos % (Auto) 4.9 Baso % (Auto) 0.7 Absolute Neuts (auto) 3.9 Absolute Lymphs (auto) 0.92 Nucleated RBC % 0 PT 13.3 INR 1.0 APTT 29.3 Sodium 138 Potassium 4.2 Chloride 101 Carbon Dioxide 24.8 Anion Gap 12 BUN 16 Creatinine 1.14 Estim Creat Clear Calc 37.49 L Est GFR (MDRD) Non-Af 46 L BUN/Creatinine Ratio 14.2 Glucose 90 Calcium 9.4 Magnesium 2.1 Troponin T High Sens 20 H Radiography Diagnostic Testing: Clinical Impression(s) from Imaging Studies Brain CT 05/03/25 11:17 IMPRESSION: CHRONIC CHANGES. NO ACUTE FINDINGS. Red Alert: Chronic changes The critical information above was relayed directly by me by telephone to Roni Love on 05/03/2025 at 11:44 am with readback verification. Reading Location: [facility] Chest X-Ray 05/03/25 11:40 IMPRESSION: No Acute Findings. Reading [facility] Dis[facility] Triage Chief Complaint: Stroke Alert ED Provider: Roni Love Dx/Rx/DC Orders Prescriptions: No Action ondansetron 4 mg tablet,disintegrating 8 mg PO .now Qty: 2 0RF ondansetron HCl 8 mg tablet 8 mg PO Q8H PRN (Reason: nausea and vomiting) Qty: 14 0RF multivitamin with folic acid [Thera] 1 TABLET tablet 1 tab PO DAILY Calcium 600 + D(3) 1 EACH tablet 1 ea PO DAILY L.acidoph,paracasei,B.animalis 1 EACH capsule 1 ea PO DAILY ascorbic acid (vitamin C) 500 MG capsule 500 mg PO DAILY cyanocobalamin (vitamin B-12) 1,000 MCG capsule 1,000 mcg PO DAILY acetaminophen 500 MG tablet 1,000 mg PO Q8H PRN (Reason: Pain) Rx Instructions: Do not take more than 3000 mg Tylenol in a 24-hour period. oxybutynin chloride 5 mg tablet extended release 24hr 5 mg PO DAILY fluticasone propionate 50 mcg/actuation spray,suspension 1 spray INTRANASAL QHS Primary Care Provider: Angel Luis Contreras Referrals: Angel Luis Contreras MD [Primary Care Provider] - Print Language: Hungarian What to do if you have Problems For any increased pain, shortness of breath, bleeding, nausea or vomiting, chestpain, or any unexpected problems, contact your Primary Care Provider. Call [employer] ([phone]) or report to the closest Emergency Room. Call 911 if necessary. 05/03/25 1421 <Electronically signed by Roni Love DO> Cosigner Signature (if applicable): CC: Dr. Angel Luis Contreras MD ~ Signed [facility] Work Phone: 1(179) 724-650606-11-2025 Evaluation note* Diagnosis Onset Date Resolution Status Admit Date Stroke-like symptoms acute May 03, 2025 1:45pm [facility] Work Phone: 1([phone]) 483-967506-11-2025 Evaluation note* Diagnosis Onset Date Resolution Status Admit Date Stroke-like symptoms resolved May 03, 2025 1:45pm Brain TIA acute May 19 6:34pm History of nephrectomy acute Ju 2024 6:34pm [facility] Work Phone: 1([phone]) 190-931306-11-2025 Discharge summary [facility] Medical Records Department [address] [place] [address] Emergency Department Summary 05/03/25 MR#: [id number] Acct: [id number] Name: DORYS LENTZ Rep #:[id number] : 1935 89 From: Roni huang DO PCP: Dr. Angel Luis Contreras MD Status:RE G ER Location: ED HPI History of Present Illness Chief Complaint: Stroke Alert Narrative Narrative: Chief complaint and HPI: Strokelike symptoms. 89-year-old female with past medical history of nephrectomy presents for evaluation of strokelike symptoms. Patient's last known normal 9 AM. Patient states that she was outside in her flower bed when she went inside to look at her bills. States that she drank little water today. States she had a episode of right hand/facial numbness withslurring of the speech while doing her bills. Patient states that her slurring is improving and that her face andhand no longer feel numb but feel heavy. Noton any blood thinners. Denies any headache, vision changes, weakness, nausea, vomiting. Arrives via EMS. Review of systems: See HPI Medications: As listed on the chart Allergies: As listed on the chart PFSH: Per chart Vital signs: As listed on the chart. Reviewed. Physical exam: Gen: A&O x3, NAD Head: Normocephalic, atraumatic Eyes: No sclera icterus, conjunctiva clear, PERRL, EOMI ENT: Moist mucous membranes, No facial asymmetry Neck: Trachea midline, No JVD CV: RRR, no murmurs, no peripheral edema Resp: Lungs CTA BL, no w/r/c GI: Abd soft, non-distended, non-tender, no r/r/g Musc: Full ROM, no deformity, strength +5/5 in all extremities, no pronator drift, no ataxia Skin: Warm, dry, intact Neuro: Alert, oriented, grossly intact, sensation intact, + dysarthria, NIH 1 Psych: Cooperative, appropriate mood and affect [facility] Medical History Left knee pain Home Medications ?Medication ?Instructions ?Recorded ?Last Taken ?Type multivitamin with folic acid 400 1 tab PO DAILY supple ment 04/06/18 07/30/18 06:00 History mcg tablet (Thera) obdulia JohnsonBRosauraanimalis 10 1 ea PO DAILY 11/24/18 08:00 History billion cell capsule calcium carbonate-vitamin D3 600 1 ea PO DAILY 8 Unknown History mg-125 unit tablet (Calcium) ascorbic acid (vitamin C) 500 mg 500 mg PO DAILY 09/05 Unknown History capsule cyanocobalamin (vitamin B-12) 1,000 mcg PO DAILY 09/05 Unknown History 1,000 mcg capsule acetaminophen 500 mg tablet 1,000 mg PO Q8H PRN Pain 0 04/06/22 Unknown History ondansetron 4 mg disintegrating 8 mg (2 x 4 mg) PO .no w nausea #2 08/29/24 Unknown Rx tablet tabs ondansetron HCl 8 mg tablet 8 mg PO Q8H PRN nausea and 08/29/24 Unknown Rx vomiting #14 tabs fluticasone propionate 50 1 spray intranasal QHS 05/03 Unknown History mcg/actuation nasal spray,suspension oxybutynin chloride 5 mg 5 mg PO DAILY 05/03/25 Unkno wn History tablet,extended release 24 hr Allergy/AdvReac Type Severity Reaction Status Date / Time No Known Allergies Allergy Verified 05/03/25 11:20 Surgical History 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 Social History Smoking Status: Never smoker EXAM Physical Exam Const Vital Signs: 05/03/25 11:09 05/03/25 11:17 05/03/25 11:19 Temperature 98.2 F 98.2 F Temperature Source Oral Oral Pulse Rate 72 60 Respiratory Rate 17 12 Blood Pressure 161/65 H 143/77 H Blood Pressure Mean 97 99 Pulse Ox 99 98 Oxygen Delivery Method Room Air Room Air 05/03/25 11:22 05/03/25 12:17 05/03/25 12:30 Temperature Temperature Source Pulse Rate 63 64 Respiratory Rate 16 16 Blood Pressure 149/77 H 143/74 H Blood Pressure Mean 101 97 Pulse Ox 98 98 Oxygen Delivery Method Room Air Room Air 05/03/25 12:39 05/03/25 13:00 05/03/25 13:30 Temperature Temperature Source Pulse Rate 63 59 L 54 L Respiratory Rate 16 16 19 H Blood Pressure 155/80 H 155/80 H 164/90 H Blood Pressure Mean 105 105 114 Pulse Ox 99 98 100 Oxygen Delivery Method Room Air Room Air Room Air 05/03/25 13:40 Temperature 97.9 F Temperature Source Pulse Rate 54 L Respiratory Rate 19 H Blood Pressure 164/90 H Blood Pressure Mean 114 Pulse Ox 100 Oxygen Delivery Method MDM MDM MDM Narrative Medical decision making narrative: 89-year-old female with past medical history of nephrectomy presents for evaluation of strokelike symptoms. Patient's last known normal 9 AM. Symptoms consisted of slurring of the speech, face/hand numbness. Face/hand numbness resolved. Slurring improving. On physical exam, patient is NIH 1 due to d ysarthria. Patient was immediately made a stroke alert. Glucose within normallimits. Taken to CT. CTA head and neck not ordered given patient has history of nephrectomy and low suspicion for LVO. Stroke workup ordered. CT head showsno acute intracranial abnormality. Chronic changes. I personally spoke to the radiologist. [facility] evaluated the patient. Given patient's symptomsare improving with low NIH, neurology agrees that patient is not a TNK candidate. Recommended aspirin which wasordered. Okay with not doing CTA headand neck at this time given patient's nephrectomy. RecommendedMRI and further CVA workup. Differential diagnosis includes but is not limited to CVA, TIA, electrol yte abnormality, dehydration. EKG was personally reviewed and interpreted by me, ED physician. EKG shows sinus bradycardia with heart rate of54. No acute ischemic changes. CBC without leukocytosis oranemia. Patient hasthrombocytosis of 534 however this was seen on previous labs at 04/20. Coagulation panel unremarkable. BMP unremarkable. Magnesium level unremarkable. Troponin 20. Patient not having any chest pain. Chest x-ray without pneumonia, effusion, cardiomegaly, pneumothorax. Radiology in agreement. On reevaluation, patient's dysarthria has almost completely resolved. Patient will warrant admission for MRI brain and further workup. Patient was updated of all results and confirmed understanding the plan. I spoke with the hospitalist service who accepted admission. 35 minutes of critical care time utilized in managing the patient. This is due to high probability of and deterioration of the patient based on the patient's condition and excludes any separately billable procedures. Impression: 1. Dysarthria, resolving 2. Right hand/facial numbness, resolved 3. Concern for TIA/CVA 4. Chronic thrombocytosis Lab Data Labs: Laboratory Results - last 24 hr 05/03/25 11:14 WBC 5.7 RBC 4.17 L Hgb 12.7 Hct 38.9 MCV 93.3 MCH 30.5 MCHC 32.6 RDW Std Deviation 45.1 H RDW Coeff of Ermias 13.2 Plt Count 534 H MPV 9.2 Immature Gran % (Auto) 0.200 Neut % (Auto) 67.8 Lymph % (Auto) 16.2 L Baraga % (Auto) 10.2 H Eos % (Auto) 4.9 Baso % (Auto) 0.7 Absolute Neuts (auto) 3.9 Absolute Lymphs (auto) 0.92 Nucleated RBC % 0 PT 13.3 INR 1.0 APTT 29.3 Sodium 138 Potassium 4.2 Chloride 101 Carbon Dioxide 24.8 Anion Gap 12 BUN 16 Creatinine 1.14 Estim Creat Clear Calc 37.49 L Est GFR (MDRD) Non-Af 46 L BUN/Creatinine Ratio 14.2 Glucose 90 Calcium 9.4 Magnesium 2.1 Troponin T High Sens 20 H Radiography Diagnostic Testing: Clinical Impression(s) from Imaging Studies Brain CT 05/03/25 11:17 IMPRESSION: CHRONIC CHANGES. NO ACUTE FINDINGS. Red Alert: Chronic changes The critical information above was relayed directly by me by telephone to Roni Love on 05/03/2025 at 11:44 am with readback verification. Reading Location: [facility] Chest X-Ray 05/03/25 11:40 IMPRESSION: No Acute Findings. Reading Location: [facility] Discharge Plan Triage Chief Complaint: Stroke Alert ED Provider: Roni Love Dx/Rx/DC Orders Prescriptions: No Action ondansetron 4 mg tablet,disintegrating 8 mg PO .now Qty: 2 0RF ondansetron HCl 8 mg tablet 8 mg PO Q8H PRN (Reason: nausea and vomiting) Qty: 14 0RF multivitamin with folic acid [Thera] 1 TABLET tablet 1 tab PO DAILY Calcium 600 + D(3) 1 EACH tablet 1 ea PO DAILY L.acidoph,paracasei,B.animalis 1 EACH capsule 1 ea PO DAILY ascorbic acid (vitamin C) 500 MG capsule 500 mg PO DAILY cyanocobalamin (vitamin B-12) 1,000 MCG capsule 1,000 mcg PO DAILY acetaminophen 500 MG tablet 1,000 mg PO Q8H PRN (Reason: Pain) Rx Instructions: Do not take more than 3000 mg Tylenol in a 24-hour period. oxybutynin chloride 5 mg tablet extended release 24hr 5 mg PO DAILY fluticasone propionate 50 mcg/actuation spray,suspension 1 spray INTRANASAL QHS Primary Care Provider: Angel Luis Contreras Referrals: Angel Luis Contreras MD [Primary Care Provider] - Print Language: Hungarian What to do if you have Problems For any increased pain, shortness of breath, bleeding, nausea or vomiting, chestpain, or any unexpected problems, contact your Primary Care Provider. Call [facility] ([phone]) or report tothe closest Emergency Room. Call 911 if necessary. 05/03/25 1421 Cosigner Signature (if applicable): CC: Dr. Angel Luis Contreras MD ~ Signed [facility]06-11-2025 Radiology Diagnostic study note [facility] Imaging Services [address] [place] [id number] Chest 1 View MR#: [id number] Acct: [id number] Name: DORYS LENTZ ANN Rep #: [id number] : 1935 89 From: Rubens Flores MD PCP: Dr. Angel Luis Contreras MD Status: RE G ER Study:Chest 1 View Date of Exam: 5 Exam# [id number] Ordering Dr: Roni White DO PROCEDURE: CHEST 1 VIEW 05/03/2025 REASON FOR EXAM: NEURO DEFICIT, ACUTE, STROKE SUSPECTED TECHNIQUE: Frontal view of the chest. COMPARISON: None FINDINGS: Hardware: EKG electrodes are seen. Heart: Borderline cardiomegaly. Lungs: Hyperinflation. The lungs are clear. Bones: Degenerative changes are identified within the thoracic spine. Other: Atherosclerotic calcification of the aortic arch. RAD/Chest 1 View IMPRESSION: No Acute Findings. Reading Location: [place] [address] CC: Dr. Roni Love DO; Dr. Angel Luis Contreras MD ~ Bread Packer: Signed [facility]06-11-2025 Radiology Diagnostic study note [facility] Imaging Services [address] [place] [place], [place] [address] STROKE Brain/Head without Cont MR#: [id number] Acct: [id number] Name: DORYS LENTZ ANN Rep #: [id number] : 1935 89 From: Rubens Flores MD PCP: Dr. Angel Luis Contreras MD Status: RE G ER Study:STROKE Brain/Head without Cont Date of Exam: 05/03/25 Exam# [id number] Ordering Dr: Roni White DO PROCEDURE: STROKE BRAIN/HEAD WITHOUT CONT 05/03/2025 REASON FOR EXAM: NEURO DEFICIT, ACUTE, STROKE SUSPECTED TECHNIQUE: Head CT without intravenous contrast. Coronal and Sagittal reconstruction serieswere provided. One or more dose reduction techniques were used (e.g., Automated exposure control, adjustment of the mA and/or kV according to patient size, use of iterative reconstruction technique. RADIATION DOSE SUMMARY: CTDlvol: 44.99 mGy DLP: 846.73 mGycm COMPARISON: None FINDINGS: Brain: Low density in the periventricular white matter suggests mild chronic small vessel ischemic changes. CSF Spaces: Mild generalized cerebral atrophy Sinuses/Mastoids: Minimal mucosal thickening along the inferior aspect of both maxillary sinuses. Bones: Hyperostosis frontalis interna. CT/STROKE Brain/Head without Cont IMPRESSION: CHRONIC CHANGES. NO ACUTE FINDINGS. Red Alert: Chronic changes The critical information above was relayed directly by me by telephone to Roni Love on 05/03/2025 at 11:44 am with readback verification. Reading Location: [place] [address] CC: Dr. Roni Love DO; Dr. Angel Luis Contreras MD ~ Bread Packer: [facility]igned [facility] information available [facility] Work Phone: Evaluation note* Diagnosis Onset Date Resolution Status Left knee pain acute [facility] Work Phone: History and physical note Author Clementine Kowalski [facility] Note Date/Time May 19, 2025 6:42 pm [facility] Medical Records Department [address] [place] [address] H&P Exam - Hospitalist 05/19/25 1834 MR#: [id number] Acct: [id number] Name: DORYS LENTZ ANN Rep #:[id number] : 1935 89 From: Clementine Kowalski MD PCP: Dr. Angel Luis Contreras MD Status:AD M BRYNN Location: [place] [address] HPI - General General Date of Admission: 05/19/25 Date of Service: 05/19/25 Chief Complaint: Right hand weakness and tingling, right facial numbness HPI Narrative DORYS LENTZ, is a 89y/o F w/ hx of solitary kidney after resection many years ago and TIA 2 weeks ago on baby aspirin and statin who presented to [facility] ED 05/19/2025 for right facial droop with facial tingling and slurred speech as well as right hand weakness and tingling. By the time paramedics got there the slurred speech resolved and patient symptom-free. On arrival patient afebrile, heart rate 61 with blood pressure 159/76. Respiratoryrate 16 and pulse ox 98% on room air. CBC unremarkable. Troponin 19 and [id number] glucose 83. BMP with BUN of [address] brain and CTA head and neck with no acute process. Stroke teleneurology evaluated and recommended admission locally for TIA workup so hospitalist contacted for admission. ED physician did clarify that they wanted patient admitted for further workup given her recent admission and this was confirmed per report. Patient evaluated with daughter at bedside. Earlier she developed facial tingling, possibly some dysarthria but had right arm tingling and weakness. Reportedly symptoms similar to 2 weeks ago. Symptoms resolved on their own and resolved fully 15 to 20 minutes and patient with no acute complaints at time of evaluation. Does report compliance with her aspirin and statin that she was started on after last admission [facility] Medical History Left knee pain Home Medications ?Medication ?Instructions ?Recorded ?Last Taken ?Type multivitamin with folic acid 400 1 tab PO DAILY supple ment 04/06/18 07/30/18 06:00 History mcg tablet (Thera) obdulia Johnson,BRosauraanimalis 10 1 ea PO DAILY 11/24/18 08:00 History billion cell capsule calcium carbonate-vitamin D3 600 1 ea PO DAILY 8 Unknown History mg-125 unit tablet (Calcium) ascorbic acid (vitamin C) 500 mg 500 mg PO DAILY 09/05 Unknown History capsule cyanocobalamin (vitamin B-12) 1,000 mcg PO DAILY 09/05 Unknown History 1,000 mcg capsule acetaminophen 500 mg tablet 1,000 mg PO Q8H PRN Pain 0 04/06/22 Unknown History ondansetron 4 mg disintegrating 8 mg (2 x 4 mg) PO .no w nausea #2 08/29/24 Unknown Rx tablet tabs ondansetron HCl 8 mg tablet 8 mg PO Q8H PRN nausea and 08/29/24 Unknown Rx vomiting #14 tabs fluticasone propionate 50 1 spray intranasal QHS 05/03 Unknown History mcg/actuation nasal spray,suspension oxybutynin chloride 5 mg 5 mg PO DAILY 05/03/25 Unkno wn History tablet,extended release 24 hr aspirin 81 mg chewable tablet 81 mg PO BREAKFAST 90 da ys #90 tabs 05/04/25 Unknown Rx atorvastatin 40 mg tablet 40 mg PO QHS 90 days #90 tab s 05/04/25 Unknown Rx Allergy/AdvReac Type Severity Reaction Status Date / Time No Known Allergies Allergy Verified 05/19/25 17:31 Family History no significant family his Surgical History 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 Social History Smoking Status: Former smoker ROS ROS Narrative General: Denies fever/chills HENT: Denies headache, denies stuffy nose, denies sore throat, did have some decrease sensation right side of face EYES: Denies changes in vision Resp: Denies cough, denies shortness of breath Cardiac: Denies chest pain GI: Denies abdominal pain, denies changes in bowel, denies nausea/vomiting : Denies changes in urination Extremity: Denies swelling MSK: Weakness in right hand resolved Neuro: Numbness and tingling face and arm resolved Heme: Denies any bleeding or bruising Skin: Denies rashes Psychiatric: No complaints voiced Vital Signs Vital Signs Vital Signs: 05/19/25 17:23 05/19/25 17:29 05/19/25 17:33 Temperature 98 F Temperature Source Oral Pulse Rate 61 61 Respiratory Rate 16 16 Blood Pressure 159/76 H 159/76 H Blood Pressure Mean 103 103 Pulse Ox 98 98 Oxygen Delivery Method Room Air Room Air Room Air 05/19/25 17:52 05/19/25 18:20 05/19/25 18:31 Temperature 98.9 F Temperature Source Pulse Rate 61 86 78 Respiratory Rate 15 18 14 Blood Pressure 145/89 H 134/76 H 142/78 H Blood Pressure Mean 107 95 99 Pulse Ox 98 99 99 Oxygen Delivery Method Room Air Room Air Weight Weight: 75.9 kg Body Mass Index (BMI) 25.4 Physical Exam Narrative General: Alert, oriented, no apparent distress HEENT: Atraumatic, normocephalic Eyes: Anicteric, normal conjunctiva, extraocular movements intact, pupils equal Neck: Supple Respiratory: Clear to auscultation bilaterally, normal respiratory effort Cardiovascular: Regular rate and rhythm GI: Soft, nontender, nondistended Extremities: No edema Musculoskeletal: Strength 5 out of 5 in right upper extremity, 5 out of 5 left upper extremity, 5 out of 5 right lower extremity, 5 out of 5 left lower extremity Neuro: No overt focal neurological deficits, cranial nerves II through XII intact, [id number] without significant difficulty bilaterally Skin: No rashes appreciated Psych: Cooperative Results Lab / Micro Data 05/19/25 17:30 05/19/25 17:30 Labs: Laboratory Results - last 24 hr 05/19/25 17:30: WBC 6.9, RBC 4.14 L, Hgb 12.7, Hct 38.2, MCV 92.3, MCH 30.7, MCHC 33.2, RDW Std Deviation 43.4, RDW Coeff of Ermias 12.8, Plt Count 270, MPV 10.1, Immature Gran % (Auto) 0.300, Neut % (Auto) 66.9, Lymph % (Auto) 17.5 L, Baraga % (Auto) 9.6, Eos % (Auto) 5.0, Baso % (Auto) 0.7, Absolute Neuts (auto) 4.6, Absolute Lymphs (auto) 1.20, Nucleated RBC % 0, PT 12.9, INR 1.0, APTT 27.5, Sodium 135, Potassium 4.5, Chloride 98, Carbon Dioxide 25.2, Anion Gap 12,BUN 20 H, Creatinine 1.24 H, Estim Creat Clear Calc 31.64 L, Est GFR (MDRD) Non-Af 42 L, BUN/Creatinine Ratio 16.1, Glucose 91, Calcium 9.6, Troponin T High Sens 19 H 05/19/25 17:45: POC Glucose 83 Rhythm Strip Rhythm Strip: Sinus Rhythm Rate: 60 Ectopy: None Imaging Radiology Impression Brain CT 05/19/25 17:23 IMPRESSION: No acute intracranial hemorrhage, midline shift or mass effect. If symptoms persist, further evaluation with MRI is recommended. Reading Location: [facility] Head/Neck CTA 05/19/25 17:24 IMPRESSION: No large vessel occlusion. Reading Location: [facility] Assessment & Plan Assessment/Plan (1) Brain TIA: (2) History of nephrectomy: PLAN: Plan # Right sided facial droop and paresthesias -Admit to tele -CT head with no acute process -CTA head and neck with no LVO -MRI ordered given patient had further neurologic symptoms -NIH q4hr -asa, statin -Will check UA -Lipid panel and A1c in the a.m. 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 and RVSP of 45 so we will hold off on repeat -PT/OT/Speech eval -Teleneuro consult placed -Hold BP medications to allow for permissive hypertension for 24 hours unless SBP greater than 220 or DBP greater than 120 or until stroke is ruled out -Of note patient was here 2 weeks ago for a similar reason/symptoms, ED physician did clarify and stroke neurology did not want patient admitted for MRIworkup again #Hx solitary kidney -Kidney fxn appears to be at or close to baseline #Hx recent TIA -On aspirin and Plavix as above #DVT ppx: SCDs Clementine Kowalski MD Charges/Coding Visit Charges Inpatient E&M: 05996 Init Hosp L2 05/19/25 1842 <Electronically signed by Clementine Kowalski MD> Cosigner Signature (if applicable): CC: Dr. Angel Luis Contreras MD; Dr. Clementine Kowalski MD~ Signed [facility] Work Phone: Reason for referral (narrative)No reason for referral information availableWAvita Health [facility] Work Phone: Chief Complaint and Reason for Visit Chief Complaint general illness Chief Complaint EDEMA Chief Complaint EDEMA L LEG PAIN/UNK INJURY E ORDER Reason for Visit Left knee pain Chief Complaint Admit Date STROKELIKE SYMPTOMS May 03, 2025 1:45 pm Chief Complaint Admit Date STROKELIKE SYMPTOMS May 03, 2025 1:45 pm STROKELIKE SYMPTOMS May 04, 2025 11:1 0am Reason for Visit Admit Date Stroke-like symptoms May 03, 2025 1:4 5pm Chief Complaint Admit Date STROKELIKE SYMPTOMS May 03, 2025 1:45 pm STROKELIKE SYMPTOMS May 04, 2025 11:1 0am HX OF TIA, WORD FINDING DIFFICULTY. RX H ERE May 16, 2025 12:00pm TIA WORKUP May 19, 2025 6:34 pm Reason for Visit Admit Date Stroke-like symptoms May 03, 2025 1:4 5pm Brain TIA May 19, 2025 6:34 pm History of nephrectomy May 19, 2025 6 :34pm Family History Relationship Condition Age at Onset Recorded Date/T gurinder Unknown Family History?- Unknown April 07, 018 9:22am Family History?- Unknown July [id number] 3:34am Family History?Cancer Unknown 2017 3:34am Relationship Condition Age at Onset Recorded Date/T gurinder Unknown Family History?- Unknown April 07, 2 018 8:22am Family History?- Unknown July [id number] 2:34am Family History?Cancer Unknown 2017 2:34am Relationship Condition Age at Onset Recorded Date/T gurinder Unknown Family History?- Unknown April 07, 2 018 9:22am Family History?- Unknown August 9:32am Family History?Cancer Unknown 2019 9:32am Advance Directives Advance Directive Response Recorded Date/ Time Living Will Yes April 06, 2022 8 :22am Power of Respiratory Therapy Aide Yes April 06, 2022 8:22am Advance Directive Response Recorded Date/ Time Living Will Yes April 06, 2022 7 :22am Power of Respiratory Therapy Aide Yes April 06, 2022 7:22am Advance Directive Response Recorded Date/ Time Do you have a Healthcare Power of Respiratory Therapy Aide? Yes May 03, 2025 11:25am Name of Medical Power of Respiratory Therapy Aide Aniya Amador May 03, 2025 11:25am Advance Directive Response Recorded Date/ Time Do you have a Healthcare Power of Respiratory Therapy Aide? Yes May 03, 2025 4:44pm Name of Medical Power of Respiratory Therapy Aide Aniya Amador May 03, 2025 11:25am Advance Directive Response Recorded Date/ Time Do you have a Healthcare Power of Respiratory Therapy Aide? Yes May 03, 2025 4:44pm Name of Medical Power of Respiratory Therapy Aide Aniya Amador May 03, 2025 11:25am Do you have a Healthcare Power of Respiratory Therapy Aide? Yes May 19, 2025 5:42pm Summary Purpose Additional Source Comments Goals (unrecognized section and content) Goals may be documented in a n alternate sectionGoals may be documented in an alternate sectionGoals may be documented in an alternate sectionGoals may be documented in an alternate sectionGoals may be documented in an alternate sectionGoals may be documented in an alternate sectionGoals may be documented in an alternate sectionGoals may be documented in an alternate sectionGoals may be documented in an alternate section Care Teams (unrecognized sec tion and content) Team Status: Active Member Role Status Dates Dr. Angel Luis Contreras MD Family Provider Active Dr. Angel Luis Contreras MD Primary Care Provider Active Team Status: Inactive Member Role Status Dates Dr. Angel Luis Contreras MD Primary Care Provider, Attend ing Provider Active Team Status: Active Member Role Status Dates Dr. Angel Luis Contreras MD Primary Care Provider, Referr ing Provider Active Dr. Ravinder Nelson MD Attending Provider Active Team Status: Active Member Role Status Dates Dr. Angel Luis Contreras MD Primary Care Pr ovider, Attending Provider, Referring Provider Active Team Status: Inactive Member Role Status Dates Dr. Angel Luis Contreras MD Primary Care Pr ovider, Attending Provider, Referring Provider Active Team Status: Inactive Member Role Status Dates Dr. Angel Luis Contreras MD Primary Care Provider, Referr ing Provider Active ISAIAH Graves Attending Provider Active Team Status: Inactive Member Role Status Dates Dr. Angel Luis Contreras MD Primary Care Provider Active ISAIAH Graves Attending Provider, Referring Pr ovider Active Team Status: Active Member Role Status Dates Dr. Angel Luis Contreras MD Primary Care Provider Active Team Status: Inactive Member Role Status Dates Dr. Angel Luis Contreras MD Primary Care Provider Active Start: April 20, 2025 End: April 20, 2025 Dr. Angel Luis Contreras MD Attending Provider Active Start: April 20, 2025 End: April 20, 2025 Dr. Angel Luis Contreras MD Referring Provider Active Start: April 20, 2025 End: April 20, 2025 Team Status: Active Member Role Status Dates Dr. Angel Luis Contreras MD Primary Care Provider Active Start: May 03, 2025 Dr. Roni Love DO Emergency Provider Activ e Start: May 03, 2025 Dr. Pillo Michelle DO Admit Provider Active Start: May 03, 2025 Dr. Pillo Michelle DO Attending Provider Active Start: May 03, 2025 Team Status: Inactive Member Role Status Dates Dr. Angel Luis Contreras MD Primary Care Provider Active Start: May 03, 2025 End: May 04, 2025 Dr. Roni Love DO Emergency Provider Activ e Start: May 03, 2025 End: May 04, 2025 Dr. Pillo Michelle DO Admit Provider Active Start: May 03, 2025 End: May 04, 2025 Dr. Pillo Michelle DO Attending Provider Active Start: May 03, 2025 End: May 04, 2025 Dr. Pillo Michelle DO Other Provider Active Start: May 03, 2025 Team Status: Active Member Role Status Dates Dr. Angel Luis Contreras MD Primary Care Provider Active Start: May 03, 2025 Dr. Nilson Peterson MD Attending Provider Active Start: May 03, 2025 Team Status: Active Member Role Status Dates Dr. Angel Luis Contreras MD Primary Care Provider Active Start: May 04, 2025 Dr. Roni Love DO Emergency Provider Activ e Start: May 04, 2025 Dr. Pillo Michelle DO Admit Provider Active Start: May 04, 2025 Dr. Pillo Michelle DO Attending Provider Active Start: May 04, 2025 Dr. Pillo Michelle DO Other Provider Active Start: May 04, 2025 Team Status: Active Member Role/Relationship Status Dates Dr. Angel Luis Contreras MD Primary Care Provider Active Team Status: Inactive Member Role/Relationship Status Dates Dr. Angel Luis Contreras MD Primary Care Provider Active Start: April 20, 2025 End: April 20, 2025 Dr. Angel Luis Contreras MD Attending Provider Active Start: April 20, 2025 End: April 20, 2025 Dr. Angel Luis Contreras MD Referring Provider Active Start: April 20, 2025 End: April 20, 2025 Team Status: Inactive Member Role/Relationship Status Dates Dr. Angel Luis Contreras MD Primary Care Provider Active Start: May 03, 2025 End: May 04, 2025 Dr. Roni Love DO Emergency Provider Activ e Start: May 03, 2025 End: May 04, 2025 Dr. Pillo Michelle DO Admit Provider Active Start: May 03, 2025 End: May 04, 2025 Dr. Pillo Michelle DO Attending Provider Active Start: May 03, 2025 End: May 04, 2025 Dr. Pillo Michelle DO Other Provider Active Start: May 03, 2025 Team Status: Active Member Role/Relationship Status Dates Dr. Angel Luis Contreras MD Primary Care Provider Active Start: May 03, 2025 Dr. Nilson Peterson MD Attending Provider Active Start: May 03, 2025 Team Status: Active Member Role/Relationship Status Dates Dr. Angel Luis Contreras MD Primary Care Provider Active Start: May 04, 2025 Dr. Roni Love DO Emergency Provider Activ e Start: May 04, 2025 Dr. Pillo Michelle DO Admit Provider Active Start: May 04, 2025 Dr. Pillo Michelle DO Attending Provider Active Start: May 04, 2025 Dr. Pillo Michelle DO Other Provider Active Start: May 04, 2025 Team Status: Active Member Role/Relationship Status Dates Dr. Angel Luis Contreras MD Primary Care Provider Active Start: May 16, 2025 Dr. Angel Luis Contreras MD Attending Provider Active Start: May 16, 2025 Dr. Angel Luis Contreras MD Referring Provider Active Start: May 16, 2025 Team Status: Active Member Role/Relationship Status Dates Dr. Angel Luis Conterras MD Primary Care Provider Active Start: May 19, 2025 Dr. Joey Cameron MD Emergency Provider Active S tart: May 19, 2025 Dr. Clementine Kowalski MD Admit Provider Active Star t: May 19, 2025 Dr. Clementine Kowalski MD Attending Provider Active Start: May 19, 2025 Dr. Clementine Kowalski MD Other Provider Active Star t: May 19, 2025 INFORMATION SOURCE (unrecogn ized section and content) DATE CREATED AUTHOR 05/19/2025 [facility] FOR RECORDS PERTAINING TO PATIENTS WHO ARE OR HAVE BEEN ENROLLED IN A CHEMICAL DEPENDENCY/SUBSTANCEABUSE PROGRAM, SOME INFORMATION MAY BE OMITTED. This clinical summary was aggregated from multiple sources. Caution should be exercised in using it in the provision of clinical care. This summary normalizes information from multiple sources, and as a consequence, information in this document may materially change the coding, format and clinical context of patient data. In addition, data may be omitted in some cases. CLINICAL DECISIONS SHOULD BE BASED ON THE PRIMARY CLINICAL RECORDS. [facility]. provides no warranty or guarantee of the accuracy or completeness of information in this document.
--- NOTE | 2025-05-19 20:00 | CM.ED ---
Social Work Reason for visit: Stroke Alert SW met patients daughter in [place] and walked her back to patients room. Daughter stated she was thankful her mom was doing better but she did not want to take any chances. Emotional support provided. Alma Delia Malhotra, AIR CONTROL/ANTI AIR WARFARE OFFICER, FOUNDRY TENDER
[2025-05-19 20:32] LABS: Troponin T High Sens 2 HR 20 ng/L (<=14)
[2025-05-19] MEDS: Atorvastatin Calcium 40 MG Tablet PO (20:44)
[2025-05-19] MEDS: 0.9% Saline Lock 10 ML Syringe IV (20:44)
[2025-05-19] MEDS: 0.9% Normal Saline (1000mL) 1,000 ML 50 ML IV (20:45)
[2025-05-19 21:13] LABS: Bacteria 0 SEEN /hpf (None Seen); Mucous, Urine 0 SEEN /hpf (<or=2+); Red Blood Cells-Urine 0 SEEN /hpf (0-5); Squamous Epithelial Cells - UA 0 SEEN /hpf (5-10)
[2025-05-19 21:20] LABS: Color, Urine Yellow (Yellow); Glucose, Dipstick Normal (Normal); Ketone-Dipstick Negative (Negative); Leukocyte Esterase-Dipstick 25 /ul (Negative); Nitrite-Dipstick Negative (Negative); Occult Blood-Urine Negative /ul (Negative); Protein-Dipstick Negative (Negative); Specific Gravity, Urine 1.005 (1.002-1.030); Urine Bilirubin Dipstick Negative (Negative); Urine Clarity Clear (Clear); Urine Urobilinogen Normal (Normal)
[2025-05-19 21:30] LABS: White Blood Cells 0-5 SEEN /hpf (0-5)
[2025-05-20] VITALS (7 sets, daily range): BP systolic 113–143; BP diastolic 56–75; PULSE 55–67; RESP 15–16; TEMP 36.6–36.7; O2SAT 93–97; BMI 24.3
[2025-05-20 00:21] LABS: Troponin T High Sens 4 HR 23 ng/L (<=14)
[2025-05-20 06:39] LABS: Absolute Lymphocyte Count 0.68 X10^3/uL (0.83-4.51); Absolute Neutrophil Count 3.7 X10^3/uL (2.0-7.7); Basophil# 0.05 X10^3/uL; Basophil% 0.9 % (0-1); Eosinophil# 0.46 X10^3/uL; Eosinophils% 8.5 % (0-5); Hematocrit 35.5 % (37-47); Lymphocyte # 0.68 X10^3/ul (0.83-4.51); Lymphocyte % 12.6 % (19-41); Mean Corp Hgb Conc 33.8 g/dL (32-36); Mean Corpuscular Hgb 31.3 pg (27.0-32.0); Mean Corpuscular Volume 92.4 fL (81-99); Monocyte# 0.53 X10^3/uL; Monocyte% 9.8 % (0-10); NRBC Flagged by Analyzer 0 % (0-5); Neutrophil # 3.65 X10^3/uL (2.7-7.7); Neutrophil % 67.8 % (47-70); Platelet Count 255 K/mm3 (150-450); RBC Distribution Width SD 43.8 fl (35.1-43.9); Red Blood Count 3.84 M/mm3 (4.2-5.4); White Blood Count 5.4 K/mm3 (4.4-11.0)
[2025-05-20 07:04] LABS: Anion Gap 11 (5-15); BUN 17 mg/dL (4-19); BUN/Creat Ratio 15.5 RATIO (10-20); Calcium,Total 8.8 mg/dL (7.6-11.0); Carbon Dioxide 25.1 mmol/L (21.0-32.0); Chloride 105 mmol/L (98-108); Creatinine, Serum 1.08 mg/dL (0.70-1.20); EST Glomerular Filtration Rate 49 (>60); Estimated Creatinine Clearance 36.32 ml/min (50-250); Glucose 104 mg/dL (70-99); Potassium 4.1 mmol/L (3.3-5.1); Sodium Level 141 mmol/L (133-145)
[2025-05-20 07:24] LABS: Cholesterol 145 mg/dL (<=200); High Density Lipoprotein 63 mg/dL; Low Density Lipoprotein Calc. 70 mg/dL; Triglycerides 60 mg/dL; Very Low Density Lipoprotein 12 mg/dL (5-40); cholesterol:hdl ratio screen 2.29
[2025-05-20] MEDS: Aspirin 81 MG TAB.CHEW PO (07:53)
[2025-05-20] MEDS: LORazepam 0.5 MG Tablet PO (09:41)
[2025-05-20] MEDS: Tolterodine Tartrate 2 MG CAP.SA PO (09:42)
[2025-05-20] MEDS: Enoxaparin 40 MG/0.4 ML Syringe SC (09:42)
--- NOTE | 2025-05-20 10:53 | NEURO.CONS ---
Assessment and Plan: Neuro Assessment/Plan DANIA LENTZ is a 89 F with a past medical history of recent TIA, HLD, being evaluated by Teleneurology for R hand numbness and and transient speech difficulties. Patient had a recently TIA that she was placed on SAPT for, ABCD2 score was 4. Patient here with recurrent symptoms but on exam appears to have more weakness on the R hand and leg that are persistent. At this time, unclear if seizure or stroke related but given stereotyped event so closely after, this is likely one of these two diagnoses. - MRI Brain for further workup - cont ASA, statin currently - SBP < 160/80 until further diagnoses made - routine EEG I personally attended this patient and spent a total time of 45minutes evaluating this patient including clinical assessment, review of chart, medical history imaging, and determining appropriate treatment and workup. 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 By the time paramedics got there the slurred speech resolved and patient symptom-free. On arrival patient afebrile, heart rate 61 with blood pressure 159/76. Respiratory rate 16 and pulse ox 98% on room air. CBC unremarkable. Troponin 19 and qsius-ei-[id number] glucose 83. BMP with BUN of [address] brain and CTA head and neck with no acute process. Stroke teleneurology evaluated and recommended admission locally for TIA workup so hospitalist contacted for admission. ED physician did clarify that they wanted patient admitted for further workup given her recent admission and this was confirmed per report. Patient evaluated with daughter at bedside. Earlier she developed facial tingling, possibly some dysarthria but had right arm tingling and weakness. Reportedly symptoms similar to 2 weeks ago. Symptoms resolved on their own and resolved fully 15 to 20 minutes and patient with no acute complaints at time of evaluation. Does report compliance with her aspirin and statin that she was started on after last admission Neurologic History This event was not as bad as the first time but patient could talk this time and voice was not slurred (this is better than last time). When this started this time, had just walked in from mailbox and sat down and when she stood up again she started having tingling in the R hand. Last time it was early in the AM and she was working in the garden when this started. No symptoms in the legs or face. Last time there was no tingling in the hand and was numb like novacaine. Patient was started on ASA and statin. Started on atorvastatin last time. No missed medications. Currently patient is mostly back to normal and lasted for barely 5 min. Exam: -? General: Laying comfortably in bed; in no acute distress. -? HENT: Normal oropharynx and mucosa. Normal external appearance of ears and nose. Exophthalmos. -? Neck: Supple, no pain or tenderness -? CV:? No peripheral edema. -? Pulmonary:? Normal respiratory effort. -? Ext: No cyanosis, edema, or deformity -? Skin: No rash. Normal palpation of skin.? -? Musculoskeletal: full range of motion; no joint tenderness. Normal digits and nails by inspection. No clubbing. -? NEURO: -? Mental Status: The patient was alert and oriented to time, place, and person. Normal recent/remote memory, concentration, and general fund of knowledge. -? Language: speech is clear.? Naming, repetition, fluency, and comprehension intact. -? Cranial Nerves: PERRL 2 mm/brisk. EOMI, visual espinal full, no facial asymmetry, facial sensation intact, hearing intact, tongue midline, no evidence of atrophy or fibrillations. -? Motor: RLE drift -? 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 Sensation- Intact to light touch bilaterally -? Coordination: No dysmetria on [id number], finger follow finger or [id number]. -? Gait- deferred [facility] Medical History Left knee pain Home Medications ?Medication ?Instructions ?Recorded ?Last Taken ?Type multivitamin with folic acid 400 1 tab PO DAILY supplement 04/06/18 05/19/25 History mcg tablet (Thera) L.acidoph,paracasei,B.animalis 10 1 ea PO DAILY 11/18/18 05/19/25 History billion cell capsule calcium carbonate-vitamin D3 600 1 ea PO DAILY 11/18/18 05/19/25 History mg-125 unit tablet (Calcium) ascorbic acid (vitamin C) 500 mg 500 mg PO DAILY 09/05/20 05/19/25 History capsule cyanocobalamin (vitamin B-12) 1,000 mcg PO DAILY 09/05/20 05/19/25 History 1,000 mcg capsule acetaminophen 500 mg tablet 1,000 mg PO Q8H PRN Pain 04/06/22 Unknown History ondansetron HCl 8 mg tablet 8 mg PO Q8H PRN nausea and 08/29/24 Unknown Rx vomiting #14 tabs fluticasone propionate 50 1 spray intranasal QHS PRN nasal 05/03/25 Unknown History mcg/actuation nasal congestion spray,suspension aspirin 81 mg chewable tablet 81 mg PO BREAKFAST 90 days #90 tabs 05/04/25 05/19/25 Rx atorvastatin 40 mg tablet 40 mg PO QHS 90 days #90 tabs 05/04/25 05/18/25 Rx psyllium husk 0.4 gram capsule 0.4 - 0.8 g PO DAILY 05/19/25 05/19/25 History (Daily Fiber) Allergy/AdvReac Type Severity Reaction Status Date / Time No Known Allergies Allergy Verified 05/19/25 17:31 Family History no significant family his Surgical History 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 Social History Smoking Status: Former smoker Vital Signs Vital Signs Vital Signs: 05/19/25 17:23 05/19/25 17:29 05/19/25 17:33 Temperature 98 F Temperature Source Oral Pulse Rate 61 61 Respiratory Rate 16 16 Respiratory Effort Respiratory Depth Respiratory Pattern Blood Pressure 159/76 H 159/76 H Blood Pressure Mean 103 103 Blood Pressure Source Blood Pressure Position Blood Pressure Location Pulse Ox 98 98 Oxygen Delivery Method Room Air Room Air Room Air 05/19/25 17:52 05/19/25 18:20 05/19/25 18:31 Temperature 98.9 F Temperature Source Pulse Rate 61 86 78 Respiratory Rate 15 18 14 Respiratory Effort Respiratory Depth Respiratory Pattern Blood Pressure 145/89 H 134/76 H 142/78 H Blood Pressure Mean 107 95 99 Blood Pressure Source Blood Pressure Position Blood Pressure Location Pulse Ox 98 99 99 Oxygen Delivery Method Room Air Room Air 05/19/25 19:00 05/19/25 20:21 05/19/25 20:30 Temperature 98.5 F Temperature Source Oral Pulse Rate 59 L 61 Respiratory Rate 11 L 16 Respiratory Effort Normal Non-Labored Respiratory Depth Normal Respiratory Pattern Normal Blood Pressure 144/82 H 141/86 H Blood Pressure Mean 102 104 Blood Pressure Source Monitor Blood Pressure Position Semi-Fowlers Blood Pressure Location Left Arm Pulse Ox 97 97 Oxygen Delivery Method Room Air Room Air Room Air 05/19/25 22:02 05/20/25 00:30 05/20/25 04:30 Temperature 98.1 F 98.0 F Temperature Source Temporal Temporal Pulse Rate 60 66 Respiratory Rate 16 15 Respiratory Effort Respiratory Depth Respiratory Pattern Blood Pressure 120/75 121/67 H Blood Pressure Mean 90 85 Blood Pressure Source Monitor Monitor Blood Pressure Position Semi-Fowlers Semi-Fowlers Blood Pressure Location Left Arm Left Arm Pulse Ox 96 93 95 Oxygen Delivery Method Room Air Room Air Room Air 05/20/25 04:38 05/20/25 07:44 Temperature 98.1 F Temperature Source Oral Pulse Rate 63 Respiratory Rate 15 Respiratory Effort Normal Non-Labored Respiratory Depth Normal Respiratory Pattern Normal Blood Pressure 116/56 L Blood Pressure Mean 76 Blood Pressure Source Monitor Blood Pressure Position Semi-Fowlers Blood Pressure Location Left Arm Pulse Ox 95 Oxygen Delivery Method Room Air Room Air Weight Weight: 72.717 kg Body Mass Index (BMI) 24.3 EEG Results Procedure Details EEG Procedure Details: DANIA LENTZ is a 89 year old F with a past medical history of , who presents for evaluation of Electroencephalogram on DATE at TIME Lab / Micro Data 05/20/25 06:05 05/20/25 06:05 Labs: Laboratory Results - last 24 hr 05/19/25 17:30: WBC 6.9, RBC 4.14 L, Hgb 12.7, Hct 38.2, MCV 92.3, MCH 30.7, MCHC 33.2, RDW Std Deviation 43.4, RDW Coeff of Ermias 12.8, Plt Count 270, MPV 10.1, Immature Gran % (Auto) 0.300, Neut % (Auto) 66.9, Lymph % (Auto) 17.5 L, Johnson % (Auto) 9.6, Eos % (Auto) 5.0, Baso % (Auto) 0.7, Absolute Neuts (auto) 4.6, Absolute Lymphs (auto) 1.20, Nucleated RBC % 0, PT 12.9, INR 1.0, APTT 27.5, Sodium 135, Potassium 4.5, Chloride 98, Carbon Dioxide 25.2, Anion Gap 12, BUN 20 H, Creatinine 1.24 H, Estim Creat Clear Calc 31.64 L, Est GFR (MDRD) Non-Af 42 L, BUN/Creatinine Ratio 16.1, Glucose 91, Calcium 9.6, Troponin T High Sens 19 H 05/19/25 17:45: POC Glucose 83 05/19/25 19:48: Troponin T Hi Sens 2 Hr 20 H 05/19/25 20:53: Urine Color Yellow, Urine Clarity Clear, Urine pH 7.0, Ur Specific [place] 1.005, Urine Protein Negative, Urine Glucose (UA) Normal, Urine Ketones Negative, Urine Occult Blood Negative, Urine Nitrite Negative, Urine Bilirubin Negative, Urine Urobilinogen Normal, Ur Leukocyte Esterase 25 H, Urine RBC 0 SEEN, Urine WBC 0-5 SEEN, Ur Squamous Epith Cells 0 SEEN, Urine Bacteria 0 SEEN, Urine Mucus 0 SEEN 05/19/25 21:09: Troponin T Hi Sens 4Hr 23 H 05/20/25 06:05: WBC 5.4, RBC 3.84 L, Hgb 12.0, Hct 35.5 L, MCV 92.4, MCH 31.3, MCHC 33.8, RDW Std Deviation 43.8, RDW Coeff of Ermias 13.0, Plt Count 255, MPV 10.0, Immature Gran % (Auto) 0.400, Neut % (Auto) 67.8, Lymph % (Auto) 12.6 L, Johnson % (Auto) 9.8, Eos % (Auto) 8.5 H, Baso % (Auto) 0.9, Absolute Neuts (auto) 3.7, Absolute Lymphs (auto) 0.68 L, Nucleated RBC % 0, Sodium 141, Potassium 4.1, Chloride 105, Carbon Dioxide 25.1, Anion Gap 11, BUN 17, Creatinine 1.08, Estim Creat Clear Calc 36.32 L, Est GFR (MDRD) Non-Af 49 L, BUN/Creatinine Ratio 15.5, Glucose 104 H, Calcium 8.8, Triglycerides 60, Cholesterol 145, LDL Cholesterol, Calc 70, VLDL Cholesterol 12, HDL Cholesterol 63, Cholesterol/HDL Ratio 2.29, TSH 1.870 Rhythm Strip Rhythm Strip: Sinus Rhythm Rate: 60 Ectopy: None Imaging Radiology Impression Brain CT 05/19/25 17:23 IMPRESSION: No acute intracranial hemorrhage, midline shift or mass effect. If symptoms persist, further evaluation with MRI is recommended. Reading Location: [facility] Head/Neck CTA 05/19/25 17:24 IMPRESSION: No large vessel occlusion. Reading Location: [facility] Active Medications Active Medications Active Medications: Current Medications Generic Name Dose Route Start Last Admin Trade Name Freq PRN Reason Stop Dose Admin Acetaminophen 650 mg 05/19/25 19:14 Acetaminophen 325 Mg Tablet PO Q6H PRN PRN Pain 1-10 Or Fever >100.7 Albuterol Sulfate 2.5 mg 05/19/25 19:14 Albuterol 2.5 Mg/3 Ml Vial.Neb. INHALATION Q2H PRN PRN SOB &/OR WHEEZING Aspirin 81 mg 05/20/25 08:00 05/20/25 07:53 Aspirin 81 Mg Tab.Chew PO 81 mg BREAKFAST ANJALI Administration Atorvastatin Calcium 40 mg 05/19/25 22:00 05/19/25 20:44 Atorvastatin Calcium 40 Mg Tablet PO 40 mg QHS ANJALI Administration Enoxaparin Sodium 40 mg 05/20/25 10:00 05/20/25 09:42 Enoxaparin 40 Mg/0.4 Ml Syringe SC 40 mg DAILY ANJALI Administration Hydralazine HCl 5 mg 05/19/25 19:14 Hydralazine 20 Mg/Ml Vial IV 05/20/25 19:14 Q30M PRN maintain BP parameters with HR <60 Sodium Chloride 250 mls @ 15 mls/hr 05/19/25 19:14 IV .[id number] PRN Saline Flush Sodium Chloride 250 mls @ 15 mls/hr 05/19/25 19:14 IV .[id number] PRN Additional IVPB Infusion Labetalol HCl 10 - 20 mg 05/19/25 19:14 Labetalol 20 Mg/4 Ml Vial IV 05/20/25 19:14 Q10M PRN PRN maintain BP parameters with HR >/=60 Melatonin 10 mg 05/19/25 19:14 Melatonin 10 Mg Tablet PO QHS PRN PRN INSOMNIA Ondansetron HCl 4 mg 05/19/25 19:14 Ondansetron 4 Mg/2 Ml Vial IV Q8H PRN PRN NAUSEA/VOMITING Senna/Docusate Sodium 2 tablet 05/19/25 19:14 Senna/Docusate Sodium 1 Tablet PO BID PRN PRN Constipation Sodium Chloride 10 - 40 ml 05/19/25 19:14 05/19/25 20:44 0.9% Saline Lock 10 Ml Syringe IV 10 ml UD PRN Administration SALINE FLUSH Tolterodine Tartrate 2 mg 05/20/25 10:00 05/20/25 09:42 Tolterodine Tartrate 2 Mg Cap.Sa PO 2 mg DAILY ANJALI Administration NIHSS NIHSS Nursing Documentation NIHSS Nursing Documentation: NIHSS: Ischemic Stroke/TIA Start: 05/19/25 19:14 Text: For PCU Patients: NIH and Neuro Check every 4 Status: Active hours, PRN and with change in RN caregiver. Freq: [id number] Protocol: Activity Type Activity Date Activity User E-sign Co-sign Detail Recorded Client Recorded Date Recorded By Document 05/20/25 08:00 [id number] 05/20/25 08:36 05/20/25 08:00 NIH Stroke Scale [NIHSS] A score of 0 is normal or asymptomatic . Total possible score is 42. Inpatient: RN or Physician to activate a stroke alert for onset of new stroke symptoms or with NIHSS increase >/= 3 points. Following change in neurological status, NIHSS will be performed per physician order or more frequently PRN. -1a. Level of Consciousness 0 - Alert; keenly responsive -1b. LOC Questions 0 - Answers BOTH questions correctly -1c. LOC Commands 0 - Performs BOTH tasks correctly -2. Best Gaze 0 - Normal -3. Visual 0 - No visual loss -4. Facial Palsy 0 - Normal symmetrical movements -5a. Left Arm 0 - No drift; arm holds 90 ( or 45) degrees for full 10 seconds -5b. Right Arm 0 - No drift; arm holds 90 ( or 45) degrees for full 10 seconds -6a. Left Leg 0 - No drift; leg holds 30- degree position for full 5 seconds -6b. Right Leg 0 - No drift; leg holds 30- degree position for full 5 seconds -7. Limb Ataxia 0 - Absent -8. Sensory 0 - Normal; no sensory loss -9. Best Language 0 - No aphasia; normal -10. Dysarthria 0 - Normal -11. Extinction and Inattention 0 - No abnormality -Total 0 Query Text:A score of 0 is normal or asymptomatic. Total possible score is 42 . ED: Notify Physician for NIHSS increase by > / = 3 points. Inpatient: RN or Physician to activate a stroke alert for NIHSS increase of > / = 3 points. Coma Scale [Assess] -Eye Opening Spontaneous -Motor Obeys Commands -Verbal Oriented [Total] -Coma Scale Total 15 NIHSS 1a. Level of Consciousness: 0 - Alert; keenly responsive 1b. LOC Questions: 0 - Answers BOTH questions correctly 1c. LOC Commands: 0 - Performs BOTH tasks correctly 2. Best Gaze: 0 - Normal 3. Visual: 0 - No visual loss 4. Facial Palsy: 0 - Normal symmetrical movements 5a. Left Arm: 0 - No drift; arm holds 90 (or 45) degrees for full 10 seconds 5b. Right Arm: 0 - No drift; arm holds 90 (or 45) degrees for full 10 seconds 6a. Left Le - No drift; leg holds 30-degree position for full 5 seconds 6b. Right Le - Drift; leg falls by the end of 5-seconds, but does not hit bed 7. Limb Ataxia: 0 - Absent 8. Sensory: 0 - Normal; no sensory loss 9. Best Language: 0 - No aphasia; normal 10. Dysarthria: 0 - Normal 11. Extinction and Inattention: 0 - No abnormality Total: 1
--- NOTE | 2025-05-20 12:19 | CASEMGMT ---
Social Work MRI shows no indication of stroke, so PHQ-9 not completed at this time. MARVIN Waddell
--- NOTE | 2025-05-20 13:26 | PN.HOSP_ITS ---
Reason for Visit Reason for Visit: Diagnoses Transient cerebral ischemic attack, unspecified (05/19/25) Acquired absence of kidney (05/19/25) Objective Data Objective Data Vital Signs: Vital Signs Temp Pulse Resp BP Pulse Ox O2 Del Method 97.8 F 67 16 113/65 95 Room Air 05/20/25 12:33 05/20/25 12:33 05/20/25 12:33 05/20/25 12:33 05/20/25 12:33 05/20/25 12:33 Oxygen Delivery Method Room Air Weight: 160 lb 5 oz Body Mass Index (BMI) 24.3 Intake & Output: Intake and Output for Last 24 Hours 05/18/25 05/19/25 05/20/25 23:59 23:59 23:59 Intake Total 200 / 200 100 / 100 Balance 200 / 200 100 / 100 Lab / Micro Data 05/20/25 06:05 05/20/25 06:05 Labs: Laboratory Results - last 24 hr 05/19/25 17:30: WBC 6.9, RBC 4.14 L, Hgb 12.7, Hct 38.2, MCV 92.3, MCH 30.7, MCHC 33.2, RDW Std Deviation 43.4, RDW Coeff of Ermias 12.8, Plt Count 270, MPV 10.1, Immature Gran % (Auto) 0.300, Neut % (Auto) 66.9, Lymph % (Auto) 17.5 L, Meigs % (Auto) 9.6, Eos % (Auto) 5.0, Baso % (Auto) 0.7, Absolute Neuts (auto) 4.6, Absolute Lymphs (auto) 1.20, Nucleated RBC % 0, PT 12.9, INR 1.0, APTT 27.5, Sodium 135, Potassium 4.5, Chloride 98, Carbon Dioxide 25.2, Anion Gap 12, BUN 20 H, Creatinine 1.24 H, Estim Creat Clear Calc 31.64 L, Est GFR (MDRD) Non- Af 42 L, BUN/Creatinine Ratio 16.1, Glucose 91, Calcium 9.6, Troponin T High Sens 19 H 05/19/25 17:45: POC Glucose 83 05/19/25 19:48: Troponin T Hi Sens 2 Hr 20 H 05/19/25 20:53: Urine Color Yellow, Urine Clarity Clear, Urine pH 7.0, Ur Specific [place] 1.005, Urine Protein Negative, Urine Glucose (UA) Normal, Urine Ketones Negative, Urine Occult Blood Negative, Urine Nitrite Negative, Urine Bilirubin Negative, Urine Urobilinogen Normal, Ur Leukocyte Esterase 25 H, Urine RBC 0 SEEN, Urine WBC 0-5 SEEN, Ur Squamous Epith Cells 0 SEEN, Urine Bacteria 0 SEEN, Urine Mucus 0 SEEN 05/19/25 21:09: Troponin T Hi Sens 4Hr 23 H 05/20/25 06:05: WBC 5.4, RBC 3.84 L, Hgb 12.0, Hct 35.5 L, MCV 92.4, MCH 31.3, MCHC 33.8, RDW Std Deviation 43.8, RDW Coeff of Ermias 13.0, Plt Count 255, MPV 10.0, Immature Gran % (Auto) 0.400, Neut % (Auto) 67.8, Lymph % (Auto) 12.6 L, Meigs % (Auto) 9.8, Eos % (Auto) 8.5 H, Baso % (Auto) 0.9, Absolute Neuts (auto) 3.7, Absolute Lymphs (auto) 0.68 L, Nucleated RBC % 0, Sodium 141, Potassium 4.1, Chloride 105, Carbon Dioxide 25.1, Anion Gap 11, BUN 17, Creatinine 1.08, E stim Creat Clear Calc 36.32 L, Est GFR (MDRD) Non-Af 49 L, BUN/Creatinine Ratio 15.5, Glucose 104 H, Calcium 8.8, Triglycerides 60, Cholesterol 145, LDL Cholesterol, Calc 70, VLDL Cholesterol 12, HDL Cholesterol 63, Cholesterol/HDL Ratio 2.29, TSH 1.870 Radiography Diagnostic Testing: Radiology Impression Brain CT 05/19/25 17:23 IMPRESSION: No acute intracranial hemorrhage, midline shift or mass effect. If symptoms persist, further evaluation with MRI is recommended. Reading Location: [facility] Head/Neck CTA 05/19/25 17:24 IMPRESSION: No large vessel occlusion. Reading Location: [facility] Brain MRI 05/20/25 18:41 IMPRESSION: Mild microvascular changes which are similar to 05/03/2025. No acute infarct. Reading Location: [facility] Rhythm Strip Rhythm Strip: Sinus Rhythm Rate: 60 Ectopy: None Physical Exam Narrative Seen and examined Patient was admitted with right hand numbness and tingling sensation and perioral numbness along with slurred speech. Her slurred speech was worse during previous admission about 2 weeks ago. For now, numbness has resolved. Denies dysuria. Physical exam General: Alert, Oriented x3, Cooperative HEENT: Atraumatic, PERRLA, EOMI, Normocephalic. 1-1 visual field confrontation test normal Oral: No Gingival or Mucosal Lesions/ Ulcerations Neck: Supple, No JVD, Negative Carotid Bruits Chest wall/Lungs: Air entry diminished in bilateral lung bases. No crepitation/rhonchi Cardiovascular: Regular rate and rhythm, Normal S1,S2, systolic murmur present on cardiac apex. Abdomen: Bowel Sounds Present, Soft, Non Tender, Non-Distended : No dysuria. No renal angle tenderness. No suprapubic tenderness. Extremities: No edema, Capillary Refill Less than 3 Seconds Skin: No rashes, No breakdown Musculoskeletal: No Tenderness to Palpation of Joints or Extremities Neurological: Cranial nerves II-XII grossly intact, DTR 2+/4. NIH stroke scale 1, right leg drift. Psych/Mental Status: Flat affect Assessment & Plan Assessment/Plan (1) Numbness and tingling in right hand: PLAN: Plan This is a 89-year-old female being admitted for right hand numbness and tingling and mild weakness and perioral numbness and tingling. In H&P also mention right facial droop 1. Right hand paresthesia and facial numbness. Patient is being admitted in PCU. She was last admitted about 2 weeks ago and workup was negative. -CT head with no acute process -CTA head and neck with no LVO -MRI reported no acute intracranial hemorrhage midline shift or mass effect. Lipid profile within normal limit. LDL 70. HDL 63. TSH normal. Glucose 104. Serial troponin 19, 20, 23 and with no significant delta troponin change therefore ACS ruled out. Probably due to increased cardiac demand. Patient was evaluated by [facility] neurologist. She thinks she might have seizure therefore EEG ordered. -Continue asa, statin Patient does not have dysuria and UA is also negative with LE 25, WBC 0-5 cells, RBC 0, epithelial cells 0 cells. 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 #Hx solitary kidney -Kidney fxn appears to be at or close to baseline Mild valvular heart disease: Echo shows moderate TR and mild MR and murmur is auscultated. #DVT ppx: SCDs Laboratory Results 05/19/25 17:30: WBC 6.9, RBC 4.14 L, Hgb 12.7, Hct 38.2, MCV 92.3, MCH 30.7, MCHC 33.2, RDW Std Deviation 43.4, RDW Coeff of Ermias 12.8, Plt Count 270, MPV 10.1, Immature Gran % (Auto) 0.300, Neut % (Auto) 66.9, Lymph % (Auto) 17.5 L, Meigs % (Auto) 9.6, Eos % (Auto) 5.0, Baso % (Auto) 0.7, Absolute Neuts (auto) 4.6, Absolute Lymphs (auto) 1.20, Nucleated RBC % 0, PT 12.9, INR 1.0, APTT 27.5, Sodium 135, Potassium 4.5, Chloride 98, Carbon Dioxide 25.2, Anion Gap 12, BUN 20 H, Creatinine 1.24 H, Estim Creat Clear Calc 31.64 L, Est GFR (MDRD) Non- Af 42 L, BUN/Creatinine Ratio 16.1, Glucose 91, Calcium 9.6, Troponin T High Sens 19 H 05/19/25 17:45: POC Glucose 83 05/19/25 19:48: Troponin T Hi Sens 2 Hr 20 H 05/19/25 20:53: Urine Color Yellow, Urine Clarity Clear, Urine pH 7.0, Ur Specific [place] 1.005, Urine Protein Negative, Urine Glucose (UA) Normal, Urine Ketones Negative, Urine Occult Blood Negative, Urine Nitrite Negative, Urine Bilirubin Negative, Urine Urobilinogen Normal, Ur Leukocyte Esterase 25 H, Urine RBC 0 SEEN, Urine WBC 0-5 SEEN, Ur Squamous Epith Cells 0 SEEN, Urine Bacteria 0 SEEN, Urine Mucus 0 SEEN 05/19/25 21:09: Troponin T Hi Sens 4Hr 23 H 05/20/25 06:05: WBC 5.4, RBC 3.84 L, Hgb 12.0, Hct 35.5 L, MCV 92.4, MCH 31.3, MCHC 33.8, RDW Std Deviation 43.8, RDW Coeff of Ermias 13.0, Plt Count 255, MPV 10.0, Immature Gran % (Auto) 0.400, Neut % (Auto) 67.8, Lymph % (Auto) 12.6 L, Meigs % (Auto) 9.8, Eos % (Auto) 8.5 H, Baso % (Auto) 0.9, Absolute Neuts (auto) 3.7, Absolute Lymphs (auto) 0.68 L, Nucleated RBC % 0, Sodium 141, Potassium 4.1, Chloride 105, Carbon Dioxide 25.1, Anion Gap 11, BUN 17, Creatinine 1.08, E stim Creat Clear Calc 36.32 L, Est GFR (MDRD) Non-Af 49 L, BUN/Creatinine Ratio 15.5, Glucose 104 H, Calcium 8.8, Triglycerides 60, Cholesterol 145, LDL Cholesterol, Calc 70, VLDL Cholesterol 12, HDL Cholesterol 63, Cholesterol/HDL Ratio 2.29, TSH 1.870 Clinical Impression(s) from Imaging Studies Brain CT 05/19/25 17:23 IMPRESSION: No acute intracranial hemorrhage, midline shift or mass effect. If symptoms persist, further evaluation with MRI is recommended. Head/Neck CTA 05/19/25 17:24 IMPRESSION: No large vessel occlusion. Reading Location: [facility] Brain MRI 05/20/25 18:41 IMPRESSION: Mild microvascular changes which are similar to 05/03/2025. No acute infarct. NIHSS NIHSS Nursing Documentation NIHSS Nursing Documentation: NIHSS: Ischemic Stroke/TIA Start: 05/19/25 19:14 Text: For PCU Patients: NIH and Neuro Check every 4 Status: Active hours, PRN and with change in RN caregiver. Freq: [id number] Protocol: Activity Type Activity Date Activity User E-sign Co-sign Detail Recorded Client Recorded Date Recorded By Document 05/20/25 12:29 [id number] 05/20/25 12:30 05/20/25 12:29 NIH Stroke Scale [NIHSS] A score of 0 is normal or asymptomatic . Total possible score is 42. Inpatient: RN or Physician to activate a stroke alert for onset of new stroke symptoms or with NIHSS increase >/= 3 points. Following change in neurological status, NIHSS will be performed per physician order or more frequently PRN. -1a. Level of Consciousness 0 - Alert; keenly responsive -1b. LOC Questions 0 - Answers BOTH questions correctly -1c. LOC Commands 0 - Performs BOTH tasks correctly -2. Best Gaze 0 - Normal -3. Visual 0 - No visual loss -5a. Left Arm 0 - No drift; arm holds 90 ( or 45) degrees for full 10 seconds -5b. Right Arm 0 - No drift; arm holds 90 ( or 45) degrees for full 10 seconds -6a. Left Leg 0 - No drift; leg holds 30- degree position for full 5 seconds -6b. Right Leg 1 - Drift; leg falls by the end of 5- seconds, but does not hit bed -7. Limb Ataxia 0 - Absent -8. Sensory 0 - Normal; no sensory loss -9. Best Language 0 - No aphasia; normal -10. Dysarthria 0 - Normal -11. Extinction and Inattention 0 - No abnormality -Total 1 Query Text:A score of 0 is normal or asymptomatic. Total possible score is 42 . ED: Notify Physician for NIHSS increase by > / = 3 points. Inpatient: RN or Physician to activate a stroke alert for NIHSS increase of > / = 3 points. Coma Scale [Assess] -Eye Opening Spontaneous -Motor Obeys Commands -Verbal Oriented [Total] -Coma Scale Total 15
--- NOTE | 2025-05-20 13:45 | DCINST_ITS ---
Discharge Instructions Diet Discharge Diet: 2000 mg Sodium Diet Dressing / Incision Discharge Activity: Return to Normal Activity Weight Bearing Status: Weight bearing as tolerated Dressing / Incision Call your doctor if you observe: Fever of 101 or Higher, Coldness, Increased Pain, Numbness or Tingling, Change in Color, Inability to urinate, Inability to have a bowel movement, Shortness of breath, Dizziness, Fainting spells, Swelling in the ankles, Chest pain, Prolonged hiccupping, Increased palpitations (irregular heartbeat) and Calf discomfort Follow Up Care When: IN 2 WEEKS Test Results: Test results from this visit will be discussed in further detail at your follow- up appointment, if applicable. Discharge Plan Admission Admit Date/Time: 05/19/25 18:34 Primary Reason for Your Visit: Right hand numbness/tingling concern for possible seizure Attending Provider: Vicente Arias Primary Care Provider: Angel Luis Contreras Consulting Providers: Vicente Saini; Deepthi Palmer; Lashonda Juan; Yamilka Colunga; Gabrielle Schwartz; Richard Gordillo; Lois Blanc; Riley Lucero; Jet Boothe; Juanjo Leone; Arielle Sanchez; Matthew Parrish; Yandy Juarez; Kareem Manuel; Cindy Power; Aiden Figueroa; Kamini Fonseca; Davin Gonsales; Meghann Parsons; Jennifer Espana; Clementine Kowalski; Nohemi Fortune; Christophe Shaw; Lainey Nj; Ruben Gaxiola; CORNELIA ERIC; Shorty Nagel Discharge Orders/Prescriptions Prescriptions: No Action ondansetron HCl 8 mg tablet 8 mg PO Q8H PRN (Reason: nausea and vomiting) Qty: 14 0RF multivitamin with folic acid [Thera] 1 TABLET tablet 1 tab PO DAILY Calcium 600 + D(3) 1 EACH tablet 1 ea PO DAILY L.acidoph,paracasei,B.animalis 1 EACH capsule 1 ea PO DAILY ascorbic acid (vitamin C) 500 MG capsule 500 mg PO DAILY cyanocobalamin (vitamin B-12) 1,000 MCG capsule 1,000 mcg PO DAILY acetaminophen 500 MG tablet 1,000 mg PO Q8H PRN (Reason: Pain) Rx Instructions: Do not take more than 3000 mg Tylenol in a 24-hour period. fluticasone propionate 50 mcg/actuation spray,suspension 1 spray INTRANASAL QHS PRN (Reason: nasal congestion) aspirin 81 mg Tablet,Chewable 81 mg PO BREAKFAST 90 Days Qty: 90 0RF atorvastatin 40 mg Tablet 40 mg PO QHS 90 Days Qty: 90 0RF psyllium husk [Daily Fiber] 0.4 gram capsule 0.4 - 0.8 g PO DAILY Referrals / Follow Up: Angel Luis Contreras MD [Primary Care Provider] -
--- NOTE | 2025-05-20 15:13 | CASEMGMT ---
Met with patient to review SCALES form. SCALES form and its content were verbally explained and patient?s questions were answered to the best of my ability. Patient voiced understanding and signed SCALES form. Patient provided a copy of signed SCALES form and original placed in patient?s chart. Patient had no further questions or concerns. Pt also declines homegoing concerns. Pt has a PCP. Pt was cleared by PT, see note. 6-click score is 24. Pt denies further questions or needs now.
[2025-05-20] MEDS: levETIRAcetam 500 MG Tablet PO ×2 (15:17→20:59)
--- NOTE | 2025-05-20 18:41 | MRI_ITS ---
PROCEDURE: BRAIN WITHOUT CONTRAST 05/20/2025 REASON FOR EXAM: RECURRENT TIA SX TECHNIQUE: BRAIN WITHOUT CONTRAST Multiplanar and multisequence images were obtained. FINDINGS: There is no intracranial mass or hemorrhage. There is mild periventricular chronic microvascular change. No acute infarct. Normal flow voids are seen. The ventricles are normal in caliber. There is no hippocampal asymmetry. There is no extra-axial fluid collection. The sinuses are clear. MRI/Brain without Contrast IMPRESSION: Mild microvascular changes which are similar to 05/03/2025. No acute infarct. Reading [facility]
[2025-05-20] MEDS: Atorvastatin Calcium 40 MG Tablet PO (20:59)
[2025-05-21 03:12] VITALS: BP 115/73; PULSE 63; RESP 16; TEMP 36.8; O2SAT 96
[2025-05-21] MEDS: Aspirin 81 MG TAB.CHEW PO (07:46)
[2025-05-21 07:48] VITALS: BP 125/78; PULSE 58; RESP 17; TEMP 36.6; O2SAT 95
--- NOTE | 2025-05-21 08:57 | DCINST_ITS ---
Discharge Instructions DC O2, CPAP, BIPAP needs Home O2 Discharge instructions: No Follow Up Care Test Results: Test results from this visit will be discussed in further detail at your follow- up appointment, if applicable. Discharge Plan Admission Admit Date/Time: 05/19/25 18:34 Primary Reason for Your Visit: Right hand numbness/tingling concern for possible seizure Attending Provider: Vicente Arias Primary Care Provider: Angel Luis Contreras Consulting Providers: Vicente Saini; Deepthi Palmer; Lashonda Juan; Yamilka Colunga; Gabrielle Schwartz; Richard Gordillo; Lois Blanc; Riley Lucero; Jet Boothe; Juanjo Leone; Arielle Sanchez; Matthew Parrish; Yandy Juarez; Kareem Manuel; Cindy Power; Aiden Figueroa; Kamini Fonseca; Davin Gonsales; Meghann Parsons; Jennifer Espana; Clementine Kowalski; Nohemi Fortune; Ruben Gaxiola; Shorty Nagel; CORNELIA ERIC; Christophe Shaw; Lainey Nj Discharge Orders/Prescriptions Prescriptions: New sennosides-docusate sodium [Stimulant Laxative Plus] 8.6-50 mg Tablet 2 tab PO BID PRN PRN (Reason: Constipation) Qty: 0 0RF levetiracetam 500 mg Tablet 500 mg PO BID 30 Days Qty: 60 0RF Continued ondansetron HCl 8 mg tablet 8 mg PO Q8H PRN (Reason: nausea and vomiting) Qty: 14 0RF multivitamin with folic acid [Thera] 1 TABLET tablet 1 tab PO DAILY Calcium 600 + D(3) 1 EACH tablet 1 ea PO DAILY L.acidoph,paracasei,B.animalis 1 EACH capsule 1 ea PO DAILY ascorbic acid (vitamin C) 500 MG capsule 500 mg PO DAILY cyanocobalamin (vitamin B-12) 1,000 MCG capsule 1,000 mcg PO DAILY acetaminophen 500 MG tablet 1,000 mg PO Q8H PRN (Reason: Pain) Rx Instructions: Do not take more than 3000 mg Tylenol in a 24-hour period. fluticasone propionate 50 mcg/actuation spray,suspension 1 spray INTRANASAL QHS PRN (Reason: nasal congestion) aspirin 81 mg Tablet,Chewable 81 mg PO BREAKFAST 90 Days Qty: 90 0RF atorvastatin 40 mg Tablet 40 mg PO QHS 90 Days Qty: 90 0RF psyllium husk [Daily Fiber] 0.4 gram capsule 0.4 - 0.8 g PO DAILY Referrals / Follow Up: Angel Luis Contreras MD [Primary Care Provider] - Catrachito Gallegos MD [Non-Staff -Ordering Privileges] - Within 1 Month (Discharged on Keppra for suspicion of clinical seizure even though EEG negative as per [facility] neurologist recommendation) Disposition Disposition (needs filled in before D/C Order can be placed): Home, Self Care
[2025-05-21] MEDS: Enoxaparin 40 MG/0.4 ML Syringe SC (09:12)
[2025-05-21] MEDS: levETIRAcetam 500 MG Tablet PO (09:12)
[2025-05-21] MEDS: Tolterodine Tartrate 2 MG CAP.SA PO (09:12)
[2025-05-21 10:30] VITALS: O2SAT 94
--- NOTE | 2025-05-21 11:29 | PCM.DC.SUM ---
Providers Date of Admission: 05/19/25 Date of Discharge: 05/21/25 Primary Care Physician: Dr. Angel Luis Contreras MD Consultations 05/19/25 19:14 Consult: Tele-Neurology Routine Consulting Provider: [facility] Reason for Consult: Acute Ischemic Stroke/TIA EMERGENT Consult: No MD Notified: Yes Date Notified: 05/20/25 Time Notified: 00:07 Method of Notification: Answering Service Nursing Unit Staff Notify [facility] of Tele-Neurology Consult: Yes Reason For Visit: TIA WORKUP Diagnosis Discharge Diagnosis (1) Numbness and tingling in right hand: Status: Acute Code(s): R20.0 - Anesthesia of skin; R20.2 - Paresthesia of skin Plan This is a 89-year-old female being admitted for right hand numbness and tingling and mild weakness and perioral numbness and tingling. In H&P also mention right facial droop 1. Right hand paresthesia and facial numbness. Patient is being admitted in PCU. She was last admitted about 2 weeks ago and workup was negative. -CT head with no acute process -CTA head and neck with no LVO -MRI reported no acute intracranial hemorrhage midline shift or mass effect. Lipid profile within normal limit. LDL 70. HDL 63. TSH normal. Glucose 104. Serial troponin 19, 20, 23 and with no significant delta troponin change therefore ACS ruled out. Probably due to increased cardiac demand. Patient was evaluated by [facility] neurologist. She thinks she might have seizure therefore EEG ordered. -Continue asa, statin Patient does not have dysuria and UA is also negative with LE 25, WBC 0-5 cells, RBC 0, epithelial cells 0 cells. 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 05/21: As per neurologist she does not think it is TIA. Patient had EEG which showed moderate encephalopathy but no epileptiform discharges or suggestive of active epilepsy. This was verbally reported by [facility] neurologist, Dr. Schwartz when I called her. There is no official report yet. Patient is being discharged on Keppra 500 mg twice daily for 30 days as per [facility] neurologist recommendation and follow-up with neurologist, Dr. Gallegos within a month. #Hx solitary kidney -Kidney fxn appears to be at or close to baseline Mild valvular heart disease: Echo shows moderate TR and mild MR and murmur is auscultated. #DVT ppx: SCDs Laboratory Results 05/19/25 17:30: WBC 6.9, RBC 4.14 L, Hgb 12.7, Hct 38.2, MCV 92.3, MCH 30.7, MCHC 33.2, RDW Std Deviation 43.4, RDW Coeff of Ermias 12.8, Plt Count 270, MPV 10.1, Immature Gran % (Auto) 0.300, Neut % (Auto) 66.9, Lymph % (Auto) 17.5 L, [place] % (Auto) 9.6, Eos % (Auto) 5.0, Baso % (Auto) 0.7, Absolute Neuts (auto) 4.6, Absolute Lymphs (auto) 1.20, Nucleated RBC % 0, PT 12.9, INR 1.0, APTT 27.5, Sodium 135, Potassium 4.5, Chloride 98, Carbon Dioxide 25.2, Anion Gap 12, BUN 20 H, Creatinine 1.24 H, Estim Creat Clear Calc 31.64 L, Est GFR (MDRD) Non-Af 42 L, BUN/Creatinine Ratio 16.1, Glucose 91, Calcium 9.6, Troponin T High Sens 19 H 05/19/25 17:45: POC Glucose 83 05/19/25 19:48: Troponin T Hi Sens 2 Hr 20 H 05/19/25 20:53: Urine Color Yellow, Urine Clarity Clear, Urine pH 7.0, Ur Specific [place] 1.005, Urine Protein Negative, Urine Glucose (UA) Normal, Urine Ketones Negative, Urine Occult Blood Negative, Urine Nitrite Negative, Urine Bilirubin Negative, Urine Urobilinogen Normal, Ur Leukocyte Esterase 25 H, Urine RBC 0 SEEN, Urine WBC 0-5 SEEN, Ur Squamous Epith Cells 0 SEEN, Urine Bacteria 0 SEEN, Urine Mucus 0 SEEN 05/19/25 21:09: Troponin T Hi Sens 4Hr 23 H 05/20/25 06:05: WBC 5.4, RBC 3.84 L, Hgb 12.0, Hct 35.5 L, MCV 92.4, MCH 31.3, MCHC 33.8, RDW Std Deviation 43.8, RDW Coeff of Ermias 13.0, Plt Count 255, MPV 10.0, Immature Gran % (Auto) 0.400, Neut % (Auto) 67.8, Lymph % (Auto) 12.6 L, [place] % (Auto) 9.8, Eos % (Auto) 8.5 H, Baso % (Auto) 0.9, Absolute Neuts (auto) 3.7, Absolute Lymphs (auto) 0.68 L, Nucleated RBC % 0, Sodium 141, Potassium 4.1, Chloride 105, Carbon Dioxide 25.1, Anion Gap 11, BUN 17, Creatinine 1.08, Estim Creat Clear Calc 36.32 L, Est GFR (MDRD) Non-Af 49 L, BUN/Creatinine Ratio 15.5, Glucose 104 H, Calcium 8.8, Triglycerides 60, Cholesterol 145, LDL Cholesterol, Calc 70, VLDL Cholesterol 12, HDL Cholesterol 63, Cholesterol/HDL Ratio 2.29, TSH 1.870 Clinical Impression(s) from Imaging Studies Brain CT 05/19/25 17:23 IMPRESSION: No acute intracranial hemorrhage, midline shift or mass effect. If symptoms persist, further evaluation with MRI is recommended. Head/Neck CTA 05/19/25 17:24 IMPRESSION: No large vessel occlusion. Reading Location: [id number] Brain MRI 05/20/25 18:41 IMPRESSION: Mild microvascular changes which are similar to 05/03/2025. No acute infarct. Medications at Discharge Home Medications multivitamin with folic acid 400 mcg tablet (Thera) 1 tab PO DAILY supplement 04/06/18 L.acidoph,paracasei,B.animalis 10 billion cell capsule 1 ea PO DAILY 11/18/18 calcium carbonate-vitamin D3 600 mg-125 unit tablet (Calcium) 1 ea PO DAILY 11/18/18 ascorbic acid (vitamin C) 500 mg capsule 500 mg PO DAILY 09/05/20 cyanocobalamin (vitamin B-12) 1,000 mcg capsule 1,000 mcg PO DAILY 09/05/20 acetaminophen 500 mg tablet 1,000 mg PO Q8H PRN Pain 04/06/22 ondansetron HCl 8 mg tablet 8 mg PO Q8H PRN nausea and vomiting #14 tabs 08/29/24 fluticasone propionate 50 mcg/actuation nasal spray,suspension 1 spray intranasal QHS PRN nasal congestion 05/03/25 aspirin 81 mg chewable tablet 81 mg PO BREAKFAST 90 days #90 tabs 05/04/25 atorvastatin 40 mg tablet 40 mg PO QHS 90 days #90 tabs 05/04/25 psyllium husk 0.4 gram capsule (Daily Fiber) 0.4 - 0.8 g PO DAILY 05/19/25 levetiracetam 500 mg tablet 500 mg PO BID 30 days #60 tabs 05/21/25 sennosides 8.6 mg-docusate sodium 50 mg tablet (Stimulant Laxative Plus) 2 tab PO BID PRN PRN Constipation #0 tabs 05/21/25 Physical Exam Narrative Seen and examined Patient wants to go home. She was kept yesterday for an EEG. [facility] neurologist does not think it is TIA. Neuro Patient was admitted with right hand numbness and tingling sensation and perioral numbness along with slurred speech. Her slurred speech was worse during previous admission about 2 weeks ago. For now, numbness has resolved. Denies dysuria. Physical exam General: Alert, Oriented x3, Cooperative HEENT: Atraumatic, PERRLA, EOMI, Normocephalic. 1-1 visual field confrontation test normal Oral: No Gingival or Mucosal Lesions/ Ulcerations Neck: Supple, No JVD, Negative Carotid Bruits Chest wall/Lungs: Air entry diminished in bilateral lung bases. No crepitation/rhonchi Cardiovascular: Regular rate and rhythm, Normal S1,S2, systolic murmur present on cardiac apex. Abdomen: Bowel Sounds Present, Soft, Non Tender, Non-Distended : No dysuria. No renal angle tenderness. No suprapubic tenderness. Extremities: No edema, Capillary Refill Less than 3 Seconds Skin: No rashes, No breakdown Musculoskeletal: No Tenderness to Palpation of Joints or Extremities Neurological: Cranial nerves II-XII grossly intact, DTR 2+/4. NIH stroke scale 0. Psych/Mental Status: Flat affect Weight / BMI Weight Weight: 160 lb 5 oz Body Mass Index (BMI) 24.3 ABG / Lab / Microbiology Data 05/20/25 06:05 05/20/25 06:05 Radiography Diagnostic Testing: Radiology Impression Brain MRI 05/20/25 18:41 IMPRESSION: Mild microvascular changes which are similar to 05/03/2025. No acute infarct. [facility] D/C Instructions DC O2, CPAP, BIPAP Needs Home O2 Discharge instructions: No Meaningful Use Info Meaningful Use Meaningful Use Diagnoses (Choose all that apply): None applicable Ischemic Stroke Statin Dosing Therapy Reference: STATIN DOSE THERAPY REFERENCE: * Patients > 75 years receive moderate or high dose statin therapy. * Patients 75 years or YOUNGER should receive HIGH intensity statin dose unless contraindicated. You will be required to document reason for non-treatment if statin daily dose does not meet guidelines. HIGH DOSE STATIN THERAPY DAILY Atorvastatin > than or = to 40 mg Rosuvastatin > than or = to 20 mg Amlodipine + Atorvastatin > than or = to 2.5/40 mg Ezetimibe + Simvastatin 10/80 mg Simvastatin 80mg Discharge Plan Admission Admit Date/Time: 05/19/25 18:34 Primary Reason for Your Visit: Right hand numbness/tingling concern for possible seizure Attending Provider: Vicente Arias Primary Care Provider: Angel Luis Contreras Consulting Providers: Vicente Saini; Deepthi Palmer; Lashonda Juan; Yamilka Colunga; Gabrielle Schwartz; Richard Gordillo; Lois Blanc; Riley Lucero; Jet Boothe; Juanjo Leone; Arielle Sanchez; Matthew Parrish; Yandy Juarez; Kareem Manuel; Cindy Power; Aiden Figueroa; Kamini Fonseca; Davin Gonsales; Meghann Parsons; Jennifer Espana; Clementine Kowalski; Nohemi Fortune; Ruben Gaxiola; Shorty Nagel; CORNELIA ERIC; Christophe Shaw; Lainey Nj Discharge Orders/Prescriptions Prescriptions: New sennosides-docusate sodium [Stimulant Laxative Plus] 8.6-50 mg Tablet 2 tab PO BID PRN PRN (Reason: Constipation) Qty: 0 0RF levetiracetam 500 mg Tablet 500 mg PO BID 30 Days Qty: 60 0RF Continued ondansetron HCl 8 mg tablet 8 mg PO Q8H PRN (Reason: nausea and vomiting) Qty: 14 0RF multivitamin with folic acid [Thera] 1 TABLET tablet 1 tab PO DAILY Calcium 600 + D(3) 1 EACH tablet 1 ea PO DAILY L.acidoph,paracasei,B.animalis 1 EACH capsule 1 ea PO DAILY ascorbic acid (vitamin C) 500 MG capsule 500 mg PO DAILY cyanocobalamin (vitamin B-12) 1,000 MCG capsule 1,000 mcg PO DAILY acetaminophen 500 MG tablet 1,000 mg PO Q8H PRN (Reason: Pain) Rx Instructions: Do not take more than 3000 mg Tylenol in a 24-hour period. fluticasone propionate 50 mcg/actuation spray,suspension 1 spray INTRANASAL QHS PRN (Reason: nasal congestion) aspirin 81 mg Tablet,Chewable 81 mg PO BREAKFAST 90 Days Qty: 90 0RF atorvastatin 40 mg Tablet 40 mg PO QHS 90 Days Qty: 90 0RF psyllium husk [Daily Fiber] 0.4 gram capsule 0.4 - 0.8 g PO DAILY Referrals / Follow Up: Angel Luis Contreras MD [Primary Care Provider] - Catrachito Gallegos MD [Non-Staff -Ordering Privileges] - Within 1 Month (Discharged on Keppra for suspicion of clinical seizure even though EEG negative as per [facility] neurologist recommendation) Disposition Disposition (needs filled in before D/C Order can be placed): Home, Self Care Charges/Coding Visit Charges Inpatient E&M: 11199 Disch Hosp >30min
== END 2025-05-21 12:06 | disposition home or self-care (01) ==
LOC: ED 18:32 → PCU 18:49
PROVIDERS: Family Medicine; Admitting Provider Internal Medicine; Emergency Provider Emergency Medicine; PCP Family Medicine; Visit Provider Internal Medicine
DX: R20.2 Paresthesia of skin (principal); R29.898 Other symptoms and signs involving the musculoskeletal system; R47.81 Slurred speech; Z87.891 Personal history of nicotine dependence; Z79.82 Long term (current) use of aspirin; E78.5 Hyperlipidemia, unspecified; Z79.899 Other long term (current) drug therapy; Z86.73 Personal history of transient ischemic attack (TIA), and cerebral infarction without residual deficits; R20.0 Anesthesia of skin
CPT/HCPCS: 36415; 70450; 70496; 70498; 70551; 80048; 80061; 81001; 82962; 84443; 84484; 85025; 85610; 85730; 92523; 92610; 93005; 94762; 95819; 96372; 97161; 97165; 97802; 99221; 99285; Q9967; A4216; G0378

== ENCOUNTER → 2025-06-02 | Outpatient (CLI) | payer MEDICARE, SELFPAY ==
[2025-06-02 12:57] LABS: Ammonia 12.8 umol/L (11-51)
== END | disposition home or self-care (01) ==
LOC: LAB 11:49
PROVIDERS: PCP Family Medicine; Referring Provider Family Medicine; Visit Provider Family Medicine
DX: G93.40 Encephalopathy, unspecified (principal)
CPT/HCPCS: 36415; 82140

== ENCOUNTER → 2025-08-03 | Outpatient (CLI) | payer MEDICARE, SELFPAY | END | disposition home or self-care (01) | LOC: SL 20:02 | PROVIDERS: PCP Family Medicine | DX: G47.33 Obstructive sleep apnea (adult) (pediatric) (principal) | CPT/HCPCS: 95810 ==

== ENCOUNTER → 2025-08-08 | Outpatient (CLI) | payer MEDICARE, SELFPAY ==
[2025-08-08 12:35] LABS: Creatinine, Urine (random) 110.00 mg/dL (28.00-217.00); Protein, Urine (Random) 11.2 mg/dL (0.0-12.0); Protein:Creat Ratio 102 mg/g CRE (0-200)
[2025-08-08 12:38] LABS: Hematocrit 38.5 % (37-47); Hemoglobin 12.7 g/dL (12.0-15.0); Immature Granulocytes Count 0.010 X10^3/uL (0.0-0.0); Mean Corp Hgb Conc 33.0 g/dL (32-36); Mean Corpuscular Volume 93.4 fL (81-99); Mean Platelet Vol. 10.6 fl (6.2-12.0); NRBC Flagged by Analyzer 0 % (0-5); Platelet Count 294 K/mm3 (150-450); RBC Distribution Width CV 13.1 % (11.6-14.6); RBC Distribution Width SD 44.9 fl (35.1-43.9); Red Blood Count 4.12 M/mm3 (4.2-5.4); White Blood Count 5.9 K/mm3 (4.4-11.0)
[2025-08-08 13:48] LABS: AST(SGOT) 22 U/L (<=31); Alanine Aminotransfer ALT/SGPT 20 U/L (<=34); Albumin, Serum 4.1 g/dL (3.4-4.8); Alkaline Phosphatase 58 U/L (35-104); Anion Gap 12 (5-15); BUN 26 mg/dL (4-19); BUN/Creat Ratio 21.8 RATIO (10-20); Calcium,Total 9.4 mg/dL (7.6-11.0); Carbon Dioxide 23.9 mmol/L (21.0-32.0); Chloride 104 mmol/L (98-108); Cholesterol 164 mg/dL (<=200); Globulin 2.7 g/dL (2.2-4.2); Glucose 99 mg/dL (70-99); Low Density Lipoprotein Calc. 71 mg/dL; Potassium 4.3 mmol/L (3.3-5.1); Triglycerides 102 mg/dL; Very Low Density Lipoprotein 20 mg/dL (5-40); Vitamin B12 1351 pg/mL (180-914); Vitamin D,25 Hydroxy 72.8 ng/mL (30-100); cholesterol:hdl ratio screen 2.27
== END | disposition home or self-care (01) ==
LOC: MFPLAB 10:38
PROVIDERS: PCP Family Medicine; Visit Provider Family Medicine
DX: E78.00 Pure hypercholesterolemia, unspecified (principal); N18.30 Chronic kidney disease, stage 3 unspecified
CPT/HCPCS: 36415; 80053; 80061; 82306; 82570; 82607; 84156; 85025